=== PATIENT | female | born 1995 | race Caucasian/White ===

== ENCOUNTER 2021-09-21 13:49 | Emergency (ER) | payer OTHER, SELFPAY ==
--- NOTE | ~2021-09-21 | US_ITS ---
EXAMINATION: US OB <=14 wk fetus w TV INDICATION: , bleeding, pain, LMP unknown TECHNIQUE: Sonography of the pelvis was performed by transabdominal and transvaginal techniques. COMPARISON: 07/11/2021. RESULT: Uterus: - Orientation: 8.8 x 4.5 x 7.2 - Size: cm - Myometrium: homogeneous echogenicity. Endometrial stripe measures 14 mm in thickness. Gestation: - Intrauterine gestational sac: Not not conclusively seen, however there is an anechoic, 3 x 2 x 2 mm focus eccentrically located within the anterior endometrium, with features more consistent wi th an intradecidual sac sign rather than a pseudogestational sac. Right ovary: - Size : 2.6 x 1.5 x 2.5 cm - Normal sonographic appearance with physiologic follicles. Ill-defined, somewhat heterogeneous , 2.1 x 2.4 x 2.7 cm masslike area in the right adnexa with vascular flow. Left ovary: - Size: 2.5 x 1.2 x 2.1 cm - Normal sonographic appearance with physiologic follicles. Pelvis free fluid: None. IMPRESSION: Equivocal examination with findings that may represent very early intrauterine gestation with artifactual right adnexal mass like lesion, versus right sided ectopic (later is consi dered less likely). Recommend gynecologic consultation and continued close clinical, laboratory, and sonographic follow-up. Reviewed, dictated and finalized at location [facility]. IMPRESSION: Equivocal examination with findings that may represent very early i ntrauterine gestation with artifactual right adnexal mass like lesion, versus r ight sided ectopic (later is considered less likely). Recommend gynec ologic consultation and continued close clinical, laboratory, and sonographic f ollow-up.
[2021-09-21 14:04] VITALS: BP 123/71; PULSE 90; RESP 16; TEMP 36.8; O2SAT 100
[2021-09-21 14:24] LABS: Basophils Percent Auto 0.6 % (0.2-1.2); Eosinophils Absolute Auto 0.3 K/mm3 (0-0.3); Eosinophils Percent Auto 4.3 % (0-4.4); Hematocrit 39.4 % (37.0-47.0); Hemoglobin 12.5 g/dL (12.0-15.0); Immature Granulocyte Absolute 0.01 K/mm3 (0.00-0.031); Immature Granulocyte Percent A 0.2 % (0-0.5); Lymphocytes Absolute Auto 1.77 K/mm3 (0.9-3.2); Lymphocytes Percent Auto 27.3 % (18.3-44.2); Mean Corpuscular HGB Conc 31.7 g/dl (32-36); Mean Corpuscular Hemoglobin 26.7 pg (26-34); Mean Corpuscular Volume 84.2 fl (80-100); Mean Platelet Volume 10.3 fl (7.4-10.4); Monocytes Absolute Auto 0.4 K/mm3 (0.1-0.6); Monocytes Percent Auto 6.3 % (2.6-8.5); Neutrophils Percent Auto 61.3 % (45.5-73.1); Platelet Count Result 311 k/mm3 (150-375); Red Blood Count 4.68 M/mm3 (4.2-5.4); Red Cell Distribution Width 13.2 % (11.5-14.5); White Blood Count 6.5 K/mm3 (4.5-10.0)
--- NOTE | 2021-09-21 19:35 | ED.PREGNANCY ---
HPI - General Chief complaint: Vaginal Bleeding Stated complaint: bleeding Time Seen by Provider: 09/21/21 19:29 Source: patient Mode of arrival: ambulatory Limitations: no limitations History of Present Illness HPI Narrative: This is a 26 year old that presents to the ER for vaginal bleeding. Reports history of irregular menstrual cycles, but her LMP was sometime in the beginning of July. Reports she had a positive test over the weekend. She had some light spotting today and pelvic cramping which prompted her to be seen. Her OB is Dr. Ackerman. Denies fever or vomiting. Related Data Home Medications Medication Instructions Recorded Confirmed Anti-Inflammatory 01/22/19 08/04/21 Muscle Relaxant PO 01/22/19 08/04/21 Steroid 01/22/19 08/04/21 albuterol sulfate 2.5 mg/3 mL 2.5 mg inhalation BID 01/22/19 08/04/21 (0.083 %) solution for nebulization albuterol sulfate 90 mcg/actuation 1 puff inhalation QID PRN 01/22/19 08/04/21 aerosol inhaler (ProAir HFA) Shortness Of Breath gabapentin 300 mg capsule 300 mg PO DAILY 07/04/21 08/04/21 lithium carbonate 300 mg 300 mg PO DAILY 07/04/21 08/04/21 tablet,extended release montelukast 10 mg tablet 10 mg PO DAILY 07/04/21 08/04/21 sertraline 50 mg tablet 50 mg PO DAILY 07/04/21 08/04/21 Allergies Allergy/AdvReac Type Severity Reaction Status Date / Time clavulanic acid Allergy Severe BOWEL Verified 09/21/21 19:26 ISSUES strawberry Allergy Intermediate SWELLING/VO Verified 09/21/21 19:26 MITING ammonium alum Allergy Mild LIP Verified 09/21/21 19:26 SWELLING benzocaine Allergy Mild SWELLING Verified 09/21/21 19:26 camphor Allergy Mild LIP Verified 09/21/21 19:26 SWELLING menthol Allergy Mild LIP Verified 09/21/21 19:26 SWELLING petrolatum,white Allergy Mild SWELLING Verified 09/21/21 19:26 phenol Allergy Mild LIP Verified 09/21/21 19:26 SWELLING phenol liquid Allergy Mild SWELLING Verified 09/21/21 19:26 pramoxine Allergy Mild SWELLING Verified 09/21/21 19:26 salicylic acid Allergy Mild LIP Verified 09/21/21 19:26 SWELLING amoxicillin [From Augmentin] Allergy Swelling Verified 09/21/21 19:26 Wasp Allergy Severe SWELLING Uncoded 09/21/21 19:26 PAPER TAPE Allergy Mild RASH Uncoded 09/21/21 19:26 Review of Systems Review of Systems: CONSTITUTIONAL: Denies fever GASTROINTESTINAL: Reports abdominal pain All systems reviewed & are unremarkable except as noted in HPI and below PMFSH Past Medical History Medical History (Updated 09/21/21 @ 21:51 by Darcie Mata PA-C) Anemia Anxiety Arthritis Asthma Depression Migraines Miscarriage (05/17/17) suction d&c Seizures (~04/26/21) Sinus arrhythmia Suppression of menstruation Surgical History Surgical History History of adenoidectomy History of appendectomy History of (05/02/18) primary c/s breech presentation, bicornuate uterus History of laparoscopy (02/01/17) lscope adhesiolysis, ablation of endometriosis History of left knee surgery (06/15/15) History of placement of ear tubes both ear x7 Family History Family History Mother Cerebrovascular accident Acute myocardial infarction Renal failure syndrome Heart disease Father Chronic obstructive lung disease Grandparent Diabetes mellitus maternal grandfather Hypertension maternal grandmother Other Breast cancer paternal aunt Social History Social History (Updated 08/04/21 @ 13:28 by LEOLA Doyle) Smoking status: Never smoker Alcohol intake: never Substance use: never Substance use type: does not use Additional living arrangements comments: single 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
[2021-09-21] MEDS: RHO(D) IMMUNE GLOBULIN 300 MCG/2 ML SYRINGE IM (20:29)
== END 2021-09-21 21:57 | disposition home or self-care (01) ==
PROVIDERS: Emergency Medicine; Emergency Provider Emergency Medicine; PCP Obstetrics & Gynecology
DX: O20.0 Threatened abortion (principal); Z3A.00 Weeks of gestation of pregnancy not specified
CPT/HCPCS: 36415; 76801; 76817; 84702; 85025; 85461; 90384; 96372; 99284; J2790

== ENCOUNTER 2021-09-24 07:36 | Outpatient (CLI) | payer OTHER, SELFPAY ==
[2021-09-24 08:33] LABS: Hematocrit 38.5 % (37.0-47.0); Hemoglobin 12.6 g/dL (12.0-15.0); Mean Corpuscular HGB Conc 32.7 g/dl (32-36); Mean Corpuscular Hemoglobin 26.8 pg (26-34); Mean Corpuscular Volume 81.7 fl (80-100); Mean Platelet Volume 10.6 fl (7.4-10.4); Platelet Count Result 327 k/mm3 (150-375); Red Blood Count 4.71 M/mm3 (4.2-5.4); Red Cell Distribution Width 12.9 % (11.5-14.5); White Blood Count 6.8 K/mm3 (4.5-10.0)
[2021-09-24 09:25] LABS: HIV 1/2 Ab P24 Ag Result Negative (Negative)
[2021-09-24 09:41] LABS: Rubella IgG Antibody 20.6 IU/ML
[2021-09-24 09:45] LABS: Hepatitis B Surface Antigen Negative (Negative)
[2021-09-27 07:10] LABS: Rapid Plasma Reagin Non-Reactive (NonReactive)
[2021-09-27 11:05] LABS: CMV IgG Antibody <0.60 U/mL (<0.60)
[2021-09-29 21:37] LABS: Varicella IgG Antibody <135.00 Index (>=165.00)
== END 2021-09-24 07:37 | disposition home or self-care (01) ==
LOC: ANHLAB 07:39
PROVIDERS: PCP Obstetrics & Gynecology; Visit Provider Obstetrics & Gynecology
DX: N94.89 Other specified conditions associated with female genital organs and menstrual cycle (principal)
CPT/HCPCS: 36415; 84702; 85027; 85461; 86592; 86644; 86703; 86747; 86762; 86787; 86880; 86902; 87086; 87340; G0432

== ENCOUNTER 2021-10-09 11:03 | Emergency (ER) | payer OTHER, SELFPAY ==
--- NOTE | ~2021-10-09 | US_ITS ---
EXAMINATION: US OB <= 14 weeks fetus INDICATION: bleeding, TECHNIQUE: Sonography of the pelvis was performed by transabdominal and transvaginal techniques. COMPARISON: None. RESULT: Uterus: - Orientation: Anteverted - Size: 8.8 x 7.9 x 5.4 cm - Myometrium: homogeneous echogenicity . Gestation: - Intrauterine gestational sac: Single present - Yolk sac: Present. - Embryo: Single present - [place] rump length: 0.8 cm, corresponding gestational age 6 weeks, 5 days -Gestational heart rate: 155 bpm -Subgestational hematoma: Present, measuring 0.9 x 1.5 x 2.0 cm. Right ovary: -Not visualized Left ovary: - Size: 2.1 x 1.5 x 1.8 cm - Normal sonographic appearance with physiologic follicles. Pelvis free fluid: Small free fluid is likely physiologic. IMPRESSION: Single, live intrauterine gestation. 2 cm subgestational hematoma. Estimated Gestational Age: 6 weeks, 5 days by crown rump length. SHILPI by ultrasound 05/30/2022. Reviewed, dictated and finalized at location [facility]. IMPRESSION: Single, live intrauterine gestation. 2 cm subgestational hematoma. Estimated Gestational Age: 6 weeks, 5 days by crown rump length. SHILPI by ultras ound 05/30/2022.
[2021-10-09 11:12] VITALS: BP 112/70; PULSE 93; RESP 18; TEMP 36.9; O2SAT 98
[2021-10-09 11:49] LABS: Basophils Percent Auto 0.6 % (0.2-1.2); Eosinophils Absolute Auto 0.3 K/mm3 (0-0.3); Eosinophils Percent Auto 4.1 % (0-4.4); Hematocrit 40.4 % (37.0-47.0); Hemoglobin 12.6 g/dL (12.0-15.0); Immature Granulocyte Absolute 0.01 K/mm3 (0.00-0.031); Immature Granulocyte Percent A 0.2 % (0-0.5); Lymphocytes Absolute Auto 1.84 K/mm3 (0.9-3.2); Lymphocytes Percent Auto 29.1 % (18.3-44.2); Mean Corpuscular HGB Conc 31.2 g/dl (32-36); Mean Corpuscular Hemoglobin 26.4 pg (26-34); Mean Corpuscular Volume 84.7 fl (80-100); Mean Platelet Volume 10.8 fl (7.4-10.4); Monocytes Absolute Auto 0.4 K/mm3 (0.1-0.6); Neutrophils Absolute Auto 3.8 K/mm3 (1.3-6.7); Platelet Count Result 282 k/mm3 (150-375); Red Blood Count 4.77 M/mm3 (4.2-5.4); Red Cell Distribution Width 13.4 % (11.5-14.5); White Blood Count 6.3 K/mm3 (4.5-10.0)
--- NOTE | 2021-10-09 14:13 | ED.PREGNANCY ---
HPI - General Chief complaint: Vaginal Bleeding <Darcie Mata PA-C - Last Filed: 10/09/21 16:00> Stated complaint: VAGINAL BLEEDING, 8 WEEKS <Darcie Mata PA-C - Last Filed: 10/09/21 16:00> Time Seen by Provider: 10/09/21 13:30 <Darcie Mata PA-C - Last Filed: 10/09/21 16:00> Source: patient <BRADLEY Hewitt Last Filed: 10/09/21 16:00> Mode of arrival: ambulatory <BRADLEY Hewitt Last Filed: 10/09/21 16:00> Limitations: no limitations <BRADLEY Hewitt Last Filed: 10/09/21 16:00> History of Present Illness HPI Narrative: This is a 26 year old , about 8 weeks , that presents to the ER for vaginal bleeding today. Associated with some mild pelvic cramping. Her OB is Dr. Ackerman. Denies fever or vomiting. <Darcie Mata PA-C - Last Filed: 10/09/21 16:00> Related Data Home medications: Home Medications Medication Instructions Recorded Confirmed Anti-Inflammatory 01/22/19 08/04/21 Muscle Relaxant PO 01/22/19 08/04/21 Steroid 01/22/19 08/04/21 albuterol sulfate 2.5 mg/3 mL 2.5 mg inhalation BID 01/22/19 08/04/21 (0.083 %) solution for nebulization albuterol sulfate 90 mcg/actuation 1 puff inhalation QID PRN 01/22/19 08/04/21 aerosol inhaler (ProAir HFA) Shortness Of Breath gabapentin 300 mg capsule 300 mg PO DAILY 07/04/21 08/04/21 lithium carbonate 300 mg 300 mg PO DAILY 07/04/21 08/04/21 tablet,extended release montelukast 10 mg tablet 10 mg PO DAILY 07/04/21 08/04/21 sertraline 50 mg tablet 50 mg PO DAILY 07/04/21 08/04/21 <BRADLEY Hewitt Last Filed: 10/09/21 16:00> Allergies/Adverse reactions: Allergies Allergy/AdvReac Type Severity Reaction Status Date / Time clavulanic acid Allergy Severe BOWEL Verified 09/21/21 19:26 ISSUES strawberry Allergy Intermediate SWELLING/VO Verified 09/21/21 19:26 MITING ammonium alum Allergy Mild LIP Verified 09/21/21 19:26 SWELLING benzocaine Allergy Mild SWELLING Verified 09/21/21 19:26 camphor Allergy Mild LIP Verified 09/21/21 19:26 SWELLING menthol Allergy Mild LIP Verified 09/21/21 19:26 SWELLING petrolatum,white Allergy Mild SWELLING Verified 09/21/21 19:26 phenol Allergy Mild LIP Verified 09/21/21 19:26 SWELLING phenol liquid Allergy Mild SWELLING Verified 09/21/21 19:26 pramoxine Allergy Mild SWELLING Verified 09/21/21 19:26 salicylic acid Allergy Mild LIP Verified 09/21/21 19:26 SWELLING amoxicillin [From Augmentin] Allergy Swelling Verified 09/21/21 19:26 Wasp Allergy Severe SWELLING Uncoded 09/21/21 19:26 PAPER TAPE Allergy Mild RASH Uncoded 09/21/21 19:26 <Darcie Mata PA-C - Last Filed: 10/09/21 16:00> Review of Systems Review of Systems: CONSTITUTIONAL: Denies fever GASTROINTESTINAL: Denies abdominal pain, nausea, vomiting GENITOURINARY: Denies dysuria <Darcie Mata PA-C - Last Filed: 10/09/21 16:00> All systems reviewed & are unremarkable except as noted in HPI and below <Darcie Mata PA-C - Last Filed: 10/09/21 16:00> [facility] Past Medical History Medical History: Medical History (Updated 10/09/21 @ 15:59 by Darcie Mata PA-C) Anemia Anxiety Arthritis Asthma Depression Migraines Miscarriage (05/17/17) suction d&c Seizures (~04/26/21) Sinus arrhythmia Suppression of menstruation <Darcie Mata PA-C - Last Filed: 10/09/21 16:00> Surgical History Surgical History: Surgical History History of adenoidectomy History of appendectomy History of (05/02/18) primary c/s breech presentation, bicornuate uterus History of laparoscopy (02/01/17) lscope adhesiolysis, ablation of endometriosis History of left knee surgery (06/15/15) History of placement of ear tubes both ear x7 <Darcie Mata PA-C - Last Filed: 10/09/21 16:00> Family History Family History: Family History (Review
[2021-10-09 14:28] VITALS: BP 105/58; PULSE 74
[2021-10-09 14:31] VITALS: BP 104/62; PULSE 82
[2021-10-09 14:32] VITALS: BP 100/77; PULSE 94
== END 2021-10-09 16:37 | disposition home or self-care (01) ==
PROVIDERS: Emergency Provider Emergency Medicine; PCP Internal Medicine
DX: O46.8X1 Other antepartum hemorrhage, first trimester (principal); J45.909 Unspecified asthma, uncomplicated; M19.90 Unspecified osteoarthritis, unspecified site; F41.9 Anxiety disorder, unspecified; F32.A Depression, unspecified; Z86.2 Personal history of diseases of the blood and blood-forming organs and certain disorders involving the immune mechanism; Z3A.01 Less than 8 weeks gestation of pregnancy
CPT/HCPCS: 36415; 76801; 84702; 85025; 99284

== ENCOUNTER 2021-11-10 13:48 | Emergency (ER) | payer OTHER, SELFPAY ==
--- NOTE | ~2021-11-10 | US_ITS ---
EXAMINATION: US OB <=14 wk fetus w TV DATE: 11/10/2021 17:14 INDICATION: Vaginal bleeding. TECHNIQUE: Real-time transabdominal and transvaginal pelvic ultrasound was performed. COMPARISON: Ultrasound 10/21/2021, 10/09/2021, 09/21/2021 FINDINGS: TRANSABDOMINAL ULTRASOUND: The uterus measures 11.6 x 7.5 x 11.3 cm. TRANSVAGINAL ULTRASOUND: There is an intrauterine gestational sac. The crown rump length measur es 5.6 cm, which correlates with an estimated gestational age of 12 weeks and 1 day(s) (+/-) 1 week(s ) and 1 day(s). heart motion is identified measuring 157 beats per minute (bpm) by M-mode Doppl er. The cervical length is 3.3 cm. The ovaries are not visualized. There is no free fluid in the pelv is. IMPRESSION: 1. Single living intrauterine gestation with estimated date of delivery of 05/30/2022 based on the ult rasound from 10/09/2021. Reviewed, dictated and finalized at location A. IMPRESSION: 1. Single living intrauterine gestation with estimated date of delivery of 05/30 based on the ultrasound from 10/09/2021.
[2021-11-10 14:14] VITALS: BP 105/64; PULSE 93; RESP 18; TEMP 36.8; O2SAT 100
[2021-11-10 14:57] LABS: Basophils Percent Auto 0.3 % (0.2-1.2); Eosinophils Absolute Auto 0.2 K/mm3 (0-0.3); Eosinophils Percent Auto 2.1 % (0-4.4); Hematocrit 37.8 % (37.0-47.0); Hemoglobin 12.4 g/dL (12.0-15.0); Immature Granulocyte Absolute 0.02 K/mm3 (0.00-0.031); Immature Granulocyte Percent A 0.3 % (0-0.5); Lymphocytes Percent Auto 19.5 % (18.3-44.2); Mean Corpuscular HGB Conc 32.8 g/dl (32-36); Mean Corpuscular Hemoglobin 27.2 pg (26-34); Mean Corpuscular Volume 82.9 fl (80-100); Mean Platelet Volume 10.2 fl (7.4-10.4); Monocytes Absolute Auto 0.4 K/mm3 (0.1-0.6); Monocytes Percent Auto 5.1 % (2.6-8.5); Neutrophils Absolute Auto 5.6 K/mm3 (1.3-6.7); Neutrophils Percent Auto 72.7 % (45.5-73.1); Platelet Count Result 261 k/mm3 (150-375); Red Blood Count 4.56 M/mm3 (4.2-5.4); Red Cell Distribution Width 13.5 % (11.5-14.5); White Blood Count 7.7 K/mm3 (4.5-10.0)
[2021-11-10 15:25] LABS: Appearance Urine Slightly Cloudy (Clear); Bilirubin Urine 1+ (Negative); Blood Urine 3+ (Negative); Color Urine Yellow (Yellow); Glucose Urine UA Negative (Negative); Ketones Urine 3+ mg/dL (Negative); Leukocyte Esterase Ur Negative LEU/UL (Negative); Nitrate Urine Negative (Negative); Protein Urine 1+ mg/dL (Negative); Specific Grav Ur >= 1.030 (1.001-1.035); Urobilinogen Urine 0.2 mg/dL (<2.0); pH Urine 5.5 (5.0-9.0)
[2021-11-10 15:32] LABS: Bacteria Urine Trace /hpf; Mucus Urine Heavy /lpf; Squamous Epithelial Cell Urine Many /hpf (Few); WBC Urine 0-3 /hpf
[2021-11-10 15:33] LABS: Add Urine Microscopic? YES
[2021-11-10] MEDS: LACTATED RINGERS 1,000 ML 999 ML IV CONT (17:24)
--- NOTE | 2021-11-10 18:26 | ED.PREGNANCY ---
HPI - General Chief complaint: Vaginal Bleeding Stated complaint: 12 wks preg, bleeding, n/v Time Seen by Provider: 11/10/21 16:11 Source: patient Mode of arrival: ambulatory Limitations: no limitations History of Present Illness HPI Narrative: 26-year-old 4 para 1 about 12 weeks of gestation here with complaints of 4 days history of nausea and vomiting, unable to keep fluids down this morning she states that she had mild vaginal bleeding. Presently she has lower abdominal cramping and no active bleeding. MD Complaint: abdominal pain and vaginal bleeding Onset (ago): day(s) (1) Severity: mild Quality: Cramping Relieving factors: none Exacerbating factors: none Associated symptoms: denies other symptoms Related Data Home Medications Medication Instructions Recorded Confirmed Anti-Inflammatory 01/22/19 08/04/21 Muscle Relaxant PO 01/22/19 08/04/21 Steroid 01/22/19 08/04/21 albuterol sulfate 2.5 mg/3 mL 2.5 mg inhalation BID 01/22/19 08/04/21 (0.083 %) solution for nebulization albuterol sulfate 90 mcg/actuation 1 puff inhalation QID PRN 01/22/19 08/04/21 aerosol inhaler (ProAir HFA) Shortness Of Breath gabapentin 300 mg capsule 300 mg PO DAILY 07/04/21 08/04/21 lithium carbonate 300 mg 300 mg PO DAILY 07/04/21 08/04/21 tablet,extended release montelukast 10 mg tablet 10 mg PO DAILY 07/04/21 10/18/21 sertraline 50 mg tablet 50 mg PO DAILY 07/04/21 10/18/21 Allergies Allergy/AdvReac Type Severity Reaction Status Date / Time clavulanic acid Allergy Severe BOWEL Verified 11/10/21 16:06 ISSUES strawberry Allergy Intermediate SWELLING/VO Verified 11/10/21 16:06 MITING ammonium alum Allergy Mild LIP Verified 11/10/21 16:06 SWELLING benzocaine Allergy Mild SWELLING Verified 11/10/21 16:06 camphor Allergy Mild LIP Verified 11/10/21 16:06 SWELLING menthol Allergy Mild LIP Verified 11/10/21 16:06 SWELLING petrolatum,white Allergy Mild SWELLING Verified 11/10/21 16:06 phenol Allergy Mild LIP Verified 11/10/21 16:06 SWELLING phenol liquid Allergy Mild SWELLING Verified 11/10/21 16:06 pramoxine Allergy Mild SWELLING Verified 11/10/21 16:06 salicylic acid Allergy Mild LIP Verified 11/10/21 16:06 SWELLING amoxicillin [From Augmentin] Allergy Swelling Verified 11/10/21 16:06 Wasp Allergy Severe SWELLING Uncoded 10/18/21 08:42 PAPER TAPE Allergy Mild RASH Uncoded 10/18/21 08:42 Review of Systems Review of Systems: All systems reviewed & are unremarkable except as noted in HPI and below Constitutional: Constitutional: Reports no additional constitutional complaints Eyes: Eyes: Reports no additional eye complaints ENT: Reports system reviewed and no additional complaints, except as documented Cardiovascular: Cardiovascular: Reports no additional cardiovascular complaints Gastrointestinal: Gastrointestinal: Reports as per HPI Genitourinary: Genitourinary: Reports no additional female genitourinary complaints Musculoskeletal: Musculoskeletal: Reports no additional musculoskeletal complaints Neurologic: Reports system reviewed and no additional complaints, except as documented PMFSH Past Medical History Medical History Anemia Anxiety Arthritis Asthma Depression Migraines Miscarriage (05/17/17) suction d&c Seizures (~04/26/21) Sinus arrhythmia Suppression of menstruation Surgical History Surgical History History of adenoidectomy History of appendectomy History of (05/02/18) primary c/s breech presentation, bicornuate uterus History of laparoscopy (02/01/17) lscope adhesiolysis, ablation of endometriosis History of left knee surgery (06/15/15) History of placement of ear tubes both ear x7 Family History Family History Mother Cerebrovascular accident Acute myocardial infa
[2021-11-10 18:45] VITALS: BP 110/71; PULSE 67; RESP 17; O2SAT 99
[2021-11-10 19:00] VITALS: BP 110/58; PULSE 65; RESP 16; O2SAT 100
== END 2021-11-10 19:01 | disposition home or self-care (01) ==
PROVIDERS: Emergency Medicine; Emergency Provider Family Medicine; PCP Obstetrics & Gynecology
DX: O21.0 Mild hyperemesis gravidarum (principal); O20.0 Threatened abortion; Z3A.12 12 weeks gestation of pregnancy; O99.511 Diseases of the respiratory system complicating pregnancy, first trimester; J45.909 Unspecified asthma, uncomplicated; O99.341 Other mental disorders complicating pregnancy, first trimester; F41.9 Anxiety disorder, unspecified; F32.A Depression, unspecified; Z86.2 Personal history of diseases of the blood and blood-forming organs and certain disorders involving the immune mechanism
CPT/HCPCS: 36415; 76801; 76817; 81001; 81025; 84702; 85025; 85461; 86880; 86902; 96360; 99284; J7120

== ENCOUNTER 2021-12-29 15:32 | Observation (INO) | payer OTHER, SELFPAY ==
[2021-12-29 15:42] VITALS: BP 106/63; PULSE 111
[2021-12-29 15:48] LABS: Glucose Point of Care 111 mg/dl (65-105)
--- NOTE | 2021-12-29 16:00 | OBADM ---
This patient, Melina Tavarez, admitted to the OB room OB Post [facility] for observation. Patient/family oriented to hospital policies and general routines including ID bracelet, bed and alarms, visiting hours, pain management, procedures, bathroom and other care routines, personal items, smoking policy, room service/diet, and visiting hours. Patient/Family are encouraged to report perceived risks to care and to ask questions if they do not understand what they are told or what they should do.
--- NOTE | 2021-12-29 16:04 | PC.NURSE ---
Dr. Cee notified of patients vital signs and blood sugar. Okay to be discharged.
--- NOTE | 2021-12-29 16:12 | PC.NURSE ---
Patient's FHT in the 140s using the doppler.
--- NOTE | 2021-12-30 14:02 | PM.OBTRLD ---
OB - Triage/Final Diagnosis Visit Information Comments/Additional reasons for admission: I have assessed the risk for this patient, Melina Tavarez, and determined that she would benefit from observation care. Evaluation Laboratory results: Laboratory Tests 12/29/21 15:45 POC Capillary Glucose 111 H Vital signs: Vital Signs - 24 hr 12/29/21 15:42 Pulse Rate 111 H Blood Pressure 106/63 Final Diagnosis (1) Abnormal laboratory test: Code(s): R89.9 - Unspecified abnormal finding in specimens from other organs, systems and tissues Status: Acute
== END 2021-12-29 16:11 | disposition home or self-care (01) ==
PROVIDERS: Admitting Provider Obstetrics & Gynecology; PCP Internal Medicine; Visit Provider Obstetrics & Gynecology
DX: O26.892 Other specified pregnancy related conditions, second trimester (principal); R89.9 Unspecified abnormal finding in specimens from other organs, systems and tissues; O24.419 Gestational diabetes mellitus in pregnancy, unspecified control; Z3A.19 19 weeks gestation of pregnancy
CPT/HCPCS: 82948; G0378; G0379

== ENCOUNTER 2022-01-16 17:27 | Emergency (ER) | payer OTHER, SELFPAY ==
[2022-01-16] VITALS (9 sets, daily range): BP systolic 97–139; BP diastolic 56–76; PULSE 114–138; RESP 17–24; TEMP 36.8; O2SAT 98–100
--- NOTE | ~2022-01-16 | XR_ITS ---
XR chest 1V portable DATE: 01/16/2022 19:55 INDICATION: Shortness of breath and cough since 3 days ago TECHNIQUE: Portable upright AP chest on 01/12/2022 at 1950 hours COMPARISON: None FINDINGS: Normal heart size. No hilar or mediastinal enlargement. The lungs are clear of infiltrate o r consolidation. Included skeletal structures are unremarkable other than minimal thoracic scoliosis. IMPRESSION: No active cardiopulmonary disease Reviewed, dictated and finalized at location A.
--- NOTE | 2022-01-16 19:20 | PC.NURSE ---
Assumed care of pt at this time. Pt alert and upright on stretcher, updated on POC.
[2022-01-16] MEDS: ALBUTEROL SULFATE NEB 2.5 MG/3 ML INH 5 MG INHALATION (19:54)
[2022-01-16] MEDS: IPRATROPIUM BR 0.02% INH SOLN 0.5 MG/2.5 ML VIAL INHALATION (19:54)
[2022-01-16] MEDS: ACETAMINOPHEN 500 MG TABLET 1000 MG PO (19:57)
[2022-01-16] MEDS: methylPREDNISolone SOD SUCC 125 MG VIAL IV PUSH (19:58)
[2022-01-16] MEDS: MAGNESIUM SULF 2 GM/WATER 50ML 2 GM/50 ML BAG IVPB (20:03)
[2022-01-16] MEDS: SODIUM CHLORIDE 0.9% IV 1,000 ML 999 ML IV CONT (20:04)
[2022-01-16 20:40] LABS: Influenza A QL RT-PCR Positive (Negative); Influenza B QL RT-PCR Negative (Negative); SARS-CoV-2 RNA PCR Negative
--- NOTE | 2022-01-16 21:00 | ED.GENADULT ---
HPI - General Adult General Chief complaint: Asthma Stated complaint: asthma acting up, 22 weeks Time Seen by Provider: 01/16/22 19:15 History of Present Illness HPI narrative: This is a 26-year-old female who is 22 weeks . patient states the last 2 days she has been having a dry cough, several episodes of nausea and vomiting, and an episode of diarrhea. She also says that she feels like she is having some chest tightness which she attributes to her asthma. The patient has been taking her inhalers with no benefit. The patient denies sick contacts at home. She took a home COVID test which was negative. Related Data Home Medications Medication Instructions Recorded Confirmed Muscle Relaxant PO 01/22/19 01/10/22 albuterol sulfate 2.5 mg/3 mL 2.5 mg inhalation BID 01/22/19 01/10/22 (0.083 %) solution for nebulization albuterol sulfate 90 mcg/actuation 1 puff inhalation QID PRN 01/22/19 01/10/22 aerosol inhaler (ProAir HFA) Shortness Of Breath gabapentin 300 mg capsule 300 mg PO DAILY 07/04/21 01/10/22 lithium carbonate 300 mg 300 mg PO DAILY 07/04/21 01/10/22 tablet,extended release montelukast 10 mg tablet 10 mg PO DAILY 07/04/21 01/10/22 Allergies Allergy/AdvReac Type Severity Reaction Status Date / Time clavulanic acid Allergy Severe BOWEL Verified 01/16/22 19:07 ISSUES strawberry Allergy Intermediate SWELLING/VO Verified 01/16/22 19:07 MITING ammonium alum Allergy Mild LIP Verified 01/16/22 19:07 SWELLING benzocaine Allergy Mild SWELLING Verified 01/16/22 19:07 camphor Allergy Mild LIP Verified 01/16/22 19:07 SWELLING menthol Allergy Mild LIP Verified 01/16/22 19:07 SWELLING petrolatum,white Allergy Mild SWELLING Verified 01/16/22 19:07 phenol Allergy Mild LIP Verified 01/16/22 19:07 SWELLING phenol liquid Allergy Mild SWELLING Verified 01/16/22 19:07 pramoxine Allergy Mild SWELLING Verified 01/16/22 19:07 salicylic acid Allergy Mild LIP Verified 01/16/22 19:07 SWELLING amoxicillin [From Augmentin] Allergy Swelling Verified 01/16/22 19:07 Wasp Allergy Severe SWELLING Uncoded 01/16/22 19:07 PAPER TAPE Allergy Mild RASH Uncoded 01/16/22 19:07 Review of Systems Review of Systems: CONSTITUTIONAL: Denies night sweats. EYES: No eye pain ENT: Denies rhinorrhea CARDIOVASCULAR: Denies palpitations RESPIRATORY: Denies hemoptysis GASTROINTESTINAL: Denies hematemesis GENITOURINARY: Denies hematuria. SKIN: Denies rash MUSCULOSKELETAL: Denies myalgia. NEUROLOGIC: Denies weakness. PSYCHIATRIC: Denies delusions [facility] Past Medical History Medical History Anemia Anxiety Arthritis Asthma Depression Migraines Miscarriage (05/17/17) suction d&c Seizures (~04/26/21) Sinus arrhythmia Suppression of menstruation Surgical History Surgical History History of adenoidectomy History of appendectomy History of (05/02/18) primary c/s breech presentation, bicornuate uterus History of laparoscopy (02/01/17) lscope adhesiolysis, ablation of endometriosis History of left knee surgery (06/15/15) History of placement of ear tubes both ear x7 Family History Family History Mother Cerebrovascular accident Acute myocardial infarction Renal failure syndrome Heart disease Father Chronic obstructive lung disease Grandparent Diabetes mellitus maternal grandfather Hypertension maternal grandmother Other Breast cancer paternal aunt Social History Social History Smoking status: Never smoker Alcohol intake: never Substance use: never Substance use type: does not use Additional living arrangements comments: single 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
[2022-01-16] MEDS: OSELTAMIVIR PHOSPHATE 75 MG CAPSULE PO (21:18)
== END 2022-01-16 21:30 | disposition home or self-care (01) ==
PROVIDERS: Emergency Provider Emergency Medicine; PCP Internal Medicine
DX: O99.891 Other specified diseases and conditions complicating pregnancy (principal); J10.1 Influenza due to other identified influenza virus with other respiratory manifestations; J45.909 Unspecified asthma, uncomplicated; Z20.822 Contact with and (suspected) exposure to COVID-19; Z3A.22 22 weeks gestation of pregnancy
CPT/HCPCS: 71045; 87502; 94640; 96365; 96375; 99284; A9270; J2930; J3475; J7030; U0003; U0005

== ENCOUNTER 2022-02-12 14:48 | Outpatient (CLI) | payer OTHER, SELFPAY ==
[2022-02-12 15:30] VITALS: BP 105/58; PULSE 84
[2022-02-12 15:45] VITALS: BP 97/65; PULSE 84
[2022-02-12 16:00] VITALS: BP 105/58
== END 2022-02-12 16:20 | disposition home or self-care (01) ==
LOC: ANHOBOP 14:53 → ANHOBPP 14:53
PROVIDERS: PCP Internal Medicine; Visit Provider Obstetrics & Gynecology
DX: O42.90 Premature rupture of membranes, unspecified as to length of time between rupture and onset of labor, unspecified weeks of gestation (principal); Z3A.00 Weeks of gestation of pregnancy not specified
CPT/HCPCS: 59025; 84112; 99199

== ENCOUNTER 2022-02-15 19:00 | Observation (INO) | payer OTHER, SELFPAY ==
--- NOTE | ~2022-02-15 | XR_ITS ---
EXAM: XR hip RT min 2V DATE: 02/15/2022 20:07 HISTORY: FALL DOWN 6 STAIRS . COMPARISON: None available. FINDINGS: Normal mineralization. No fracture or dislocation. No lytic or blastic lesion. Joint space s are maintained. No erosion or periosteal change. Soft tissues within normal limits. IMPRESSION: No acute osseous finding in the right hip. Reviewed, dictated and finalized at location K. [employer]
--- NOTE | ~2022-02-15 | XR_ITS ---
EXAM: XR lumbar spine 2-3V DATE: 02/15/2022 20:07 HISTORY: FALL DOWN 6 STAIRS . COMPARISON: None available. FINDINGS: Gravid uterus. 5 nonrib-bearing lumbar-type vertebral bodies. Pedicles intact. Normal verte bral body alignment. Acute anterior angulation at the sacrococcygeal junction. Vertebral body heights preserved. Disc spaces maintained. Normal facets and posterior elements. No fracture or dislocation. IMPRESSION: Acute anterior angulation at the sacrococcygeal junction, presumably normal unless accomp anied by coccygeal pain/point tenderness or pain with mobilization. No acute fracture or traumatic ma lalignment detected in the lumbar spine Reviewed, dictated and finalized at location K. T LEADER IMPRESSION: Acute anterior angulation at the sacrococcygeal junction, presumabl y normal unless accompanied by coccygeal pain/point tenderness or pain with mob ilization. No acute fracture or traumatic malalignment detected in the lumbar s pine
[2022-02-15 19:10] VITALS: BP 103/63; PULSE 93; RESP 17; TEMP 36.7; O2SAT 99
--- NOTE | 2022-02-15 19:44 | ED.FALL ---
HPI - Fall General Chief Complaint: Fall Stated Complaint: 26 wks preg, fall, lumbar pain Time Seen by Provider: 02/15/22 19:39 Source: RN notes reviewed History of Present Illness HPI Narrative: Patient presents emergency department from home for fall. Patient states that just prior to arrival she fell down approximately 6 stairs when she slipped. She states that she felt and over and and since the fall has been noting pain in her right hip as well as in her back. She denies striking her head or loss of consciousness she denies any neck pain chest pain shortness of breath states she does have some mild abdominal cramping but no abdominal pain patient is currently [address] weeks [address] followed by Dr[address] Ackerman states that she is a high risk secondary to low amniotic fluid. She denies having any vaginal bleeding. She states that she is not taking thing for the pain Related Data Home Medications Medication Instructions Recorded Confirmed Muscle Relaxant PO 01/22/19 01/31/22 albuterol sulfate 2.5 mg/3 mL 2.5 mg inhalation BID 01/22/19 01/31/22 (0.083 %) solution for nebulization albuterol sulfate 90 mcg/actuation 1 puff inhalation QID PRN 01/22/19 01/31/22 aerosol inhaler (ProAir HFA) Shortness Of Breath gabapentin 300 mg capsule 300 mg PO DAILY 07/04/21 01/31/22 lithium carbonate 300 mg 300 mg PO DAILY 07/04/21 01/31/22 tablet,extended release montelukast 10 mg tablet 10 mg PO DAILY 07/04/21 01/31/22 Allergies Allergy/AdvReac Type Severity Reaction Status Date / Time clavulanic acid Allergy Severe BOWEL Verified 02/15/22 13:29 ISSUES strawberry Allergy Intermediate SWELLING/VO Verified 02/15/22 13:29 MITING ammonium alum Allergy Mild LIP Verified 02/15/22 13:29 SWELLING benzocaine Allergy Mild SWELLING Verified 02/15/22 13:29 camphor Allergy Mild LIP Verified 02/15/22 13:29 SWELLING menthol Allergy Mild LIP Verified 02/15/22 13:29 SWELLING petrolatum,white Allergy Mild SWELLING Verified 02/15/22 13:29 phenol Allergy Mild LIP Verified 02/15/22 13:29 SWELLING phenol liquid Allergy Mild SWELLING Verified 02/15/22 13:29 pramoxine Allergy Mild SWELLING Verified 02/15/22 13:29 salicylic acid Allergy Mild LIP Verified 02/15/22 13:29 SWELLING amoxicillin [From Augmentin] Allergy Swelling Verified 02/15/22 13:29 Wasp Allergy Severe SWELLING Uncoded 02/15/22 13:29 PAPER TAPE Allergy Mild RASH Uncoded 02/15/22 13:29 Review of Systems Review of Systems: Gen.: Denies fevers or chills Eyes: Denies eye pain or visual change ENT: Denies congestion Respiratory: Denies shortness of breath or cough CV: Denies chest pain or palpitations GI: Denies abdominal pain nausea, emesis or diarrhea reports Musculoskeletal: See HPI Neuro: Denies numbness, tingling, weakness or focal weakness Skin: Denies rash Except as documented, all other systems reviewed and negative PMFSH Past Medical History Medical History Anemia Anxiety Arthritis Asthma Depression Migraines Miscarriage (05/17/17) suction d&c Seizures (~04/26/21) Sinus arrhythmia Suppression of menstruation Vaginal discharge Surgical History Surgical History History of adenoidectomy History of appendectomy History of (05/02/18) primary c/s breech presentation, bicornuate uterus History of laparoscopy (02/01/17) lscope adhesiolysis, ablation of endometriosis History of left knee surgery (06/15/15) History of placement of ear tubes both ear x7 Family History Family History Mother Cerebrovascular accident Acute myocardial infarction Renal failure syndrome Heart disease Father Chronic obstructive lung disease Grandparent Diabetes mellitus maternal grandfather Hypertension maternal grandmother Other Breast cancer
[2022-02-15] MEDS: ACETAMINOPHEN 500 MG TABLET 1000 MG PO (20:07)
[2022-02-15 21:53] VITALS: BP 106/57; PULSE 67
[2022-02-15 22:00] VITALS: BP 103/54; PULSE 68
[2022-02-15] MEDS: LACTATED RINGERS 1,000 ML 999 ML IV CONT (22:02)
[2022-02-15 23:00] VITALS: BP 102/52; PULSE 67
--- NOTE | 2022-02-20 14:01 | PM.OBTRLD ---
OB - Triage/Final Diagnosis Visit Information Reason for evaluation: other ( status post fall / monitoring) Comments/Additional reasons for admission: I have assessed the risk for this patient, Melina Eric Tavarez, and determined that she would benefit from observation care. Evaluation Laboratory results: Laboratory Tests 02/15/22 20:14 KB Hemoglobin Negative
== END 2022-02-16 00:15 | disposition home or self-care (01) ==
LOC: ANHED 21:21 → ANHOBPP 21:43
PROVIDERS: Admitting Provider Obstetrics & Gynecology; Emergency Provider Emergency Medicine; PCP Obstetrics & Gynecology; Visit Provider Obstetrics & Gynecology
DX: O9A.212 Injury, poisoning and certain other consequences of external causes complicating pregnancy, second trimester (principal); S70.01XA Contusion of right hip, initial encounter; M54.50 Low back pain, unspecified; O99.342 Other mental disorders complicating pregnancy, second trimester; F41.9 Anxiety disorder, unspecified; F32.A Depression, unspecified; O99.352 Diseases of the nervous system complicating pregnancy, second trimester; R56.9 Unspecified convulsions; O99.512 Diseases of the respiratory system complicating pregnancy, second trimester; J45.909 Unspecified asthma, uncomplicated; O99.891 Other specified diseases and conditions complicating pregnancy; M19.90 Unspecified osteoarthritis, unspecified site; W10.9XXA Fall (on) (from) unspecified stairs and steps, initial encounter; Z3A.26 26 weeks gestation of pregnancy
CPT/HCPCS: 36415; 72100; 73502; 85460; 99285; A9270; G0378; G0379; J7120

== ENCOUNTER 2022-03-09 08:05 | Outpatient (RCR) | payer OTHER, SELFPAY ==
[2022-03-09 08:35] LABS: Hematocrit 33.9 % (37.0-47.0); Mean Corpuscular HGB Conc 32.4 g/dl (32-36); Mean Corpuscular Hemoglobin 27.6 pg (26-34); Mean Corpuscular Volume 85.2 fl (80-100); Mean Platelet Volume 10.3 fl (7.4-10.4); Platelet Count Result 251 k/mm3 (150-375); Red Blood Count 3.98 M/mm3 (4.2-5.4); Red Cell Distribution Width 13.4 % (11.5-14.5); White Blood Count 7.8 K/mm3 (4.5-10.0)
[2022-03-09 09:28] LABS: HIV 1/2 Ab P24 Ag Result Negative (Negative)
[2022-03-09 09:45] LABS: Glucose 1 Hour PP 50gm Dose 139 mg/dL
[2022-03-10] MEDS: RHO(D) IMMUNE GLOBULIN 300 MCG/2 ML SYRINGE IM (15:44)
== END 2022-06-07 23:59 | disposition home or self-care (01) ==
LOC: ANHLAB 08:05
PROVIDERS: PCP Obstetrics & Gynecology; Visit Provider Student in an Organized Health Care Education/Training Program
DX: Z11.4 Encounter for screening for human immunodeficiency virus [HIV] (principal); Z29.13 Encounter for prophylactic Rho(D) immune globulin; O36.0130 Maternal care for anti-D [Rh] antibodies, third trimester, not applicable or unspecified; Z3A.00 Weeks of gestation of pregnancy not specified
CPT/HCPCS: 36415; 82947; 85027; 85461; 86703; 86850; 86900; 86901; 90384; 96372; G0432; J2790

== ENCOUNTER 2022-03-20 07:17 | Emergency (ER) | payer OTHER, SELFPAY ==
[2022-03-20 07:25] VITALS: BP 110/66; PULSE 118; RESP 20; TEMP 36.5; O2SAT 98
[2022-03-20 07:36] VITALS: O2SAT 98
--- NOTE | 2022-03-20 07:44 | ED.URI ---
HPI - URI/Sore Throat General Chief Complaint: Upper Respiratory Infection Stated Complaint: cough, uri, asthma Time Seen by Provider: 03/20/22 07:36 History of Present Illness HPI Narrative: Pt presents with a cough and shortness of breath for 10 days. Pt is 31 weeks (no abdominal complaints or bleeding). Pt says the cough is persistent in spite of completing a course of Zithromax 3 days ago. Pt has nebulizer and inhaler at home which aren't helping much. Pt denies fever, has mild runny nose. Pt says had testing for flu and covid last week which were negative. Related Data Home Medications Medication Instructions Recorded Confirmed Muscle Relaxant PO 01/22/19 01/31/22 albuterol sulfate 2.5 mg/3 mL 2.5 mg inhalation BID 01/22/19 01/31/22 (0.083 %) solution for nebulization albuterol sulfate 90 mcg/actuation 1 puff inhalation QID PRN 01/22/19 01/31/22 aerosol inhaler (ProAir HFA) Shortness Of Breath gabapentin 300 mg capsule 300 mg PO DAILY 07/04/21 01/31/22 lithium carbonate 300 mg 300 mg PO DAILY 07/04/21 01/31/22 tablet,extended release montelukast 10 mg tablet 10 mg PO DAILY 07/04/21 01/31/22 Allergies Allergy/AdvReac Type Severity Reaction Status Date / Time clavulanic acid Allergy Severe BOWEL Verified 03/20/22 07:38 ISSUES strawberry Allergy Intermediate SWELLING/VO Verified 03/20/22 07:38 MITING ammonium alum Allergy Mild LIP Verified 03/20/22 07:38 SWELLING benzocaine Allergy Mild SWELLING Verified 03/20/22 07:38 camphor Allergy Mild LIP Verified 03/20/22 07:38 SWELLING menthol Allergy Mild LIP Verified 03/20/22 07:38 SWELLING petrolatum,white Allergy Mild SWELLING Verified 03/20/22 07:38 phenol Allergy Mild LIP Verified 03/20/22 07:38 SWELLING phenol liquid Allergy Mild SWELLING Verified 03/20/22 07:38 pramoxine Allergy Mild SWELLING Verified 03/20/22 07:38 salicylic acid Allergy Mild LIP Verified 03/20/22 07:38 SWELLING amoxicillin [From Augmentin] Allergy Swelling Verified 03/20/22 07:38 Wasp Allergy Severe SWELLING Uncoded 03/20/22 07:38 PAPER TAPE Allergy Mild RASH Uncoded 03/20/22 07:38 Review of Systems Constitutional: Constitutional: Denies fever(s) ENT: Reports nasal congestion Cardiovascular: Cardiovascular: Reports no additional cardiovascular complaints Respiratory: Respiratory: Reports cough and Reports dyspnea Gastrointestinal: Gastrointestinal: Reports no additional gastrointestinal complaints Neurologic: Reports system reviewed and no additional complaints, except as documented Psychiatric: Psychiatric: Reports no additional psychiatric complaints Hematologic/Lymphatic: Hematologic/Lymphatic: Reports no additional hematologic/lymphatic complaints Allergic/Immunologic: Allergic/Immunologic: Reports no additional allergic/immunologic complaints [facility] Past Medical History Medical History (Updated 03/20/22 @ 09:23 by Surekha Montemayor III, DO) Anemia Anxiety Arthritis Asthma Blood glucose abnormal Depression Migraines Miscarriage (05/17/17) suction d&c Seizures (~04/26/21) Sinus arrhythmia Suppression of menstruation Vaginal discharge Surgical History Surgical History History of adenoidectomy History of appendectomy History of (05/02/18) primary c/s breech presentation, bicornuate uterus History of laparoscopy (02/01/17) lscope adhesiolysis, ablation of endometriosis History of left knee surgery (06/15/15) History of placement of ear tubes both ear x7 Family History Family History Mother Cerebrovascular accident Acute myocardial infarction Renal failure syndrome Heart disease Father Chronic obstructive lung disease Grandparent Diabetes mellitus maternal grandfather Hypertension maternal grandmother Other Breast cancer paternal aunt Social History Social Hist
[2022-03-20] MEDS: methylPREDNISolone SOD SUCC 125 MG VIAL IM (08:16)
[2022-03-20 08:45] LABS: Influenza A QL RT-PCR Positive (Negative); Influenza B QL RT-PCR Negative (Negative); SARS-CoV-2 RNA PCR Negative
== END 2022-03-20 09:37 | disposition home or self-care (01) ==
PROVIDERS: Emergency Provider Emergency Medicine; PCP Obstetrics & Gynecology
DX: O99.513 Diseases of the respiratory system complicating pregnancy, third trimester (principal); J10.1 Influenza due to other identified influenza virus with other respiratory manifestations; J45.909 Unspecified asthma, uncomplicated; Z20.822 Contact with and (suspected) exposure to COVID-19; O99.343 Other mental disorders complicating pregnancy, third trimester; F41.9 Anxiety disorder, unspecified; F32.A Depression, unspecified; Z86.2 Personal history of diseases of the blood and blood-forming organs and certain disorders involving the immune mechanism; Z3A.31 31 weeks gestation of pregnancy
CPT/HCPCS: 87636; 96372; 99283; J2930

== ENCOUNTER 2022-04-07 18:47 | Observation (INO) | payer OTHER, SELFPAY ==
[2022-04-07] VITALS (20 sets, daily range): BP systolic 102–115; BP diastolic 60–80; PULSE 66–94; RESP 16–17; TEMP 37.2; O2SAT 92–100; BMI 25.6
--- NOTE | 2022-04-07 18:47 | OBADM ---
This patient, Melina Tavarez, admitted to the OB room OB Post 116 for observation. Patient/family oriented to hospital policies and general routines including ID bracelet, bed and alarms, visiting hours, pain management, procedures, bathroom and other care routines, personal items, smoking policy, room service/diet, and visiting hours. Patient/Family are encouraged to report perceived risks to care and to ask questions if they do not understand what they are told or what they should do.
[2022-04-07 19:20] LABS: Appearance Urine Slightly Cloudy (Clear); Bilirubin Urine Negative (Negative); Blood Urine Negative (Negative); Color Urine Yellow (Yellow); Glucose Urine UA Negative (Negative); Ketones Urine Negative (Negative); Leukocyte Esterase Ur 1+ LEU/UL (Negative); Nitrate Urine Negative (Negative); Protein Urine Trace mg/dL (Negative); Specific Grav Ur 1.025 (1.001-1.035); Urobilinogen Urine 0.2 mg/dL (<2.0); pH Urine 6.5 (5.0-9.0)
[2022-04-07 19:23] LABS: Bacteria Urine Trace /hpf; Mucus Urine Rare /lpf; Squamous Epithelial Cell Urine Moderate /hpf (Few)
[2022-04-07 19:31] LABS: Add Urine Microscopic? YES
--- NOTE | 2022-04-07 19:36 | PC.NURSE ---
Updated Dr. Ackerman on patient UA result. Patient complaint of nausea throughout the day. Patient reports active movement. Patient irregularly isaiah with uterine irritability. FHT reactive. VSS. Patient also reports 2minute seizure this morning prior to cramping and contractions, patient states she is not abnormal for her as she has epilepsy. Orders received.
--- NOTE | 2022-04-07 19:45 | PC.NURSE ---
Plan of care discussed with patient. Patient educated on IV infusion, terbutaline and zofran. Patient states understanding and agrees with plan of care. Patient denies any questions.
[2022-04-07] MEDS: DEXTROSE 5%/LACTATED RINGERS 1,000 ML 100 ML IV CONT (19:49)
[2022-04-07] MEDS: ONDANSETRON INJ 4 MG/2 ML VIAL IV PUSH (19:50)
[2022-04-07] MEDS: TERBUTALINE SULFATE 1 MG/ML VIAL 0.25 MG SUB-Q (19:54)
--- NOTE | 2022-04-07 21:10 | PC.NURSE ---
Discharge instructions reviewed with patient. Patient states understanding of discharge instructions and denies questions. Patient agreeable to discharge. Patient provided education on labor and kick counts.
--- NOTE | 2022-04-11 10:55 | P.PNOB_ITS ---
OB - Triage/Final Diagnosis Visit Information Reason for evaluation: threatened labor Comments/Additional reasons for admission: I have assessed the risk for this patient, Melina Tavarez, and determined that she would benefit from observation care. Evaluation Laboratory results: Laboratory Tests 04/07/22 19:13 Urine Color Yellow Urine Appearance Slightly cloudy Urine pH 6.5 Ur Specific [place] 1.025 Urine Protein Trace Urine Glucose (UA) Negative Urine Ketones Negative Ur Blood (Man) Negative Urine Nitrate Negative Urine Bilirubin Negative Urine Urobilinogen 0.2 Leukocyte Esterase Rfl 1+ H Urine RBC 3-5 H Urine WBC 4-6 H Ur Squamous Epith Cells Moderate H Urine Bacteria Trace Urine Mucus Rare
== END 2022-04-07 21:14 | disposition home or self-care (01) ==
PROVIDERS: Admitting Provider Obstetrics & Gynecology; Visit Provider Obstetrics & Gynecology
DX: O47.1 False labor at or after 37 completed weeks of gestation (principal); Z3A.33 33 weeks gestation of pregnancy
CPT/HCPCS: 59025; 81001; 96361; 96372; 96374; G0378; G0379; J2405; J3105; J7121

== ENCOUNTER 2022-04-14 07:38 | Outpatient (CLI) | payer OTHER, SELFPAY ==
[2022-04-14 08:18] LABS: Glucose Fasting Gestational 82 mg/dL (>/=95)
[2022-04-14 10:38] LABS: Glucose 1 Hour Gest 145 mg/dL (>/=180)
[2022-04-14 11:27] LABS: Glucose 2 Hour Gest 103 mg/dL (>/= 155)
[2022-04-14 12:51] LABS: Glucose 3 Hour Gest 81 mg/dL (>/=140)
== END 2022-04-14 07:39 | disposition home or self-care (01) ==
PROVIDERS: Visit Provider Student in an Organized Health Care Education/Training Program
DX: R73.09 Other abnormal glucose (principal)
CPT/HCPCS: 36415; 82951; 82952

== ENCOUNTER 2022-04-25 07:28 | Observation (INO) | payer OTHER, SELFPAY ==
[2022-04-25] VITALS (15 sets, daily range): BP systolic 103–119; BP diastolic 54–78; PULSE 59–86; RESP 13–21; TEMP 36.7; O2SAT 99–100; BMI 25.2
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
[2022-04-25 08:59] LABS: Basophils Percent Auto 0.3 % (0.2-1.2); Eosinophils Absolute Auto 0.1 K/mm3 (0-0.3); Eosinophils Percent Auto 1.2 % (0-4.4); Hematocrit 33.1 % (37.0-47.0); Hemoglobin 10.6 g/dL (12.0-15.0); Immature Granulocyte Absolute 0.04 K/mm3 (0.00-0.031); Immature Granulocyte Percent A 0.6 % (0-0.5); Lymphocytes Absolute Auto 1.47 K/mm3 (0.9-3.2); Lymphocytes Percent Auto 21.2 % (18.3-44.2); Mean Corpuscular Hemoglobin 27.3 pg (26-34); Mean Corpuscular Volume 85.3 fl (80-100); Mean Platelet Volume 10.7 fl (7.4-10.4); Monocytes Absolute Auto 0.4 K/mm3 (0.1-0.6); Monocytes Percent Auto 5.1 % (2.6-8.5); Neutrophils Percent Auto 71.6 % (45.5-73.1); Platelet Count Result 196 k/mm3 (150-375); Red Blood Count 3.88 M/mm3 (4.2-5.4); Red Cell Distribution Width 13.4 % (11.5-14.5); White Blood Count 6.9 K/mm3 (4.5-10.0)
[2022-04-25 09:09] LABS: Anion Gap 5 mmol/L (8-16); Blood Urea Nitrogen 7 mg/dL (7-17); Calcium 8.2 mg/dL (8.4-10.2); Carbon Dioxide 22 mmol/L (22-30); Chloride 109 mmol/L (98-107); Estimated Glomerular Filt Rate > 60; Glucose 79 mg/dL (65-110); Potassium 3.7 mmol/L (3.4-5.0); Sodium 136 mmol/L (137-145)
--- NOTE | 2022-04-25 10:25 | PC.NURSE ---
OB contacted regarding NST.
--- NOTE | 2022-04-25 10:48 | PC.NURSE ---
Called OB nurse they stated they would be here in 5min.
--- NOTE | 2022-04-25 11:25 | PC.NURSE ---
Report received from Brandy PALACIOS at this time including history and physical and plan of care
--- NOTE | 2022-04-25 12:15 | PC.NURSE ---
Will page patient's OB dr at this time to consult with Dr. Banda regarding patient DC from ER.
[2022-04-25] MEDS: ACETAMINOPHEN 500 MG TABLET 1000 MG PO (14:06)
--- NOTE | 2022-04-25 15:00 | PC.NURSE ---
Pt states that she is ok to have Terbutaline and has had it before with no issues.
[2022-04-25] MEDS: TERBUTALINE SULFATE 1 MG/ML VIAL 0.25 MG SUB-Q ×2 (15:03→16:12)
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
== END 2022-04-25 17:21 | disposition home or self-care (01) ==
LOC: ANHED 12:54 → ANHOBPP 13:25
PROVIDERS: Admitting Provider Obstetrics & Gynecology; Emergency Provider Emergency Medicine; PCP Obstetrics & Gynecology; Visit Provider Obstetrics & Gynecology
DX: Z04.1 Encounter for examination and observation following transport accident (principal); O09.299 Supervision of pregnancy with other poor reproductive or obstetric history, unspecified trimester; O36.8130 Decreased fetal movements, third trimester, not applicable or unspecified; O36.5930 Maternal care for other known or suspected poor fetal growth, third trimester, not applicable or unspecified; Z3A.35 35 weeks gestation of pregnancy; Z79.51 Long term (current) use of inhaled steroids; Z79.899 Other long term (current) drug therapy
CPT/HCPCS: 36415; 76815; 80048; 85025; 85460; 96372; A9270; G0378; J3105

== ENCOUNTER 2022-05-13 06:57 | Inpatient (IN) | payer OTHER, SELFPAY ==
[2022-05-13] VITALS (79 sets, daily range): BP systolic 84–140; BP diastolic 41–76; PULSE 46–153; RESP 12–18; TEMP 36.3–37.3; O2SAT 96–100; BMI 26.2
--- NOTE | 2022-05-13 06:57 | OBADM ---
This patient, Melina Tavarez, admitted to the OB room Labor/Delivery/Recovery 120 for observation. Patient/family oriented to hospital policies and general routines including ID bracelet, bed and alarms, visiting hours, pain management, procedures, bathroom and other care routines, personal items, smoking policy, room service/diet, and visiting hours. Patient/Family are encouraged to report perceived risks to care and to ask questions if they do not understand what they are told or what they should do.
--- NOTE | 2022-05-13 06:57 | LDADM ---
This patient, Melina Tavarez, was admitted to Labor/Delivery/Recovery 120 on 05/13/22 at 06:57. Plans for labor, pain management and were discussed with patient. Patient/family oriented to hospital policies and general routines including ID bracelet, bed and alarms, visiting hours, pain management, procedures, bathroom and other care routines, personal items, smoking policy, room service/diet and guest tray routines, infant security routines, and visiting hours. Patient/Family are encouraged to report perceived risks to care and to ask questions if they do not understand what they are told or what they should do. See OBIX for further documentation.
[2022-05-13] MEDS: LACTATED RINGERS 1,000 ML 999 ML IV CONT ×2 (08:02→08:30)
[2022-05-13 09:22] LABS: Basophils Percent Auto 0.6 % (0.2-1.2); Eosinophils Absolute Auto 0.1 K/mm3 (0-0.3); Eosinophils Percent Auto 1.2 % (0-4.4); Hematocrit 36.8 % (37.0-47.0); Hemoglobin 11.7 g/dL (12.0-15.0); Immature Granulocyte Absolute 0.03 K/mm3 (0.00-0.031); Immature Granulocyte Percent A 0.5 % (0-0.5); Lymphocytes Absolute Auto 1.68 K/mm3 (0.9-3.2); Lymphocytes Percent Auto 25.6 % (18.3-44.2); Mean Corpuscular HGB Conc 31.8 g/dl (32-36); Mean Corpuscular Hemoglobin 27.2 pg (26-34); Mean Corpuscular Volume 85.6 fl (80-100); Mean Platelet Volume 11.4 fl (7.4-10.4); Monocytes Absolute Auto 0.3 K/mm3 (0.1-0.6); Monocytes Percent Auto 4.9 % (2.6-8.5); Neutrophils Absolute Auto 4.4 K/mm3 (1.3-6.7); Neutrophils Percent Auto 67.2 % (45.5-73.1); Platelet Count Result 245 k/mm3 (150-375); Red Cell Distribution Width 13.9 % (11.5-14.5); White Blood Count 6.6 K/mm3 (4.5-10.0)
[2022-05-13 09:27] LABS: Alanine Aminotransferase 11 U/L (6-35); Albumin Level 3.8 g/dL (3.5-5.1); Alkaline Phosphatase 108 U/L (38-126); Anion Gap 8 mmol/L (8-16); Aspartate Amino Transferase 20 U/L (14-36); Bilirubin,Total 0.7 mg/dL (0.2-1.3); Blood Urea Nitrogen 7 mg/dL (7-17); Calcium 8.4 mg/dL (8.4-10.2); Carbon Dioxide 20 mmol/L (22-30); Chloride 110 mmol/L (98-107); Estimated CRCL calculation 132 ml/min; Estimated Glomerular Filt Rate > 60; Glucose 72 mg/dL (65-110); Potassium 3.9 mmol/L (3.4-5.0); Sodium 138 mmol/L (137-145)
--- NOTE | 2022-05-13 09:32 | WPDANESEPPF ---
Anes - Initial Pre Proc Eval Date/Time: 05/13/22 09:32 Surgeon: Davy Ackerman MD Pre Op Diagnosis: Contractions/Leaking Patient Data Age: 26 Gender: F Height: 1.78 m Weight: 83 kg Last Vital Signs Pulse 67 05/13/22 09:15 BP 140/71 05/13/22 09:15 Allergies Allergy/AdvReac Type Severity Reaction Status Date / Time clavulanic acid Allergy Severe BOWEL Verified 05/10/22 08:55 ISSUES strawberry Allergy Intermediate SWELLING/VO Verified 05/10/22 08:55 MITING ammonium alum Allergy Mild LIP Verified 05/10/22 08:55 SWELLING benzocaine Allergy Mild SWELLING Verified 05/10/22 08:55 camphor Allergy Mild LIP Verified 05/10/22 08:55 SWELLING menthol Allergy Mild LIP Verified 05/10/22 08:55 SWELLING petrolatum,white Allergy Mild SWELLING Verified 05/10/22 08:55 phenol Allergy Mild LIP Verified 05/10/22 08:55 SWELLING phenol liquid Allergy Mild SWELLING Verified 05/10/22 08:55 pramoxine Allergy Mild SWELLING Verified 05/10/22 08:55 salicylic acid Allergy Mild LIP Verified 05/10/22 08:55 SWELLING amoxicillin [From Augmentin] Allergy Swelling Verified 05/10/22 08:55 morphine AdvReac Headache Verified 05/10/22 08:55 Wasp Allergy Severe SWELLING Uncoded 05/10/22 08:55 PAPER TAPE Allergy Mild RASH Uncoded 05/10/22 08:55 Home Medications Medication Instructions Recorded Confirmed Type albuterol sulfate 2.5 mg/3 mL 2.5 mg inhalation BID 01/22/19 05/10/22 History (0.083 %) solution for nebulization albuterol sulfate 90 mcg/actuation 1 puff inhalation QID PRN 01/22/19 05/10/22 History aerosol inhaler (ProAir HFA) Shortness Of Breath montelukast 10 mg tablet 10 mg PO DAILY 07/04/21 05/10/22 History ondansetron 4 mg disintegrating 4 mg PO Q8H #30 tabs 11/14/21 05/10/22 Rx tablet famotidine 20 mg disintegrating 20 mg PO DAILY 05/05/22 05/10/22 History tablet azithromycin 250 mg tablet See Rx Instructions PO .COMPLEX #6 05/10/22 05/10/22 Rx tabs Laboratory Tests 05/13/22 05/13/22 05/13/22 08:01 08:01 08:01 WBC 6.6 K/mm3 K/mm3 (4.5-10.0) RBC 4.30 M/mm3 M/mm3 (4.2-5.4) Hgb 11.7 g/dL L g/dL (12.0-15.0) Hct 36.8 % L % (37.0-47.0) MCV 85.6 fl fl (80-100) MCH 27.2 pg pg (26-34) MCHC 31.8 g/dl L g/dl (32-36) RDW 13.9 % % (11.5-14.5) Plt Count 245 k/mm3 k/mm3 (150-375) MPV 11.4 fl H fl (7.4-10.4) Immature Gran % (Auto) 0.5 % % (0-0.5) Neut % (Auto) 67.2 % % (45.5-73.1) Lymph % (Auto) 25.6 % % (18.3-44.2) [place] % (Auto) 4.9 % % (2.6-8.5) Eos % (Auto) 1.2 % % (0-4.4) Baso % (Auto) 0.6 % % (0.2-1.2) Lymph # (Auto) 1.68 K/mm3 K/mm3 (0.9-3.2) [place] # (Auto) 0.3 K/mm3 K/mm3 (0.1-0.6) Eos # (Auto) 0.1 K/mm3 K/mm3 (0-0.3) Baso # (Auto) 0.0 K/mm3 K/mm3 (0.0-0.1) Abs Immat Gran (auto) 0.03 K/mm3 K/mm3 (0.00-0.031) Absolute Neuts (auto) 4.4 K/mm3 K/mm3 (1.3-6.7) Absolute Nucleated RBC 0.0 K/mm3 K/mm3 (0.0-0.012) Nucleated RBC % 0.0 % % (0.0-0.2) Sodium 138 mmol/L mmol/L (137-145) Potassium 3.9 mmol/L mmol/L (3.4-5.0) Chloride 110 mmol/L H mmol/L (98-107) Carbon Dioxide 20 mmol/L L mmol/L (22-30) Anion Gap 8 mmol/L mmol/L (8-16) BUN 7 mg/dL mg/dL (7-17) Creatinine 0.60 mg/dL L mg/dL (0.7-1.0) Estim Creat Clear Calc 132 ml/min ml/min Estimated GFR > 60 (59 - ) Glucose 72 mg/dL mg/dL (65-110) Calcium 8.4 mg/dL mg/dL (8.4-10.2) Total Bilirubin 0.7 mg/dL mg/dL (0.2-1.3) AST 20 U/L U/L (14-36) ALT 11 U/L U/L (6-35) Alkaline Phosphatase 108 U/L U/L (38-126) Total Protein 7.0 g/dL g/dL (6.3-8.2) Albumin 3.8 g/dL g
--- NOTE | 2022-05-13 09:50 | WPDOBADMIT ---
Obstetrics - Admit Note Admission Note: record reviewed. No pertinent additions to the history and/or any subsequent changes in the physical findings that are not consistent with the expected course of the were found. Additions to the history and/or subsequent changes in the physical findings follow. Pt presented with c/o ROM and regular uterine contractions. ROM plus negative. Pt with regular uterine contractions despite IV fluid boluses.
--- NOTE | 2022-05-13 09:53 | PM.IMHP ---
H&P: HPI History of Present Illness Date/Time: 05/13/22 09:00 Chief Complaint: Uterine contractions Narrative: Pt arrived with c/o leaking fluid. ROM plus was negative. Regular, painful contractions persisted after IV fluid boluses. Review of Systems Review of Systems: All systems reviewed & are unremarkable except as noted in HPI and below PMFSH Past Medical History Medical History Anemia Anxiety Arthritis Asthma Blood glucose abnormal Depression Migraines Miscarriage (05/17/17) suction d&c Seizures (~04/26/21) Sinus arrhythmia Suppression of menstruation Vaginal discharge Surgical History Surgical History History of adenoidectomy History of appendectomy History of (05/02/18) primary c/s breech presentation, bicornuate uterus History of laparoscopy (02/01/17) lscope adhesiolysis, ablation of endometriosis History of left knee surgery (06/15/15) History of placement of ear tubes both ear x7 Family History Family History Mother Acute myocardial infarction Heart disease Renal failure syndrome Cerebrovascular accident Father Chronic obstructive lung disease Grandparent Diabetes mellitus maternal grandfather Hypertension maternal grandmother Epilepsy Other Breast cancer paternal aunt Sibling Autism Social History Social History Smoking status: Never smoker Alcohol intake: never Substance use: never Substance use type: does not use Living arrangements: other Additional living arrangements comments: single Occupation/Education: other 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 or Heterosexual Spiritual care concerns: No Meds Home Medications and Allergies Home Medications Medication Instructions Recorded Confirmed Type albuterol sulfate 90 mcg/actuation 2 puff inhalation QID PRN 01/22/19 05/13/22 History aerosol inhaler (ProAir HFA) Shortness Of Breath montelukast 10 mg tablet 10 mg PO DAILY 07/04/21 05/13/22 History famotidine 20 mg disintegrating 20 mg PO DAILY 05/05/22 05/13/22 History tablet azithromycin 250 mg tablet See Rx Instructions PO .COMPLEX #6 05/10/22 05/13/22 Rx tabs Allergies Allergy/AdvReac Type Severity Reaction Status Date / Time clavulanic acid Allergy Severe BOWEL Verified 05/10/22 08:55 ISSUES strawberry Allergy Intermediate SWELLING/VO Verified 05/10/22 08:55 MITING ammonium alum Allergy Mild LIP Verified 05/10/22 08:55 SWELLING benzocaine Allergy Mild SWELLING Verified 05/10/22 08:55 camphor Allergy Mild LIP Verified 05/10/22 08:55 SWELLING menthol Allergy Mild LIP Verified 05/10/22 08:55 SWELLING petrolatum,white Allergy Mild SWELLING Verified 05/10/22 08:55 phenol Allergy Mild LIP Verified 05/10/22 08:55 SWELLING phenol liquid Allergy Mild SWELLING Verified 05/10/22 08:55 pramoxine Allergy Mild SWELLING Verified 05/10/22 08:55 salicylic acid Allergy Mild LIP Verified 05/10/22 08:55 SWELLING amoxicillin [From Augmentin] Allergy Swelling Verified 05/10/22 08:55 morphine AdvReac Headache Verified 05/10/22 08:55 Wasp Allergy Severe SWELLING Uncoded 05/10/22 08:55 PAPER TAPE Allergy Mild RASH Uncoded 05/10/22 08:55 Vital Signs Vital Signs - 24 hr 05/13/22 07:14 05/13/22 07:15 05/13/22 07:30 Pulse Rate 79 73 64 Blood Pressure 111/72 101/62 109/63 Pulse Oximetry 05/13/22 07:45 05/13/22 08:00 05/13/22 08:15 Pulse Rate 63 65 60 Blood Pressure 109/67 108/66 111/61 Pulse Oximetry 05/13/22 08:30 05/13/22 08:45 05/13/22 09:00 Pulse Rate 67 70 60 Blood Pressure 115/59 L 118/63 103/67
[2022-05-13] MEDS: ONDANSETRON INJ 4 MG/2 ML VIAL IV PUSH (10:02)
[2022-05-13] MEDS: LACTATED RINGERS 1,000 ML 125 ML IV CONT (10:04)
[2022-05-13] MEDS: ceFAZolin 2 GM/D5W 50 ML 2 GM/50 ML BAG IVPB (10:26)
--- NOTE | 2022-05-13 10:26 | WPDHPUPDATE1 ---
History and Physical Update Update Date/Time: 05/13/22 10:26 History and Physical has been reviewed, including an updated exam of the patient. There are NO changes in the patient's condition. Risks, benefits, and alternatives have been discussed and questions answered. Patient agrees to proceed with procedure. Patient states prior BTL with rings and failed. Plan is for removal of bilateral tubes and repeat csection. Risks of failure and ectopic reviewed.
[2022-05-13] MEDS: KETOROLAC 30 MG/ML VIAL (*BKC) 15 MG IV PUSH (11:16)
--- NOTE | 2022-05-13 11:27 | P.OP_ITS ---
Procedure Note - Detailed Date of Procedure 05/13/22 Pre-op Diagnosis Contractions IUP 38 3/ IUGR prior csection x 2 Requests sterilization Post-op Diagnosis Same Procedure Performed LTCS and Bilateral Salpingectomy Surgeon Jennifer Paniagua MD Anesthesia Spinal Findings female 6lb 6oz with 9 and 9 Apgars; normal-appearing tubes without any evidence of previous ligation; normal-appearing ovaries; several small 1cm fibroids posterior wall Description of Procedure The patient was taken to the operating room and placed under anesthesia in the dorsal supine position with a leftward tilt. Once anesthesia was deemed adequate a Pfannenstiel skin incision was made through her prior incision. The fascia was nicked in the midline with a scalpel and extended laterally using Isbell scissors. [place] was used to tent the fascia which was then dissected off using sharp and blunt dissection. During this process the peritoneum was entered. The peritoneal incision was extended with blunt traction. The bladder blade is placed. The vesicouterine peritoneum is grasped with a [place] and entered with Metzenbaum scissors. The incision was extended laterally and the bladder flap created digitally. The lower uterine segment was incised in a transverse fashion with a scalpel. The incision was extended with blunt traction laterally. The membranes are ruptured and clear fluid noted. The vertex was brought up into the incision and delivered with minimal assistance. The infant was fully delivered and the cord clamped and cut. The was handed to the waiting electroplating technician and nursery nurse. The placenta was removed using manual traction and handed off without and clamping for the RN to get gases and blood. The uterus is cleared of all clots and debris and exteriorized. The uterine incision was closed using 0 Monocryl in a running locked fashion with the same suture used to imbricate 1 additional [id number] suture was required in the midline for hemostasis. It was verified with the patient that she wished to proceed with tubal ligation. The right tube was grasped with a [place] and crossclamped using a minimally curved Z-clamp. The distal portion of the tube was removed with approximately a 1.5cm portion left at the cornua. The tube is excised and the pedicle tied off using 0 Vicryl in a Reinier stitch and free tie. Good hemostasis is noted. There was a small tubal cyst noted. The identical procedures performed on the left side. The cul-de-sac is irrigated and the uterus returned to the abdomen. The gutters are cleared of clots and debris there was a bleeding vessel in the bladder flap requiring hemostasis with Bovie cautery. The incision and pedicles are noted to be hemostatic at this time. The fascia was then closed using 0 Vicryl in a running fashion. Subcutaneous tissues were irrigated and made hemostatic using Bovie cautery. Skin incision was closed using 4-0 Vicryl in a subcuticular fashion. Skin glue was placed over the incision. Sponge, needle, and instrument counts are correct per the OR staff. The patient is taken to recovery in stable condition. The patient was given Ancef and Zithromax prior to incision. Estimated Blood Loss 615 Drains Yes ( Aguilar catheter) Packing No Pathology Yes ( bilateral tubes and placenta) Complications No immediate complications Condition Stable Disposition Floor
--- NOTE | 2022-05-13 11:35 | PM.OBDSVD ---
DS: Admitting Diagnosis Discharge Date 05/15/22 Admitting Diagnosis intrauterine at 38 and 3 7th weeks with previous section in labor request sterilization intrauterine growth restriction per last ultrasound February DS: Discharge Diagnosis Discharge Diagnosis (1) delivery delivered: Code(s): O82 - Encounter for delivery without indication Status: Acute (2) Encounter for sterilization: Code(s): Z30.2 - Encounter for sterilization Status: Acute Assessment and Plan: status post bilateral salpingectomy OB - DS: Summary OB Procedures : NST and Ultrasound OB Procedures Intrapartum: low cervical, transverse and Tubal ligation ( bilateral salpingectomies) OB Procedures: : None Peripartum Data Infant Delivery Method: Section Procedures: Procedures Operation Date: 05/13/22 10:10 <No data on this case meets the specified criteria> complications: none Status at Discharge Functional status at discharge: independent ambulation Overall status at discharge: patient is progressing back to baseline Time Spent with Patient Time attestation: Total time spent providing and/or coordinating discharge services: DS: Data Data Completed and Pending Labs on day of discharge: Labs from last 24 hours 05/13/22 05/13/22 05/13/22 08:01 08:01 08:01 WBC RBC Hgb Hct MCV MCH MCHC RDW Plt Count MPV Immature Gran % (Auto) Neut % (Auto) Lymph % (Auto) [place] % (Auto) Eos % (Auto) Baso % (Auto) Lymph # (Auto) [place] # (Auto) Eos # (Auto) Baso # (Auto) Abs Immat Gran (auto) Absolute Neuts (auto) Absolute Nucleated RBC Nucleated RBC % Sodium 138 Potassium 3.9 Chloride 110 H Carbon Dioxide 20 L Anion Gap 8 BUN 7 Creatinine 0.60 L Estim Creat Clear Calc 132 Estimated GFR > 60 Glucose 72 Calcium 8.4 Total Bilirubin 0.7 AST 20 ALT 11 Alkaline Phosphatase 108 Total Protein 7.0 Albumin 3.8 RPR Pending Blood Type AB Negative Antibody Screen Positive Antibody Identification Pending Antigen Identification Pending JESUS ALBERTO, IgG Interpret Pending JESUS ALBERTO, Poly Interpret Pending JESUS ALBERTO, Complement Interp Pending 05/13/22 08:01 WBC 6.6 RBC 4.30 Hgb 11.7 L Hct 36.8 L MCV 85.6 MCH 27.2 MCHC 31.8 L RDW 13.9 Plt Count 245 MPV 11.4 H Immature Gran % (Auto) 0.5 Neut % (Auto) 67.2 Lymph % (Auto) 25.6 [place] % (Auto) 4.9 Eos % (Auto) 1.2 Baso % (Auto) 0.6 Lymph # (Auto) 1.68 [place] # (Auto) 0.3 Eos # (Auto) 0.1 Baso # (Auto) 0.0 Abs Immat Gran (auto) 0.03 Absolute Neuts (auto) 4.4 Absolute Nucleated RBC 0.0 Nucleated RBC % 0.0 Sodium Potassium Chloride Carbon Dioxide Anion Gap BUN Creatinine Estim Creat Clear Calc Estimated GFR Glucose Calcium Total Bilirubin AST ALT Alkaline Phosphatase Total Protein Albumin RPR Blood Type Antibody Screen Antibody Identification Antigen Identification JESUS ALBERTO, IgG Interpret JESUS ALBERTO, Poly Interpret JESUS ALBERTO, Complement Interp Discharge Plan Discharge Attending physician on discharge: Davy Ackerman Discharging Clinician: Yimi Novak Anticipated Discharge Date/Time: 05/16/22 11:37 Patient Disposition: Home, Self-Care Activity: may shower, may drive after 2 weeks and pelvic rest Diet: regular Wound Care Instructions: incision open to air Patient Instructions: Antibiotic Form, (DC) Stand Alone Forms: General Discharge Information Follow-up/Referrals: Davy Ackerman MD [Physician] - Call for Appointment Discharge Medications: New hydrocodone-acetaminophen 5-325 mg tablet 1 tablet PO Q6H PRN (Reason: pain) Qty: 28 0RF sennosides-docusate sodium [Senna with Docusate Sodium] 8.6-50 mg tablet 1 tab-cap PO HS Qty: 14 0RF ibupro
--- NOTE | 2022-05-13 11:37 | SUR.PHASEI ---
Pt has 500 ml remaining in IV of 1000 ml LR with 40 units Pitocin.
--- NOTE | 2022-05-13 12:01 | SUR.PHASEI ---
Dr. Paniagua on unit and informed pt has a little more bleeding with fundal massage than is normal and requested to give Methergine;OK to give.
[2022-05-13] MEDS: METHYLERGONOVINE MALEATE 0.2 MG/ML VIAL IM (12:07)
[2022-05-13] MEDS: diphenhydrAMINE HCl INJ 50 MG/ML VIAL 25 MG IV PUSH (12:33)
[2022-05-13] MEDS: fentaNYL CITRATE INJ (*CRX) 100 MCG/2 ML VIAL 50 MCG IV PUSH (12:52)
[2022-05-13 12:53] LABS: Amphetamine Screen Urine Negative (Negative); Barbiturate Screen Urine Negative (Negative); Benzodiazepines Screen Urine Negative (Negative); Cannabinoid Screen Urine Negative (Negative); Cocaine Screen Urine Negative (Negative); Methadone Screen Urine Negative (Negative); Opiate Screen Urine Negative (Negative); Phencyclidine Screen Urine Negative (Negative)
[2022-05-13] MEDS: OXYTOCIN 30 UNITS/NS 500 ML 30 UNITS/500 ML BAG 125 UNITS IV CONT (13:52)
--- NOTE | 2022-05-13 14:02 | OBPPTRN ---
Patient transferred to post room # 282 via stretcher accompanied by support person present. PT introductions made and plan of care discussed per post op c section, pain management, daily care activities and breast feeding. PT Oriented to unit, room, information board, rooming in, admission packet and security measures. PT and spouse both recipients of such care and no barriers to learning identified at this time. PT received such instructions per one to one discussion, mom baby care guide and demonstrations. Patient verbalizes understanding.
[2022-05-13] MEDS: KETOROLAC 30 MG/ML VIAL (*BKC) IV PUSH ×2 (14:56→20:59)
[2022-05-13] MEDS: SIMETHICONE 80 MG TAB.CHEW PO ×2 (14:57→17:17)
[2022-05-13] MEDS: LANOLIN (LANSINOH) 7.5 GM CREAM 1 APPLIC TOPICAL (14:58)
[2022-05-13] MEDS: DOCUSATE SODIUM 100 MG CAPSULE PO (17:16)
[2022-05-13] MEDS: HYDROcodone/acetaminophen (*CRX) 5-325 MG TABLET 1 TAB PO (17:16)
[2022-05-13] MEDS: AZITHROMYCIN 250 MG TABLET PO (17:18)
[2022-05-13] MEDS: lamoTRIgine 25 MG TABLET PO (17:18)
[2022-05-13] MEDS: POLYSACCHARIDE IRON COMPLEX 150 MG CAPSULE PO (18:43)
[2022-05-13] MEDS: DEXTROSE 5%/0.45% SOD CHL 1,000 ML 125 ML IV CONT (18:43)
[2022-05-13] MEDS: ACETAMINOPHEN 325 MG TABLET 650 MG PO (21:00)
[2022-05-14 03:30] VITALS: BP 91/58; PULSE 48; RESP 16; TEMP 36.7; O2SAT 99
[2022-05-14] MEDS: HYDROcodone/acetaminophen (*CRX) 5-325 MG TABLET 1 TAB PO ×5 (03:36→21:23)
[2022-05-14 05:11] LABS: Basophils Percent Auto 0.1 % (0.2-1.2); Eosinophils Percent Auto 0.1 % (0-4.4); Hematocrit 32.3 % (37.0-47.0); Hemoglobin 10.5 g/dL (12.0-15.0); Immature Granulocyte Absolute 0.06 K/mm3 (0.00-0.031); Immature Granulocyte Percent A 0.4 % (0-0.5); Lymphocytes Absolute Auto 2.11 K/mm3 (0.9-3.2); Lymphocytes Percent Auto 15.8 % (18.3-44.2); Mean Corpuscular HGB Conc 32.5 g/dl (32-36); Mean Corpuscular Hemoglobin 26.7 pg (26-34); Mean Corpuscular Volume 82.2 fl (80-100); Mean Platelet Volume 10.7 fl (7.4-10.4); Monocytes Absolute Auto 0.7 K/mm3 (0.1-0.6); Monocytes Percent Auto 5.5 % (2.6-8.5); Neutrophils Absolute Auto 10.4 K/mm3 (1.3-6.7); Neutrophils Percent Auto 78.1 % (45.5-73.1); Platelet Count Result 211 k/mm3 (150-375); Red Blood Count 3.93 M/mm3 (4.2-5.4); Red Cell Distribution Width 13.3 % (11.5-14.5); White Blood Count 13.4 K/mm3 (4.5-10.0)
--- NOTE | 2022-05-14 08:16 | PM.OBPNVD ---
OB - PN: Subj Subjective Date/time seen: 05/14/22 08:16 Patient comments: no complaints and pain well controlled baby status: doing well OB - PN: Obj Data Labs 05/14/22 04:56 05/13/22 08:01 Labs: Laboratory Results - last 24 hr 05/13/22 05/13/22 05/13/22 08:01 08:01 08:01 WBC 6.6 RBC 4.30 Hgb 11.7 L Hct 36.8 L MCV 85.6 MCH 27.2 MCHC 31.8 L RDW 13.9 Plt Count 245 MPV 11.4 H Immature Gran % (Auto) 0.5 Neut % (Auto) 67.2 Lymph % (Auto) 25.6 [place] % (Auto) 4.9 Eos % (Auto) 1.2 Baso % (Auto) 0.6 Lymph # (Auto) 1.68 [place] # (Auto) 0.3 Eos # (Auto) 0.1 Baso # (Auto) 0.0 Abs Immat Gran (auto) 0.03 Absolute Neuts (auto) 4.4 Absolute Nucleated RBC 0.0 Nucleated RBC % 0.0 Sodium 138 Potassium 3.9 Chloride 110 H Carbon Dioxide 20 L Anion Gap 8 BUN 7 Creatinine 0.60 L Estim Creat Clear Calc 132 Estimated GFR > 60 Glucose 72 Calcium 8.4 Total Bilirubin 0.7 AST 20 ALT 11 Alkaline Phosphatase 108 Total Protein 7.0 Albumin 3.8 Urine Opiates Screen Urine Methadone Screen Ur Barbiturates Screen Ur Phencyclidine Scrn Ur Amphetamine Screen U Benzodiazepines Scrn Urine Cocaine Screen U Cannabinoids Screen Blood Type AB Negative Antibody Screen Positive Antibody Identification Inconclusive Antigen Identification Cancelled JESUS ALBERTO, IgG Interpret Not Performed JESUS ALBERTO, Poly Interpret Negative JESUS ALBERTO, Complement Interp Not Performed Screen Baby's Blood Type Baby's JESUS ALBERTO Doses of RhIg Required 05/13/22 05/14/22 05/14/22 12:01 04:56 04:56 WBC 13.4 H RBC 3.93 L Hgb 10.5 L Hct 32.3 L MCV 82.2 MCH 26.7 MCHC 32.5 RDW 13.3 Plt Count 211 MPV 10.7 H Immature Gran % (Auto) 0.4 Neut % (Auto) 78.1 H Lymph % (Auto) 15.8 L [place] % (Auto) 5.5 Eos % (Auto) 0.1 Baso % (Auto) 0.1 L Lymph # (Auto) 2.11 [place] # (Auto) 0.7 H Eos # (Auto) 0.0 Baso # (Auto) 0.0 Abs Immat Gran (auto) 0.06 H Absolute Neuts (auto) 10.4 H Absolute Nucleated RBC 0.0 Nucleated RBC % 0.0 Sodium Potassium Chloride Carbon Dioxide Anion Gap BUN Creatinine Estim Creat Clear Calc Estimated GFR Glucose Calcium Total Bilirubin AST ALT Alkaline Phosphatase Total Protein Albumin Urine Opiates Screen Negative Urine Methadone Screen Negative Ur Barbiturates Screen Negative Ur Phencyclidine Scrn Negative Ur Amphetamine Screen Negative U Benzodiazepines Scrn Negative Urine Cocaine Screen Negative U Cannabinoids Screen Negative Blood Type AB Negative Antibody Screen Negative Antibody Identification Antigen Identification JESUS ALBERTO, IgG Interpret JESUS ALBERTO, Poly Interpret JESUS ALBERTO, Complement Interp Screen Negative Baby's Blood Type B pos Baby's JESUS ALBERTO Negative Doses of RhIg Required 1 OB - PN A/P Plan day: 1 Plan: routine care Time Spent With Patient Time: Total time spent is greater than 50% in coordination of care (as documented) at patient's floor/unit and/or counseling patient: Exam Narrative: inc c/d/i : Bimanual exam- vagina & uterus: other (Uterus firm, nt @U)
--- NOTE | 2022-05-14 09:15 | PC.NURSE ---
PT introductions made and plan of care discussed per post op c section, post , pain management, bottle feeding, daily care activities. PT sole recipient of such instructions and no barriers to learning identified at this time. Pt received such instructions per one to one discussion , mom baby care guide and demonstrations this shift. PT verbalized understanding of such care.
[2022-05-14 09:30] VITALS: BP 108/60; PULSE 75; RESP 18; TEMP 36.4; O2SAT 99
[2022-05-14] MEDS: SIMETHICONE 80 MG TAB.CHEW PO ×3 (09:45→17:30)
[2022-05-14] MEDS: DOCUSATE SODIUM 100 MG CAPSULE PO (09:45)
[2022-05-14] MEDS: FAMOTIDINE 20 MG TABLET PO (09:45)
[2022-05-14] MEDS: IBUPROFEN 600 MG TABLET PO ×2 (09:46→17:30)
[2022-05-14] MEDS: MONTELUKAST SODIUM 10 MG TABLET PO (09:46)
[2022-05-14] MEDS: AZITHROMYCIN 250 MG TABLET PO (09:48)
[2022-05-14] MEDS: lamoTRIgine 25 MG TABLET PO ×2 (09:48→21:22)
--- NOTE | 2022-05-14 11:40 | WPDANLDPN2 ---
Anes-Prog Note L&D Date/Time: 05/14/22 11:40 Comfortable throughout: section Neuraxial method: spinal Epidural/Spinal procedure site: clean & non-tender Neuro status: Neuro function grossly intact. Cardiovascular status: normal Respiratory status: normal Airway patency: baseline Mental status: baseline Post-Op hydration status: normal Vital Signs: Last Vital Signs Temp 36.4 C L 05/14/22 09:30 Pulse 75 05/14/22 09:30 Resp 18 05/14/22 09:30 BP 108/60 05/14/22 09:30 Pulse Ox 99 05/14/22 09:30 O2 Del Method Room Air 05/14/22 09:30 O2 Flow Rate 2 05/13/22 12:00 Pain score (VAS): 3/10 I/O: Intake & Output 05/13/22 05/14/22 05/14/22 23:59 07:59 15:59 Intake Total 480 1000 Output Total 750 1400 Balance -270 -400 Post-procedural complaints: none Patient feedback: Patient satisfied with anesthetic care.
--- NOTE | 2022-05-14 11:40 | WPDANLDNPN2 ---
Anes-Prog Note L&D-Neuraxial Date/Time: 05/14/22 11:40 Neuraxial medications: intrathecal PF morphine Opiod-related complaints: none Patient feedback: Patient satisfied with post-operative pain management.
[2022-05-14] MEDS: TETANUS,DIPHTHERIA,AC PERTUSSIS ADULT (0.5 ML) BOOSTRIX IM (17:30)
[2022-05-14] MEDS: RHO(D) IMMUNE GLOBULIN 300 MCG/2 ML SYRINGE IM (17:31)
[2022-05-14 20:08] VITALS: BP 102/59; PULSE 58; RESP 18; TEMP 36.9; O2SAT 97
[2022-05-15] MEDS: IBUPROFEN 600 MG TABLET PO ×2 (03:29→11:15)
[2022-05-15] MEDS: HYDROcodone/acetaminophen (*CRX) 5-325 MG TABLET 1 TAB PO ×2 (03:30→11:14)
--- NOTE | 2022-05-15 07:36 | PM.OBDSVD ---
DS: Admitting Diagnosis Discharge Date 05/15/22 Admitting Diagnosis intrauterine at term history of prior OB - DS: Summary OB Procedures : None OB Procedures Intrapartum: OB Procedures: : None Peripartum Data Delivery Method: Section Procedures: Procedures Operation Date: 05/13/22 10:10 Actual Procedure Side Surgeon p Section with bilateral salpingectomy Bilateral Jennifer Paniagua MD complications: none Status at Discharge Functional status at discharge: independent ambulation Overall status at discharge: patient is progressing back to baseline Time Spent with Patient Time attestation: Total time spent providing and/or coordinating discharge services: Time spent: Less than 30 minutes Exam Const: General: comfortable and no acute distress Resp: Effort & Inspection: normal respiratory effort Auscultation: clear to auscultation bilaterally Cardio: Rate: regular rate GI: Inspection: non-distended GI Palp: Yes Soft to palpation, No Firmness to palpation present (GI), Yes Tenderness to palpation present (GI) (mild tenderness over incision ) and No Guarding due to palpation present (GI) Auscultation: normal bowel sounds Psych: Appearance: grossly normal Mental Status: mental status grossly normal DS: Data Data Completed and Pending Pending studies at discharge: Pending at discharge 05/13/22 13:08 Surgical [PTH] Routine 05/13/22 13:09 Surgical [PTH] Routine 05/13/22 13:48 Surgical [PTH] Routine Labs on day of discharge: Labs from last 24 hours 05/14/22 04:56 Blood Type AB Negative Antibody Screen Negative Screen Negative Baby's Blood Type B pos Baby's JESUS ALBERTO Negative Doses of RhIg Required 1 Discharge Plan Discharge Attending physician on discharge: Davy Ackerman Discharging Clinician: Yimi Novak Anticipated Discharge Date/Time: 05/16/22 11:37 Patient Disposition: Home, Self-Care Activity: may shower, may drive after 2 weeks and pelvic rest Diet: regular Wound Care Instructions: incision open to air Patient Instructions: Antibiotic Form, (DC) Stand Alone Forms: General Discharge Information Follow-up/Referrals: Davy Ackerman MD [Physician] - Call for Appointment Discharge Medications: New hydrocodone-acetaminophen 5-325 mg tablet 1 tablet PO Q6H PRN (Reason: pain) Qty: 28 0RF sennosides-docusate sodium [Senna with Docusate Sodium] 8.6-50 mg tablet 1 tab-cap PO HS Qty: 14 0RF ibuprofen 600 mg Tablet 600 mg PO Q6H PRN (Reason: Cramping) Qty: 60 0RF Continued montelukast 10 mg tablet 10 mg PO DAILY azithromycin 250 mg tablet See Rx Instructions PO .COMPLEX Qty: 6 0RF Rx Instructions: For 250 mg dose pack: take 500 mg today (day 1), then 250 mg for 4 days (days 2-5) PO famotidine 20 mg Tablet,Disintegrating 20 mg PO DAILY albuterol sulfate [ProAir HFA] 90 mcg/actuation Hfa Aerosol Inhaler 2 puff INHALATION QID PRN (Reason: Shortness Of Breath) Date of admission: 05/13/22 06:57 Primary Care Provider: UNKNOWN,DOCTOR Admitting Provider: Davy Ackerman Attending physician on admission: Davy Ackerman Condition: Stable
[2022-05-15 08:25] VITALS: BP 129/71; PULSE 80; RESP 16; TEMP 37.2; O2SAT 99
[2022-05-15] MEDS: MONTELUKAST SODIUM 10 MG TABLET PO (08:42)
[2022-05-15] MEDS: FAMOTIDINE 20 MG TABLET PO (08:42)
[2022-05-15] MEDS: lamoTRIgine 25 MG TABLET PO (08:42)
[2022-05-15] MEDS: DOCUSATE SODIUM 100 MG CAPSULE PO (08:42)
--- NOTE | 2022-05-15 09:46 | PC.NURSE ---
Patient viewed the discharge video Mother & Baby Care, The First Two Weeks . Patient was given the opportunity and encouraged to ask questions. Patient verbalized understanding of information shared and has been given the mother/baby guide for home reference.
[2022-05-15 10:02] LABS: Rapid Plasma Reagin Non-Reactive (NonReactive)
[2022-05-17 09:54] VITALS: BP 116/73; PULSE 86; RESP 20; TEMP 36.8; O2SAT 98
== END 2022-05-15 12:25 | disposition home or self-care (01) | DRG 540 ==
LOC: ANHLDR 11:38 → ANHOB2 05-15 11:34 → ANHLDR 05-16 08:54 → ANHOB2 05-16 08:54
PROVIDERS: Advanced Practice Midwife; Admitting Provider Obstetrics & Gynecology; Visit Provider Obstetrics & Gynecology Gynecology
PROC: 10D00Z1 Extraction of Products of Conception, Low, Open Approach (ICD-10-PCS; CPT 59514; principal; 2022-05-13 10:10)
DX: O34.211 Maternal care for low transverse scar from previous cesarean delivery (principal); O99.354 Diseases of the nervous system complicating childbirth; Z37.0 Single live birth; Z3A.38 38 weeks gestation of pregnancy; O36.5930 Maternal care for other known or suspected poor fetal growth, third trimester, not applicable or unspecified; O99.52 Diseases of the respiratory system complicating childbirth; J45.909 Unspecified asthma, uncomplicated; G40.909 Epilepsy, unspecified, not intractable, without status epilepticus; O99.344 Other mental disorders complicating childbirth; F32.A Depression, unspecified; O26.893 Other specified pregnancy related conditions, third trimester; Z67.91 Unspecified blood type, Rh negative; Z30.2 Encounter for sterilization
CPT/HCPCS: 36415; 80053; 80307; 84112; 85025; 85461; 86592; 86850; 86880; 86900; 86901; 86902; 88302; 88307; 90384; 90715; A9270; J0131; J0690; J1100; J1200; J1885; J2210; J2250; J2274; J2370; J2405; J2590; J2790; J3010; J7120

== ENCOUNTER 2022-10-31 10:31 | Emergency (ER) | payer OTHER, SELFPAY ==
--- NOTE | ~2022-10-31 | CT_ITS ---
EXAMINATION: CT abdomen pelvis w con DATE: 10/31/2022 13:55 INDICATION: Left lower quadrant abdominal pain. TECHNIQUE: Computed tomography (CT) of the abdomen and pelvis was performed with 100 mL Omnipaque 350 intravenous contrast. Automated exposure control and iterative reconstruction technique were employe d. The dose-length product was 393.09 mGy-cm. COMPARISON: None. FINDINGS: The visualized portions of lung bases are clear without pneumonia or pleural effusion. The heart size is normal. No pericardial effusion. The liver, gallbladder, and, pancreas, adrenal glands, and kidneys are normal. There are no dilated loops of bowel. The appendix is not visualized. There are no pathologically enlarged lymph nodes. There is no ascites. There is mild thoracic spondyl osis. IMPRESSION: 1. No etiology for the patient's symptoms. Reviewed, dictated and finalized at location A.
[2022-10-31 10:33] VITALS: BP 112/68; PULSE 89; RESP 17; TEMP 36.5; O2SAT 100
[2022-10-31 11:55] LABS: Appearance Urine Clear (Clear); Bacteria Urine Rare /hpf; Bilirubin Urine Negative (Negative); Blood Urine 3+ (Negative); Color Urine Yellow (Yellow); Glucose Urine UA Negative (Negative); Ketones Urine Negative (Negative); Leukocyte Esterase Ur Negative LEU/UL (Negative); Nitrate Urine Negative (Negative); Non Pathogenic Casts 0-2; Protein Urine 2+ mg/dL (Negative); RBC Urine 21-50 /hpf (0-2); Specific Grav Ur 1.026 (1.001-1.035); Squamous Epithelial Cell Urine Few /hpf (Few); WBC Urine 0-5 /hpf; pH Urine 5.5 (5.0-9.0)
[2022-10-31 11:57] LABS: Add Urine Microscopic? YES
--- NOTE | 2022-10-31 11:57 | ED.FEMALEGU ---
HPI - Female Genitourinary General Chief complaint: Vaginal Bleeding Stated complaint: pelvic pain Time Seen by Provider: 10/31/22 11:57 Source: patient Mode of arrival: ambulatory Limitations: no limitations History of Present Illness HPI Narrative: 27 years old white female came to the emergency room with left lower quadrant pain started at work this morning. Worse with movement, better at rest. She denies any fever, chills, nausea, vomiting, radiation of pain. History of endometriosis, for cystic ovarian disease, patient is 6, para 2, for, history of seizure and asthma. Patient does not smoke or drink or uses drugs. Patient supposed to start her. Yesterday, had slight vaginal bleeding today. Related Data Home Medications Medication Instructions Recorded Confirmed albuterol sulfate 90 mcg/actuation 2 puff inhalation QID PRN 01/22/19 06/26/22 aerosol inhaler (ProAir HFA) Shortness Of Breath montelukast 10 mg tablet 10 mg PO DAILY 07/04/21 06/26/22 Allergies Allergy/AdvReac Type Severity Reaction Status Date / Time clavulanic acid Allergy Severe BOWEL Verified 06/26/22 14:08 ISSUES strawberry Allergy Intermediate SWELLING/VO Verified 06/26/22 14:08 MITING ammonium alum Allergy Mild LIP Verified 06/26/22 14:08 SWELLING benzocaine Allergy Mild SWELLING Verified 06/26/22 14:08 camphor Allergy Mild LIP Verified 06/26/22 14:08 SWELLING menthol Allergy Mild LIP Verified 06/26/22 14:08 SWELLING petrolatum,white Allergy Mild SWELLING Verified 06/26/22 14:08 phenol Allergy Mild LIP Verified 06/26/22 14:08 SWELLING phenol liquid Allergy Mild SWELLING Verified 06/26/22 14:08 pramoxine Allergy Mild SWELLING Verified 06/26/22 14:08 salicylic acid Allergy Mild LIP Verified 06/26/22 14:08 SWELLING amoxicillin [From Augmentin] Allergy Swelling Verified 06/26/22 14:08 morphine AdvReac Headache Verified 06/26/22 14:08 Wasp Allergy Severe SWELLING Uncoded 06/26/22 14:08 PAPER TAPE Allergy Mild RASH Uncoded 06/26/22 14:08 Review of Systems Review of Systems: All systems reviewed & are unremarkable except as noted in HPI and below PMFSH Past Medical History Medical History Anemia Anxiety Arthritis Asthma Blood glucose abnormal Depression Migraines Miscarriage (05/17/17) suction d&c Seizures (~04/26/21) Sinus arrhythmia Suppression of menstruation Vaginal discharge Surgical History Surgical History Delivery by section (05/13/22) rpt c/s with tubal ligation History of adenoidectomy History of appendectomy History of (05/02/18) primary c/s breech presentation, bicornuate uterus History of laparoscopy (02/01/17) lscope adhesiolysis, ablation of endometriosis History of left knee surgery (06/15/15) History of placement of ear tubes both ear x7 Family History Family History Mother Acute myocardial infarction Heart disease Renal failure syndrome Cerebrovascular accident Father Chronic obstructive lung disease Grandparent Epilepsy Diabetes mellitus maternal grandfather Hypertension maternal grandmother Other Breast cancer paternal aunt Sibling Autism Son Autism Social History Social History Smoking status: Never smoker Second hand tobacco smoke exposure: No Alcohol intake: never Substance use: never Substance use type: does not use Lack of Transportation: No Lack of Food: Never True Current Housing: I Have Housing Concerned About Future Housing: No Difficulty Paying Gas/Electric Bills: No Difficulty Paying for Meds: No Currently Unemployed: No Education: High School Diploma/GED Difficulty w/ Childcare or Family Care: No Living arrangements: other Additional living arrang
[2022-10-31] MEDS: SODIUM CHLORIDE 0.9% IV 1,000 ML 999 ML IV CONT (13:16)
[2022-10-31 13:21] LABS: Basophils Absolute Auto 0.1 K/mm3 (0.0-0.1); Basophils Percent Auto 0.9 % (0.2-1.2); Eosinophils Absolute Auto 0.4 K/mm3 (0-0.3); Eosinophils Percent Auto 5.3 % (0-4.4); Hematocrit 38.1 % (37.0-47.0); Immature Granulocyte Absolute 0.02 K/mm3 (0.00-0.031); Immature Granulocyte Percent A 0.3 % (0-0.5); Lymphocytes Absolute Auto 1.51 K/mm3 (0.9-3.2); Lymphocytes Percent Auto 22.3 % (18.3-44.2); Mean Corpuscular HGB Conc 31.5 g/dl (32-36); Mean Corpuscular Hemoglobin 27.2 pg (26-34); Mean Corpuscular Volume 86.4 fl (80-100); Mean Platelet Volume 10.7 fl (7.4-10.4); Monocytes Absolute Auto 0.6 K/mm3 (0.1-0.6); Neutrophils Absolute Auto 4.2 K/mm3 (1.3-6.7); Neutrophils Percent Auto 62.2 % (45.5-73.1); Platelet Count Result 267 k/mm3 (150-375); Red Blood Count 4.41 M/mm3 (4.2-5.4); White Blood Count 6.8 K/mm3 (4.5-10.0)
[2022-10-31 13:32] LABS: Alanine Aminotransferase 18 U/L (6-35); Albumin Level 4.2 g/dL (3.5-5.1); Alkaline Phosphatase 69 U/L (38-126); Anion Gap 6 mmol/L (8-16); Aspartate Amino Transferase 21 U/L (14-36); Bilirubin,Total 0.3 mg/dL (0.2-1.3); Blood Urea Nitrogen 17 mg/dL (7-17); Calcium 8.9 mg/dL (8.4-10.2); Carbon Dioxide 23 mmol/L (22-30); Chloride 106 mmol/L (98-107); Estimated CRCL calculation 90 ml/min; Estimated Glomerular Filt Rate > 60; Glucose 84 mg/dL (65-110); Lipase 82 U/L (23-300); Sodium 135 mmol/L (137-145)
[2022-10-31 15:08] VITALS: BP 106/65; PULSE 78; RESP 16; O2SAT 99
== END 2022-10-31 15:10 | disposition home or self-care (01) ==
PROVIDERS: Emergency Provider Emergency Medicine
DX: R10.32 Left lower quadrant pain (principal); N80.9 Endometriosis, unspecified; E28.2 Polycystic ovarian syndrome; J45.909 Unspecified asthma, uncomplicated; Z86.2 Personal history of diseases of the blood and blood-forming organs and certain disorders involving the immune mechanism
CPT/HCPCS: 36415; 74177; 80053; 81001; 81025; 83690; 85025; 96360; 99284; J7030; Q9967

== ENCOUNTER 2022-12-07 00:53 | Day surgery (SDC) | payer OTHER, SELFPAY ==
[2022-12-01 14:57] VITALS: BMI 25.9
--- NOTE | 2022-12-01 15:03 | PC.NURSE ---
Report to the Outpatient Waiting Room, entrance under the green pavilion located off [facility], at time _0830_ on date _[id number]_. Planned Procedure Time: _1030_. Time changes happen often and if your time is changed the preop area will call you the afternoon before. - You and your visitor will be asked to self-screen and do not enter if you have any COVID symptoms. - A mask is optional within the hospital at this time. Patients may have clear liquids (water, carbonated beverages, clear teas, apple juice) until 3 hours prior to surgery with a maximum of 20 ounces. - No food from midnight until time of surgery Take the following medications with a SIP of water the morning of surgery: ___None DO NOT STOP ANY OF YOUR OTHER PRESCRIPTION MEDICATIONS PRIOR TO SURGERY ?EXCEPT THE FOLLOWING Medications to discontinue per physician None Date to take last dose Please no make-up, nail liberian, hairspray, perfume, deodorant, or body powder the day of surgery. No jewelry (including any body piercings) or valuables the day of surgery, leave them at home. Please take a shower or bath the night before, or the morning of, surgery with an antibacterial soap. Wear comfortable, loose fitting clothing. - Jewelry must be removed prior to entering the operating room. Rings and piercings that are not removed may be cut off. - The hospital will not accept responsibility for valuables. - Please leave all valuables, including medications, at home the day of surgery. If you are going home after surgery, a licensed team otr truck driver must drive you home. - NO public transportation without another adult if you receive anesthesia. - We recommend that an adult stay with you for 24 hours following discharge. - We also recommend that you do not drive, make important decision, drink alcoholic beverages, or take any drugs that were not prescribed by your health care provider for at least 24 hours after your discharge time. Follow any additional instructions given to you from your surgeon. If you or anyone in your household have experienced Covid symptoms in the past week, please notify your surgeon or the nurse liaison at the phone number below for possible testing. Telephone instructions given to _Patient__and asked if any additional questions and then verbalized understanding. Patient advised to call surgeon office or pre surgery nurse liaison [phone] if any additional questions.
--- NOTE | 2022-12-07 07:38 | WPDHPUPDATE1 ---
History and Physical Update Update Date/Time: 12/07/22 07:38 See 11/14/2022 office note. Proceed with hscope/D&C/endometrial ablation History and Physical has been reviewed, including an updated exam of the patient. There are NO changes in the patient's condition. Risks, benefits, and alternatives have been discussed and questions answered. Patient agrees to proceed with procedure.
[2022-12-07] MEDS: LACTATED RINGERS 1,000 ML 30 ML IV CONT (07:45)
[2022-12-07] MEDS: ACETAMINOPHEN 500 MG TABLET 1000 MG PO (07:51)
--- NOTE | 2022-12-07 08:58 | WPDANESEPPF ---
Anes - Initial Pre Proc Eval Procedure: Operation Date: 12/07/22 09:30 Proposed Procedures p Hysteroscopy, Dilation and Curettage, Nolvia Endometrial Ablation - Davy Ackerman MD Date/Time: 12/07/22 08:58 Surgeon: Davy Ackerman MD Pre Op Diagnosis: menometrorrhagia Patient Data Age: 27 Gender: F Height: 1.78 m Weight: 84.7 kg Allergies Allergy/AdvReac Type Severity Reaction Status Date / Time clavulanic acid Allergy Severe BOWEL Verified 12/01/22 14:54 ISSUES strawberry Allergy Intermediate SWELLING/VO Verified 12/01/22 14:54 MITING ammonium alum Allergy Mild LIP Verified 12/01/22 14:54 SWELLING benzocaine Allergy Mild SWELLING Verified 12/01/22 14:54 camphor Allergy Mild LIP Verified 12/01/22 14:54 SWELLING menthol Allergy Mild LIP Verified 12/01/22 14:54 SWELLING petrolatum,white Allergy Mild SWELLING Verified 12/01/22 14:54 phenol Allergy Mild LIP Verified 12/01/22 14:54 SWELLING phenol liquid Allergy Mild SWELLING Verified 12/01/22 14:54 pramoxine Allergy Mild SWELLING Verified 12/01/22 14:54 salicylic acid Allergy Mild LIP Verified 12/01/22 14:54 SWELLING amoxicillin [From Augmentin] Allergy Swelling Verified 12/01/22 14:54 morphine AdvReac Headache Verified 12/01/22 14:54 Wasp Allergy Severe SWELLING Uncoded 12/01/22 14:54 PAPER TAPE Allergy Mild RASH Uncoded 12/01/22 14:54 Home Medications Medication Instructions Recorded Confirmed Type albuterol sulfate 90 mcg/actuation 2 puff inhalation QID PRN 01/22/19 12/01/22 History aerosol inhaler (ProAir HFA) Shortness Of Breath montelukast 10 mg tablet 10 mg PO DAILY 07/04/21 12/01/22 History sennosides 8.6 mg-docusate sodium 1 tab-cap PO HS #14 tabs 05/15/22 12/01/22 Rx 50 mg tablet (Senna with Docusate Sodium) dicyclomine 20 mg tablet 20 mg PO QID PRN abdominal pain 10/31/22 12/01/22 Rx #20 tabs tizanidine 4 mg capsule 4 mg PO QHS PRN Muscle Spasm 11/14/22 12/01/22 History topiramate 50 mg capsule,extended 50 mg PO DAILY 11/14/22 12/01/22 History release 24 hr Patient hx anesthesia problems: none Family hx anesthesia problems: none Results Review: All pre-operative results and documents have been reviewed as part of the pre-operative evaluation. [facility] Past Medical History Medical History Anemia Anxiety Arthritis Asthma Blood glucose abnormal Depression Migraines Miscarriage (05/17/17) suction d&c Mitral valve disease leak Seizures (~04/26/21) Sinus arrhythmia Suppression of menstruation Vaginal discharge Surgical History Surgical History Delivery by section (05/13/22) rpt c/s with tubal ligation History of adenoidectomy History of appendectomy History of (05/02/18) primary c/s breech presentation, bicornuate uterus History of laparoscopy (02/01/17) lscope adhesiolysis, ablation of endometriosis History of left knee surgery (06/15/15) History of placement of ear tubes both ear x7 Family History Family History Mother Acute myocardial infarction Heart disease Renal failure syndrome Cerebrovascular accident Lupus Father Chronic obstructive lung disease Grandparent Epilepsy Diabetes mellitus maternal grandfather Hypertension maternal grandmother Other Breast cancer paternal aunt Sibling Autism Son Autism Social History Social History Smoking status: Never smoker Second hand tobacco smoke exposure: No Alcohol intake: never Substance use: never Substance use type: does not use Lack of Transportation: No Lack of Food: Never True Current Housing: I Have Housing Concerned About Future Housing: No Difficulty Paying Gas/Electric Bills: No Difficulty Paying f
[2022-12-07 09:10] VITALS: BP 106/64; PULSE 72; RESP 16; TEMP 36.7; O2SAT 99
--- NOTE | 2022-12-07 10:03 | W.PM.PROC2 ---
Procedure Note - Detailed Date of Procedure 12/07/22 Pre-op Diagnosis menometrorrhagia Post-op Diagnosis Same Procedure Performed 1. Hysteroscopy with uterine curettings 2. Endometrial ablation Surgeon Davy Ackerman MD Anesthesia MAC Findings Thickened endometrial cavity Description of Procedure Patient prepped and draped usual manner for this procedure. Cervix was dilated to allow the hysteroscope to be placed which did show slightly thickened endometrial tissue. Curettings were obtained. Nolvia instrument was placed, cavity assessment was performed, and instrument was activated. At the end of the cycle hysteroscopic exam good destruction throughout with no abnormalities appreciated. At this point the procedure was considered terminated the patient was sent to recovery room in stable condition. Estimated Blood Loss 10 Drains No Packing No Pathology Yes Complications No immediate complications Condition Stable Disposition PACU [facility] Billing Surgery - Charge Forward: Surgery Billing
[2022-12-07 10:07] VITALS: BP 105/58; PULSE 78; RESP 15; O2SAT 96
[2022-12-07 10:37] VITALS: BP 115/65; PULSE 78; RESP 16
[2022-12-07] MEDS: oxyCODONE HCL (*CRX) 5 MG TAB IR PO (10:41)
[2022-12-07 11:07] VITALS: BP 119/57; PULSE 64; RESP 16
== END 2022-12-07 11:28 | disposition home or self-care (01) ==
PROVIDERS: PCP Emergency Medicine; Visit Provider Obstetrics & Gynecology
PROC: 0U5B8ZZ Destruction of Endometrium, Via Natural or Artificial Opening Endoscopic (ICD-10-PCS; CPT 58563; principal; 2022-12-07 09:30)
DX: N92.1 Excessive and frequent menstruation with irregular cycle (principal); J45.909 Unspecified asthma, uncomplicated; D64.9 Anemia, unspecified; F41.9 Anxiety disorder, unspecified; F32.A Depression, unspecified; I49.8 Other specified cardiac arrhythmias; G43.909 Migraine, unspecified, not intractable, without status migrainosus; Z79.51 Long term (current) use of inhaled steroids
CPT/HCPCS: 58563; 88305; A9270; J2250; J2405; J2704; J3010; J7120

== ENCOUNTER 2023-07-08 16:15 | Emergency (ER) | payer OTHER, SELFPAY ==
--- NOTE | ~2023-07-08 | CT_ITS ---
EXAMINATION: CT abdomen pelvis wo con DATE: 07/08/2023 18:15 INDICATION: Right flank pain. TECHNIQUE: Computed tomography (CT) of the abdomen and pelvis was performed without intravenous contr ast. Automated exposure control and iterative reconstruction technique were employed. The dose-length product was 319.05 mGy-cm. COMPARISON: None. FINDINGS: The visualized portions of the lung bases are clear without pneumonia or pleural effusion. The heart size is normal. No pericardial effusion. The liver, gallbladder, spleen, pancreas, adrenal glands, and kidneys are normal. There is no urolithiasis. There are no dilated loops of bowel. The ap pendix is not visualized. There are no pathologically enlarged lymph nodes. There is no free intraper itoneal fluid. There is mild thoracic and lumbar spondylosis. IMPRESSION: 1. No etiology for the patient's symptoms. Reviewed, dictated and finalized at location E.
[2023-07-08 16:16] VITALS: BP 114/67; PULSE 100; RESP 19; TEMP 36.7; O2SAT 98
--- NOTE | 2023-07-08 17:42 | ED.BACK ---
HPI - Back Pain/Injury General Chief Complaint: Back Pain/Injury Stated Complaint: back pain Time Seen by Provider: 07/08/23 17:42 History of Present Illness HPI Narrative: Patient is a 28-year-old female with history of endometriosis, PCOS, back surgery 11 years ago, nephrolithiasis here with lower back pain and right-sided flank pain. She states that the pain began this morning. She describes it is located on her right flank radiating anteriorly anterior abdomen and down into her groin. She denies any dysuria or change in urinary frequency, does describe some hematuria however she is currently on her menstrual cycle. She describes pain as sharp as well as cramping in nature. She notes it feels similar to her prior nephrolithiasis in the past. She does describe she had to have intervention on a kidney stone approximately 1 year ago at this facility. Last solid p.o. intake was yesterday. She did have a sip of sweet tea while she was waiting in the waiting room here at our hospital. Prior abdominal surgeries include multiple C-sections and procedures for endometriosis. She denies any falls or trauma. Notes chronic history of back pain since back surgery 11 years ago. No bowel or bladder incontinence, no saddle anesthesia, no numbness or weakness in lower extremities. Related Data Home Medications Medication Instructions Recorded Confirmed albuterol sulfate 90 mcg/actuation 2 puff inhalation QID PRN 01/22/19 12/25/22 aerosol inhaler (ProAir HFA) Shortness Of Breath montelukast 10 mg tablet 10 mg PO DAILY 07/04/21 12/25/22 tizanidine 4 mg capsule 4 mg PO QHS PRN Muscle Spasm 11/14/22 12/25/22 topiramate 50 mg capsule,extended 50 mg PO DAILY 11/14/22 12/25/22 release 24 hr Allergies Allergy/AdvReac Type Severity Reaction Status Date / Time clavulanic acid Allergy Severe BOWEL Verified 07/08/23 17:52 ISSUES strawberry Allergy Intermediate SWELLING/VO Verified 07/08/23 17:52 MITING ammonium alum Allergy Mild LIP Verified 07/08/23 17:52 SWELLING benzocaine Allergy Mild SWELLING Verified 07/08/23 17:52 camphor Allergy Mild LIP Verified 07/08/23 17:52 SWELLING menthol Allergy Mild LIP Verified 07/08/23 17:52 SWELLING petrolatum,white Allergy Mild SWELLING Verified 07/08/23 17:52 phenol Allergy Mild LIP Verified 07/08/23 17:52 SWELLING phenol liquid Allergy Mild SWELLING Verified 07/08/23 17:52 pramoxine Allergy Mild SWELLING Verified 07/08/23 17:52 salicylic acid Allergy Mild LIP Verified 07/08/23 17:52 SWELLING amoxicillin [From Augmentin] Allergy Swelling Verified 07/08/23 17:52 morphine AdvReac Headache Verified 07/08/23 17:52 Wasp Allergy Severe SWELLING Uncoded 07/08/23 17:52 PAPER TAPE Allergy Mild RASH Uncoded 07/08/23 17:52 Review of Systems Review of Systems: All systems reviewed & are unremarkable except as noted in HPI and below PMFSH Past Medical History Medical History Anemia Anxiety Arthritis Asthma Blood glucose abnormal Depression Migraines Miscarriage (05/17/17) suction d&c Mitral valve disease leak Seizures (~04/26/21) Sinus arrhythmia Suppression of menstruation Vaginal discharge Surgical History Surgical History Delivery by section (05/13/22) rpt c/s with tubal ligation History of adenoidectomy History of appendectomy History of (05/02/18) primary c/s breech presentation, bicornuate uterus History of hysteroscopy (12/07/22) Hysteroscopy with uterine curettings. Endometrial ablation History of laparoscopy (02/01/17) lscope adhesiolysis, ablation of endometriosis History of left knee surgery (06/15/15) History of placement of ear tubes both ear x7 Family History Family History Mother Acute myocardial infarction Heart disease Renal failure syndrome Cerebrov
[2023-07-08 18:25] LABS: Appearance Urine Cloudy (Clear); Bacteria Urine 1+ /hpf; Bilirubin Urine Negative (Negative); Blood Urine 3+ (Negative); Color Urine Dark Yellow (Yellow); Glucose Urine UA Negative (Negative); Ketones Urine Negative (Negative); Leukocyte Esterase Ur Trace LEU/UL (Negative); Mucus Urine Present /lpf; Need Manual Microscopic Reviewed; Nitrate Urine Negative (Negative); Protein Urine 2+ mg/dL (Negative); RBC Urine >100 /hpf (0-2); Squamous Epithelial Cell Urine Few /hpf (Few); pH Urine 5.5 (5.0-9.0)
[2023-07-08] MEDS: CYCLOBENZAPRINE HCL 10 MG TABLET PO (18:32)
[2023-07-08 18:42] LABS: Add Urine Microscopic? YES; Specific Grav Ur 1.031 (1.001-1.035)
[2023-07-08 18:47] LABS: Basophils Percent Auto 0.5 % (0.2-1.2); Eosinophils Absolute Auto 0.3 K/mm3 (0-0.3); Eosinophils Percent Auto 4.3 % (0-4.4); Hematocrit 40.2 % (37.0-47.0); Hemoglobin 12.7 g/dL (12.0-15.0); Immature Granulocyte Absolute 0.02 K/mm3 (0.00-0.031); Immature Granulocyte Percent A 0.3 % (0-0.5); Lymphocytes Absolute Auto 2.18 K/mm3 (0.9-3.2); Lymphocytes Percent Auto 29.5 % (18.3-44.2); Mean Corpuscular HGB Conc 31.6 g/dl (32-36); Mean Corpuscular Hemoglobin 27.2 pg (26-34); Mean Corpuscular Volume 86.1 fl (80-100); Mean Platelet Volume 10.7 fl (7.4-10.4); Monocytes Absolute Auto 0.5 K/mm3 (0.1-0.6); Monocytes Percent Auto 6.4 % (2.6-8.5); Neutrophils Absolute Auto 4.4 K/mm3 (1.3-6.7); Platelet Count Result 295 k/mm3 (150-375); Red Blood Count 4.67 M/mm3 (4.2-5.4); Red Cell Distribution Width 13.4 % (11.5-14.5); White Blood Count 7.4 K/mm3 (4.5-10.0)
[2023-07-08 18:51] LABS: Alanine Aminotransferase 12 U/L (6-35); Albumin Level 4.6 g/dL (3.5-5.1); Alkaline Phosphatase 67 U/L (38-126); Anion Gap 8 mmol/L (4-12); Aspartate Amino Transferase 26 U/L (14-36); Bilirubin,Total 0.8 mg/dL (0.2-1.3); Blood Urea Nitrogen 14 mg/dL (7-17); Calcium 9.7 mg/dL (8.4-10.2); Carbon Dioxide 25 mmol/L (22-30); Chloride 109 mmol/L (98-107); Estimated CRCL calculation 89 ml/min; Estimated Glomerular Filt Rate > 60; Glucose 96 mg/dL (65-110); Potassium 3.8 mmol/L (3.4-5.0); Sodium 142 mmol/L (137-145)
[2023-07-08] MEDS: KETOROLAC 15 MG/ML VIAL (*BKC) IV PUSH (19:06)
[2023-07-08] MEDS: SULFAMETHOXAZOLE/TRIMETHOPRIM 800/160 MG DS TABLET 1 TAB PO (19:06)
[2023-07-08 19:10] VITALS: BP 120/80; PULSE 80; RESP 19; O2SAT 97
== END 2023-07-08 19:10 | disposition home or self-care (01) ==
PROVIDERS: Emergency Provider Student in an Organized Health Care Education/Training Program; PCP Emergency Medicine
DX: N39.0 Urinary tract infection, site not specified (principal); J45.909 Unspecified asthma, uncomplicated; I05.9 Rheumatic mitral valve disease, unspecified; E28.2 Polycystic ovarian syndrome; N80.9 Endometriosis, unspecified; M19.90 Unspecified osteoarthritis, unspecified site; Z86.2 Personal history of diseases of the blood and blood-forming organs and certain disorders involving the immune mechanism; Z87.442 Personal history of urinary calculi
CPT/HCPCS: 36415; 74176; 80053; 81001; 81025; 85025; 87077; 87086; 87088; 96374; 99284; A9270; J1885

== ENCOUNTER 2023-07-19 22:18 | Emergency (ER) | payer OTHER, SELFPAY ==
[2023-07-19 22:24] VITALS: BP 118/74; PULSE 104; RESP 15; TEMP 36.8; O2SAT 100
[2023-07-20] MEDS: SODIUM CHLORIDE 0.9% IV 1,000 ML 999 ML IV CONT (00:04)
[2023-07-20 00:05] VITALS: BP 112/80; PULSE 72; RESP 16; O2SAT 100
[2023-07-20 00:09] LABS: Basophils Percent Auto 0.6 % (0.2-1.2); Eosinophils Absolute Auto 0.3 K/mm3 (0-0.3); Eosinophils Percent Auto 4.8 % (0-4.4); Hematocrit 36.7 % (37.0-47.0); Hemoglobin 11.9 g/dL (12.0-15.0); Immature Granulocyte Absolute 0.01 K/mm3 (0.00-0.031); Immature Granulocyte Percent A 0.1 % (0-0.5); Lymphocytes Absolute Auto 1.69 K/mm3 (0.9-3.2); Lymphocytes Percent Auto 24.4 % (18.3-44.2); Mean Corpuscular HGB Conc 32.4 g/dl (32-36); Mean Corpuscular Hemoglobin 27.5 pg (26-34); Mean Corpuscular Volume 84.8 fl (80-100); Mean Platelet Volume 10.5 fl (7.4-10.4); Monocytes Absolute Auto 0.5 K/mm3 (0.1-0.6); Monocytes Percent Auto 7.4 % (2.6-8.5); Neutrophils Absolute Auto 4.3 K/mm3 (1.3-6.7); Neutrophils Percent Auto 62.7 % (45.5-73.1); Platelet Count Result 269 k/mm3 (150-375); Red Blood Count 4.33 M/mm3 (4.2-5.4); Red Cell Distribution Width 13.2 % (11.5-14.5); White Blood Count 6.9 K/mm3 (4.5-10.0)
[2023-07-20 00:20] LABS: Alanine Aminotransferase 13 U/L (6-35); Albumin Level 3.9 g/dL (3.5-5.1); Alkaline Phosphatase 63 U/L (38-126); Anion Gap 4 mmol/L (4-12); Aspartate Amino Transferase 18 U/L (14-36); Bilirubin,Total 0.5 mg/dL (0.2-1.3); Blood Urea Nitrogen 14 mg/dL (7-17); Calcium 9.2 mg/dL (8.4-10.2); Carbon Dioxide 28 mmol/L (22-30); Chloride 109 mmol/L (98-107); Creatine Kinase 58 U/L (30-135); Estimated CRCL calculation 89 ml/min; Estimated Glomerular Filt Rate > 60; Glucose 119 mg/dL (65-110); Magnesium 2.2 mg/dL (1.6-2.3); Potassium 3.7 mmol/L (3.4-5.0); Sodium 141 mmol/L (137-145)
[2023-07-20 00:21] LABS: Lactic Acid Reflex 1.2 mmol/L (0.7-2.0)
--- NOTE | 2023-07-20 01:27 | ED.GENADULT ---
HPI - General Adult General Chief complaint: Seizure Stated complaint: seizure, unresponsive in care Time Seen by Provider: 07/20/23 01:26 History of Present Illness HPI narrative: Patient is a 28-year-old female who presents to the emergency department this evening after breakthrough seizure. Patient does have a known history of seizure disorder that she has had since she was 8 years old. She follows up with Dr. Fairchild with Neurology and takes Topamax for her seizure disorder. Patient states that she is compliant with all of her medications and does take her Topamax daily. Patient was sitting down in the next to her significant when she had the seizure, she did not or hit her head. Significant other brought the patient to our facility immediately. Upon patient's arrival, she was postictal, however, shortly after patient was alert and oriented and answering all the questions appropriately. Patient is currently denying any symptoms including any headaches, dizziness, or any focal weakness. No additional symptoms or concerns at this time. Related Data Home Medications Medication Instructions Recorded Confirmed albuterol sulfate 90 mcg/actuation 2 puff inhalation QID PRN 01/22/19 12/25/22 aerosol inhaler (ProAir HFA) Shortness Of Breath montelukast 10 mg tablet 10 mg PO DAILY 07/04/21 12/25/22 tizanidine 4 mg capsule 4 mg PO QHS PRN Muscle Spasm 11/14/22 12/25/22 topiramate 50 mg capsule,extended 50 mg PO DAILY 11/14/22 12/25/22 release 24 hr Allergies Allergy/AdvReac Type Severity Reaction Status Date / Time clavulanic acid Allergy Severe BOWEL Verified 07/08/23 17:52 ISSUES strawberry Allergy Intermediate SWELLING/VO Verified 07/08/23 17:52 MITING ammonium alum Allergy Mild LIP Verified 07/08/23 17:52 SWELLING benzocaine Allergy Mild SWELLING Verified 07/08/23 17:52 camphor Allergy Mild LIP Verified 07/08/23 17:52 SWELLING menthol Allergy Mild LIP Verified 07/08/23 17:52 SWELLING petrolatum,white Allergy Mild SWELLING Verified 07/08/23 17:52 phenol Allergy Mild LIP Verified 07/08/23 17:52 SWELLING phenol liquid Allergy Mild SWELLING Verified 07/08/23 17:52 pramoxine Allergy Mild SWELLING Verified 07/08/23 17:52 salicylic acid Allergy Mild LIP Verified 07/08/23 17:52 SWELLING amoxicillin [From Augmentin] Allergy Swelling Verified 07/08/23 17:52 morphine AdvReac Headache Verified 07/08/23 17:52 Wasp Allergy Severe SWELLING Uncoded 07/08/23 17:52 PAPER TAPE Allergy Mild RASH Uncoded 07/08/23 17:52 Review of Systems Review of Systems: All systems are reviewed and are negative unless stated otherwise in the HPI. [facility] Past Medical History Medical History Anemia Anxiety Arthritis Asthma Blood glucose abnormal Depression Migraines Miscarriage (05/17/17) suction d&c Mitral valve disease leak Seizures (~04/26/21) Sinus arrhythmia Suppression of menstruation Vaginal discharge Surgical History Surgical History Delivery by section (05/13/22) rpt c/s with tubal ligation History of adenoidectomy History of appendectomy History of (05/02/18) primary c/s breech presentation, bicornuate uterus History of hysteroscopy (12/07/22) Hysteroscopy with uterine curettings. Endometrial ablation History of laparoscopy (02/01/17) lscope adhesiolysis, ablation of endometriosis History of left knee surgery (06/15/15) History of placement of ear tubes both ear x7 Family History Family History Mother Acute myocardial infarction Heart disease Renal failure syndrome Cerebrovascular accident Lupus Father Chronic obstructive lung disease Grandparent Epilepsy Diabetes mellitus maternal grandfather Hypertension maternal grandmother Other Breast cancer paternal aunt Si
[2023-07-20 01:55] VITALS: BP 118/58; PULSE 73; RESP 16; O2SAT 100
== END 2023-07-20 01:56 | disposition home or self-care (01) ==
PROVIDERS: Emergency Provider Emergency Medicine; PCP Emergency Medicine
DX: G40.909 Epilepsy, unspecified, not intractable, without status epilepticus (principal); J45.909 Unspecified asthma, uncomplicated; I05.9 Rheumatic mitral valve disease, unspecified; M19.90 Unspecified osteoarthritis, unspecified site
CPT/HCPCS: 36415; 80053; 82550; 83605; 83735; 85025; 96360; 99283; J7030

== ENCOUNTER 2023-08-01 14:34 | Outpatient (CLI) | payer OTHER, SELFPAY ==
[2023-08-01 15:04] LABS: Basophils Absolute Auto 0.1 K/mm3 (0.0-0.1); Basophils Percent Auto 0.7 % (0.2-1.2); Eosinophils Absolute Auto 0.1 K/mm3 (0-0.3); Eosinophils Percent Auto 1.6 % (0-4.4); Hematocrit 38.6 % (37.0-47.0); Hemoglobin 12.5 g/dL (12.0-15.0); Immature Granulocyte Absolute 0.02 K/mm3 (0.00-0.031); Immature Granulocyte Percent A 0.3 % (0-0.5); Lymphocytes Absolute Auto 1.55 K/mm3 (0.9-3.2); Lymphocytes Percent Auto 20.6 % (18.3-44.2); Mean Corpuscular HGB Conc 32.4 g/dl (32-36); Mean Corpuscular Hemoglobin 27.5 pg (26-34); Mean Corpuscular Volume 84.8 fl (80-100); Mean Platelet Volume 10.6 fl (7.4-10.4); Monocytes Absolute Auto 0.5 K/mm3 (0.1-0.6); Monocytes Percent Auto 6.1 % (2.6-8.5); Neutrophils Absolute Auto 5.3 K/mm3 (1.3-6.7); Neutrophils Percent Auto 70.7 % (45.5-73.1); Platelet Count Result 275 k/mm3 (150-375); Red Blood Count 4.55 M/mm3 (4.2-5.4); Red Cell Distribution Width 13.2 % (11.5-14.5); White Blood Count 7.5 K/mm3 (4.5-10.0)
== END 2023-08-01 14:35 | disposition home or self-care (01) ==
LOC: ANHLAB 14:36
PROVIDERS: PCP Emergency Medicine; Visit Provider Obstetrics & Gynecology
DX: N93.9 Abnormal uterine and vaginal bleeding, unspecified (principal)
CPT/HCPCS: 36415; 85025

== ENCOUNTER 2023-08-25 16:48 | Emergency (ER) | payer OTHER, SELFPAY ==
[2023-08-25 16:49] VITALS: BP 112/69; PULSE 98; RESP 16; TEMP 36.8; O2SAT 98
[2023-08-25 17:43] LABS: Basophils Absolute Auto 0.1 K/mm3 (0.0-0.1); Basophils Percent Auto 0.8 % (0.2-1.2); Eosinophils Absolute Auto 0.4 K/mm3 (0-0.3); Eosinophils Percent Auto 5.8 % (0-4.4); Hematocrit 39.8 % (37.0-47.0); Hemoglobin 12.5 g/dL (12.0-15.0); Immature Granulocyte Absolute 0.02 K/mm3 (0.00-0.031); Immature Granulocyte Percent A 0.3 % (0-0.5); Lymphocytes Absolute Auto 1.83 K/mm3 (0.9-3.2); Lymphocytes Percent Auto 25.1 % (18.3-44.2); Mean Corpuscular HGB Conc 31.4 g/dl (32-36); Mean Corpuscular Hemoglobin 27.2 pg (26-34); Mean Corpuscular Volume 86.7 fl (80-100); Mean Platelet Volume 10.3 fl (7.4-10.4); Monocytes Absolute Auto 0.4 K/mm3 (0.1-0.6); Monocytes Percent Auto 4.8 % (2.6-8.5); Neutrophils Absolute Auto 4.6 K/mm3 (1.3-6.7); Neutrophils Percent Auto 63.2 % (45.5-73.1); Platelet Count Result 254 k/mm3 (150-375); Red Blood Count 4.59 M/mm3 (4.2-5.4); Red Cell Distribution Width 13.4 % (11.5-14.5); White Blood Count 7.3 K/mm3 (4.5-10.0)
--- NOTE | 2023-08-25 17:50 | ED.ABDPAIN ---
HPI - Abdominal Pain General Chief Complaint: Abdominal Pain Stated Complaint: abd pain Time Seen by Provider: 08/25/23 17:24 Source: patient Mode of arrival: ambulatory Limitations: no limitations History of Present Illness HPI narrative: 28yo female presents with suprapubic and left sided abdominal pain since yesterday as well as a chest pressure. She describes the latter as a dull feeling. She has been having urinary urgency and frequency. Denies any hematuria or dysuria but is having reported vaginal bleeding. No other vaginal discharge. She took a home test and it was positive. History of PCOS, s/p endometrial ablation, not on medications. LBM yesterday; no constipation, diarrhea, or blood. LMP 07/08/23. JENNIFER at 1pm, denies having an appetite. Nauseated but no vomiting. Multiple abdominal surgeries including the above as well as C section x2 and appendectomy. No fevers but chills. ObGyn Dr Ackerman. Related Data Home Medications Medication Instructions Recorded Confirmed albuterol sulfate 90 mcg/actuation 2 puff inhalation QID PRN 01/22/19 08/01/23 aerosol inhaler (ProAir HFA) Shortness Of Breath montelukast 10 mg tablet 10 mg PO DAILY 07/04/21 08/01/23 tizanidine 4 mg capsule 4 mg PO QHS PRN Muscle Spasm 11/14/22 08/01/23 topiramate 50 mg capsule,extended 50 mg PO DAILY 11/14/22 08/01/23 release 24 hr Allergies Allergy/AdvReac Type Severity Reaction Status Date / Time clavulanic acid Allergy Severe BOWEL Verified 08/01/23 13:52 ISSUES strawberry Allergy Intermediate SWELLING/VO Verified 08/01/23 13:52 MITING ammonium alum Allergy Mild LIP Verified 08/01/23 13:52 SWELLING benzocaine Allergy Mild SWELLING Verified 08/01/23 13:52 camphor Allergy Mild LIP Verified 08/01/23 13:52 SWELLING menthol Allergy Mild LIP Verified 08/01/23 13:52 SWELLING petrolatum,white Allergy Mild SWELLING Verified 08/01/23 13:52 phenol Allergy Mild LIP Verified 08/01/23 13:52 SWELLING phenol liquid Allergy Mild SWELLING Verified 08/01/23 13:52 pramoxine Allergy Mild SWELLING Verified 08/01/23 13:52 salicylic acid Allergy Mild LIP Verified 08/01/23 13:52 SWELLING amoxicillin [From Augmentin] Allergy Swelling Verified 08/01/23 13:52 morphine AdvReac Headache Verified 08/01/23 13:52 Wasp Allergy Severe SWELLING Uncoded 08/01/23 13:52 PAPER TAPE Allergy Mild RASH Uncoded 08/01/23 13:52 [facility] Past Medical History Medical History (Updated 08/26/23 @ 00:01 by Background Sagrario) Anemia Anxiety Arthritis Asthma Blood glucose abnormal Depression Migraines Miscarriage (05/17/17) suction d&c Mitral valve disease leak Seizures (~04/26/21) Sinus arrhythmia Suppression of menstruation Vaginal discharge Surgical History Surgical History (Updated 08/27/23 @ 16:28 by Nadine Hogan MD) Delivery by section (05/13/22) rpt c/s with tubal ligation History of adenoidectomy History of appendectomy History of (05/02/18) x2; primary c/s breech presentation, bicornuate uterus History of hysteroscopy (12/07/22) Hysteroscopy with uterine curettings. Endometrial ablation History of laparoscopy (02/01/17) lscope adhesiolysis, ablation of endometriosis History of left knee surgery (06/15/15) History of placement of ear tubes both ear x7 Family History Family History Mother Acute myocardial infarction Heart disease Renal failure syndrome Cerebrovascular accident Lupus Father Chronic obstructive lung disease Grandparent Epilepsy Diabetes mellitus maternal grandfather Hypertension maternal grandmother Other Breast cancer paternal aunt Sibling Autism Son Autism Social History Social History Smoking status: Never smoker Second hand tobacco smoke exposure: No Alcohol intake: never Substance use: never Substance
[2023-08-25 17:51] LABS: Appearance Urine Clear (Clear); Bacteria Urine 1+ /hpf; Bilirubin Urine Negative (Negative); Blood Urine 3+ (Negative); Color Urine Yellow (Yellow); Glucose Urine UA Negative (Negative); Ketones Urine Trace mg/dL (Negative); Leukocyte Esterase Ur 1+ LEU/UL (Negative); Nitrate Urine Negative (Negative); Non Pathogenic Casts 0-2; Protein Urine 2+ mg/dL (Negative); Specific Grav Ur 1.023 (1.001-1.035); Squamous Epithelial Cell Urine Occasional /hpf (Few)
[2023-08-25 18:00] LABS: Add Urine Microscopic? YES
[2023-08-25 18:03] LABS: Alanine Aminotransferase 10 U/L (6-35); Albumin Level 4.2 g/dL (3.5-5.1); Alkaline Phosphatase 61 U/L (38-126); Anion Gap 7 mmol/L (4-12); Aspartate Amino Transferase 16 U/L (14-36); Bilirubin,Total 0.6 mg/dL (0.2-1.3); Blood Urea Nitrogen 13 mg/dL (7-17); Carbon Dioxide 25 mmol/L (22-30); Chloride 107 mmol/L (98-107); Estimated CRCL calculation 76 ml/min; Estimated Glomerular Filt Rate 60; Glucose 94 mg/dL (65-110); Lipase 70 U/L (23-300); Potassium 3.5 mmol/L (3.4-5.0); Sodium 139 mmol/L (137-145)
[2023-08-25 18:37] LABS: Beta HCG Quantitative < 2.39 mIU/ML
[2023-08-25] MEDS: SODIUM CHLORIDE 0.9% IV 1,000 ML 999 ML IV CONT (18:41)
[2023-08-25] MEDS: ONDANSETRON INJ 4 MG/2 ML VIAL IV PUSH (18:41)
[2023-08-25 18:47] VITALS: BP 97/49; PULSE 60; RESP 17; O2SAT 100
[2023-08-25] MEDS: SULFAMETHOXAZOLE/TRIMETHOPRIM 800/160 MG DS TABLET 1 TAB PO (18:49)
--- NOTE | 2023-08-25 19:01 | PC.NURSE ---
resting on cot with S.O, fluids infusing
--- NOTE | 2023-08-25 19:16 | PC.NURSE ---
Report received from SUZANNE Cole. Assumed care of patient at this time. Patient waiting for IV fluids to finish infusing before discharge.
[2023-08-25 19:31] VITALS: BP 125/63; PULSE 70; RESP 19; O2SAT 100
== END 2023-08-25 19:33 | disposition home or self-care (01) ==
PROVIDERS: Emergency Provider Student in an Organized Health Care Education/Training Program; PCP Emergency Medicine
DX: N39.0 Urinary tract infection, site not specified (principal); N91.2 Amenorrhea, unspecified; D64.9 Anemia, unspecified; F41.9 Anxiety disorder, unspecified; M19.90 Unspecified osteoarthritis, unspecified site; J45.909 Unspecified asthma, uncomplicated; Z88.1 Allergy status to other antibiotic agents
CPT/HCPCS: 36415; 80053; 81001; 81025; 83690; 84702; 85025; 87086; 87088; 96361; 96374; 99284; A9270; J2405; J7030

== ENCOUNTER 2023-09-28 13:05 | Outpatient (CLI) | payer OTHER, SELFPAY ==
[2023-09-28 16:49] LABS: Lithium < 0.2 mmol/L (0.6-1.2)
== END 2023-09-28 13:06 | disposition home or self-care (01) ==
PROVIDERS: Anesthesiology; PCP Emergency Medicine; Visit Provider Obstetrics & Gynecology
DX: R10.2 Pelvic and perineal pain (principal); Z79.899 Other long term (current) drug therapy; Z01.818 Encounter for other preprocedural examination
CPT/HCPCS: 36415; 80178; 86850; 86900; 86901

== ENCOUNTER 2023-10-04 01:08 | Day surgery (SDC) | payer OTHER, SELFPAY ==
[2023-09-25 11:14] VITALS: BMI 24.1
--- NOTE | 2023-09-25 11:20 | PC.NURSE ---
Addendum entered by Avila Ordoñez RN 09/25/23 11:41: Take Topiramate with a little water morning of surgery. Original Note: Report to the Outpatient Waiting Room, entrance under the green pavilion located off [facility], at time _0600_ on date _[id number]_. Planned Procedure Time: _0730_. Time changes happen often and if your time is changed the preop area will call you the afternoon before. - You and your visitor will be asked to self-screen and do not enter if you have any COVID symptoms. - A mask is optional within the hospital at this time. Patients may have clear liquids (water, carbonated beverages, clear teas, apple juice) until 3 hours prior to surgery with a maximum of 20 ounces. - No food from midnight until time of surgery Take the following medications with a SIP of water the morning of surgery: __None DO NOT STOP ANY OF YOUR OTHER PRESCRIPTION MEDICATIONS PRIOR TO SURGERY ?EXCEPT THE FOLLOWING Medications to discontinue per physician None Date to take last dose Please no make-up, nail estonian, hairspray, perfume, deodorant, or body powder the day of surgery. No jewelry (including any body piercings) or valuables the day of surgery, leave them at home. Please take a shower or bath the night before, or the morning of, surgery with an antibacterial soap. Wear comfortable, loose fitting clothing. - Jewelry must be removed prior to entering the operating room. Rings and piercings that are not removed may be cut off. - The hospital will not accept responsibility for valuables. - Please leave all valuables, including medications, at home the day of surgery. If you are going home after surgery, a licensed trailer truck driver must drive you home. - NO public transportation without another adult if you receive anesthesia. - We recommend that an adult stay with you for 24 hours following discharge. - We also recommend that you do not drive, make important decision, drink alcoholic beverages, or take any drugs that were not prescribed by your health care provider for at least 24 hours after your discharge time. Follow any additional instructions given to you from your surgeon. If you or anyone in your household have experienced Covid symptoms in the past week, please notify your surgeon or the nurse liaison at the phone number below for possible testing. Telephone instructions given to _Jeheladio___and asked if any additional questions and then verbalized understanding. Patient advised to call surgeon office or pre surgery nurse liaison [phone] if any additional questions.
--- NOTE | 2023-10-03 09:49 | PM.IMHP ---
H&P: HPI History of Present Illness Date/Time: 10/03/23 09:49 28-year-old 2 para 2001 female presents with complaints of heavy vaginal bleeding. She complains same issues approximately 7-8 months ago underwent endometrial ablation, since that time her cycles have not changed in any significant amount. She is bleeding with a significant amount cramping discomfort to the point where she states she is unable to perform her normal activities of daily living. Multiple options have been discussed and we will be proceeding with hysterectomy with ovarian preservation. She does have a history of section x2, appendectomy, and laparoscopy with endometriosis and adhesiolysis in the past. Chief Complaint: Post endometrial ablation syndrome Review of Systems Review of Systems: All systems reviewed & are unremarkable except as noted in HPI and below PMFSH Past Medical History Medical History Anemia Anxiety Arthritis Asthma Blood glucose abnormal Depression Migraines Miscarriage (05/17/17) suction d&c Mitral valve disease leak Seizures (~04/26/21) Sinus arrhythmia Suppression of menstruation Vaginal discharge Surgical History Surgical History Delivery by section (05/13/22) rpt c/s with tubal ligation History of adenoidectomy History of appendectomy History of (05/02/18) x2; primary c/s breech presentation, bicornuate uterus History of hysteroscopy (12/07/22) Hysteroscopy with uterine curettings. Endometrial ablation History of laparoscopy (02/01/17) lscope adhesiolysis, ablation of endometriosis History of left knee surgery (06/15/15) History of placement of ear tubes both ear x7 Family History Family History Mother Acute myocardial infarction Heart disease Renal failure syndrome Cerebrovascular accident Lupus Father Chronic obstructive lung disease Grandparent Epilepsy Diabetes mellitus maternal grandfather Hypertension maternal grandmother Other Breast cancer paternal aunt Sibling Autism Son Autism Social History Social History Smoking status: Never smoker Tobacco type: e-cigarettes/vaping Second hand tobacco smoke exposure: No Smoking end date: 03/27/23 Alcohol intake: never Substance use: never Substance use type: does not use Lack of Transportation: No Lack of Food: Never True Current Housing: I Have Housing Concerned About Future Housing: No Difficulty Paying Gas/Electric Bills: No Difficulty Paying for Meds: No Currently Unemployed: No Education: High School Diploma/GED Difficulty w/ Childcare or Family Care: No Living arrangements: with family Additional living arrangements comments: single Occupation/Education: occupation 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 Gender identity (if verbalized by the patient): Female Sexual Orientation (if Verbalized by the Patient): Straight or Heterosexual Spiritual care concerns: No Meds Home Medications and Allergies Home Medications Medication Instructions Recorded Confirmed Type albuterol sulfate 90 mcg/actuation 2 puff inhalation QID PRN 01/22/19 09/25/23 History aerosol inhaler (ProAir HFA) Shortness Of Breath montelukast 10 mg tablet 10 mg PO DAILY 07/04/21 09/25/23 History sennosides 8.6 mg-docusate sodium 1 tab-cap PO HS #14 tabs 05/15/22 09/25/23 Rx 50 mg tablet (Senna with Docusate Sodium) dicyclomine 20 mg tablet 20 mg PO QID PRN abdominal pain 10/31/22 09/25/23 Rx #20 tabs tizanidine 4 mg capsule 4 mg PO QHS PRN Muscle Spasm 11/14/22 09/25/23 History topiramate 50 mg capsule,extended 50 mg PO DAILY 11/14/22 09/25/23 History release 24 hr cyclobenzaprine 10 mg tablet 1
[2023-10-04] VITALS (10 sets, daily range): BP systolic 99–115; BP diastolic 52–73; PULSE 70–84; RESP 14–18; TEMP 36.1–36.9; O2SAT 99–100; BMI 23.2
--- NOTE | 2023-10-04 06:19 | SUR.PREOP ---
Discussed medication cross sensitivity allergies with patient. Patient states she has had Ancef, Tylenol and Toradol prior and had no issues with it.
[2023-10-04] MEDS: KETOROLAC 15 MG/ML VIAL (*BKC) IV PUSH (06:27)
[2023-10-04] MEDS: ACETAMINOPHEN 500 MG TABLET 1000 MG PO (06:27)
[2023-10-04] MEDS: LACTATED RINGERS 1,000 ML 30 ML IV CONT ×2 (06:41→09:15)
--- NOTE | 2023-10-04 07:14 | WPDHPUPDATE1 ---
History and Physical Update Update Date/Time: 10/04/23 07:14 History and Physical has been reviewed, including an updated exam of the patient. There are NO changes in the patient's condition. Risks, benefits, and alternatives have been discussed and questions answered. Patient agrees to proceed with procedure.
--- NOTE | 2023-10-04 07:17 | WPDANESEPPF ---
Anes - Initial Pre Proc Eval Procedure: Operation Date: 10/04/23 07:30 Proposed Procedures p Robotic Assisted Total Laparoscopic Hysterectomy - Davy Ackerman MD Date/Time: 10/04/23 07:17 Surgeon: Davy Ackerman MD Pre Op Diagnosis: Post Endometrial Ablation Syndrome Patient Data Age: 28 Gender: F Height: 1.78 m Weight: 73.5 kg Last Vital Signs Temp 97.5 F L 10/04/23 06:46 Pulse 84 10/04/23 06:46 Resp 14 10/04/23 06:46 BP 114/73 10/04/23 06:46 Pulse Ox 100 10/04/23 06:46 O2 Del Method Room Air 10/04/23 06:46 Allergies Allergy/AdvReac Type Severity Reaction Status Date / Time clavulanic acid Allergy Severe BOWEL Verified 10/03/23 09:59 ISSUES strawberry Allergy Intermediate SWELLING/VO Verified 10/03/23 09:59 MITING ammonium alum Allergy Mild LIP Verified 10/03/23 09:59 SWELLING benzocaine Allergy Mild SWELLING Verified 10/03/23 09:59 camphor Allergy Mild LIP Verified 10/03/23 09:59 SWELLING menthol Allergy Mild LIP Verified 10/03/23 09:59 SWELLING petrolatum,white Allergy Mild SWELLING Verified 10/03/23 09:59 phenol Allergy Mild LIP Verified 10/03/23 09:59 SWELLING phenol liquid Allergy Mild SWELLING Verified 10/03/23 09:59 pramoxine Allergy Mild SWELLING Verified 10/03/23 09:59 salicylic acid Allergy Mild LIP Verified 10/03/23 09:59 SWELLING amoxicillin [From Augmentin] Allergy Swelling Verified 10/03/23 09:59 morphine AdvReac Headache Verified 10/03/23 09:59 Wasp Allergy Severe SWELLING Uncoded 10/03/23 09:59 PAPER TAPE Allergy Mild RASH Uncoded 10/03/23 09:59 Home Medications Medication Instructions Recorded Confirmed Type albuterol sulfate 90 mcg/actuation 2 puff inhalation QID PRN 01/22/19 10/03/23 History aerosol inhaler (ProAir HFA) Shortness Of Breath montelukast 10 mg tablet 10 mg PO DAILY 07/04/21 10/03/23 History sennosides 8.6 mg-docusate sodium 1 tab-cap PO HS #14 tabs 05/15/22 10/03/23 Rx 50 mg tablet (Senna with Docusate Sodium) tizanidine 4 mg capsule 4 mg PO QHS PRN Muscle Spasm 11/14/22 10/03/23 History topiramate 50 mg capsule,extended 50 mg PO DAILY 11/14/22 10/03/23 History release 24 hr progesterone micronized 200 mg 200 mg PO QHS 30 days #30 caps 08/01/23 10/03/23 Rx capsule (Prometrium) lithium carbonate 450 mg 900 mg PO HS 09/25/23 10/03/23 History tablet,extended release sertraline 100 mg tablet 100 mg PO HS 09/25/23 10/03/23 History Patient hx anesthesia problems: none Family hx anesthesia problems: none Results Review: All pre-operative results and documents have been reviewed as part of the pre-operative evaluation. [facility] Past Medical History Medical History Anemia Anxiety Arthritis Asthma Blood glucose abnormal Depression Migraines Miscarriage (05/17/17) suction d&c Mitral valve disease leak Seizures (~04/26/21) Sinus arrhythmia Suppression of menstruation Vaginal discharge Surgical History Surgical History Delivery by section (05/13/22) rpt c/s with tubal ligation History of adenoidectomy History of appendectomy History of (05/02/18) x2; primary c/s breech presentation, bicornuate uterus History of hysteroscopy (12/07/22) Hysteroscopy with uterine curettings. Endometrial ablation History of laparoscopy (02/01/17) lscope adhesiolysis, ablation of endometriosis History of left knee surgery (06/15/15) History of placement of ear tubes both ear x7 Family History Family History Mother Acute myocardial infarction Heart disease Renal failure syndrome Cerebrovascular accident Lupus Father Chronic obstructive lung disease Grandparent Epilepsy Diabetes mellitus maternal grandfather Hypertension maternal grandmother Other Breast cancer patern
[2023-10-04] MEDS: ceFAZolin 2 GM/D5W 50 ML 2 GM/50 ML BAG IVPB (07:23)
--- NOTE | 2023-10-04 09:05 | P.OP_ITS ---
Procedure Note - Detailed Date of Procedure 10/04/23 Pre-op Diagnosis 1. Post endometrial ablation syndrome 2. Prior delivery x2 3. Laparoscopically documented endometriosis Post-op Diagnosis Same (4. Adhesions) Procedure Performed 1. Robotic Laparoscopic lysis of adhesions 2. Robotic total hysterectomy with ovarian preservation Surgeon Davy Ackerman MD Anesthesia General Findings 1. Bowel and omentum adhered to the anterior abdominal wall 2. Bladder densely adhered to the anterior portion uterus. Uterus mildly enlarged and globular 3. Ovaries without abnormality Description of Procedure Patient was prepped and draped in the usual manner for this procedure. Cervical instruments were placed for uterine mobility throughout the case. Abdominal trocar sites were marked and placed under direct visualization. Findings were noted as above after the instruments were placed and attached to the [employer] system. Surgeon moved to the console. Bowel and omental adhesions that were attached to the anterior abdominal wall were taken down sharply and bluntly without difficulty. Round ligaments bilaterally cauterized and cut uterine ovarian ligaments were cauterized and cut and the anterior and the posterior leaves of the broad ligament were dissected to skeletonize the uterine vessels. Vessels were cauterized and cut without difficulty. Bladder flap was sharply dissected off the anterior portion cervix with significant amount of he shins noted in this area. After the entire to the bladder flap had been taken down back filling of the bladder was undertaken with good distention and no spillage noted. Posterior colpotomy incision was then made and this was circumferentially carried around the cervix to separate the cervix from the vagina. Uterus was delivered into the vagina. Cuff was closed using V lock suture from the right angle to the midline then from the left angle to midline with good approximation hemostasis noted. Irrigation again undertaken. No significant bleeding and Surgicel was placed throughout the page rgical sites empirically. Gas was allowed to escape, trocars removed, incisions approximated using 4-0 Monocryl. At this point the procedure was considered terminated and the patient was sent to recovery room in stable condition. Estimated Blood Loss 100 Drains No Packing No Pathology Yes Complications No immediate complications Condition Stable Disposition PACU [facility] Billing Surgery - Charge Forward: Surgery Billing
[2023-10-04] MEDS: METHYLENE BLUE 0.5% INJ 10 ML AMPULE 5 ML IRRIGATION (09:14)
[2023-10-04] MEDS: fentaNYL CITRATE INJ (*CRX) 100 MCG/2 ML VIAL 25 MCG IV PUSH (10:13)
--- NOTE | 2023-10-04 10:42 | ADMGEN ---
This patient, Melina Tavarez, was admitted to OB 2nd Floor Room 283-00. Patient/family oriented to hospital policies and general routines including ID bracelet, bed and alarms, visiting hours, pain management, procedures, bathroom and other care routines, personal items, smoking policy, room service/diet, and visiting hours. Information on how to activate the Rapid Response Team has been discussed. Patient/Family are encouraged to report perceived risks to care and to ask questions if they do not understand what they are told or what they should do.
[2023-10-04] MEDS: DEXTROSE 5%/0.45% SOD CHL 1,000 ML 125 ML IV CONT (11:14)
[2023-10-04] MEDS: KETOROLAC 30 MG/ML VIAL (*BKC) IV PUSH ×2 (12:56→19:16)
[2023-10-04] MEDS: SIMETHICONE 80 MG TAB.CHEW PO ×2 (12:56→17:22)
[2023-10-04] MEDS: HYDROcodone/acetaminophen (*CRX) 5-325 MG TABLET 1 TAB PO ×2 (15:19→18:24)
--- NOTE | 2023-10-04 17:10 | PHAR ---
Pharmacy verified home meds: * Use from home * Topiramate 50 mg tablet take 2 tablets by mouth daily at bedtime * Use from home * [place] Carbonate 450 mg tablet ER Take 2 tablets by mouth daily at bedtime
[2023-10-04] MEDS: SERTRALINE HCL 50 MG TABLET 100 MG PO (20:13)
[2023-10-04] MEDS: SENNA/DOCUSATE SODIUM TABLET 1 TAB PO (20:14)
[2023-10-05] VITALS: BP 108/67; PULSE 64; RESP 16; TEMP 37; O2SAT 99
[2023-10-05 04:04] VITALS: BP 112/70; PULSE 74; RESP 16; TEMP 36.5; O2SAT 100
[2023-10-05] MEDS: IBUPROFEN 600 MG TABLET PO ×2 (04:05→11:03)
[2023-10-05] MEDS: HYDROcodone/acetaminophen (*CRX) 5-325 MG TABLET 1 TAB PO ×5 (04:05→14:43)
[2023-10-05 06:03] LABS: Basophils Percent Auto 0.3 % (0.2-1.2); Eosinophils Absolute Auto 0.1 K/mm3 (0-0.3); Eosinophils Percent Auto 0.6 % (0-4.4); Hematocrit 39.4 % (37.0-47.0); Hemoglobin 12.4 g/dL (12.0-15.0); Immature Granulocyte Absolute 0.02 K/mm3 (0.00-0.031); Immature Granulocyte Percent A 0.2 % (0-0.5); Lymphocytes Absolute Auto 1.33 K/mm3 (0.9-3.2); Lymphocytes Percent Auto 15.3 % (18.3-44.2); Mean Corpuscular HGB Conc 31.5 g/dl (32-36); Mean Corpuscular Hemoglobin 27.8 pg (26-34); Mean Corpuscular Volume 88.3 fl (80-100); Mean Platelet Volume 11.2 fl (7.4-10.4); Monocytes Absolute Auto 0.7 K/mm3 (0.1-0.6); Monocytes Percent Auto 8.3 % (2.6-8.5); Neutrophils Absolute Auto 6.5 K/mm3 (1.3-6.7); Neutrophils Percent Auto 75.3 % (45.5-73.1); Platelet Count Result 237 k/mm3 (150-375); Red Blood Count 4.46 M/mm3 (4.2-5.4); Red Cell Distribution Width 13.2 % (11.5-14.5); White Blood Count 8.7 K/mm3 (4.5-10.0)
[2023-10-05] MEDS: SIMETHICONE 80 MG TAB.CHEW PO ×2 (07:05→11:02)
--- NOTE | 2023-10-05 07:57 | WPDANESPN ---
Anes - Prog Note Post-Op Date/Time: 10/05/23 07:57 Cardiovascular status: normal Respiratory status: normal Airway patency: baseline Mental status: baseline Post-Op hydration status: normal Vital Signs: Last Vital Signs Temp 36.5 C 10/05/23 04:04 Pulse 74 10/05/23 04:04 Resp 16 10/05/23 04:04 BP 112/70 10/05/23 04:04 Pulse Ox 100 10/05/23 04:04 O2 Del Method Room Air 10/05/23 07:00 O2 Flow Rate 6 10/04/23 09:45 Pain Score (VAS): 07/03 I/O: Intake & Output 10/04/23 10/04/23 10/05/23 15:59 23:59 07:59 Intake Total 700 1000 Output Total 350 Balance 700 650 Laboratory Tests 10/05/23 04:08 10/05/23 04:08 WBC 8.7 RBC 4.46 Hgb 12.4 Hct 39.4 MCV 88.3 MCH 27.8 MCHC 31.5 L RDW 13.2 Plt Count 237 MPV 11.2 H Immature Gran % (Auto) 0.2 Neut % (Auto) 75.3 H Lymph % (Auto) 15.3 L [place] % (Auto) 8.3 Eos % (Auto) 0.6 Baso % (Auto) 0.3 Lymph # (Auto) 1.33 [place] # (Auto) 0.7 H Eos # (Auto) 0.1 Baso # (Auto) 0.0 Abs Immat Gran (auto) 0.02 Absolute Neuts (auto) 6.5 Absolute Nucleated RBC 0.000 Nucleated RBC % 0.0 Post-procedural complaints: none Patient Feedback: Patient satisfied with anesthetic care.
[2023-10-05 08:10] VITALS: BP 107/52; PULSE 67; RESP 18; TEMP 36.6; O2SAT 99
[2023-10-05] MEDS: MONTELUKAST SODIUM 10 MG TABLET PO (09:15)
== END 2023-10-05 15:21 | disposition home or self-care (01) ==
LOC: ANHSURGERY 05:41 → ANHOB2 10-05 07:43
PROVIDERS: PCP Emergency Medicine; Visit Provider Obstetrics & Gynecology
PROC: (CPT 58571; principal; 2023-10-04 07:30)
DX: D25.1 Intramural leiomyoma of uterus (principal); N80.03 Adenomyosis of the uterus; N72 Inflammatory disease of cervix uteri; K66.0 Peritoneal adhesions (postprocedural) (postinfection); N99.85 Post endometrial ablation syndrome; N80.9 Endometriosis, unspecified; D64.9 Anemia, unspecified; F41.9 Anxiety disorder, unspecified; J45.909 Unspecified asthma, uncomplicated; F32.A Depression, unspecified; F17.290 Nicotine dependence, other tobacco product, uncomplicated; Z79.51 Long term (current) use of inhaled steroids; Z98.890 Other specified postprocedural states; Z98.51 Tubal ligation status; Z86.79 Personal history of other diseases of the circulatory system; Z80.3 Family history of malignant neoplasm of breast; Z82.49 Family history of ischemic heart disease and other diseases of the circulatory system
CPT/HCPCS: 58571; S2900; 36415; 85025; 88307; 99199; A9270; J0690; J1100; J1170; J1200; J1885; J2250; J2405; J2704; J3010; J7030; J7120; Q9968

== ENCOUNTER 2023-12-06 02:39 | Inpatient (IN) | payer OTHER, SELFPAY ==
[2023-12-06] VITALS (17 sets, daily range): BP systolic 95–138; BP diastolic 48–89; PULSE 71–111; RESP 14–20; TEMP 35.7–37.7; O2SAT 96–100
--- NOTE | ~2023-12-06 | CT_ITS ---
CT of the Abdomen and Pelvis: Indication: Abdominal pain Technique: 2.5 mm axial scans were obtained through the abdomen and pelvis following intravenous adm inistration of 100 cc of Omnipaque 350. Dose reduction technique was used on this scan by utilizing a utomated exposure control and iterative reconstruction technique. The dose-length product (DLP) was 4 83.27 mGy-cm. COMPARISON: 07/08/2023 Findings: Scans through the lung bases are unremarkable. The liver, spleen, pancreas, gallbladder, adrenals and kidneys are within normal limits. No evidence of aortic aneurysm. No lymphadenopathy. Small amount of pneumoperitoneum present. There are mildly distended probable mid to distal ileal loo ps in the pelvis. There is mild engorgement of the vasa recta in the pelvis into the small bowel loop s. Large bowel unremarkable. Images through the pelvis were performed. Urinary bladder unremarkable. Patient is probably post hyst erectomy. No adnexal mass evident. Small amount of pelvic ascites present. Impression: Small amount of pneumoperitoneum is compatible with bowel perforation. Small amount of pelvic ascites. No definite mature abscess present at this time, there may be early e nhancement along the margins of the fluid. Developing pelvic abscess is a consideration. Mild distention and probable hyperemia of mid to distal ileal loops in the pelvis, with engorgement o f the vasa recta. These findings suggest a nonspecific enteritis, such as infectious or inflammatory enteritis, or possibly inflammatory bowel disease. Case discussed with Dr. Mcdermott at the time of this reading. Reviewed, dictated and finalized at location . Impression: Small amount of pneumoperitoneum is compatible with bowel perforation. Small amount of pelvic ascites. No definite mature abscess present at this time , there may be early enhancement along the margins of the fluid. Developing pel jennifer abscess is a consideration. Mild distention and probable hyperemia of mid to distal ileal loops in the pelv is, with engorgement of the vasa recta. These findings suggest a nonspecific en teritis, such as infectious or inflammatory enteritis, or possibly inflammatory bowel disease. Case discussed with Dr. Mcdermott at the time of this reading.
[2023-12-06 02:55] LABS: Basophils Percent Auto 0.3 % (0.2-1.2); Eosinophils Absolute Auto 0.2 K/mm3 (0-0.3); Eosinophils Percent Auto 1.9 % (0-4.4); Hematocrit 37.9 % (37.0-47.0); Hemoglobin 12.4 g/dL (12.0-15.0); Immature Granulocyte Absolute 0.03 K/mm3 (0.00-0.031); Immature Granulocyte Percent A 0.3 % (0-0.5); Lymphocytes Absolute Auto 1.62 K/mm3 (0.9-3.2); Lymphocytes Percent Auto 14.6 % (18.3-44.2); Mean Corpuscular HGB Conc 32.7 g/dl (32-36); Mean Corpuscular Hemoglobin 28.3 pg (26-34); Mean Corpuscular Volume 86.5 fl (80-100); Mean Platelet Volume 9.8 fl (7.4-10.4); Monocytes Absolute Auto 0.4 K/mm3 (0.1-0.6); Monocytes Percent Auto 3.7 % (2.6-8.5); Neutrophils Absolute Auto 8.8 K/mm3 (1.3-6.7); Neutrophils Percent Auto 79.2 % (45.5-73.1); Platelet Count Result 263 k/mm3 (150-375); Red Blood Count 4.38 M/mm3 (4.2-5.4); White Blood Count 11.1 K/mm3 (4.5-10.0)
[2023-12-06 03:06] LABS: Alanine Aminotransferase 26 U/L (6-35); Alkaline Phosphatase 71 U/L (38-126); Anion Gap 9 mmol/L (4-12); Aspartate Amino Transferase 26 U/L (14-36); Bilirubin,Total 0.3 mg/dL (0.2-1.3); Blood Urea Nitrogen 16 mg/dL (7-17); Calcium 8.7 mg/dL (8.4-10.2); Carbon Dioxide 25 mmol/L (22-30); Chloride 101 mmol/L (98-107); Estimated CRCL calculation 99 ml/min; Estimated Glomerular Filt Rate > 60; Glucose 113 mg/dL (65-110); Lipase 56 U/L (23-300); Potassium 3.7 mmol/L (3.4-5.0); Sodium 135 mmol/L (137-145)
[2023-12-06] MEDS: ONDANSETRON INJ 4 MG/2 ML VIAL IV PUSH (04:02)
[2023-12-06] MEDS: HYDROmorphone HCL INJ (*CRX) 1 MG/ML SYR IV PUSH ×3 (04:02→21:41)
[2023-12-06 04:26] LABS: Add Urine Microscopic? NO; Appearance Urine Clear (Clear); Bilirubin Urine Negative (Negative); Blood Urine Negative (Negative); Color Urine Yellow (Yellow); Glucose Urine UA Negative (Negative); Ketones Urine Negative (Negative); Leukocyte Esterase Ur Negative LEU/UL (Negative); Nitrate Urine Negative (Negative); Protein Urine Negative (Negative); Specific Grav Ur 1.006 (1.001-1.035); Urobilinogen Urine 0.2 mg/dL (<2.0); pH Urine 5.5 (5.0-9.0)
--- NOTE | 2023-12-06 06:01 | PC.NURSE ---
ON 12/06/[address] MILLS (RADIOLOGIST) CALLED, EDP WAS NOT AVAILABLE. THIS RN TOOK THE INTERPRETATION OF FREE AIR IN THE PNEUMOPERITONEUM, POSSIBLE VISCERAL PERFORATION. FLUID IN THE LOWER PELVIS, CANNOT EXCLUDE INFECTION OR POSSIBLE ABSCESS. EDP; DR. MILLER MADE AWARE AT 0600 VIA TELEPHONE BY THIS RN.
--- NOTE | 2023-12-06 06:11 | ED.GENADULT ---
HPI - General Adult General Chief complaint: Abdominal Pain <David Mcdermott MD - Last Filed: 12/06/23 07:46> Stated complaint: ABD PAIN X 1 HOUR <David Mcdermott MD - Last Filed: 12/06/23 07:46> Time Seen by Provider: 12/06/23 03:05 <David Mcdermott MD - Last Filed: 12/06/23 07:46> History of Present Illness HPI narrative: Patient is a 28-year-old female who presents emergency department with chief complaint of abdominal pain. Patient reports she started having pain this afternoon reports the pain is sharp radiates to underneath her shoulder blade the patient reports that she has had no diarrhea denies fever reports that she had a hysterectomy in September reports that she did have intercourse yesterday <David Mcdermott MD - Last Filed: 12/06/23 07:46> Related Data Home medications: Home Medications Medication Instructions Recorded Confirmed montelukast 10 mg tablet 10 mg PO DAILY 07/04/21 10/26/23 tizanidine 4 mg capsule 4 mg PO QHS PRN Muscle Spasm 11/14/22 10/26/23 topiramate 50 mg capsule,extended 50 mg PO DAILY 11/14/22 10/26/23 release 24 hr lithium carbonate 450 mg 900 mg PO HS 09/25/23 10/26/23 tablet,extended release sertraline 100 mg tablet 100 mg PO HS 09/25/23 10/26/23 <David Mcdermott MD - Last Filed: 12/06/23 07:46> Allergies/adverse reactions: Allergies Allergy/AdvReac Type Severity Reaction Status Date / Time clavulanic acid Allergy Severe BOWEL Verified 12/06/23 02:44 ISSUES strawberry Allergy Intermediate SWELLING/VO Verified 12/06/23 02:44 MITING ammonium alum Allergy Mild LIP Verified 12/06/23 02:44 SWELLING benzocaine Allergy Mild SWELLING Verified 12/06/23 02:44 camphor Allergy Mild LIP Verified 12/06/23 02:44 SWELLING menthol Allergy Mild LIP Verified 12/06/23 02:44 SWELLING petrolatum,white Allergy Mild SWELLING Verified 12/06/23 02:44 phenol Allergy Mild LIP Verified 12/06/23 02:44 SWELLING phenol liquid Allergy Mild SWELLING Verified 12/06/23 02:44 pramoxine Allergy Mild SWELLING Verified 12/06/23 02:44 salicylic acid Allergy Mild LIP Verified 12/06/23 02:44 SWELLING amoxicillin [From Augmentin] Allergy Swelling Verified 12/06/23 02:44 morphine AdvReac Headache Verified 12/06/23 02:44 Wasp Allergy Severe SWELLING Uncoded 12/06/23 02:44 PAPER TAPE Allergy Mild RASH Uncoded 12/06/23 02:44 <David Mcdermott MD - Last Filed: 12/06/23 07:46> Review of Systems Review of Systems: A 10 system review of systems was completed on the patient and is negative except for what is stated in the HPI. Nursing and ancillary documentation was reviewed. <David Mcdermott MD - Last Filed: 12/06/23 07:46> PMFSH Past Medical History Medical History: Medical History Anemia Anxiety Arthritis Asthma Blood glucose abnormal Depression Migraines Miscarriage (05/17/17) suction d&c Mitral valve disease leak Seizures (~04/26/21) Sinus arrhythmia Suppression of menstruation Vaginal discharge <David Mcdermott MD - Last Filed: 12/06/23 07:46> Surgical History Surgical History: Surgical History Delivery by section (05/13/22) rpt c/s with tubal ligation H/O gynecological procedure (~10/04/23) Robotic Laparoscopic lysis of adhesions , Robotic total hysterectomy with ovarian preservation History of adenoidectomy History of appendectomy History of (05/02/18) x2; primary c/s breech presentation, bicornuate uterus History of hysteroscopy (12/07/22) Hysteroscopy with uterine curettings. Endometrial ablation History of laparoscopy (02/01/17) lscope adhesiolysis, ablation of endometriosis History of left knee surgery (06/15/15) History of placement of ear tubes both ear x7 <David Mcdermott MD - [place]
--- NOTE | 2023-12-06 07:20 | PC.NURSE ---
DR ALEX AT BEDSIDE FOR PELVIC EXAM. PT TOLERATED SPECULUM EXAM WELL.
--- NOTE | 2023-12-06 08:01 | WPDCN ---
Assessment and Plan Assessment and plan (1) Pneumoperitoneum: Code(s): K66.8 - Other specified disorders of peritoneum Status: Acute Assessment and Plan: 28-year-old female who presents with acute onset abdominal pain Patient underwent robotic hysterectomy on 10/04/2023 Patient was having intercourse and reported acute onset abdominal pain had a gush of fluid She denies any continued bleeding or fluid discharge Imaging in the ER suggested pneumoperitoneum Speculum exam was performed in the ER, vaginal cuff appears intact Patient is very tender on speculum exam. Vaginal cuff was probed with a Q-tip. All aspects of the cuff appear intact There is some granulation tissue in the center of the cuff Do not appreciate any large defects in the cuff. Did not feel that patient warrants any surgical repair of the vaginal cuff general surgery was consulted If patient is admitted for observation, would be happy to follow peripherally HPI Data of Consult Date/Time: 12/06/23 08:01 Primary Care Provider: Vanessa Boswell, Consult Narrative Narrative: Melina Tavarez is a 28 year old female Who presents to the emergency room with acute onset abdominal pain after intercourse. Patient underwent robotic hysterectomy on 10/04/2023. Patient states she noticed a gush of fluid an acute onset pain during intercourse. Patient has not had any bleeding or continued fluid. Patient states her abdominal /pelvic pain has increased in intensity. Review of Systems Review of Systems: All systems reviewed & are unremarkable except as noted in HPI and below PMFSH Past Medical History Medical History Anemia Anxiety Arthritis Asthma Blood glucose abnormal Depression Migraines Miscarriage (05/17/17) suction d&c Mitral valve disease leak Seizures (~04/26/21) Sinus arrhythmia Suppression of menstruation Vaginal discharge Surgical History Surgical History Delivery by section (05/13/22) rpt c/s with tubal ligation H/O gynecological procedure (~10/04/23) Robotic Laparoscopic lysis of adhesions , Robotic total hysterectomy with ovarian preservation History of adenoidectomy History of appendectomy History of (05/02/18) x2; primary c/s breech presentation, bicornuate uterus History of hysteroscopy (12/07/22) Hysteroscopy with uterine curettings. Endometrial ablation History of laparoscopy (02/01/17) lscope adhesiolysis, ablation of endometriosis History of left knee surgery (06/15/15) History of placement of ear tubes both ear x7 Family History Family History Mother Acute myocardial infarction Heart disease Renal failure syndrome Cerebrovascular accident Lupus Father Chronic obstructive lung disease Grandparent Epilepsy Diabetes mellitus maternal grandfather Hypertension maternal grandmother Other Breast cancer paternal aunt Sibling Autism Son Autism Social History Social History Smoking status: Never smoker Tobacco type: e-cigarettes/vaping Second hand tobacco smoke exposure: No Smoking end date: 03/27/23 Alcohol intake: never Substance use: never Substance use type: does not use Lack of Transportation: No Lack of Food: Never True Current Housing: I Have Housing Concerned About Future Housing: No Difficulty Paying Gas/Electric Bills: No Difficulty Paying for Meds: No Currently Unemployed: No Education: High School Diploma/GED Difficulty w/ Childcare or Family Care: No Living arrangements: with family Additional living arrangements comments: single Occupation/Education: occupation 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
[2023-12-06] MEDS: metroNIDAZOLE 500 MG/ISO 100ML 500 MG/100 ML BAG 100 MG IVPB ×2 (08:32→13:40)
[2023-12-06] MEDS: levoFLOXacin 750 MG/D5W 150 ML 750 MG/150 ML BAG 100 MG IVPB (08:32)
--- NOTE | 2023-12-06 10:20 | ADMGEN ---
This patient, Melina Tavarez, was admitted to [facility] Surg Room 311-01. Patient/family oriented to hospital policies and general routines including ID bracelet, bed and alarms, visiting hours, pain management, procedures, bathroom and other care routines, personal items, smoking policy, room service/diet, and visiting hours. Information on how to activate the Rapid Response Team has been discussed. Patient/Family are encouraged to report perceived risks to care and to ask questions if they do not understand what they are told or what they should do.
[2023-12-06] MEDS: SODIUM CHLORIDE 0.9% IV 1,000 ML 125 ML IV CONT (10:28)
--- NOTE | 2023-12-06 10:28 | PC.NURSE ---
Patient listed morphine as allergy. Morphine ordered for floor and patient stated only reaction was a headache. Verified with pharmacy ok to give morphine.
[2023-12-06] MEDS: MORPHINE SULFATE (*CRX) 4 MG/ML INJ IV PUSH (10:30)
[2023-12-06] MEDS: FAMOTIDINE 20 MG/2 ML VIAL IV PUSH (10:58)
[2023-12-06] MEDS: IBUPROFEN IV 400 MG in SODIUM CHLORIDE 0.9% IV 100 ML 200 MG IVPB (11:59)
--- NOTE | 2023-12-06 12:07 | PM.IMHP ---
H&P: HPI History of Present Illness Date/Time: 12/06/23 12:07 Chief Complaint: Abdominal pain Narrative: This is a 28-year-old female with a history of endometriosis who underwent a robotic total hysterectomy with ovarian preservation, robotic laparoscopic lysis of adhesions on 10/04/2023. She presented to the ED this morning due to complaints of abdominal pain. She reports a sudden onset of sharp lower abdominal pain after intercourse 2 days ago. She reports also having an immediate gush of a small amount of pink fluid after intercourse. No continued vaginal discharge. Her lower abdominal and pelvic pain has persisted and progressively got worse. She reports developing right shoulder pain and and in her right upper quadrant beneath her right rib. In the ED, labs [place] [id number] scan of the abdomen and pelvis showed a small amount of pneumoperitoneum compatible with bowel perforation, small amount of pelvic ascites with no definite mature abscess present, and mild distention and probable hyperemia of mid to distal ileal loops in the pelvis with engorgement of the Vasa recta. Gynecology evaluated the patient in the ED and felt her vaginal cuff appeared to be intact. She is admitted in the setting of pneumoperitoneum for surgical evaluation. Patient denies any nausea or vomiting. She has been passing flatus and had normal bowel movements. Review of Systems Review of Systems: All systems reviewed & are unremarkable except as noted in HPI and below PMFSH Past Medical History Medical History (Updated 12/06/23 @ 12:19 by RANULFO Pulido) Anemia Anxiety Arthritis Asthma Blood glucose abnormal Depression Migraines Miscarriage (05/17/17) suction d&c Mitral valve disease leak Seizures (~04/26/21) Sinus arrhythmia Suppression of menstruation Vaginal discharge Surgical History Surgical History (Updated 12/06/23 @ 12:20 by RANULFO Pulido) Delivery by section (05/13/22) rpt c/s with tubal ligation H/O gynecological procedure (~10/04/23) Robotic Laparoscopic lysis of adhesions , Robotic total hysterectomy with ovarian preservation History of adenoidectomy History of appendectomy History of (05/02/18) x2; primary c/s breech presentation, bicornuate uterus History of hysteroscopy (12/07/22) Hysteroscopy with uterine curettings. Endometrial ablation History of laparoscopy (02/01/17) lscope adhesiolysis, ablation of endometriosis History of left knee surgery (06/15/15) History of placement of ear tubes both ear x7 History of robot-assisted laparoscopic hysterectomy Family History Family History Mother Acute myocardial infarction Heart disease Renal failure syndrome Cerebrovascular accident Lupus Father Chronic obstructive lung disease Grandparent Epilepsy Diabetes mellitus maternal grandfather Hypertension maternal grandmother Other Breast cancer paternal aunt Sibling Autism Son Autism Social History Social History Smoking status: Former smoker Tobacco type: e-cigarettes/vaping Second hand tobacco smoke exposure: No Smoking end date: 03/27/23 Additional smoking assessment comments: patient has hx of vaping but not currently Alcohol intake: never Substance use: never Substance use type: does not use Do You Feel Safe in your Home?: Yes Lack of Transportation: No Lack of Food: Never True Current Housing: I Have Housing Concerned About Future Housing: No Difficulty Paying Gas/Electric Bills: No Difficulty Paying for Meds: No Currently Unemployed: No Education: High School Diploma/GED Difficulty w/ Childcare or Family Care: No Living arrangements: with family Additional living arrangements comments: single Occupation/Education: occupation Additional occupa
[2023-12-06] MEDS: LACTATED RINGERS 1,000 ML 30 ML IV CONT ×2 (13:20→15:14)
--- NOTE | 2023-12-06 13:36 | WPDANESEPPF ---
Anes - Initial Pre Proc Eval Procedure: Operation Date: 12/06/23 14:30 Proposed Procedures p Diagnostic Laparoscopy - Juan C Hartley MD Date/Time: 12/06/23 13:36 Surgeon: Juan C Hartley MD Pre Op Diagnosis: Lower abdominal pain, free air Patient Data Age: 28 Gender: F Height: 1.78 m Weight: 79.9 kg Last Vital Signs Temp 37.0 C 12/06/23 10:40 Pulse 95 12/06/23 10:40 Resp 17 12/06/23 10:40 BP 118/73 12/06/23 10:40 Pulse Ox 100 12/06/23 10:38 O2 Del Method Room Air 12/06/23 02:38 Allergies Allergy/AdvReac Type Severity Reaction Status Date / Time clavulanic acid Allergy Severe BOWEL Verified 12/06/23 02:44 ISSUES strawberry Allergy Intermediate SWELLING/VO Verified 12/06/23 02:44 MITING ammonium alum Allergy Mild LIP Verified 12/06/23 02:44 SWELLING benzocaine Allergy Mild SWELLING Verified 12/06/23 02:44 camphor Allergy Mild LIP Verified 12/06/23 02:44 SWELLING menthol Allergy Mild LIP Verified 12/06/23 02:44 SWELLING petrolatum,white Allergy Mild SWELLING Verified 12/06/23 02:44 phenol Allergy Mild LIP Verified 12/06/23 02:44 SWELLING phenol liquid Allergy Mild SWELLING Verified 12/06/23 02:44 pramoxine Allergy Mild SWELLING Verified 12/06/23 02:44 salicylic acid Allergy Mild LIP Verified 12/06/23 02:44 SWELLING amoxicillin [From Augmentin] Allergy Swelling Verified 12/06/23 02:44 morphine AdvReac Headache Verified 12/06/23 02:44 Wasp Allergy Severe SWELLING Uncoded 12/06/23 02:44 PAPER TAPE Allergy Mild RASH Uncoded 12/06/23 02:44 Home Medications Medication Instructions Recorded Confirmed Type montelukast 10 mg tablet 10 mg PO DAILY 07/04/21 12/06/23 History sennosides 8.6 mg-docusate sodium 1 tab-cap PO HS #14 tabs 05/15/22 12/06/23 Rx 50 mg tablet (Senna with Docusate Sodium) tizanidine 4 mg capsule 4 mg PO QHS PRN Muscle Spasm 11/14/22 12/06/23 History topiramate 50 mg capsule,extended 50 mg PO DAILY 11/14/22 12/06/23 History release 24 hr lithium carbonate 450 mg 450 mg PO HS 09/25/23 12/06/23 History tablet,extended release sertraline 100 mg tablet 100 mg PO HS 09/25/23 12/06/23 History ibuprofen 600 mg tablet 600 mg PO Q6H PRN Cramping #30 tabs 10/05/23 12/06/23 Rx simethicone 80 mg chewable tablet 80 mg PO Q4H PRN Indigestion 12/06/23 12/06/23 History Laboratory Tests 12/06/23 12/06/23 12/06/23 02:48 02:49 04:07 WBC 11.1 H K/mm3 (4.5-10.0) RBC 4.38 M/mm3 (4.2-5.4) Hgb 12.4 g/dL (12.0-15.0) Hct 37.9 % (37.0-47.0) MCV 86.5 fl (80-100) MCH 28.3 pg (26-34) MCHC 32.7 g/dl (32-36) RDW 13.0 % (11.5-14.5) Plt Count 263 k/mm3 (150-375) MPV 9.8 fl (7.4-10.4) Immature Gran % (Auto) 0.3 % (0-0.5) Neut % (Auto) 79.2 H % (45.5-73.1) Lymph % (Auto) 14.6 L % (18.3-44.2) [place] % (Auto) 3.7 % (2.6-8.5) Eos % (Auto) 1.9 % (0-4.4) Baso % (Auto) 0.3 % (0.2-1.2) Lymph # (Auto) 1.62 K/mm3 (0.9-3.2) [place] # (Auto) 0.4 K/mm3 (0.1-0.6) Eos # (Auto) 0.2 K/mm3 (0-0.3) Baso # (Auto) 0.0 K/mm3 (0.0-0.1) Abs Immat Gran (auto) 0.03 K/mm3 (0.00-0.031) Absolute Neuts (auto) 8.8 H K/mm3 (1.3-6.7) Absolute Nucleated RBC 0.000 K/mm3 (0.0-0.012) Nucleated RBC % 0.0 % (0.0-0.2) Sodium 135 L mmol/L (137-145) Potassium 3.7 mmol/L (3.4-5.0) Chloride 101 mmol/L (98-107) Carbon Dioxide 25 mmol/L (22-30) Anion Gap 9 mmol/L (4-12) BUN 16 mg/dL (7-17) Creatinine 0.80 mg/dL (0.7-1.0) Estim Creat Clear Calc 99 ml/min Estimated GFR > 60 (59 - ) Glucose 113 H mg/dL (65-110) Calcium 8.7 mg/dL (8.4-10.2) Total Bilirubin 0.3 mg/dL (0.2-1.
[2023-12-06] MEDS: SCOPOLAMINE 1 MG PATCH 1 PATCH TRANSDERM (13:50)
--- NOTE | 2023-12-06 14:12 | WPDHPUPDATE1 ---
History and Physical Update Update Date/Time: 12/06/23 14:12 History and Physical has been reviewed, including an updated exam of the patient. There are NO changes in the patient's condition. Risks, benefits, and alternatives have been discussed and questions answered. Patient agrees to proceed with procedure.
[2023-12-06] MEDS: BUPIVACAINE/EPINEPHRINE 0.5% 10 ML VIAL 20 ML INFILTRATE (14:48)
--- NOTE | 2023-12-06 14:54 | W.PM.PROC2 ---
Procedure Note - Detailed Date of Procedure 12/06/23 Pre-op Diagnosis Lower abdominal pain, free air Post-op Diagnosis Same Procedure Performed Exam under anesthesia diagnostic laparoscopy Surgeon Yimi Novak MD Anesthesia General Indications abdominal pain pneumoperitoneum Findings Vaginal cuff intact. Purulent fluid within the pelvis. Bowel intact Description of Procedure Melina Tavarze was taken to the operating room for diagnostic laparoscopy due to pelvic pain and pneumoperitoneum. Patient is status post robotic hysterectomy on 10/04/2023. Patient was placed in dorsal lithotomy position. Adequate anesthesia Was administered. Exam under anesthesia was performed. Speculum exam was performed the vaginal cuff was noted to be intact. The vaginal cuff was probed with cotton swabs and no defect was identified. Dr. Hartley performed exploratory laparoscopy. No vaginal cuff defect was noted be a laparoscope. Please see Dr. Hartley's note for full dictation. [facility] Billing Surgery - Charge Forward: Surgery Billing
--- NOTE | 2023-12-06 15:07 | SUR.OPER ---
Emperatriz transported culture to lab at 1502. Doris in lab received culture at 1507.
[2023-12-06] MEDS: LACTATED RINGERS 1,000 ML 100 ML IV CONT (17:14)
--- NOTE | 2023-12-06 17:42 | P.OP_ITS ---
Procedure Note - Detailed Date of Procedure 12/06/23 Pre-op Diagnosis Lower abdominal pain, free air Post-op Diagnosis Same Procedure Performed Diagnostic laparoscopy, cultures of pelvic fluid Surgeon Juan C Hartley MD Product Responsibility Liaison Ade Anesthesia General and Local Indications Patient is a 28-year-old woman who came to the emergency room this morning after experiencing severe lower abdominal pain that started about midnight last night. The pain was unrelenting and only got worse. She had nausea but no vomiting. She came to the emergency room where she was noted to be in considerable pain and had diffuse abdominal tenderness. CT scan of the abdomen and pelvis was done and showed free intraperitoneal fluid and some pelvic ascites. Patient has a history of a robotic hysterectomy 2 months ago. The surgery was uneventful. She had intercourse the day before yesterday. Dr. Novak had seen her in the emergency room and did not find an abnormality with the vaginal cuff. He was present through the operation and again evaluated the vaginal cuff while under anesthesia and reviewed the laparoscopic findings. Findings Brownish pelvic ascites, possibly from old blood or some type of infection. Vaginal cuff closure looked fine per Dr. Novak. The entire colon small intestine and stomach were reviewed and no evidence of a bowel perforation was noted. The gallbladder was seen and was somewhat distended but there was no e vidence of perforation. No other fluid was found in the abdomen. The dome of the liver appeared normal. Description of Procedure Patient was taken to surgery and induced into general anesthesia. She was in lithotomy. Prep and drape was carried out. Laparoscopic trocars were placed he using applied Medical optical trocars and all were 5 mm ports across the upper abdomen and a transverse orientation. Dr. Novak checked the patient's vaginal closure with a speculum while patient was under and your anesthesia and found no problems with the closure. Patient was placed in Trendelenburg. I brought the small intestine up out of the pelvis and was able to see the sigmoid colon, both ovaries and some brownish pelvic fluid, not over 50 cc. I then placed the patient back in normal supine position and ran the entire small intestine laparoscopically. There was some small bowel that appeared to have been adjacent to an inflammatory process but no sign of perforation abscess or other abnormality that could have led to pneumoperitoneum. The entire colon was reviewed as was the stomach and duodenum. These were negative as well. I looked over the dome of the liver on both the left and the right side. No collections were noted there. The gallbladder was distended but did not appear abnormal. Patient's appendix had been removed previously. After discussion with Dr. Novak, and no significant intraoperative findings apparent, I then withdrew some of the ascites in the pelvis and sent that for culture and sensitivity. I suctioned away the rest of the pelvic ascites and then irrigated the pelvis with normal saline thoroughly. We then evacuated CO2 and removed the trocar sleeves. Skin wounds were closed with subcuticular 4-0 Monocryl skin suture. Patient was awakened, extubated, and taken to recovery in good condition. Sponge and needle counts were correct x2. Estimated Blood Loss -5 Drains No Packing No Pathology Other (Cultures of pelvic ascites sent) Complications None Condition Stable Disposition PACU [facility] Billing Surgery - Charge Forward: Surgery Billing (Diagnostic laparoscopy with cultures of pelvic fluid.)
[2023-12-06] MEDS: oxyCODONE/ACETAMINOPHEN (*CRX) 10-325 MG TABLET 1 TAB PO (18:14)
[2023-12-06] MEDS: SERTRALINE HCL 50 MG TABLET 100 MG PO (21:04)
[2023-12-06] MEDS: SENNA/DOCUSATE SODIUM TABLET 2 TAB PO (21:04)
[2023-12-06] MEDS: ENOXAPARIN 30 MG/0.3 ML SYRINGE SUB-Q (21:04)
[2023-12-07] VITALS (7 sets, daily range): BP systolic 96–111; BP diastolic 45–58; PULSE 64–96; RESP 14–20; TEMP 36.2–36.6; O2SAT 98–100
[2023-12-07] MEDS: oxyCODONE/ACETAMINOPHEN (*CRX) 10-325 MG TABLET 1 TAB PO (03:52)
[2023-12-07 07:26] LABS: Hematocrit 35.6 % (37.0-47.0); Hemoglobin 11.3 g/dL (12.0-15.0); Mean Corpuscular HGB Conc 31.7 g/dl (32-36); Mean Corpuscular Hemoglobin 28.1 pg (26-34); Mean Corpuscular Volume 88.6 fl (80-100); Mean Platelet Volume 10.5 fl (7.4-10.4); Platelet Count Result 244 k/mm3 (150-375); Red Blood Count 4.02 M/mm3 (4.2-5.4); Red Cell Distribution Width 13.2 % (11.5-14.5); White Blood Count 7.8 K/mm3 (4.5-10.0)
[2023-12-07 07:41] LABS: Anion Gap 9 mmol/L (4-12); Blood Urea Nitrogen 9 mg/dL (7-17); Calcium 8.3 mg/dL (8.4-10.2); Carbon Dioxide 26 mmol/L (22-30); Chloride 100 mmol/L (98-107); Estimated CRCL calculation 112 ml/min; Estimated Glomerular Filt Rate > 60; Glucose 98 mg/dL (65-110); Potassium 3.7 mmol/L (3.4-5.0); Sodium 135 mmol/L (137-145)
--- NOTE | 2023-12-07 08:19 | PM.PNGS ---
Progress Note: A&P Assessment and Plan (1) Abdominal pain: Qualifiers: Abdominal location: left lower quadrant Qualified Code(s): R10.32 - Left lower quadrant pain Code(s): R10.9 - Unspecified abdominal pain Status: Acute Assessment and Plan: Patient is still having abdominal pain. She has taken a couple of doses of IV analgesics through the night. She developed a rash after receiving Levaquin. Will change to Bactrim DS orally with IV metronidazole. She is eating well. Probably home tomorrow on Bactrim and metronidazole. (2) Pneumoperitoneum of unknown etiology: Code(s): K66.8 - Other specified disorders of peritoneum Status: Acute Assessment and Plan: No bowel injury or problems with vaginal cuff closure on laparoscopy and examination yesterday. Doing better. Continue antibiotics. (3) History of robot-assisted laparoscopic hysterectomy: Code(s): Z90.710 - Acquired absence of both cervix and uterus Status: Chronic Assessment and Plan: Performed 2 months ago on 10/04/2023. Subjective Subjective Date/Time Seen: 12/07/23 08:19 Post Op day: 1 Patient reports: feels better, pain is less (But still taking some IV analgesics.), flatus and afebrile Interval history: Patient broke out in a rash after receiving Levaquin later in the morning. Review of Systems Review of Systems: All systems reviewed & are unremarkable except as noted in HPI and below (HPI) Exam Const: General: comfortable and no acute distress Orientation/consciousness: patient oriented x3 GI: Inspection: non-distended, incision (Dry and healing) and scar GI Palp: Yes Soft to palpation, Yes Tenderness to palpation present (GI), No Guarding due to palpation present (GI) and No Rebound tenderness present Auscultation: normal bowel sounds Neuro: General: patient oriented x3 and no focal motor deficits Extrem: General: no calf tenderness and no edema Psych: Affect: normal affect Insight: Good insight present (Psych) Judgement: Good judgement present (Psych) Objective Data Vital Signs Vital Signs: Vital Signs - 24 hr 12/06/23 08:32 12/06/23 10:38 12/06/23 13:30 Temperature 37.1 C 37.0 C 36.9 C Pulse Rate 90 95 72 Respiratory Rate 16 17 16 Blood Pressure 107/65 118/73 100/49 L Pulse Oximetry 100 100 99 Oxygen Delivery Room Air Oxygen Flow Rate 12/06/23 15:14 12/06/23 15:25 12/06/23 15:40 Temperature 36.3 C L 36.4 C L 36.2 C L Pulse Rate 110 H 77 72 Respiratory Rate 20 16 16 Blood Pressure 138/89 97/57 L 104/51 L Pulse Oximetry 100 100 100 Oxygen Delivery Simple Face Mask Simple Face Mask Simple Face Mask Oxygen Flow Rate 6 10 10 12/06/23 15:55 12/06/23 16:10 12/06/23 16:25 Temperature Pulse Rate 78 72 72 Respiratory Rate 16 14 14 Blood Pressure 107/49 L 100/52 L 105/48 L Pulse Oximetry 96 97 96 Oxygen Delivery Room Air Room Air Room Air Oxygen Flow Rate 12/06/23 16:45 12/06/23 17:00 12/06/23 17:20 Temperature 36.4 C L 36.3 C L 37.1 C Pulse Rate 71 75 77 Respiratory Rate 16 16 16 Blood Pressure 101/50 L 107/55 L 107/54 L Pulse Oximetry 98 97 96 Oxygen Delivery Oxygen Flow Rate 12/06/23 18:20 12/06/23 20:21 12/07/23 00:17 Temperature 37.0 C 35.7 C L 36.4 C L Pulse Rate 76 81 76 Respiratory Rate 16 20 20 Blood Pressure 96/52 L 95/54 L 96/52 L Pulse Oximetry 97 99 99 Oxygen Delivery Oxygen Flow Rate 12/07/23 06:10 12/06/23 10:40 Temperature 36.6 C 37.0 C Pulse Rate 96 95 Respiratory Rate 20 17 Blood Pressure 101/45 L 118/73 Pulse Oximetry 98 Oxygen Delivery Oxygen Flow Rate Intake/Output Intake/Output: Intake & Output 12/04/23 12/05/23 12/06/23 12/07/23 23:59 23:59 23:59 23:59 Intake Total 924 500 Output Total 1000 Balance -76 500 Meds/Results Medications: Active Medications Generic Name Dose Route Start Last Admin Trade Name Freq PRN Reason Stop Dose Admin Acetaminophen 5
[2023-12-07] MEDS: oxyCODONE/ACETAMINOPHEN (*CRX) 5-325 MG TABLET 1 TABLET PO ×3 (08:35→20:10)
[2023-12-07] MEDS: PANTOPRAZOLE 40 MG TABLET PO (08:36)
[2023-12-07] MEDS: polyethylene glycoL 3350 17 GM POWD.PACK PO (08:37)
[2023-12-07] MEDS: metroNIDAZOLE 500 MG/ISO 100ML 500 MG/100 ML BAG 100 MG IVPB ×2 (08:37→16:22)
[2023-12-07] MEDS: ENOXAPARIN 40 MG/0.4 ML SYRINGE SUB-Q (08:45)
[2023-12-07] MEDS: LORATADINE 10 MG TABLET PO (09:40)
[2023-12-07] MEDS: levoFLOXacin 750 MG/D5W 150 ML 750 MG/150 ML BAG 100 MG IVPB (09:40)
[2023-12-07] MEDS: diphenhydrAMINE HCl INJ 50 MG/ML VIAL IV PUSH (13:07)
--- NOTE | 2023-12-07 17:15 | PHAR ---
Pharmacy verified home med: * Use from home * [place] Carbonate 450 mg tablet extended release - take 1 tablet by mouth at bedtime confirmed home dose is 1 tablet (label says 2 tablets)
[2023-12-07] MEDS: SENNA/DOCUSATE SODIUM TABLET 2 TAB PO (20:09)
[2023-12-07] MEDS: SULFAMETHOXAZOLE/TRIMETHOPRIM 800/160 MG DS TABLET 1 TAB PO (20:09)
[2023-12-07] MEDS: MONTELUKAST SODIUM 10 MG TABLET PO (20:09)
[2023-12-07] MEDS: SERTRALINE HCL 50 MG TABLET 100 MG PO (20:10)
[2023-12-07] MEDS: TOPIRAMATE 100 MG TABLET PO (20:10)
[2023-12-08] MEDS: oxyCODONE/ACETAMINOPHEN (*CRX) 5-325 MG TABLET 1 TABLET PO ×3 (00:04→10:26)
[2023-12-08] MEDS: metroNIDAZOLE 500 MG/ISO 100ML 500 MG/100 ML BAG 100 MG IVPB ×2 (00:04→09:19)
[2023-12-08 05:24] VITALS: BP 102/60; PULSE 69; RESP 18; TEMP 36.3; O2SAT 99
[2023-12-08] MEDS: ONDANSETRON INJ 4 MG/2 ML VIAL IV PUSH (06:15)
[2023-12-08 07:05] LABS: Hematocrit 34.9 % (37.0-47.0); Hemoglobin 10.9 g/dL (12.0-15.0); Mean Corpuscular HGB Conc 31.2 g/dl (32-36); Mean Corpuscular Hemoglobin 28.1 pg (26-34); Mean Corpuscular Volume 89.9 fl (80-100); Mean Platelet Volume 10.4 fl (7.4-10.4); Platelet Count Result 201 k/mm3 (150-375); Red Blood Count 3.88 M/mm3 (4.2-5.4); Red Cell Distribution Width 13.2 % (11.5-14.5)
[2023-12-08 07:15] LABS: Anion Gap 8 mmol/L (4-12); Blood Urea Nitrogen 9 mg/dL (7-17); Calcium 8.2 mg/dL (8.4-10.2); Carbon Dioxide 26 mmol/L (22-30); Chloride 102 mmol/L (98-107); Estimated CRCL calculation 89 ml/min; Estimated Glomerular Filt Rate > 60; Glucose 78 mg/dL (65-110); Potassium 3.4 mmol/L (3.4-5.0); Sodium 136 mmol/L (137-145)
[2023-12-08] MEDS: SULFAMETHOXAZOLE/TRIMETHOPRIM 800/160 MG DS TABLET 1 TAB PO (09:17)
[2023-12-08] MEDS: PANTOPRAZOLE 40 MG TABLET PO (09:18)
[2023-12-08] MEDS: polyethylene glycoL 3350 17 GM POWD.PACK PO (09:18)
[2023-12-08] MEDS: LORATADINE 10 MG TABLET PO (09:18)
[2023-12-08] MEDS: ENOXAPARIN 40 MG/0.4 ML SYRINGE SUB-Q (09:18)
[2023-12-08 09:44] VITALS: O2SAT 96
--- NOTE | 2023-12-08 10:11 | PM.DS ---
DS: Admitting Diagnosis Discharge Date 12/08/2023 Admitting Diagnosis Pneumoperitoneum, abdominal pain history of assisted laparoscopic hysterectomy DS: Discharge Diagnosis Discharge Diagnosis (1) Pneumoperitoneum of unknown etiology: Code(s): K66.8 - Other specified disorders of peritoneum Status: Acute (2) History of robot-assisted laparoscopic hysterectomy: Code(s): Z90.710 - Acquired absence of both cervix and uterus Status: Chronic DS: Summary Hospital Course Reason for hospitalization: Pneumoperitoneum Hospital Course: This is a 28-year-old woman who presented to the emergency department on 12/06/2023 with acute onset of abdominal pain. She has a remote history of hysterectomy on 10/04/2023. She had been doing well postoperatively but then had acute onset of lower abdominal pain after intercourse. In the emergency department a CT of her abdomen and pelvis showed a small amount of pneumoperitoneum and small amount of pelvic ascites. Gynecology performed a vaginal exam and did not identify any area of vaginal cuff dehiscence. She was then admitted for further treatment. She underwent diagnostic laparoscopy on 12/06/2023. The vaginal cuff appeared intact and there was no sign of bowel perforation. She was then returned to the surgical floor postoperatively. Her diet and activity were advanced as tolerated. On postop day 1 she was still experiencing some significant abdominal pain and she had a rash breakout after a dose of Levaquin. She was then switched to Bactrim and Flagyl. She has been tolerating this well since then. She did have a very small bowel movement yesterday and is passing flatus. Her pain is adequately controlled. She was discharged home on 12/08/2023. Status at Discharge Functional status at discharge: independent ambulation Overall status at discharge: patient is progressing back to baseline Time Spent with Patient Time attestation: Total time spent providing and/or coordinating discharge services: Time spent: Less than 30 minutes Exam Const: General: comfortable and no acute distress Orientation/consciousness: patient oriented x3 GI: Inspection: non-distended and incision (Intact with glue) GI Palp: Yes Soft to palpation, Yes Tenderness to palpation present (GI) (Incisional) and No Guarding due to palpation present (GI) Auscultation: normal bowel sounds DS: Data Data Completed and Pending Labs on day of discharge: Labs from last 24 hours 12/08/23 06:09 WBC 4.0 L RBC 3.88 L Hgb 10.9 L Hct 34.9 L MCV 89.9 MCH 28.1 MCHC 31.2 L RDW 13.2 Plt Count 201 MPV 10.4 Sodium 136 L Potassium 3.4 Chloride 102 Carbon Dioxide 26 Anion Gap 8 BUN 9 Creatinine 0.90 Estim Creat Clear Calc 89 Estimated GFR > 60 Glucose 78 Calcium 8.2 L Preliminary micro results at discharge 12/06/23 14:59 Anaerobic Culture - Preliminary Surgery Aerobic Culture - Preliminary Discharge Plan Discharge Attending physician on discharge: Juan C Hartley Consulting providers: Juan C Hartley Discharging Clinician: Gopal Graham Patient Disposition: Home, Self-Care Activity: may shower, no straining and as tolerated Diet: regular Wound Care Instructions: incision open to air Discharge Instructions: Anesthesia used a medication called Sugammadex, female patients may need a second line of protection during sexual activity as this medication can limit control for 7 days following administration. Avoid lifting over 25 lb next 2 weeks No intercourse for 2 weeks Take antibiotics until they are gone See Dr. Hartley in 2 weeks for follow-up visit See Dr. Ackerman in 2 weeks for follow-up visit May drive a car on Sunday May bathe and shower. Okay to wash over incisions. Take home medications as before. Patient Instructions: Antibiotic Form Follow-up/Referrals: Davy Ackerman MD [Physician] - 2 Weeks (Call for appointment) Vivian
== END 2023-12-08 13:10 | disposition home or self-care (01) | DRG 229 ==
LOC: ANHED 09:16 → ANH3MEDSUR 09:39
PROVIDERS: Student in an Organized Health Care Education/Training Program; Admitting Provider Surgery; Emergency Provider Emergency Medicine; PCP Emergency Medicine; Visit Provider Surgery
PROC: 0WJJ4ZZ Inspection of Pelvic Cavity, Percutaneous Endoscopic Approach (ICD-10-PCS; CPT 49320; principal; 2023-12-06 14:30)
PROC: 0WJR7ZZ Inspection of Genitourinary Tract, Via Natural or Artificial Opening Approach (ICD-10-PCS; 2023-12-06 14:30)
DX: K66.8 Other specified disorders of peritoneum (principal); J45.909 Unspecified asthma, uncomplicated; L27.0 Generalized skin eruption due to drugs and medicaments taken internally; T36.8X5A Adverse effect of other systemic antibiotics, initial encounter; M19.90 Unspecified osteoarthritis, unspecified site; G43.909 Migraine, unspecified, not intractable, without status migrainosus; F41.9 Anxiety disorder, unspecified; F32.A Depression, unspecified; Z90.710 Acquired absence of both cervix and uterus
CPT/HCPCS: 36415; 74177; 80048; 80053; 81003; 83690; 85025; 85027; 86850; 86900; 86901; 87070; 87075; 87205; 96374; 96375; 96376; 99285; A9270; G0378; G0379; J0330; J0690; J1100; J1170; J1200; J1650; J1741; J1836; J1956; J2250; J2270; J2371; J2405; J2704; J3010; J7030; J7120; Q9967

== ENCOUNTER 2024-01-08 16:13 | Emergency (ER) | payer OTHER, SELFPAY ==
--- NOTE | ~2024-01-08 | CT_ITS ---
EXAMINATION: CT brain wo con DATE: 01/08/2024 17:21 INDICATION: Headache. TECHNIQUE: Computed tomography (CT) of the head was performed without intravenous contrast. The mA wa s adjusted according to patient size. Iterative reconstruction technique was employed. The dose-lengt h product was 681.00 mGy-cm. COMPARISON: None FINDINGS: There is no intracranial hemorrhage, acute infarction, or abnormal intracranial mass lesion . The ventricles are normal in size. There is mucosal thickening in the paranasal sinuses. The orbits are normal. The mastoid air cells are normal. IMPRESSION: 1. Normal brain. Reviewed, dictated and finalized at location A. IMPRESSION: 1. Normal brain.
[2024-01-08 16:18] VITALS: BP 126/78; PULSE 71; RESP 16; TEMP 37.2; O2SAT 100
--- NOTE | 2024-01-08 16:53 | ED.HA ---
HPI - Headache General Chief Complaint: Headache Stated Complaint: MIGRAINES, N/V Time Seen by Provider: 01/08/24 16:45 History of Present Illness HPI Narrative: Patient is a 28-year-old female who presents to the ER with a headache that started yesterday. She has a history of migraines, seizures, and has a neurosurgeon. Patient takes topiramate every day to control her migraines and seizures. She reports she had a head CT scan 2-3 years ago and they told her that the veins in my brain are small. Patient reports she has had 7 episodes emesis today. She endorses tingling down her arms that also started today. Patient also reports she has a history of seasonal allergies, takes lithium and takes Zoloft. She denies shortness of breath, chest pain, other signs/ symptoms illness. Related Data Home Medications Medication Instructions Recorded Confirmed montelukast 10 mg tablet 10 mg PO DAILY 07/04/21 12/24/23 tizanidine 4 mg capsule 4 mg PO QHS PRN Muscle Spasm 11/14/22 12/24/23 lithium carbonate 450 mg 450 mg PO HS 09/25/23 12/24/23 tablet,extended release sertraline 100 mg tablet 100 mg PO HS 09/25/23 12/24/23 simethicone 80 mg chewable tablet 80 mg PO Q4H PRN Indigestion 12/06/23 12/24/23 topiramate 50 mg tablet 100 mg PO DAILY 12/07/23 12/24/23 Allergies Allergy/AdvReac Type Severity Reaction Status Date / Time clavulanic acid Allergy Severe BOWEL Verified 01/08/24 16:18 ISSUES strawberry Allergy Intermediate SWELLING/VO Verified 01/08/24 16:18 MITING ammonium alum Allergy Mild LIP Verified 01/08/24 16:18 SWELLING benzocaine Allergy Mild SWELLING Verified 01/08/24 16:18 camphor Allergy Mild LIP Verified 01/08/24 16:18 SWELLING menthol Allergy Mild LIP Verified 01/08/24 16:18 SWELLING petrolatum,white Allergy Mild SWELLING Verified 01/08/24 16:18 phenol Allergy Mild LIP Verified 01/08/24 16:18 SWELLING phenol liquid Allergy Mild SWELLING Verified 01/08/24 16:18 pramoxine Allergy Mild SWELLING Verified 01/08/24 16:18 salicylic acid Allergy Mild LIP Verified 01/08/24 16:18 SWELLING amoxicillin [From Augmentin] Allergy Swelling Verified 01/08/24 16:18 levofloxacin [From Levaquin] Allergy Anaphylaxis Verified 01/08/24 16:18 morphine AdvReac Headache Verified 01/08/24 16:18 Wasp Allergy Severe SWELLING Uncoded 01/08/24 16:18 PAPER TAPE Allergy Mild RASH Uncoded 01/08/24 16:18 Review of Systems Review of Systems: All systems reviewed & are unremarkable except as noted in HPI and below PMFSH Past Medical History Medical History Anemia Anxiety Arthritis Asthma Blood glucose abnormal Depression Migraines Miscarriage (05/17/17) suction d&c Mitral valve disease leak Seizures (~04/26/21) Sinus arrhythmia Suppression of menstruation Vaginal discharge Surgical History Surgical History Delivery by section (05/13/22) rpt c/s with tubal ligation H/O gynecological procedure (~10/04/23) Robotic Laparoscopic lysis of adhesions , Robotic total hysterectomy with ovarian preservation History of adenoidectomy History of appendectomy History of (05/02/18) x2; primary c/s breech presentation, bicornuate uterus History of hysteroscopy (12/07/22) Hysteroscopy with uterine curettings. Endometrial ablation History of laparoscopy (02/01/17) lscope adhesiolysis, ablation of endometriosis 12/06/23 Diagnostic laparoscopy, cultures of pelvic fluid Dr. Hartley History of left knee surgery (06/15/15) History of placement of ear tubes both ear x7 History of robot-assisted laparoscopic hysterectomy Family History Family History Mother Acute myocardial infarction Heart disease Renal failure syndrome Cerebrovascular accident Lupus Father Chronic obstructive lung disease Grandparent E
[2024-01-08] MEDS: SODIUM CHLORIDE 0.9% IV 1,000 ML 999 ML IV CONT (17:29)
[2024-01-08] MEDS: diphenhydrAMINE HCl INJ 50 MG/ML VIAL 25 MG IV PUSH (17:29)
[2024-01-08] MEDS: METOCLOPRAMIDE HCL INJ 10 MG/2 ML VIAL IV PUSH (17:29)
[2024-01-08] MEDS: ONDANSETRON INJ 4 MG/2 ML VIAL IV PUSH (17:29)
[2024-01-08 18:23] VITALS: BP 115/59; PULSE 75; RESP 18; O2SAT 100
[2024-01-08] MEDS: dexAMETHasone SOD PHOS INJ 10 MG/ML 1 ML VIAL IV PUSH (18:41)
[2024-01-08] MEDS: HYDROmorphone HCL INJ (*CRX) 1 MG/ML SYR 0.5 MG IV PUSH (18:41)
[2024-01-08 20:10] VITALS: TEMP 36.9
== END 2024-01-08 20:11 | disposition home or self-care (01) ==
PROVIDERS: Emergency Provider Registered Nurse; PCP Emergency Medicine
DX: G43.909 Migraine, unspecified, not intractable, without status migrainosus (principal); D64.9 Anemia, unspecified; F41.9 Anxiety disorder, unspecified; J45.909 Unspecified asthma, uncomplicated; F32.A Depression, unspecified
CPT/HCPCS: 70450; 96361; 96374; 96375; 99284; J1100; J1171; J1200; J2405; J2765; J7030

== ENCOUNTER 2024-01-14 14:09 | Outpatient (CLI) | payer OTHER, SELFPAY | END 2024-01-14 14:10 | disposition home or self-care (01) | LOC: ANHLAB 14:12 | PROVIDERS: PCP Emergency Medicine; Visit Provider Obstetrics & Gynecology | DX: R35.0 Frequency of micturition (principal) | CPT/HCPCS: 87086 ==

== ENCOUNTER 2024-01-29 16:13 | Emergency (ER) | payer OTHER, SELFPAY ==
--- NOTE | ~2024-01-29 | US_ITS ---
EXAM: PELVIC ULTRASOUND HISTORY: acute onset pelvic pain during coitus; c/f torsion COMPARISON: . Reference is also made to the CT examination of the abdomen and pelvis performed on the same day (wit hin the same hour ). FINDINGS: UTERUS: The uterus is surgically absent. RIGHT OVARY: The right ovary is unremarkable in echogenicity and size measuring 5.1 x 2.3 x 2.3cm Arterial and venous flow are identified. LEFT OVARY: The left ovary is unremarkable in size and heterogeneous in echogenicity measuring 4.0 x 3.9 x 3.7 cm Both arterial and venous flow are identified. A single oval-shaped focus is identified within the left ovary measuring 4.1 x 3.4 x 3.4 cm, with the least likely appearance of fibrin strands along the superior margin, representing a slightly complex cyst (likely a hemorrhagic ovarian cyst), which given its size and typical appearance no further fol low-up is needed. IMPRESSION: Hemorrhagic left ovarian cyst, measuring 4.1 cm in greatest dimension. Given its size and typical ultrasound appearance, no further follow-up is needed. Reviewed, dictated and finalized at location A. IDENT + PUBLISHER IMPRESSION: Hemorrhagic left ovarian cyst, measuring 4.1 cm in greatest dimension. Given its size and typical ultrasound appearance, no further follow-up is needdeon daniels
--- NOTE | ~2024-01-29 | CT_ITS ---
CLINICAL INDICATION: Pelvic pain. Personal history of stage II cervical cancer post hysterectomy COMPARISON: 12/06/2023. TECHNIQUE: An enhanced CT of the abdomen and pelvis was performed utilizing multislice spiral Ecomsual ue reconstructed at 5 mm slice thickness. Coronal and sagittal reconstructions were performed. This CT examination was performed utilizing dose reduction techniques. DLP: 340.22 mGy-cm FINDINGS/OBSERVATIONS: Visualized lower thorax:The bilateral lung bases are clear. The heart is of normal size, without mehran cardial effusion. Liver: The liver is enlarged measuring 19 cm in longitudinal dimension. The liver otherwise enhances homogeneously. Gallbladder and biliary system: The gallbladder is minimally distended, and otherwise unremarkable. Pancreas: The pancreas enhances homogeneously without ductal dilatation. Spleen: Spleen enhances homogeneously and is not enlarged Kidneys: The bilateral kidneys enhance symmetrically. Adrenal glands: Unremarkable Gastrointestinal tract: Trace fecal stasis within the colon Appendix:The appendix is not definitively visualized. However, no pericecal inflammatory change is id entified suggest the presence of acute appendicitis. Vasculature: Unremarkable Lymph nodes: No pathologically enlarged or morphologically suspicious lymph nodes within the retroper itoneum or at the root of the mesentery. Pelvic structures:The uterus is surgically absent. Within the left hemipelvis is a rounded focus of decreased attenuation demonstrating a fluid-fluid le win measuring 4.7 x 4.0 x 4.6 cm (anterior to posterior x medial to lateral x cranial to caudal dimen sally). Free fluid is identified within the pelvis. Body wall and musculoskeletal: No significant degenerative disease within the lumbosacral spine. Small umbilical hernia. IMPRESSION: Findings which likely represent a hemorrhagic cyst within the left hemipelvis with surrounding free f luid for which pelvic ultrasound may be performed for confirmation. Reviewed, dictated and finalized at location A. 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
[2024-01-29 16:18] VITALS: BP 102/62; PULSE 102; RESP 18; TEMP 37; O2SAT 99
[2024-01-29 16:24] VITALS: BP 102/62; PULSE 100; RESP 18; O2SAT 100
--- NOTE | 2024-01-29 16:37 | ED.ABDPAIN ---
HPI - Abdominal Pain General Chief Complaint: Abdominal Pain Stated Complaint: pelvic/abd pain Time Seen by Provider: 01/29/24 16:20 Source: patient and family Mode of arrival: ambulatory Limitations: no limitations History of Present Illness HPI narrative: Patient presents with acute onset low abdominal/pelvic pain today that started during intercourse. she had this pain occur acutely before during intercourse and was found to have a bowel perforation requiring laparoscopic surgery with Dr. Hartley and Dr Novak. she also had a hysterectomy in September. She notes the pain is across her low abdomen. Her last bowel movement was this morning she denies any diarrhea, constipation, or bloody stool. She states she is not passing flatus since the episode. She feels nauseated and has vomited x1. She does not know of she is having any fevers or chills but she states she sweats a lot. She denies any vaginal discharge. She denies any dysuria or urinary urgency or frequency although she did note some hematuria. She has been amenorrheic since a hysterectomy in September. Her Ob Gyne is Dr. Ackerman. Related Data Home Medications Medication Instructions Recorded Confirmed montelukast 10 mg tablet 10 mg PO DAILY 07/04/21 01/14/24 tizanidine 4 mg capsule 4 mg PO QHS PRN Muscle Spasm 11/14/22 01/14/24 lithium carbonate 450 mg 450 mg PO HS 09/25/23 01/14/24 tablet,extended release sertraline 100 mg tablet 100 mg PO HS 09/25/23 01/14/24 topiramate 50 mg tablet 100 mg PO DAILY 12/07/23 01/14/24 Allergies Allergy/AdvReac Type Severity Reaction Status Date / Time clavulanic acid Allergy Severe BOWEL Verified 01/14/24 13:33 ISSUES strawberry Allergy Intermediate SWELLING/VO Verified 01/14/24 13:33 MITING ammonium alum Allergy Mild LIP Verified 01/14/24 13:33 SWELLING benzocaine Allergy Mild SWELLING Verified 01/14/24 13:33 camphor Allergy Mild LIP Verified 01/14/24 13:33 SWELLING menthol Allergy Mild LIP Verified 01/14/24 13:33 SWELLING petrolatum,white Allergy Mild SWELLING Verified 01/14/24 13:33 phenol Allergy Mild LIP Verified 01/14/24 13:33 SWELLING phenol liquid Allergy Mild SWELLING Verified 01/14/24 13:33 pramoxine Allergy Mild SWELLING Verified 01/14/24 13:33 salicylic acid Allergy Mild LIP Verified 01/14/24 13:33 SWELLING amoxicillin [From Augmentin] Allergy Swelling Verified 01/14/24 13:33 levofloxacin [From Levaquin] Allergy Anaphylaxis Verified 01/14/24 13:33 morphine AdvReac Headache Verified 01/14/24 13:33 Wasp Allergy Severe SWELLING Uncoded 01/14/24 13:33 PAPER TAPE Allergy Mild RASH Uncoded 01/14/24 13:33 [facility] Past Medical History Medical History Anemia Anxiety Arthritis Asthma Blood glucose abnormal Bowel perforation Depression Migraines Miscarriage (05/17/17) suction d&c Mitral valve disease leak Pneumoperitoneum Seizures (~04/26/21) Sinus arrhythmia Suppression of menstruation Vaginal discharge Surgical History Surgical History (Updated 01/29/24 @ 21:35 by Nadine Hogan MD) Delivery by section (05/13/22) rpt c/s with tubal ligation H/O gynecological procedure (~10/04/23) Robotic Laparoscopic lysis of adhesions , Robotic total hysterectomy with ovarian preservation; 12/06/23 History of adenoidectomy History of appendectomy History of (05/02/18) x2; primary c/s breech presentation, bicornuate uterus History of hysteroscopy (12/07/22) Hysteroscopy with uterine curettings. Endometrial ablation History of laparoscopy (02/01/17) lscope adhesiolysis, ablation of endometriosis 12/06/23 Diagnostic laparoscopy, cultures of pelvic fluid Dr. Hartley History of left knee surgery (06/15/15) History of placement of ear tubes both ear x7 History of robot-assisted laparoscopic hysterectomy Family History Family History Mother Acute myocardial infarction Heart disease Renal failure syndrome Cerebrovascular accident Lupus Father Chronic obstructive lung disease Grandparent Epilepsy Diabetes mellitus maternal grandfather Hypertension maternal grandmother Other Breast cancer paternal aunt Sibling Autism Son Autism Social History Social History (Updated 01/14/24 @ 13:31 by LEOLA Doyle) Smoking status: Former smoker Tobacco type: e-cigarettes/vaping Second hand tobacco smoke exposure: No Smoking end date: 03/27/23 Additional smoking assessment comments: patient has hx of vaping but not currently Alcohol intake: never Substance use: never Substance use type: does not use Do You Feel Safe in your Home?: Yes Lack of Transportation: YES Lack of Food: Never True Current Housing: I Have Housing Concerned About Future Housing: No Difficulty Paying Gas/Electric Bills: No Difficulty Paying for Meds: No Currently Unemployed: No Education: High School Diploma/GED Difficulty w/ Childcare or Family Care: No Living arrangements: with family Additional living arrangements comments: single Occupation/Education: occupation 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 HEAD: Normocephalic, atraumatic. EYES: Non injected, non icteric. ENT: Nares clear, no rhinorrhea or epistaxis. NECK: Supple. CHEST: Speaking in full sentences. No respiratory distress. HEART: tachycardic rate and rhythm. ABDOMEN: Soft, nondistended. Patient's pain seems out of proportion to physical exam as she is grimacing and squeezing her partners hand but otherwise appears without rebound tenderness. Pain seems to be worse on the left than the right. Not peritoneal. EXTREMITIES: Normal range of motion. No lower extremity edema. SKIN: Warm, dry, no rash. NEURO: No focal deficits. Alert and oriented x3. PSYCH: Normal mood and affect. Course Vital Signs Vital signs: Vital Signs Temperature 98.6 F 01/29/24 16:18 Pulse Rate 102 H 01/29/24 16:18 Respiratory Rate 18 01/29/24 16:18 Blood Pressure 102/62 01/29/24 16:18 Pulse Oximetry 99 01/29/24 16:18 Temperature 98.6 F 01/29/24 16:18 Pulse Rate 100 01/29/24 16:24 Respiratory Rate 18 01/29/24 16:24 Blood Pressure 102/62 01/29/24 16:24 Pulse Oximetry 100 01/29/24 16:24 MDM - Abdominal Pain MDM Narrative Medical decision making narrative: Patient presents with acute onset low abdominal and pelvic pain. She has a history of pneumoperitoneum secondary to bowel perforation requiring diagnostic laparoscopy. Also s/p hysterectomy. In the emergency department she is afebrile vital signs notable for tachycardia/borderline tachycardia. She has pain out of proportion to physical exam, Left greater than right. patient given Dilaudid for analgesia; she has an allergy listed to morphine but states she has received this medication before. workup generally unremarkable although imaging does show left-sided ovarian cyst. Discussed this finding with the patient and noted that and said they are typically recommended for pain and inflammation. She does list an allergy to salicylates but states that she is able take ibuprofen although it irritates her stomach. She is advised to take it with food. Also noted that she can supplement this with acetaminophen safely. She states when she had had an ovarian cyst previously her Ob Gyne Dr Ackerman had prescribed Tramadol and she had to follow up. Noted that based on size and location she likely would not require follow up. however, she was given strict emergency department return precautions prescribed both acetaminophen and ibuprofen. Discharged home in stable condition. Differential Diagnosis Differential diagnosis: Likely abdominal pain, constipation, diverticulitis, endometriosis and other (bowel perforation, ovarian cyst, ovarian torsion, ) Lab Data Attestation: I reviewed the patient's lab results. 01/29/24 17:03 01/29/24 17:03 Labs: Lab Results 01/29/24 01/29/24 Range/Units 17:03 18:03 WBC 7.2 (4.5-10.0) K/mm3 RBC 4.64 (4.2-5.4) M/mm3 Hgb 13.1 (12.0-15.0) g/dL Hct 39.6 (37.0-47.0) % MCV 85.3 (80-100) fl MCH 28.2 (26-34) pg MCHC 33.1 (32-36) g/dl RDW 13.0 (11.5-14.5) % Plt Count 298 (150-375) k/mm3 MPV 11.1 H (7.4-10.4) fl Immature Gran % (Auto) 0.3 (0-0.5) % Neut % (Auto) 59.3 (45.5-73.1) % Lymph % (Auto) 28.4 (18.3-44.2) % [place] % (Auto) 6.5 (2.6-8.5) % Eos % (Auto) 4.8 H (0-4.4) % Baso % (Auto) 0.7 (0.2-1.2) % Lymph # (Auto) 2.05 (0.9-3.2) K/mm3 [place] # (Auto) 0.5 (0.1-0.6) K/mm3 Eos # (Auto) 0.4 H (0-0.3) K/mm3 Baso # (Auto) 0.1 (0.0-0.1) K/mm3 Abs Immat Gran (auto) 0.02 (0.00-0.031) K/mm3 Absolute Neuts (auto) 4.3 (1.3-6.7) K/mm3 Absolute Nucleated RBC 0.000 (0.0-0.012) K/mm3 Nucleated RBC % 0.0 (0.0-0.2) % PT 13.6 (11.1-14.7) Seconds INR 1.0 APTT 29.2 (22.3-36.8) Seconds Sodium 138 (137-145) mmol/L Potassium 4.0 (3.4-5.0) mmol/L Chloride 105 (98-107) mmol/L Carbon Dioxide 22 (22-30) mmol/L Anion Gap 11 (4-12) mmol/L BUN 11 (7-17) mg/dL Creatinine 0.80 (0.7-1.0) mg/dL Estim Creat Clear Calc 99 ml/min Estimated GFR > 60 (59 - ) Glucose 88 (65-110) mg/dL Lactic Acid 0.9 (0.7-2.0) mmol/L Calcium 8.9 (8.4-10.2) mg/dL Total Bilirubin 0.3 (0.2-1.3) mg/dL AST 19 (14-36) U/L ALT 13 (6-35) U/L Alkaline Phosphatase 63 (38-126) U/L Total Protein 7.0 (6.3-8.2) g/dL Albumin 4.1 (3.5-5.1) g/dL Lipase 70 (23-300) U/L Urine Color Yellow (Yellow) Urine Appearance Clear (Clear) Urine pH 6.0 (5.0-9.0) Ur Specific [place] 1.007 (1.001-1.035) Urine Protein Negative (Negative) mg/dL Urine Glucose (UA) Negative (Negative) mg/dL Urine Ketones Negative (Negative) mg/dL Ur Blood (Man) Negative (Negative) Urine Nitrate Negative (Negative) Urine Bilirubin Negative (Negative) Urine Urobilinogen 0.2 (<2.0) mg/dL Leukocyte Esterase Rfl Negative (Negative) COBY/UL Imaging Data Radiologist's impression: ITS Impressions Abdomen/Pelvis CT 01/29/24 18:22 IMPRESSION: Findings which likely represent a hemorrhagic cyst within the left hemipelvis with surrounding free fluid for which pelvic ultrasound may be performed for confirmation. Transvaginal US 01/29/24 18:33 IMPRESSION: Hemorrhagic left ovarian cyst, measuring 4.1 cm in greatest dimension. Given its size and typical ultrasound appearance, no further follow-up is needed. Discharge Plan Discharge Clinical Impression: Hemorrhagic cyst of left ovary Patient Disposition: Home, Self-Care Condition: Stable Instructions: Antibiotic Form, Ovarian Cyst (ED) Additional Instructions: As we discussed, you have a hemorrhagic ovarian cyst. NSAIDs can help with the pain and inflammation. If You are having additional pain you can supplement acetaminophen/Tylenol; it is safe to take 4000mg/day of this. Follow up with your ObGyn if desired but given its size and appearance, no further imaging is likely to be necessary. Return to the ED if new/worsening symptoms. Prescriptions: New ibuprofen 600 mg tablet 600 mg PO TID PRN (Reason: pain) Qty: 30 0RF acetaminophen 500 mg capsule 1,000 mg PO Q6H PRN (Reason: pain) Qty: 30 0RF No Action montelukast 10 mg tablet 10 mg PO DAILY tizanidine 4 mg capsule 4 mg PO QHS PRN (Reason: Muscle Spasm) sennosides-docusate sodium [Senna with Docusate Sodium] 8.6-50 mg tablet 1 tab-cap PO HS Qty: 14 0RF sertraline 100 mg tablet 100 mg PO HS lithium carbonate 450 mg tablet extended release 450 mg PO HS topiramate 50 mg tablet 100 mg PO DAILY fluconazole 150 mg tablet 150 mg PO DAILY Qty: 2 0RF Rx Instructions: Take 1 dose then wait 72hours then may take 2nd dose Follow-up/Referrals: Andreia,Vanessa Baer MD [Primary Care Provider] - Davy Ackerman MD [Physician] - (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
[2024-01-29] MEDS: ONDANSETRON INJ 4 MG/2 ML VIAL IV PUSH (17:01)
[2024-01-29] MEDS: HYDROmorphone HCL INJ (*CRX) 1 MG/ML SYR 0.5 MG IV PUSH (17:01)
[2024-01-29 17:09] LABS: Basophils Absolute Auto 0.1 K/mm3 (0.0-0.1); Basophils Percent Auto 0.7 % (0.2-1.2); Eosinophils Absolute Auto 0.4 K/mm3 (0-0.3); Eosinophils Percent Auto 4.8 % (0-4.4); Hematocrit 39.6 % (37.0-47.0); Hemoglobin 13.1 g/dL (12.0-15.0); Immature Granulocyte Absolute 0.02 K/mm3 (0.00-0.031); Immature Granulocyte Percent A 0.3 % (0-0.5); Lymphocytes Absolute Auto 2.05 K/mm3 (0.9-3.2); Lymphocytes Percent Auto 28.4 % (18.3-44.2); Mean Corpuscular HGB Conc 33.1 g/dl (32-36); Mean Corpuscular Hemoglobin 28.2 pg (26-34); Mean Corpuscular Volume 85.3 fl (80-100); Mean Platelet Volume 11.1 fl (7.4-10.4); Monocytes Absolute Auto 0.5 K/mm3 (0.1-0.6); Monocytes Percent Auto 6.5 % (2.6-8.5); Neutrophils Absolute Auto 4.3 K/mm3 (1.3-6.7); Neutrophils Percent Auto 59.3 % (45.5-73.1); Platelet Count Result 298 k/mm3 (150-375); Red Blood Count 4.64 M/mm3 (4.2-5.4); White Blood Count 7.2 K/mm3 (4.5-10.0)
[2024-01-29 17:18] LABS: Lactic Acid Reflex 0.9 mmol/L (0.7-2.0)
[2024-01-29 17:19] LABS: Alanine Aminotransferase 13 U/L (6-35); Albumin Level 4.1 g/dL (3.5-5.1); Alkaline Phosphatase 63 U/L (38-126); Anion Gap 11 mmol/L (4-12); Aspartate Amino Transferase 19 U/L (14-36); Bilirubin,Total 0.3 mg/dL (0.2-1.3); Blood Urea Nitrogen 11 mg/dL (7-17); Calcium 8.9 mg/dL (8.4-10.2); Carbon Dioxide 22 mmol/L (22-30); Chloride 105 mmol/L (98-107); Estimated CRCL calculation 99 ml/min; Estimated Glomerular Filt Rate > 60; Glucose 88 mg/dL (65-110); Lipase 70 U/L (23-300); Sodium 138 mmol/L (137-145)
[2024-01-29 17:25] LABS: Partial Thromboplastin Time 29.2 Seconds (22.3-36.8); Prothrombin Time 13.6 Seconds (11.1-14.7)
[2024-01-29 18:21] LABS: Add Urine Microscopic? NO; Appearance Urine Clear (Clear); Bilirubin Urine Negative (Negative); Blood Urine Negative (Negative); Color Urine Yellow (Yellow); Glucose Urine UA Negative (Negative); Ketones Urine Negative (Negative); Leukocyte Esterase Ur Negative LEU/UL (Negative); Nitrate Urine Negative (Negative); Protein Urine Negative (Negative); Specific Grav Ur 1.007 (1.001-1.035); Urobilinogen Urine 0.2 mg/dL (<2.0)
[2024-01-29] MEDS: ACETAMINOPHEN 500 MG TABLET 1000 MG PO (18:59)
[2024-01-29] MEDS: IBUPROFEN 600 MG TABLET PO (18:59)
== END 2024-01-29 19:11 | disposition home or self-care (01) ==
PROVIDERS: Emergency Provider Student in an Organized Health Care Education/Training Program; PCP Emergency Medicine
DX: N83.202 Unspecified ovarian cyst, left side (principal); J45.909 Unspecified asthma, uncomplicated; F41.9 Anxiety disorder, unspecified; F32.A Depression, unspecified; Z87.891 Personal history of nicotine dependence; Z90.710 Acquired absence of both cervix and uterus
CPT/HCPCS: 36415; 74177; 76830; 80053; 81003; 83605; 83690; 85025; 85610; 85730; 96374; 96375; 99284; A9270; J1171; J2405; Q9967

== ENCOUNTER 2024-03-01 13:06 | Emergency (ER) | payer OTHER, SELFPAY ==
[2024-03-01 13:32] VITALS: BP 111/69; PULSE 84; RESP 16; TEMP 36.6; O2SAT 100
--- NOTE | 2024-03-01 14:18 | PC.NURSE ---
pt decided to leave d/t wait time
== END 2024-03-01 14:29 | disposition left against medical advice (07) ==
LOC: ANHED 14:23
PROVIDERS: PCP Emergency Medicine
DX: H57.11 Ocular pain, right eye (principal)
CPT/HCPCS: 99199

== ENCOUNTER 2024-04-09 18:26 | Emergency (ER) | payer OTHER, SELFPAY ==
--- NOTE | ~2024-04-09 | CT_ITS ---
EXAMINATION: CT cervical spine wo con DATE: 04/09/2024 19:40 INDICATION: Fall. Midline cervical pain. TECHNIQUE: Computed tomography (CT) of the cervical spine was performed without intravenous contrast. The dose-length product was 264 mGy-cm. Automated exposure control and iterative reconstruction tech nique were employed. COMPARISON: None FINDINGS: Straightening of cervical lordosis. Craniovertebral junction is normal. No evidence for per ched facet. Spinous processes within normal limits. Vertebral body heights are maintained. Lung apice s are unremarkable. No paraspinal soft tissue abnormality. IMPRESSION: 1. No acute abnormality of the cervical spine. Reviewed, dictated and finalized at location A. [employer]
[2024-04-09 18:30] VITALS: BP 118/66; PULSE 85; RESP 17; TEMP 36.6; O2SAT 99
--- NOTE | 2024-04-09 19:18 | ED_ITS ---
HPI - General Adult General Chief complaint: Fall Stated complaint: Fell on ice, hit neck Time Seen by Provider: 04/09/24 18:58 History of Present Illness HPI narrative: This is a 28-year-old female presenting ED with chief complaint of slip on ice. She is walking the street when she slipped ice and struck her head/neck on a parked car. She did not lose consciousness. She does not have blood thinners. She does have pain in her shoulders. No radiating pain or weakness in any extr emity. no persistent vomiting. Related Data Home Medications ?Medication ?Instructions ?Recorded ?Confirmed ?Last Taken ?Type montelukast 10 mg tablet 10 mg PO DAILY 07/04/21 01/14/24 10/03/23 History tizanidine 4 mg capsule 4 mg PO QHS PRN Muscle Spasm 11/14/22 01/14/24 10/03/23 History lithium carbonate 450 mg 450 mg PO HS 09/25/23 01/14/24 10/03/23 History tablet,extended release sertraline 100 mg tablet 100 mg PO HS 09/25/23 01/14/24 10/03/23 History topiramate 50 mg tablet 100 mg PO DAILY 12/07/23 01/14/24 Unknown History Allergies Allergy/AdvReac Type Severity Reaction Status Date / Time clavulanic acid Allergy Severe BOWEL Verified 01/14/24 13:33 ISSUES strawberry Allergy Intermediate SWELLING/VO Verified 01/14/24 13:33 MITING ammonium alum Allergy Mild LIP Verified 01/14/24 13:33 SWELLING benzocaine Allergy Mild SWELLING Verified 01/14/24 13:33 camphor Allergy Mild LIP Verified 01/14/24 13:33 SWELLING menthol Allergy Mild LIP Verified 01/14/24 13:33 SWELLING petrolatum,white Allergy Mild SWELLING Verified 01/14/24 13:33 phenol Allergy Mild LIP Verified 01/14/24 13:33 SWELLING phenol liquid Allergy Mild SWELLING Verified 01/14/24 13:33 pramoxine Allergy Mild SWELLING Verified 01/14/24 13:33 salicylic acid Allergy Mild LIP Verified 01/14/24 13:33 SWELLING amoxicillin (From Augmentin) Allergy Swelling Verified 01/14/24 13:33 levofloxacin (From Levaquin) Allergy Anaphylaxis Verified 01/14/24 13:33 morphine AdvReac Headache Verified 01/14/24 13:33 Wasp Allergy Severe SWELLING Uncoded 01/14/24 13:33 PAPER TAPE Allergy Mild RASH Uncoded 01/14/24 13:33 [facility] Past Medical History Medical History (Updated 04/09/24 @ 19:23 by Lexx Man MD) Bowel perforation Pneumoperitoneum Mitral valve disease leak Blood glucose abnormal Vaginal discharge Suppression of menstruation Seizures (~04/26/21) Miscarriage (05/17/17) suction d&c Migraines Sinus arrhythmia Depression Asthma Anxiety Anemia Arthritis Surgical History Surgical History (Updated 01/29/24 @ 21:35 by Nadine Hogan MD) History of robot-assisted laparoscopic hysterectomy H/O gynecological procedure (~10/04/23) Robotic Laparoscopic lysis of adhesions , Robotic total hysterectomy with ovarian preservation; 12/06/23 History of hysteroscopy (12/07/22) Hysteroscopy with uterine curettings. Endometrial ablation Delivery by section (05/13/22) rpt c/s with tubal ligation History of placement of ear tubes both ear x7 History of adenoidectomy History of appendectomy History of (05/02/18) x2; primary c/s breech presentation, bicornuate uterus History of laparoscopy (02/01/17) lscope adhesiolysis, ablation of endometriosis 12/06/23 Diagnostic laparoscopy, cultures of pelvic fluid Dr. Hartley History of left knee surgery (06/15/15) Family History Family History Mother Acute myocardial infarction Heart disease Renal failure syndrome Cerebrovascular accident Lupus Father Chronic obstructive lung disease Grandparent Epilepsy Diabetes mellitus maternal grandfather Hypertension maternal grandmother Other Breast cancer paternal aunt Sibling Autism Son Autism Social History Social History (Updated 01/14/24 @ 13:31 by LEOLA Doyle) Smoking status: Former smoker Tobacco type: e-cigarettes/vaping Second hand tobacco smoke exposure: No Smoking end date: 03/27/23 Additional smoking assessment comments: patient has hx of vaping but not currently Alcohol intake: never Substance use: never Substance use type: does not use Do You Feel Safe in your Home?: Yes Lack of Transportation: YES Lack of Food: Never True Current Housing: I Have Housing Concerned About Future Housing: No Difficulty Paying Gas/Electric Bills: No Difficulty Paying for Meds: No Currently Unemployed: No Education: High School Diploma/GED Difficulty w/ Childcare or Family Care: No Living arrangements: with family Additional living arrangements comments: single Occupation/Education: occupation 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 Head: atraumatic. EYES: EOMI, NOSE: Atraumatic NECK/BACK: Midline cervical tenderness, left-sided paracervical tenderness and trapezius tenderness RESPIRATORY: No increased rate of breathing CARDIOVASCULAR: RRR, ABDOMINAL: Non-distended MUSCULOSKELETAl: No obvious deformities NEURO: Alert. Moving 4/4 extremities SKIN:: Warm, dry. Normal color PSYCHIATRIC: Normal affect Course Vital Signs Vital signs: Vital Signs Temperature 97.8 F 04/09/24 18:30 Pulse Rate 85 04/09/24 18:30 Respiratory Rate 17 04/09/24 18:30 Blood Pressure 118/66 04/09/24 18:30 Pulse Oximetry 99 04/09/24 18:30 Oxygen Delivery Room Air 04/09/24 18:30 Temperature 97.8 F 04/09/24 18:30 Pulse Rate 85 04/09/24 18:30 Respiratory Rate 17 04/09/24 18:30 Blood Pressure 118/66 04/09/24 18:30 Pulse Oximetry 99 04/09/24 18:30 Oxygen Delivery Room Air 04/09/24 18:30 Medical Decision Making MDM Narrative Medical decision making narrative: -Course: 28-year-old female presenting after a slip on ice. She has some midline cervical tenderness on exam. CT cervical spine without fracture. Treated with Tylenol Robaxin and discharged. -DDX includes but is not limited to: Bony injury, soft tissue injury -Dx tests considered but not ordered: CT brain- very low risk per [place] [facility] rules -Shared decision making / Disposition:discharged. Vital Signs Vital Signs: Vital Signs Temperature 97.8 F 04/09/24 18:30 Pulse Rate 85 04/09/24 18:30 Respiratory Rate 17 04/09/24 18:30 Blood Pressure 118/66 04/09/24 18:30 Pulse Oximetry 99 04/09/24 18:30 Oxygen Delivery Room Air 04/09/24 18:30 Temperature 97.8 F 04/09/24 18:30 Pulse Rate 85 04/09/24 18:30 Respiratory Rate 17 04/09/24 18:30 Blood Pressure 118/66 04/09/24 18:30 Pulse Oximetry 99 04/09/24 18:30 Oxygen Delivery Room Air 04/09/24 18:30 Discharge Plan Discharge Clinical Impression: Cervicalgia Patient Disposition: Home, Self-Care Condition: Stable Instructions: Antibiotic Form, Acute Neck Pain (ED) Additional Instructions: Please use Tylenol Robaxin for pain control. You can follow-up with your primary care physician for further management. Return if you develop any or worsening symptoms. Patient Language: Dominican Prescriptions: New acetaminophen 500 mg tablet 1,000 mg PO TID PRN (Reason: ziggy) 7 Days Qty: 42 0RF methocarbamol 750 mg tablet 1,500 mg PO TID Qty: 35 0RF No Action montelukast 10 mg tablet 10 mg PO DAILY tizanidine 4 mg capsule 4 mg PO QHS PRN (Reason: Muscle Spasm) sennosides-docusate sodium [Senna with Docusate Sodium] 8.6-50 mg tablet 1 tab-cap PO HS Qty: 14 0RF sertraline 100 mg tablet 100 mg PO HS lithium carbonate 450 mg tablet extended release 450 mg PO HS topiramate 50 mg tablet 100 mg PO DAILY ibuprofen 600 mg tablet 600 mg PO TID PRN (Reason: pain) Qty: 30 0RF acetaminophen 500 mg capsule 1,000 mg PO Q6H PRN (Reason: pain) Qty: 30 0RF fluconazole 150 mg tablet 150 mg PO DAILY Qty: 2 0RF Rx Instructions: Take 1 dose then wait 72hours then may take 2nd dose progesterone micronized [Prometrium] 200 mg capsule 200 mg PO QHS Qty: 14 0RF Follow-up/Referrals: Andreia,Vanessa Baer MD [Primary Care Provider] -
[2024-04-09] MEDS: methocarbamoL 750 MG TABLET 1500 MG PO (19:29)
[2024-04-09] MEDS: ACETAMINOPHEN 500 MG TABLET 1000 MG PO (19:29)
== END 2024-04-09 20:18 | disposition home or self-care (01) ==
PROVIDERS: Emergency Provider Emergency Medicine; PCP Emergency Medicine
DX: M54.2 Cervicalgia (principal); F32.A Depression, unspecified; F41.9 Anxiety disorder, unspecified; D64.9 Anemia, unspecified; M19.90 Unspecified osteoarthritis, unspecified site
CPT/HCPCS: 72125; 99284; A9270

== ENCOUNTER 2024-04-22 23:13 | Emergency (ER) | payer OTHER, SELFPAY ==
--- NOTE | ~2024-04-22 | CT_ITS ---
EXAMINATION: CT BRAIN W/O DATE: 04/23/2024 04:34 INDICATION: Seizure. TECHNIQUE: Computed tomography (CT) of the head was performed without intravenous contrast. The dose- length product was 681.00 mGy-cm. Automated exposure control and iterative reconstruction technique w ere employed. COMPARISON: CT dated 01/08/2024 FINDINGS: Normal brain parenchymal volume for age. Normal mario-white differentiation. No acute intrac ranial hemorrhage, infarction, mass or mass effect. No ventriculomegaly or midline shift. Midline sagittal images demonstrate a normal corpus callosum, c raniovertebral junction and sella turcica. Basilar cisterns are patent. There is mucosal thickening of the paranasal sinuses. Mastoids are pneumatized. No depressed skull fr actures. IMPRESSION: 1. No acute intracranial abnormality. Reviewed, dictated and finalized at location A. CAL ASSISTING INSTRUCTOR
--- OUTSIDE RECORDS SUMMARY | 2024-04-22 23:15 | XMS_ITS | CONTINUITY OF CARE DOCUMENT ---
Author Name mckenzie rincon Address Unknown Organization [facility] Address [address] [place] [address] Phone [phone] Care Team Providers Care Classification Officer Name Role Phone Boris Singh MD Unavailable [phone] CHLOÉ RODRIGUEZ, CLEMENTE Unavailable [phone] CLEMENTE LUEVANO MD Unavailable [phone] PROBLEMS Condition Status Date Provider Notes Sinus tachycardia active Robinson España Dizziness active Robinson España Diaphoresis active Robinson España Syncope active Robinson España Palpitations active Robinson España Asthma active Boris Singh MD Bradycardia sinus active Boris Singh MD Chest pain-type to be determined active Boris Singh MD Shortness of breath active Boris Singh MD Knee pain, left, chronic active Meseret lopez MD Iron deficiency active Meseret Sotelo MD Hypertension active Zaida Conrad SVT active Enrike Joe B12 deficiency active Lonnie Dacosta MD ENCOUNTERS Date Type Provider Location Encounter Diag nosis 07/12 - 07/15 In-person encounter Office Visit Meseret Sotelo MD [facility] 03/30 - 04/10 In-person encounter Office Visit Meseret Sotelo MD [facility] 03/01 - 03/01 In-person encounter Office Visit Lonnie Dacosta MD [facility] B12 deficiency 09/20 - 09/24 In-person encounter Office Visit Meseret Sotelo MD [facility] 06/23 - 06/23 In-person encounter Office Visit Meseret Sotelo MD [facility] SVT 04/10 - 04/11 In-person encounter Office Visit Boris Singh MD [facility] 06/01 - 06/06 In-person encounter Office Visit Boris Singh MD [facility] Hypertension 08/26 - 08/27 In-person encounter Office Visit Boris Singh MD [facility] 02/25 - 02/25 In-person encounter Office Visit Boris Singh MD [facility] 11/21 - 11/21 In-person encounter Office Visit Boris Singh MD [facility] 02/12 - 02/12 In-person encounter Office Visit Boris Singh MD [facility] 08/23 - 09/27 In-person encounter Office Visit Boris Singh MD [facility] 05/22 - 05/22 In-person encounter Office Visit Boris Singh MD [facility] 05/05 - 05/08 In-person encounter Office Visit Meseret Sotelo MD [facility] 04/28 - 05/02 In-person encounter Office Visit Meseret Sotelo MD [facility] Knee pain, left, chronicIron deficiency 04/12 - 04/16 In-person encounter Office Visit Boris Singh MD [facility] 02/20 - 02/21 In-person encounter Office Visit Boris Singh MD [facility] Chest pain-type to be determinedShortnes s of breath 12/19 - 12/21 In-person encounter Office Visit Boris Singh MD [facility] AsthmaBradycardia sinus 10/19 - 10/20 In-person encounter Office Visit Boris Singh MD [facility] Sinus tachycardiaDizzinessDiaphoresisSyncopePalpitations VITAL SIGNS Date Observation Value Provider Body Mass Index (Ratio) 24.40 kg/m2 Enrike Joe blood pressure, cuff size regular [facility], diastolic 66 mm[Hg] Samuel rri [facility]ex[facility] blood pressure, systolic 122 mm[Hg] Joseph [facility]otex[facility] oxygen saturation, oximetry 100 % Katherine [facility] respiratory rate E&M 12 /min Katherine Joya [facility]ftex[facility] pulse rate 90 /min Katherine Stoner [facility] weight E&M 175 [lb_av] Katherine Stoner [facility] height E&M 71 [in_i] Katherine Alanizdeon [facility] weight E&M 176 [lb_av] Elly Buck Body Mass Index (Ratio) 24.54 kg/m2 Elias Sotelo MD weight E&M 176 [lb_av] [facility] blood pressure, cuff size regular [facility] blood pressure, diastolic 64 mm[Hg] [facility] blood pressure, systolic 101 mm[Hg] [facility] 96 % [facility] respiratory rate E&M 16 /min [facility] pulse rate 71 /min [facility] height E&M 71 [in_i] [facility] Body Mass Index (Ratio) 24.13 kg/m2 Fauzia Dacosta MD blood pressure, diastolic 85 mm[Hg] Ayanna nkLogic blood pressure, systolic 109 mm[Hg] Megan kLoglilian pulse rate 74 /min [facility] blood pressure, cuff size regular [facility] blood pressure, diastolic 85 mm[Hg] Fa [facility] blood pressure, systolic 109 mm[Hg] Marito anette Harmon oxygen saturation, oximetry 98 % Unique Harmon respiratory rate E&M 16 /min Unique monroe weight E&M 173 [lb_av] Unique Harmon height E&M 71 [in_i] Unique Ralph Body Mass Index (Ratio) 24.13 kg/m2 Elias Sotelo MD blood pressure, cuff size regular Ke rri Amelia blood pressure, diastolic 72 mm[Hg] Ke rri Qian blood pressure, systolic 136 mm[Hg] Joseph Laughlin oxygen saturation, oximetry 98 % Katherine Laughlin respiratory rate E&M 12 /min Katherine augustin pulse rate 88 /min Katherine Stoner [facility] weight E&M 173 [lb_av] Katherine Stoner [facility] height E&M 71 [in_i] Katherine Stoner [facility] Body Mass Index (Ratio) 23.71 kg/m2 Enrike Joe pulse rate 92 /min Tiny Hartley oxygen saturation, oximetry 98 % Tiny Hartley respiratory rate E&M 20 /min Tiny Hartley weight E&M 170 [lb_av] Tiny Hartley height E&M 71 [in_i] Tiny Hartley Body Mass Index (Ratio) 25.52 kg/m2 Sheila Conrad blood pressure, diastolic 76 mm[Hg] Ayanna nkLogic blood pressure, systolic 112 mm[Hg] Megan Thomasoglilian blood pressure, diastolic 76 mm[Hg] [facility] usman Luciano blood pressure, systolic 112 mm[Hg] Eliza Luciano oxygen saturation, oximetry 98 % Eneida Luciano respiratory rate E&M 18 /min Eneida Foy edilma pulse rate 102 /min Eneida Luciano weight E&M 183 [lb_av] Eneida Luciano height E&M 71 [in_i] Eneida Luciano Body Mass Index (Ratio) 27.19 kg/m2 Sheila katty [place] blood pressure, diastolic 68 mm[Hg] Li nkLogic blood pressure, systolic 115 mm[Hg] Megan kLogic blood pressure, diastolic 68 mm[Hg] Ca therine Caleb blood pressure, systolic 115 mm[Hg] Cat herine Caleb oxygen saturation, oximetry 98 % Natalie Caleb respiratory rate E&M 14 /min Catheri ne [place] pulse rate 96 /min Natalie [place] weight E&M 195 [lb_av] Natalie Caleb blood pressure, cuff size regular Ca therine Caleb height E&M 71 [in_i] Natalie Caleb weight E&M 188 [lb_av] Odessa Benitez Body Mass Index (Ratio) 26.22 kg/m2 Oscar España blood pressure, diastolic, left arm 66 mm [Hg] Tonsha Vallejo blood pressure, systolic, left arm 98 mm[ Hg] Tonsha Vallejo blood pressure, diastolic, right arm 75 m m[Hg] Tonsha [place] blood pressure, systolic, right arm 104 m m[Hg] Tonsha Vallejo blood pressure, diastolic 66 mm[Hg] To nsha [place] blood pressure, systolic 98 mm[Hg] Ton sha [place] oxygen saturation, oximetry 98 % Tonsha Vallejo pulse rate 73 /min Tonsha Vallejo respiratory rate E&M 16 /min Tonsha [place]le[place] weight E&M 188 [lb_av] Tonsha Vallejo height E&M 71 [in_i] Tonsha Vallejo temperature site temporal Christina Tank sley temperature E&M 96.9 [degF] Christina Tanks marcel Body Mass Index (Ratio) 26.92 kg/m2 Oscar [facility] blood pressure, diastolic 70 mm[Hg] Da emily Frederick blood pressure, systolic 118 mm[Hg] Dac ia Frederick oxygen saturation, oximetry 96 % Allie Frederick respiratory rate E&M 16 /min Allie V oss pulse rate 92 /min Allie Frederick weight E&M 193 [lb_av] Allie Frederick height E&M 71 [in_i] Allie Frederick Body Mass Index (Ratio) 23.85 kg/m2 Oscar [facility] blood pressure, diastolic 80 mm[Hg] Da emily Frederick blood pressure, systolic 122 mm[Hg] Dac ia Frederick oxygen saturation, oximetry 95 % Allie Frederick respiratory rate E&M 16 /min Allie V oss pulse rate 86 /min Allie Frederick weight E&M 171 [lb_av] Allie Frederick height E&M 71 [in_i] Allie Frederick Body Mass Index (Ratio) 23.15 kg/m2 Boris Singh MD blood pressure, cuff size regular Sam Martínez blood pressure, diastolic 70 mm[Hg] Sam Martínez blood pressure, systolic 104 mm[Hg] Zi Martínez oxygen saturation, oximetry 98 % Dayna Martínez respiratory rate E&M 16 /min Dayna Martínez pulse rate 93 /min Dayna Martínez weight E&M 166 [lb_av] Dayna Martínez height E&M 71 [in_i] Dayna Martínez Body Mass Index (Ratio) 21.89 kg/m2 Oscar francisco javiermatilde España blood pressure, cuff size regular Adele Hernández blood pressure, diastolic 60 mm[Hg] Adele Hernández blood pressure, systolic 100 mm[Hg] Cindy Hernández oxygen saturation, oximetry 98 % Apolonia Hernández respiratory rate E&M 16 /min Apolonia Hernández pulse rate 100 /min Apolonia Hernández weight E&M 157 [lb_av] Apolonia Hernández height E&M 71 [in_i] Apolonia Hernández Body Mass Index (Ratio) 21.20 kg/m2 Boris Singh MD blood pressure, cuff size regular Ke geraldi Qian blood pressure, diastolic 71 mm[Hg] Ke rri Qian blood pressure, systolic 116 mm[Hg] Joseph Laughlin oxygen saturation, oximetry 98 % Katherine Laughlin respiratory rate E&M 16 /min Katherine augustin pulse rate 105 /min Katherine rivera weight E&M 152 [lb_av] Katherine Herbie ramey height E&M 71 [in_i] Katherine ramey Body Mass Index (Ratio) 21.20 kg/m2 Oscar [place] blood pressure, cuff size regular Ke geraldi Qian blood pressure, diastolic 72 mm[Hg] Ke rri Qian blood pressure, systolic 112 mm[Hg] Joseph Laughlin oxygen saturation, oximetry 98 % Katherine Laughlin respiratory rate E&M 16 /min Katherine G anandenenfelder pulse rate 124 /min Katherine Leannee lder weight E&M 152 [lb_av] Katherine Leannee lder height E&M 71 [in_i] Katherine Leannee lder Body Mass Index (Ratio) 21.20 kg/m2 Oscar mcintyre [facility] height E&M 71 [in_i] Robinson [facility] erg blood pressure, diastolic 70 mm[Hg] Da emily Frederick blood pressure, systolic 112 mm[Hg] Dac ia Frederick oxygen saturation, oximetry 97 % Allie Frederick respiratory rate E&M 16 /min Allie V oss pulse rate 68 /min Allie Frederick weight E&M 152 [lb_av] Allie Frederick blood pressure, resting No [facility] Body Mass Index (Ratio) 20.78 kg/m2 [facility] blood pressure, cuff size regular Ke rri [facility] blood pressure, diastolic 72 mm[Hg] Ke rri Corbintasneemeduarer blood pressure, systolic 110 mm[Hg] Joseph ri Qian oxygen saturation, oximetry 97 % Katherine Corbintasneemgregorio respiratory rate E&M 16 /min Katherine Mahnaz mayelaeldmatilde pulse rate 103 /min Katherine Vestanetasneeme er weight E&M 149 [lb_av] Katherine Leannee er height E&M 71 [in_i] Katherine Leannee er Body Mass Index (Ratio) 21.48 kg/m2 [facility], cuff size regular Ke rri [facility]emtex[facility] blood pressure, diastolic 66 mm[Hg] Ke rri Gruenenfelder blood pressure, systolic 102 mm[Hg] Joseph Laughlin oxygen saturation, oximetry 95 % Katherine Laughlin respiratory rate E&M 16 /min Katherine augustin pulse rate 87 /min Katherine Stoner lder weight E&M 154 [lb_av] Katherine Stoner lder height E&M 71 [in_i] Katherine Stoner lder blood pressure, diastolic 60 mm[Hg] Jeremy Mac Goss blood pressure, systolic 102 mm[Hg] Babita Goss pulse rate 70 /min Ilana cunningham oxygen saturation, oximetry 99 % Ilana Goss respiratory rate E&M 16 /min Jori Goss weight E&M 157.2 [lb_av] Ilana santana blood pressure, diastolic 60 mm[Hg] Jeremy Mac Goss blood pressure, systolic 108 mm[Hg] Babita Goss pulse rate 111 /min Ilana cunningham oxygen saturation, oximetry 99 % Ilana Goss respiratory rate E&M 16 /min Jori Goss Body Mass Index (Ratio) 22.09 kg/m2 Henna Gsos weight E&M 158.4 [lb_av] Ilana Tripp max height E&M 71 [in_i] Ilana cunningham ALLERGIES Allergy Name Onset Date Reaction Criticality Status WASPS Low Criticality active STRAWBERRIES Low Criticality active CARMEX Low Criticality active CAMPHO PHENIQUE Low Criticality acti ve AUGMENTIN Low Criticality active RESULTS Date Observation Value Provider Reference Range Interpretation Location 4 D-dimer quantitative mcg/mL 0.24 MG/L FEU [facility] 0.00-0.49 4 ferritin, serum 19 ng/mL [facility] 15-150 4 pro brain natriuretic peptide 21 pg/mL [facility] 0-130 4 iron saturation percent, serum 14 % [facility] 15-55 Low 4 iron, serum 60 ug/dL [facility] 27-159 4 iron binding capacity, unsaturated 367 ug/dL [facility] [phone]/06/0 4 iron binding capacity, total 427 ug/dL [facility] 460-804 5409/06/0 4 calcium, serum 9.7 mg/dL [facility] 8.7-10.2 4 carbon dioxide, venous blood 23 mmol/L [facility] 20[facility]29 4 chloride, serum 104 mmol/L [facility] 96-106 4 potassium, serum 4.0 mmol/L [facility] 3.5-5.2 4 sodium, serum 145 mmol/L [facility] 134-144 High 4 urea nitrogen/creatinine ratio, serum 17 [facility] 9-23 4 eGFR if 110 mL/min/{1 .73_m2} [facility] >59 4 eGFR if not 96 mL/min/{1 .73_m2} [facility] >59 4 creatinine, serum 0.86 mg/dL [facility] 0.57-1.00 4 urea nitrogen, blood 15 mg/dL [facility] 6-20 4 blood glucose, random 84 mg/dL [facility] 65-99 4 basophil count, absolute 0.1 x10E3/uL [facility] 0.0-0.2 4 Eosinophil Absolute Count 0.2 X10E3/UL [facility] 0.0-0.4 4 monocyte count, blood, automated 0.5 X10E3/UL [facility] 0.1-0.9 4 lymphocyte count, blood, automated 2.1 X10E3/UL [facility] 0.7-3.1 4 Absolute Neutrophils 4.1 X10E3/UL [facility] 1.4-7.0 4 basophils as percent of blood leukocytes 1 % [facility] Not Estab. 4 eosinophils as percent of blood leukocytes 3 % [facility] Not Estab. 4 monocytes as percent of blood leukocytes 7 % [facility] Not Estab. 4 lymphocytes as percent of blood leukocytes 30 % [facility] Not Estab. 4 neutrophils as percent of blood leukocytes 59 % [facility] Not Estab. 4 platelet count 323 X10E3/UL [facility] [phone]/06/0 4 red blood cell distribution width 13.3 % [facility] 11.7-15.4 4 mean corpuscular hemoglobin concentration, RBC 31.8 G/DL [facility] 31.5-35.7 4 mean corpuscular hemoglobin, RBC 26.6 pg [facility] 26.6-33.0 4 mean corpuscular volume, RBC 84 fL [facility] 79-97 4 hematocrit, blood 39.6 % [facility] 34.0-46.6 4 hemoglobin, blood 12.6 g/dL [facility] 11.1-15.9 4 erythrocyte (RBC) count 4.74 X10E6/UL [facility] 3.77-5.28 4 leukocyte count, blood 7.0 X10E3/UL [facility] 3.4-10.8 1 folate, serum 7.7 NG/MLM [facility] 4.4 - 31.0 1 vitamin b12, serum 277.6 pg/mL [facility] 211.0 - 946.0 1 ferritin, serum 244.4 ng/mL [facility] 13.0 - 150.0 High 1 red blood cell distribution width, size density 47.6 fL [facility] - 1 immature granulocytes, percentage of total cells, blood 0.7 % [facility] - 1 nucleated red blood cells as percent of blood leukocytes 0.0 % [facility] - 1 red blood cell (erythrocyte) count, per high power field 0.0 10*3/UL [facility] - 1 eosinophils as percent of blood leukocytes 1.2 % [facility] - 1 neutrophils as percent of blood leukocytes 63.4 % [facility] - 1 Absolute Neutrophils 3.8 CELLS/UL [facility] 1.5 - 7.8 1 basophils as percent of blood leukocytes 0.7 % [facility] - 1 Absolute Basophils 0.0 CELLS/UL [facility] 0.0 - 0.2 1 monocytes as percent of blood leukocytes 5.8 % [facility] - 1 Absolute Monocytes 0.4 CELLS/UL [facility] 0.2 - 1.0 1 lymphocytes as percent of blood leukocytes 28.2 % [facility] - 1 Absolute Lymphocytes 1.7 CELLS/UL [facility] 0.9 - 3.9 1 mean platelet volume 11.2 (?) [facility] - 1 platelet count 305.0 THOUSAND/ UL LinkLog 100.0 - 400.0 1 mean corpuscular hemoglobin concentration, RBC 31.1 G/DL [facility] 31.0 - 38.0 1 mean corpuscular hemoglobin, RBC 28.4 pg LinkLog 25.0 - 35.0 1 mean corpuscular volume, RBC 91.3 fL [facility] 75.0 - 100.0 1 hematocrit, blood 45.0 % [facility] 35.0 - 55.0 1 hemoglobin, blood 14.0 g/dL [facility] 11.5 - 16.5 1 erythrocyte count, whole blood 4.9 MILLION/U L [facility] 3.5 - 5.5 1 iron, serum 129.0 ug/dL [facility] 25.0 - 156.0 1 iron saturation percent, serum 28.7 % [facility] 20.0 - 50.0 1 iron binding capacity, total 449.4 ug/dL [facility] 250.0 - 450.0 1 reticulocyte count, absolute 0.053 10*6 CELLS/UL [facility] - 1 reticulocyte count, blood, uncorrected 1.07 % [facility] 0.50 - 2.00 4 folate, serum 7.7 NG/MLM [facility] 5.0 - 27.2 4 vitamin b12, serum 319.9 pg/mL [facility] 211.0 - 946.0 4 free thyroxine index 7.4 ??g/dL [facility] 4.4 - 11.4 4 triiodothyronine uptake 1.2 TBI [facility] 0.8 - 1.3 4 thyroxine, serum, total 8.9 ??G/DL [facility] 4.5 - 11.7 4 thyroid stimulating hormone, serum 5.560 ??IU/ML [facility] 0.270 - 4.200 High 4 ferritin, serum 10.5 ng/mL [facility] 13.0 - 150.0 Low 4 anion gap, serum 12.5 [facility] - 4 albumin/globulin ratio, serum 1.8 g/dL [facility] 1.1 - 2.5 4 globulin, serum 2.4 [facility] 2.3 - 3.8 4 urea nitrogen/creatinine ratio, serum 10.0 [facility] - 4 Estimated Glomerular Filtration Rate (calc) 98.2 (?) [facility] 59.0 - 4 chloride, serum 101.5 mmol/L [facility] 98.0 - 107.0 4 potassium, serum 3.8 mmol/L [facility] 3.5 - 5.1 4 sodium, serum 139.0 mmol/L [facility] 136.0 - 145.0 4 creatinine, serum 0.8 mg/dL [facility] 0.5 - 1.0 4 carbon dioxide, venous blood 25.0 mmol/L [facility] 22.0 - 29.0 4 albumin, serum 4.2 g/dL [facility] 3.5 - 5.2 4 calcium, serum 9.2 mg/dL [facility] 8.6 - 10.2 4 aspartate aminotransferase (SGOT), serum 12.0 1/L [facility] 0.0 - 32.0 4 alkaline phosphatase, serum 60.0 1/L [facility] 40.0 - 130.0 4 alanine aminotransferase (SGPT), serum 6.0 1/L [facility] 0.0 - 33.0 4 protein, total, serum 6.6 g/dL [facility] 6.6 - 8.7 4 bilirubin, serum, total 0.3 mg/dL [facility] 0.0 - 1.2 4 urea nitrogen, blood 8.0 mg/dL LinkLog 6.0 - 20.0 4 blood glucose, random 83.0 mg/dL [facility] 74.0 - 99.0 4 red blood cell distribution width, size density 47.8 fL [facility] - 4 immature granulocytes, percentage of total cells, blood 0.3 % [facility] - 4 nucleated red blood cells as percent of blood leukocytes 0.0 % [facility] - 4 red blood cell (erythrocyte) count, per high power field 0.0 10*3/UL [facility] eosinophils as percent of blood leukocytes 2.3 % [facility] - 4 neutrophils as percent of blood leukocytes 52.2 % [facility] - 4 Absolute Neutrophils 3.2 CELLS/UL [facility] 1.5 - 7.8 4 basophils as percent of blood leukocytes 0.6 % [facility] - 4 Absolute Basophils 0.0 CELLS/UL [facility] 0.0 - 0.2 4 monocytes as percent of blood leukocytes 5.7 % [facility] - 4 Absolute Monocytes 0.4 CELLS/UL [facility] 0.2 - 1.0 4 lymphocytes as percent of blood leukocytes 38.9 % [facility] - 4 Absolute Lymphocytes 2.4 CELLS/UL [facility] 0.9 - 3.9 4 mean platelet volume 11.9 (?) [facility] - 4 platelet count 276.0 THOUSAND/ UL [facility] 100.0 - 400.0 4 mean corpuscular hemoglobin concentration, RBC 30.9 G/DL [facility] 31.0 - 38.0 Low 4 mean corpuscular hemoglobin, RBC 26.9 pg [facility] 25.0 - 35.0 4 mean corpuscular volume, RBC 86.9 fL [facility] 75.0 - 100.0 4 hematocrit, blood 39.8 % [facility] 35.0 - 55.0 4 hemoglobin, blood 12.3 g/dL [facility] 11.5 - 16.5 4 erythrocyte count, whole blood 4.6 MILLION/U L [facility] 3.5 - 5.5 4 iron, serum 51.0 ug/dL [facility] 25.0 - 156.0 4 iron saturation percent, serum 9.4 % [facility] 20.0 - 50.0 Low 4 iron binding capacity, total 543.2 ug/dL [facility] 250.0 - 450.0 High 4 reticulocyte count, absolute 0.052 10*6 CELLS/UL [facility] - 4 reticulocyte count, blood, uncorrected 1.13 % [facility] 0.50 - 2.00 HISTORY OF MEDICATION USE Medication Status Instructions Dates Provider Indications Com ments propranolol 10 mg tablet active Take 1 tablet by mouth twice a day Kamala oL NP Vitamin D3 50 mcg (2,000 unit) capsule active daily Kamala Lo NP Feosol 325 mg (65 mg iron) tablet active Take 1 tablet by mouth once a day Saundra Kuhn NP cyanocobalamin (vitamin B-12) 1,000 mcg capsule active 1 capsule by mouth once a day Saundra Kuhn NP oxycodone-acetam inophen 5-325 mg tablet completed TAKE 1 TABLET BY MOUTH EVERY 6 HOURS NEEDED FOR PAIN - Kamala Lo NP topiramate 25 mg tablet active TAKE 1 TABLET BY MOUTH ONCE DAILY Saundra Kuhn NP levetiracetam 500 mg tablet completed Take 1 tablet by mouth twice daily - Kamala Lo NP magnesium oxide 400 mg magnesium tablet active Take 1 tablet by mouth twice a day Enrike Joe propranolol 20 mg tablet completed 1 tablet by mouth twice a day TAKE 1 TABLET BY MOUTH TWICE DAILY - Saundra Kuhn NP montelukast 10 mg tablet active Take 1 tablet by mouth once daily at bedtime Saundra Kuhn NP gabapentin 300 mg capsule completed - Tonja Ventimiglia [employer] lithium carbonate 300 mg tablet extended release completed - Tonja Devinemiadri [place] tizanidine 4 mg tablet active Take 1 tablet by mouth once daily as needed Saundra Kuhn NP Flovent HFA 44 mcg/actuation HFA aerosol inhaler active as directed Natalie Caleb ProAir HFA 90 mcg/actuation HFA aerosol inhaler active as directed Natalie [place] Lupron Depot (3 month) 11.25 mg syringe kit completed intramuscularly every three months - Tonja Devinemiadri [place] Zyrtec 10 mg tablet completed 1 tablet by mouth once a day - Kamala Lo NP ZOLOFT 100 MG ORAL TABLET completed take one daily - Allie Frederick QVAR 80 MCG/ACT INHALATION AEROSOL SOLUTION completed INHALE 2 PUFFS DIRECTED - Allie Frederick OXYCODONE-ACETAM INOPHEN 5-325 MG ORAL TABLET completed TAKE ONE TABLET BY MOUTH NEEDED FOR PAIN - Allie Frederick #30, 4 days supply, Filled 7 CORLANOR 5 MG ORAL TABLET completed One tablet twice daily - Allie Frederick MAGNESIUM OXIDE 400 MG ORAL TABLET completed One tablet twice daily - Boris Singh MD TRAMADOL HCL 50 MG ORAL TABLET completed take one tablet daily - Dayna Martínez DILTIAZEM HCL ER 90 MG ORAL CAPSULE EXTENDED RELEASE 12 HOUR completed One capsule daily with dinner - Boris Singh MD LAMICTAL 100 MG ORAL TABLET completed TAKE ONE TABLET BY MOUTH TWICE DAILY - Allie Frederick CELEXA 10 MG ORAL TABLET completed ONE TAB. DAILY - Dayna Martínez VITAMIN C TABLET completed once daily - Dayna Martínez MONO-LINYAH 0.25-35 MG-MCG ORAL TABLET completed once daily - Allie Frederick OMEPRAZOLE 20 MG ORAL TABLET DELAYED RELEASE completed Take one tablet every morning - Dayna Martínez MONTELUKAST SODIUM TABLET completed as directed - Allie Frederick PROAIR HFA 108 (90 Base) MCG/ACT INHALATION AEROSOL SOLUTION completed As directed - Katherine Laughlin FLOVENT HFA AEROSOL completed 2 puffs twice daily - Katherine GRIFFITH TABS 325 (65 FE) MG ORAL TABLET DELAYED RELEASE completed ONE TABLET DAILY - Dayna Martínez SOCIAL HISTORY Date Observation Value Provider drug use no Enrike Joe alcohol use no Enrike Joe smoking status Never smoker Enrike Joe drug use no Unique Harmon alcohol use no Unique Harmon smoking status Never smoker Unique Harmon drug use no Unique Harmon alcohol use no Unique Harmon smoking status Never smoker Unique Harmon drug use no 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 Boris Singh MD social history reviewed E&M revi ewed - no changes required Boris Singh MD smoking status Never smoker Natalie Darlyn nelson social history reviewed E&M revi ewed - no changes required Robinson España smoking status Never smoker Bree Vallejo social history reviewed E&M revi ewed - no changes required Boris Singh MD alcohol use no Allie Frederick smoking status Never smoker Allie Frederick social history reviewed E&M revi ewed - no changes required Robinson España alcohol use no Allie Frederick smoking status Never smoker Allie Frederick alcohol use no Boris Singh MD smoking status Never smoker Boris Foy social history reviewed E&M revi ewed - no changes required Brois Singh MD social history reviewed E&M revi ewed - no changes required Boris Singh MD alcohol use no Apolonia Hernández smoking status Never smoker Apolonia Hernández alcohol use no Katherine rivera smoking status Never smoker Katherine holm number of grandchildren Meseret España alcohol use no Robinson merritt smoking status Never smoker Robinson booker social history reviewed E&M revi ewed - no changes required Robinson Esp[place] social history reviewed E&M revi ewed - no changes required Robinson Esp[place] alcohol use no Allie Frederick smoking status Never smoker Allie Mack social history reviewed E&M revi ewed - no changes required Boris Singh MD alcohol use no Katherine Stoner lder smoking status Never smoker Katherine Nash alta social history reviewed E&M revi ewed - no changes required Boris Singh MD social history E&M Smoking Histo ry: Dominique gupta has never smoked. Boris Singh MD alcohol use no Katherine Stoner lder smoking status Never smoker Katherine Nash alta social history E&M Smoking Histo ry: Patient has never smoked. Boris Singh MD social history reviewed E&M revi ewed - no changes required Boris Singh MD smoking status Never smoker Ilana Aguirre social history reviewed E&M revi ewed - no changes required Boris Singh MD social history E&M Smoking Histo ry: Dominique gupta has never smoked. Boris Singh MD smoking status Never smoker Ilana Spann angeline FAMILY HISTORY Family Member Condition Mother Family History of Co ronary Artery Disease: INSURANCE PROVIDERS Payer name Policy type / Coverage type [place] [employer] [place] MEDICA[place] Medicaid [id number] ADVANCE DIRECTIVES Name Date DISCUSSED - NO DECISION MADE TREATMENT PLAN Date Name Performer [id number],C,E tiology unclear. Cardiac w/u to date benign. Will monitor. Tonja Zamorano [facility] [id number],C,w ill update iron studies O rders: 9 9258 MOD 30-39min (CPT-49344) T SH, free T4, total T3 (4550) C BC (INCLUDES DIFF/PLT) (4199) F ERRITIN (457) I BERNARDA AND TOTAL IRON BINDING CAPACITY (1086) Tonja Devinemiglia [facility] [id number],C,W ill increase propranolol dose H er updated medication list for this problem includes: Propranolol 20 Mg Tablet (Propranolol) ..... 1 tablet by mouth twice a day take 1 tablet by mouth twice daily BP today: 136/72 P rior BP: 112/76 (04/10/2022) Labs Reviewed: C reat: 0.86 (08/28/2019) Tonja Zamorano [facility] [id number],W,c ontinue to persist. Less intense with propranolol and magnesium oxide. We will increase the propranolol to 20mg twice a day. Wiill update labs to r/o underlying source for palpitations H er updated medication list for this problem includes: Propranolol 20 Mg Tablet (Propranolol) ..... 1 tablet by mouth twice a day take 1 tablet by mouth twice daily Orders: 74673 MOD 30-39min (CPT-49888) T SH, free T4, total T3 (3744) C BC (INCLUDES DIFF/PLT) (6399) F ERRITIN (457) I BERNARDA AND TOTAL IRON BINDING CAPACITY (7573) C ortisol - AM (194812) Tonja Zamorano [facility] [id number],S, Enrike Mike i [id number],S, Enrike Mike i [id number],C,S hort runs of SVT and tachycardia, will start her on Magnesium 400 mg BID and Propranolol 10 mg BID and see how she feels. Enrike Joe [id number],C, P rior BP: 112/76 (04/10/2022) Labs Reviewed: C reat: 0.86 (08/28/2019) Enrike Joe [id number],C, B P today: 112/76 P rior BP: 115/68 (06/01/2021) Labs Reviewed: C reat: 0.86 (08/28/2019) Zaida Conrad [id number],C,P t is , due in 4 weeks. Still feeling occasional palpitations. Will provide a telesentry monitor. Corlanor on hold due to . Zaida Conrad [id number],S, N o CP Zaida Conrad [id number],C, B P today: 115/68 P rior BP: 98/66 (08/27/2019) Labs Reviewed: C reat: 0.86 (08/28/2019) Zaida Conrad [id number],C, N o CP Zaida Conrad [id number],C,P t had a visit to [facility] ER due to episode of LOC. Told the HR was 190. WE do not have any documentation at this time. She complains of SOB and palpitations. Will schedule echo, PFTs, and telemonitor. Zaida Conrad [id number],C,P t had a visit to [facility] ER due to episode of LOC. Told the HR was 190. WE do not have any documentation at this time. She complains of SOB and palpitations. Will schedule echo, PFTs, and telemonitor. Zaida Conrad [id number],C,P t had a visit to [facility] ER due to episode of LOC. Told the HR was 190. WE do not have any documentation at this time. She complains of SOB and palpitations. Will schedule echo, PFTs, and telemonitor. Zaida Conrad Electrophysiology:wo rk up overall normal, unlikley cardiac etiology for her sxs, I reviewed the importance of lifestyle and dietary modification with the patient. Recommend daily exercise. Enrike Joe Electrophysiology:st ress test showed mild ST changes, unlikely true indicator for ischemia, no CP during exercise. will pursue perfusion imaging if she has further CP. Enrike Joe Electrophysiology:she had bradyc ardia during sleep Enrike Joe Electrophysiology:no significant arrythmias seen on holter, she may be feeling the infrequent ectopics. Enrike Mikejuly Electrophysiology: B P today: 122/66 P rior BP: 101/64 (03/30/2023) Labs Reviewed: C reat: 0.86 (08/28/2019) Her updated medication list for this problem includes: Propranolol 10 Mg Tablet (Propranolol) ..... Take 1 tablet by mouth twice a day Enrike Mikejuly Electrophysiology:co ntinues to have w ill plan for TELESENTRY 4 weeks. may need to plan ILR in future. will restart propranolol 10mg BID Meseret Sotelo MD Electrophysiology: Her updated medication list for this problem includes: Propranolol 10 Mg Tablet (Propranolol) ..... Take 1 tablet by mouth twice a day Kamala Lo NP Electrophysiology:EKG today SR J jessica Lo NP Electrophysiology:. 03/2022 ECHO EF60%, trace MR. 2020 normal stress test. family hx of premature CAD. 2020: CTA normal: no PE, no evidence of coronary calcifications 08/05/21 PFT min obstructive airway dx, WILL CHECK ROUTINE STRESS TEST Kamala Lo NP Electrophysiology:on supplementa gilberto Lo NP Electrophysiology: B P today: 101/64 P rior BP: 109/85 (03/01/2023) Labs Reviewed: C reat: 0.86 (08/28/2019) Her updated medication list for this problem includes: Propranolol 10 Mg Tablet (Propranolol) ..... Take 1 tablet by mouth twice a day Kamala Lo NP Electrophysiology:on supplementa tion Kamala Lo NP Cardiology: S tart taking Vit B12 supplements. Saundra Kuhn NP Cardiology: T fabiana Iron supplements. Saundra Kuhn NP Cardiology: S he has had one episode about 1 month ago. Saundra Kuhn NP Cardiology: E tiology unclear. Cardiac w/u to date benign. Continues to have lightheadedness/dizziness. F ollows with Neurology as well for seizures Saundra Davisonmaty OLIVAS Cardiology: P ersists. O n Propranolol 20 mg twice daily. She states that her symptoms seem to have worsened with the increase to 20 mg twice daily. A dvised patient to stop the Propranolol, monitor symptoms and follow up with Dr. Sotelo. Saundra Cesarnahid OLIVAS Cardiology: r outine stress in 08/2019 was nml Saundra Davisonmaty JACK WINDER Cardiology: P FT in 07/2021 showed minimal onbstructive airway disease. Peripheral airway. W ill repeat PFT Saundra Davisonmaty OLIVAS Cardiology: O n Mag Saundra Davisonmaty JACK WINDER Cardiology: B P today: 109/85 P rior BP: 136/72 (09/20/2022) The following medications were removed from the medication list: Propranolol 20 Mg Tablet (Propranolol) ..... 1 tablet by mouth twice a day take 1 tablet by mouth twice daily Saundra Cesarnahid OLIVAS Electrophysiology:Et iology unclear. Cardiac w/u to date benign. Will monitor. Meseret Sotelo MD Electrophysiology:wi ll update iron studies O rders: 9 9214 MOD 30-39min (CPT-79985) T SH, free T4, total T3 (7444) C BC (INCLUDES DIFF/PLT) (6399) F ERRITIN (457) I BERNARDA AND TOTAL IRON BINDING CAPACITY (7573) Meseret Sotelo MD Electrophysiology:Wi ll increase propranolol dose H er updated medication list for this problem includes: Propranolol 20 Mg Tablet (Propranolol) ..... 1 tablet by mouth twice a day take 1 tablet by mouth twice daily BP today: 136/72 P rior BP: 112/76 (04/10/2022) Labs Reviewed: C reat: 0.86 (08/28/2019) Meseret Sotelo MD Electrophysiology:co ntinue to persist. Less intense with propranolol and magnesium oxide. We will increase the propranolol to 20mg twice a day. Wiill update labs to r/o underlying source for palpitations H er updated medication list for this problem includes: Propranolol 20 Mg Tablet (Propranolol) ..... 1 tablet by mouth twice a day take 1 tablet by mouth twice daily Orders: 9 9214 MOD 30-39min (CPT-49840) T SH, free T4, total T3 (7444) C BC (INCLUDES DIFF/PLT) (3599) F ERRITIN (457) I BERNARDA AND TOTAL IRON BINDING CAPACITY (0518) C ortisol - AM (690780) Meseret Sotelo MD Cardiology Enrike Joe Cardiology Enrike Joe Cardiology:Short run s of SVT and tachycardia, will start her on Magnesium 400 mg BID and Propranolol 10 mg BID and see how she feels. Enrike Joe Cardiology: P rior BP: 112/76 (04/10/2022) Labs Reviewed: C reat: 0.86 (08/28/2019) Enrike Joe Cardiology: B P today: 112/76 P rior BP: 115/68 (06/01/2021) Labs Reviewed: C reat: 0.86 (08/28/2019) Zaida Conrad Cardiology:Pt is pre gnant, due in 4 weeks. Still feeling occasional palpitations. Will provide a telesentry monitor. Corlanor on hold due to . Zaida Conrad Cardiology: N o CP Zaida Conrad Cardiology: B P today: 115/68 P rior BP: 98/66 (08/27/2019) Labs Reviewed: C reat: 0.86 (08/28/2019) Zaida Conrad Cardiology: N o CP Zaida Conrad Cardiology:Pt had a visit to [facility] ER due to episode of LOC. Told the HR was 190. WE do not have any documentation at this time. She complains of SOB and palpitations. Will schedule echo, PFTs, and telemonitor. Zaida Conrad Cardiology:Pt had a visit to [facility] ER due to episode of LOC. Told the HR was 190. WE do not have any documentation at this time. She complains of SOB and palpitations. Will schedule echo, PFTs, and telemonitor. Zaida Conrad Cardiology:Pt had a visit to [facility] ER due to episode of LOC. Told the HR was 190. WE do not have any documentation at this time. She complains of SOB and palpitations. Will schedule echo, PFTs, and telemonitor. Zaida Conrad Cardiology:Pt has on ly occasional palpitations. Feels they are controlled. [facility] Cardiology:Orders: C BC (INCLUDES DIFF/PLT) (6399) F ERRITIN (457) I BERNARDA AND TOTAL IRON BINDING CAPACITY (7573) [facility] Cardiology:Orders: F VC - 96613 (59244) F RC - 76558 (46204) D LCO - 40744 (25967) [facility] Cardiology:She compl ains of episodes of stabbing chest pain, for the past few weeks. Associated with SOB and palpitations. The pain occurs randomly and is not associated with exertion. It is worse with a deep breath. The episodes last about 5-10 minutes at a time and resolve on their own. Happens a couple times a day. Ibuprofen and Tylenol do not help. Orders: C omplete Echo (CPT-33049) F VC - 20745 (37507) F RC - 87230 (87829) D LCO - 58986 (81934) S tress Routine (CPT-90677) C T Angio Chest (PE Protocol) (CPT-09217) C ovid Antibody Igg (88077) C ovid Antibody IgM (LC) (309791) C ovid Antibody IgA (LC) (682877) B ASIC METABOLIC PANEL W/EGFR (22122) P ROBNP, N TERMINAL (71034) C BC (INCLUDES DIFF/PLT) (6399) F ERRITIN (457) I BERNARDA AND TOTAL IRON BINDING CAPACITY (7573) D -DIMER, QUANTITATIVE (8659) [facility] Cardiology:She compl ains of episodes of stabbing chest pain, for the past few weeks. Associated with SOB and palpitations. The pain occurs randomly and is not associated with exertion. It is worse with a deep breath. The episodes last about 5-10 minutes at a time and resolve on their own. Happens a couple times a day. Ibuprofen and Tylenol do not help. Orders: E KG (CPT-60165) C omplete Echo (CPT-10566) S tress Routine (CPT-44680) C T Angio Chest (PE Protocol) (CPT-30913) Robinson España Cardiology follow up:Echo showed normal EF. Robinson Patria Cardiology follow up Robinson [place] miranda Cardiology follow up :Pt is now (16 weeks). Corlanor was stopped. Overall she is doing well but does note some rapid heartbeats from time to time. If palpitations become more persistent, she's instructed to contact us and then we will perform telesentry. Robinson [facility] Cardiology follow up :Orders: C omplete Echo (CPT-01201) Robinson [place] Cardiology Boris Singh MD Cardiology Boris Singh MD Cardiology Boris Singh MD Cardiology Follow up :She continues to have episodes of palpitations which are related to inappropriate sinus tach. Will try Corlanor 5mg BID and stop Diltiazem and Magnesium Oxide. Robinson Patria Cardiology Follow up :S/P iron infusions. Recommending GI consult. Robinson [facility] Cardiology Follow up :She continues to have episodes of palpitations which are related to inappropriate sinus tach. Will try Corlanor 5mg BID and stop Diltiazem and Magnesium Oxide. Robinson España EP Follow up faxed :Orders: S NOMED-CT: [id number] Current Medications Documented ([facility]-[id number]) E KG (CPT-14424) Robinson España EP Follow up faxed :Her updated medication list for this problem includes: Diltiazem Hcl Er 90 Mg Oral [id number]-jio (Diltiazem hcl) ..... One capsule daily with dinner Magnesium Oxide 400 Mg Oral Tabs (Magnesium oxide) .... One tablet twice daily <--- Added today Robinson Harveyberg EP Follow up faxed :She's been on maximally tolerated oral iron supplements. She follows [employer]. Will schedule iron infusions. Robinson Patria EP Initial Consult f axed 05/03/16:Orders: F ERRITIN (457) F OLATE, SERUM (466) I BERNARDA AND TOTAL IRON BINDING CAPACITY (7573) R ETICULOCYTE COUNT (793) V ITAMIN B12 (927) Robinson Patria EP Initial Consult faxed 05/03/16 Robinson Patria EP Initial Consult f axed 05/03/16:Her updated medication list for this problem includes: Diltiazem Hcl Er 90 Mg Oral [id number]-wqv (Diltiazem hcl) ..... One capsule daily with dinner Robinson Patria EP Initial Consult faxed 05/03/16: No recurrences. Robinson Patria EP Initial Consult f axed 05/03/16:Her updated medication list for this problem includes: Diltiazem Hcl Er 90 Mg Oral Yd33y-pdt (Diltiazem hcl) ..... One capsule daily with dinner Robinson [facility] Cardiology Follow up:No recurren ce since last seen. [facility] Cardiology Follow up :In addition, she has episodes of chest pain, worse at night. I recommend GI consult. [facility] Cardiology Follow up :Continues to have palpitations. WIll obtain EP consult for possible ablation. Her updated medication list for this problem includes: Diltiazem Hcl Er 90 Mg Oral [id number] (Diltiazem hcl) ..... One capsule daily with dinner Robinson España Cardiology Follow-up :Associated with episodes of palpitations. Boris Singh MD Cardiology Follow-up :Denies syncope since she was last seen. Boris Singh MD Cardiology Follow-up :Her updated medication list for this problem includes: Montelukast Sodium Tabs (Montelukast sodium tabs) ..... As directed Flovent Hfa Aero (Fluticasone propionate hfa aero) ..... 2 puffs twice daily Proair Hfa Aers (Albuterol sulfate aers) ..... As directed Boris Singh MD Cardiology Follow-up :The pt had some improvement with Cardizem. However, she still has episodes of palpitations, mainly at night. Will try Cardizem CD 90mg daily. Boris Singh MD Cardiology:She canno t take beta-blockers due to severe asthma. Boris Singh MD Cardiology:Telesentr y showed episodes of rapid heartbeats, most likely sinus tach, with HRs up to 160 bpm. Some episodes were possibly SVT. The pt states she was at rest at those times. She cannot take beta-blockers due to severe asthma. Will try Cardizem 30mg TID. Boris Singh MD Cardiology:Orders: E KG (CPT-78580) Anna Marie obile Cardiac Tele (CPT-76196) Robinson España Cardiology:The pt co mplains of palpitations lasting a few minutes at a time which is associated with diaphoresis, dizziness and blurry vision. It started a few months ago. Will obtain tele. Robinson [place] Date Name Gastroenterology Monitor - Telemetry (Mobile Cardiac) Stress Routine CXR- PA/Lat DLCO - 86878 FRC - 81566 FVC - 98562 Vitamin D, 25-Hydrox y Complete Echo Cortisol - AM IRON AND TOTAL IRON BINDING CAPACITY FERRITIN CBC (INCLUDES DIFF/P LT) TSH, free T4, total T3 Monitor - Telemetry (Mobile Cardiac) PROBNP, N TERMINAL BASIC METABOLIC PANE L W/EGFR CBC (INCLUDES DIFF/P LT) Monitor - Telemetry (Mobile Cardiac) DLCO - 39814 FRC - 02409 FVC - 89863 Complete Echo D-DIMER, QUANTITATIV E IRON AND TOTAL IRON BINDING CAPACITY FERRITIN CBC (INCLUDES DIFF/P LT) PROBNP, N TERMINAL BASIC METABOLIC PANE L W/EGFR Covid Antibody IgA ( LC) Covid Antibody IgM ( LC) CT Angio Chest (PE P rotocol) Stress Routine DLCO - 68359 FRC - 87401 FVC - 96726 Complete Echo Complete Echo VITAMIN B12 RETICULOCYTE COUNT IRON AND TOTAL IRON BINDING CAPACITY FOLATE, SERUM FERRITIN CBC (INCLUDES DIFF/P LT) VITAMIN B12 RETICULOCYTE COUNT IRON AND TOTAL IRON BINDING CAPACITY FOLATE, SERUM FERRITIN THYROID PANEL WITH T SH, 3RD GENERATION CBC (INCLUDES DIFF/P LT) COMPREHENSIVE METABO LIC PANEL W/EGFR ZIO Holter Mobile Cardiac Tele Complete Echo HISTORY OF PROCEDURES Procedure Date Procedure Name Provider Procedure Notes S tatus FVC / MVV with bronchodilator - 95213 Lonnie Dacosta MD completed FRC - 79408 Lonnie Dacsota MD complet ed SpO2 w/o 6min walk/titration Lonnie Dacosta MD completed DLCO - 98693 Lonnie Dacosta MD comple juan miguel Schedule Followup Meseret maynard MD [address] SOTELO completed EKG Meseret nelson MD completed Spirometry Boris Singh MD completed FVC / MVV with bronchodilator - 38171 Boris Singh MD completed FRC - 11815 Boris Singh MD completed SpO2 w/o 6min walk/titration Boris Singh MD completed SVC - 68178 Boris Singh MD completed DLCO - 49722 Boris Singh MD complete d EKG Boris Singh MD completed Stress EKG Boris Singh MD completed EKG Boris Singh MD completed Event Monitor Boris Singh MD complet ed EKG Boris Singh MD completed SNOMED-CT: [id number] Current Medications Documented Boris Singh MD completed SNOMED-CT: 932353469405320 Current Medications Documented Boris Singh MD completed SNOMED-CT: 778837349748273 Current Medications Documented Boris Singh MD completed EKG Meseret nelson MD completed SNOMED-CT: 314747415341948 Current Medications Documented Meseret Sotelo MD completed NICOLÁS maynard MD completed EKG Meseret nelson MD completed SNOMED-CT: 624542327098162 Current Medications Documented Meseret Sotelo MD completed EKG Boris Singh MD completed SNOMED-CT: 389884396080841 Current Medications Documented Boris Singh MD completed SNOMED-CT: 369563590672706 Current Medications Documented Boris Singh MD completed SNOMED-CT: 923544053387536 Current Medications Documented Boris Singh MD completed Event Monitor Leticia Bhardwaj completed EKG Boris Singh MD completed SNOMED-CT: [id number] Current Medications Documented Boris Singh MD completed
--- OUTSIDE RECORDS SUMMARY | 2024-04-22 23:15 | XMS_ITS | Referral Summary ---
Author Organization [facility] Address [address] [place] [address] Care Team Providers Care Truck Cleaner Name Role Phone Behzad Bailey MD Primary Care Provider [phone] Source Comments [facility],non-owned Affiliates and Associated Physician Practices is amultiple site organization consisting of ambulatory clinics and hospital sitesin [place], [place], [place] and [place]. This disclosure is being madepursuant to the Care Everywhere program and may not contain all information available regarding this patient. Last updated 17.[facility] Encounters Date Type Department Care Team Description 04/21/2024 Orders Only [facility] - Neurology [address] [facility], [facility] [place] [address] Ceasar Hawkins APRN-TOSHIA Migraine without aura and without status migrainosus, not intractable ; Intractable chronic migraine with aura with status migrainosus 04/14/2024 Travel 04/14/2024 11:00 AM MICROBIOLOGY LAB MANAGER Office Visit [facility]rology [address] [place] [address], [place] [phone] Ceasar Hawkins, SARA-TOSHIA Intractable chronic migraine with aura with status migrainosus (Primary Dx); Migraine without aura and without status migrainosus, not intractable 03/18/2024 Travel 03/17/2024 Orders Only [facility] [address] [place] [address] Lorrie Meng PA-C Migraine without aura and without status migrainosus, not intractable 03/12/2024 Travel 03/12/2024 1:30 PM MICROBIOLOGY LAB MANAGER - 03/12/2024 11:59 PM MICROBIOLOGY LAB MANAGER Hospital Encounter [facility] EEG/EMG [address] [place] [address] Marcellus Cline, DO Discharge Disposition: Home or Self Care 03/11/2024 Orders Only [facility] - Neurology [address] [place] [phone] Lorrie Meng PA-C Blurry vision 03/04/2024 Travel 03/04/2024 2:00 PM MICROBIOLOGY LAB MANAGER Office Visit [facility] - Neurology [address] [place] [phone] Lorrie Meng PA-C Seizures (HCC) (Primary Dx) 01/25/2024 Travel from Last 3 Months Allergies Active Allergy Reactions Criticality Noted Date Comments Augmentin Medium 10/31/2012 Turns her stools black Aquaphor Lip Repair Swelling 04/14/2024 Levofloxacin Swelling 03/04/2024 Morphine Headache 03/04/2024 Medications * Be aware that medications may not be up to date on this document. Alwaysverify current medications with the patient. Medication Sig Dispensed Refills Start Date End Date Status montelukast (SINGULAIR) 10 MG tablet Take 1 (one) tablet by mouth at bedtime Active methylphenidate ER (METADATE ER) 10 MG tablet Take 10 mg by mouth every morning. Active sertraline (ZOLOFT) 25 MG tablet Take 25 mg by mouth at bedtime. Active risperiDONE (RISPERDAL) 0.5 MG tablet Take 0.5 mg by mouth once daily. Active fluticasone propionate (FLUTICASONE PROPIONATE) 50 MCG/ACT nasal spray [place] 1 [place] into each nostril once daily. Active sertraline (Zoloft) 100 MG tablet Take 1 (one) tablet by mouth once daily Active topiramate (Topamax) 50 MG tablet Take 1 (one) tablet by mouth 2 times daily Active naproxen (Naprosyn) 500 MG tablet Take 1 (one) tablet by mouth 2 times daily Active albuterol HFA (Proventil; Ventolin; Proair) 108 (90 Base) MCG/ACT inhaler Inhale 2 (two) puffs by mouth every 6 hours as needed Active tiZANidine (Zanaflex) 4 MG tablet Take 1 (one) tablet by mouth every 8 hours as needed for Muscle Spasms Active senna-docusate (Senokot-S) 8.6-50 MG tablet Take 1 (one) tablet by mouth once daily Active lacosamide (Vimpat) 50 MG tabletIndications :Seizures (HCC) Take 1 (one) tablet by mouth 2 times daily for 14 days 28 tablet 03/05/2024 Active lacosamide (Vimpat) 100 MG tabletIndications :Seizures (HCC) Take 1 (one) tablet by mouth 2 times daily 60 tablet 5 03/18/2024 Active methocarbamol (Robaxin) 750 MG tablet Take 1 (one) tablet by mouth every 6 hours as needed for Muscle Spasms Active busPIRone (Buspar) 10 MG tablet Take 1 (one) tablet by mouth 3 times daily Active lamoTRIgine (LaMICtal) 25 MG tablet Take 1 (one) tablet by mouth 2 times daily Active butalbital-acetam inophen-caffeine (Fioricet) 50-300-40 MG capsuleIndication s:Intractable chronic migraine with aura with status migrainosus Take 1 (one) capsule by mouth every 4 hours as needed for Headache 20 capsule 04/14/2024 Active erenumab-aooe (Aimovig) 70 MG/ML auto injector penIndications:In tractable chronic migraine with aura with status migrainosus Inject 1 mL subcutaneously every 30 days 1 mL 11 04/14/2024 Active Zavegepant HCl (Zavzpret) 10 MG/ACT SOLNIndications:I ntractable chronic migraine with aura with status migrainosus [place] 1 Units into the nose as needed 6 Each 11 04/21/2024 Active Active Problems Problem Noted Date Diagnosed Date 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 (10/31/2012): largest 8 mm at the left nasal ala; frequently traumatized; no worrisome features Warts 10/31/2012 Overview (10/31/2012): R elbow; 8 mm X 2 lesions; failed cryo X 1 Social History Tobacco Use Types Packs/Day Years Used Date Smoking Tobacco: Never Assessed Sex and Gender Information Value Date Recorded Sex Assigned at Female 03/31/2022 1:21 PM MICROBIOLOGY LAB MANAGER Gender Identity Female 03/31/2022 1:21 PM MICROBIOLOGY LAB MANAGER Sexual Orientation Straight 03/27/2024 7: 11 PM MICROBIOLOGY LAB MANAGER Last Filed Vital Signs Vital Sign Reading Time Taken Comments Blood Pressure 109/74 04/14/2024 10:56 AM MICROBIOLOGY LAB MANAGER Pulse 78 04/14/2024 10:56 AM MICROBIOLOGY LAB MANAGER Temperature - - Respiratory Rate - - Oxygen Saturation - - Inhaled Oxygen Concentration - - Weight 78.9 kg (174 lb) 04/14/2024 10:56 AM MICROBIOLOGY LAB MANAGER Height 177.3 cm (5' 9.8 ) 10/31/2012 2:54 PM CDT Body Mass Index - - Plan of Treatment Upcoming Encounters Date Type Department Care Team (Late st Contact Info) Description 04/23/2024 2:30 PM MICROBIOLOGY LAB MANAGER Appointment [facility] MRI [address] [place] [address] 05/13/2024 2:30 PM MICROBIOLOGY LAB MANAGER [facility] [address] [place] [phone] Lorrie Meng PA-C [address] [place] [address] 08/14/2024 11:00 AM CDT [facility] Neurology [address] [place] [phone] Ceasar Hawkins, CHANGE ROOM ATTENDANT-TOY STUFFER [address] [place] [address] [place] [phone] Care Teams Truck Cleaner Relationship Specialty Start Date End Date Behzad Bailey MD [address] [place] [address] PCP - General Internal Medicine 01/01/18
--- OUTSIDE RECORDS SUMMARY | 2024-04-22 23:15 | XMS_ITS | Continuity of Care Document ---
Author Organization [facility] Address [address] [place] [address] Phone Care Team Providers Care Operations Lead Name Role Phone Nataly Costello NP Unavailable Unavailable Allergies, Adverse Reactions, Alerts Substance Reaction Status Criticality salicylic acid Active No Informatio n phenol Active No Information menthol Active No Information camphor Active No Information ammonium alum Active No Information POTASSIUM CLAVULANATE Active No Inf ormation AMOXICILLIN TRIHYDRATE Active No In formation Medications Medication Instructions Dosage Effective Dates (start - stop) Status Comments ergocalciferol (vitamin D2) 50,000 unit capsule take 1 capsule by oral route EVERY 7 DAYS FOR 12 WEEKS - Active Metadate CD 40 mg capsule,extended release take 1 capsule by oral route every day before breakfast - Active Risperdal 1 mg tablet take 1 tablet by oral route every day 1 MG - Active montelukast 10 mg tablet take 1 tablet by oral route every day in the evening 10 MG - Active sertraline 100 mg tablet take 1 tablet by oral route every morning 100 MG - Active clonidine HCl 0.1 mg tablet take 1 tablet by oral route every day 0.1 MG - Active ranitidine 150 mg tablet take 1 tablet by oral route every day - Active fluticasone 50 mcg/actuation nasal spray,suspension inhale 1 spray by intranasal route every day in each nostril 50 MCG - Active Flovent HFA 44 mcg/actuation aerosol inhaler inhale 2 puff by inhalation route 2 times every day - Active ProAir HFA 90 mcg/actuation aerosol inhaler inhale 2 puff by inhalation route every 4 - 6 hours as needed - Active tramadol 50 mg tablet take 1 tablet by oral route every 6 hours as needed 50 MG - Active Cryselle (28) 0.3 mg-30 mcg tablet take 1 tablet by oral route every day 1.00 tablet - Active Procedures Procedure Date OFFICE/OUTPATIENT VISIT, [facility] Advance Directives Directive Yes / No Effective Date File Name No Information Encounters Encounter Description Practice Location Reason(s) For Visit Diagnoses Date Provider Providers Copied on Encounter [facility], [address], [place], [place], [id number], tel:[phone] [facility] No Information 5 Trang Ingram. [address] [place], [place], [facility], [place]. tel:[phone] [facility], [address], [place], [place], [id number], tel:[phone] [facility] No Information 5 Trang Ingram. [address] [place], [place], [facility], [place]. tel:[phone] OFFICE/OUTPA TIENT VISIT, [facility], [address], [place], [place], [id number], tel:[phone] [facility] Elevated TSH and prolactin (chief complaint) Elevated TSHElevated prolactin levelGalactorrheaFat igueDyshydrosisAsthm aDepressionAnxietyAD HD (attention deficit hyperactivity disorder)Learning disabilities 5 Trang Ingram. [address] [place], [address], [place]. tel:[phone] Referring Provider: Nataly Perez, [address] [place], [place], [facility]. tel:[phone] Family History Family Member Type Diagnosis Age At Onset Father Problem (finding) alcoholism Paternal grandfather Problem (finding) prostate cancer Paternal grandfather Problem (finding) malignant neopl asm of lung Sister Problem (finding) depression Mother Problem (finding) Allergies Maternal grandmother Problem (finding) Heart disease Maternal grandfather Problem (finding) Diabetes mellit us Mother Problem (finding) hypertension Maternal grandfather Problem (finding) Heart disease Maternal grandmother Problem (finding) seizure disorde r Mother Problem (finding) heart murmur Mother Problem (finding) depression Payers Payer name Insurance type Covered constitution party ID Authoriza tion(s) [place] Medicaid MC [id number] Social History Type Description Quantity Date Captured Comments Alcohol Use Details Unknown Caffeine Use Details Unknown Tobacco Use Status No Information Smoking Status No Information Sex Female Chief Complaint And Reason For Visit No Information Reason For Referral Reason For Referral No Information History Of Present Illness Encounter Date Complaint History Of Prese nt Illness Elevated TSH and prolactin Pt C/ O breast leaking and tender. Symptoms have been going on for 6 months. Pt C/O weight gain and fatigue. Weight gain of almost 60 pounds in 6 months. Pt states eating habits have not changed, states eating less. Pt states was on Depo for a year.19 yo female who has been on risperidol for 2 years noticed breast leaking fluid past JAN and found to have elevated prolactin TSH in Jan nl 2.660TSH in Apr 6.240 Functional Status Date Functional Assessmen t No Information Instructions Date Instruction Additional Infor mation No Information Assessments Type Assessment Date No Information Patient Care Teams Name Effective Dates (start - stop) Status Members No Information
--- OUTSIDE RECORDS SUMMARY | 2024-04-22 23:15 | XMS_ITS | Clinical Summary ---
Author Organization [facility] Address [address] [facility] [place] [address] Care Team Providers Care Global Supply Chain Director Name Role Phone Behzad Bailey MD Primary Care Provider [phone] Source Comments [facility],non-owned Affiliates and Associated Physician Practices is amultiple site organization consisting of ambulatory clinics and hospital sitesin [place], [place], [place] and [place]. This disclosure is being madepursuant to the Care Everywhere program and may not contain all information available regarding this patient. Last updated 17.[facility] Allergies Active Allergy Reactions Criticality Noted Date [...] propionate (FLUTICASONE PROPIONATE) 50 MCG/ACT nasal spray [place] 1 [place] into each nostril once daily. 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 (10/31/2012): largest 8 mm at the left nasal ala; frequently traumatized; no worrisome features Warts 10/31/2012 Overview (10/31/2012): R elbow; 8 mm X 2 lesions; failed cryo X 1 Encounters Date Type Department Care Team Description 04/21/2024 Orders Only [facility] - Neurology [address] [place] [phone] Ceasar Hawkins APRN-CNP Migraine without aura and without status migrainosus, not intractable ; Intractable chronic migraine with aura with status migrainosus 04/14/2024 11:00 AM CONSOLE MANAGER Office Visit [facility] - Neurology [address] [place] [phone] Ceasar Hawkins APRN-CNP Intractable chronic migraine with aura with status migrainosus (Primary Dx); Migraine without aura and without status migrainosus, not intractable 04/14/2024 Travel 03/18/2024 Travel 03/17/2024 Orders Only [facility] - Neurology [address] [place] [phone] Lorrie Meng PA-C Migraine without aura and without status migrainosus, not intractable 03/12/2024 1:30 PM CONSOLE MANAGER - 03/12/2024 11:59 PM CONSOLE MANAGER Hospital Encounter [facility] EEG/EMG [address] [place] [address] Marcellus Cline, DO Discharge Disposition: Home or Self Care 03/12/2024 Travel 03/11/2024 Orders Only [facility] - Neurology [address] [place] [address], [place] [address] Lorrie Meng PA-C Blurry vision 03/04/2024 2:00 PM CONSOLE MANAGER Office Visit [facility] - Neurology [address] [place] [phone] Lorrie Meng PA-C Seizures (HCC) (Primary Dx) 03/04/2024 Travel 01/25/2024 Travel from Last 3 Months Social History Tobacco Use Types Packs/Day Years Used Date Smoking Tobacco: Never Assessed Sex and Gender Information Value Date Recorded Sex Assigned at Female 03/31/2022 1:21 PM CONSOLE MANAGER Gender Identity Female 03/31/2022 1:21 PM CONSOLE MANAGER Sexual Orientation Straight 03/27/2024 7: 11 PM CONSOLE MANAGER Last Filed Vital Signs Vital Sign Reading Time Taken Comments Blood Pressure 109/74 04/14/2024 10:56 AM CONSOLE MANAGER Pulse 78 04/14/2024 10:56 AM CONSOLE MANAGER Temperature - - Respiratory Rate - - Oxygen Saturation - - Inhaled Oxygen Concentration - - Weight 78.9 kg (174 lb) 04/14/2024 10:56 AM CONSOLE MANAGER Height 177.3 cm (5' 9.8 ) 10/31/2012 2:54 PM CDT Body Mass Index - - Plan of Treatment Upcoming Encounters Date Type Department Care Team (Late st Contact Info) Description 04/23/2024 2:30 PM CONSOLE MANAGER Appointment [facility] MRI [address] [place] [address] 05/13/2024 2:30 PM CONSOLE MANAGER Office Visit [facility] Neurology [address] [place] [phone] Lorrie Meng PA-C [address] [place] [address] 08/14/2024 11:00 AM CDT Office Visit [facility] [address] [place] [phone] Ceasar Hawkins, ALUMNI COORDINATOR-SWEEPING COMPOUND BLENDER [address] [place] [address] [place] [address] Health Maintenance Due Date Last Done Comments PAP SMEAR 1996 HIV SCREENING 05/27/2011 HEPATITIS C SCREENING 05/22/2014 DTAP/TDAP/TD VACCINES (1 - Tdap) 05/27/2015 HEPATITIS B VACCINE (1 of 3 - 19+ 3-dose series) 05/27/2015 COVID-19 VACCINE (1 - 2023-2 5 season) 2023 INFLUENZA VACCINE (#1) 2023 4, 01/13/2013 DEPRESSION SCREENING 03/26/2024 ZOSTER VACCINE (1 of 2) 2046 HIB VACCINE Aged Out No longer eligi ble based on patient's age to complete this topic HPV VACCINE Aged Out No longer eligi ble based on patient's age to complete this topic MENINGOCOCCAL (Group B) VACCINE Aged Out No longer eligible b ased on patient's age to complete this topic MENINGOCOCCAL VACCINE Aged Out No carmita conor eligible based on patient's age to complete this topic PNEUMOCOCCAL VACCINE Aged Out No long er eligible based on patient's age to complete this topic Care Teams Global Supply Chain Director Relationship Specialty Start Date End Date Behzad Bailey MD [address] [place] [address] PCP - General Internal Medicine 01/01/18
--- OUTSIDE RECORDS SUMMARY | 2024-04-22 23:15 | XMS_ITS | Continuity of Care Document ---
Author Organization [facility] Address [address] [place] [address] Phone Care Team Providers Care Jacquard Lace Weaver Name Role Phone Irma Phelan Unavailable Unavailable Advance Directives Directive Yes / No Effective Date File Name No Information Encounters Encounter Description Practice Location Reason(s) For Visit Diagnoses Date Provider Providers Copied on Encounter [facility], [address], [place], [place], [id number], [place] tel:[phone] [facility] No Information Kevin- [address]. [address] , [address], [place], [address], [place]. tel:[phone] Family History Family Member Type Diagnosis Age At Onset No Information Payers Payer name Insurance type Covered libertarian ID Authoriza tion(s) Medicaid PENDING SALE TO [facility] [id number] Social History Type Description Quantity Date Captured Comments Sex Female Smoking Status No Information Chief Complaint And Reason For Visit No Information Reason For Referral Reason For Referral No Information History Of Present Illness Encounter Date Complaint History Of Prese nt Illness No Information Functional Status Date Functional Assessmen t No Information Instructions Date Instruction Additional Infor mation No Information Assessments Type Assessment Date No Information Patient Care Teams Name Effective Dates (start - stop) Status Members No Information
--- OUTSIDE RECORDS SUMMARY | 2024-04-22 23:15 | XMS_ITS | Patient Health Summary ---
Author Organization [facility] Address [address] [place] [address] Care Team Providers Care Office Engineer Name Role Phone Behzad Bailey MD Primary Care Provider [phone] Note from [facility],non-owned Affiliates and Associated Physician Practices is amultiple site organization consisting of ambulatory clinics and hospital sitesin [place], [place], [place] and [place]. This disclosure is being madepursuant to the Care Everywhere program and may not contain all information available regarding this patient. Last updated 17.[facility] Allergies * Augmentin(Turns her stools black) -Medium Criticality * Aquaphor Lip Repair(Swelling) * Levofloxacin(Swelling) * Morphine(Headache) * Sullivan(Nausea and/or Vomiting) -Medium Criticality,Inactive Medications * Be aware that medications may not be up to date on this document. Alwaysverify current medications with the patient. * montelukast (SINGULAIR) 10 MG tablet Take 1 (one) tablet by mouth at bedtime * methylphenidate ER (METADATE ER) 10 MG tablet Take 10 mg by mouth every morning. * sertraline (ZOLOFT) 25 MG tablet Take 25 mg by mouth at bedtime. * risperiDONE (RISPERDAL) 0.5 MG tablet Take 0.5 mg by mouth once daily. * fluticasone propionate (FLUTICASONE PROPIONATE) 50 MCG/ACT nasal spray [place] 1 [place] into each nostril once daily. * sertraline (Zoloft) 100 MG tablet Take 1 (one) tablet by mouth once daily * topiramate (Topamax) 50 MG tablet Take 1 (one) tablet by mouth 2 times daily * naproxen (Naprosyn) 500 MG tablet Take 1 (one) tablet by mouth 2 times daily * albuterol HFA (Proventil; Ventolin; Proair) 108 (90 Base) MCG/ACT inhaler Inhale 2 (two) puffs by mouth every 6 hours as needed * tiZANidine (Zanaflex) 4 MG tablet Take 1 (one) tablet by mouth every 8 hours as needed for Muscle Spasms * senna-docusate (Senokot-S) 8.6-50 MG tablet Take 1 (one) tablet by mouth once daily * lacosamide (Vimpat) 50 MG tablet(Started 03/05/2024) Take 1 (one) tablet by mouth 2 times daily for 14 days * lacosamide (Vimpat) 100 MG tablet(Started 03/18/2024) Take 1 (one) tablet by mouth 2 times daily 5 refills by 09/01/2024 * methocarbamol (Robaxin) 750 MG tablet Take 1 (one) tablet by mouth every 6 hours as needed for Muscle Spasms * busPIRone (Buspar) 10 MG tablet Take 1 (one) tablet by mouth 3 times daily * lamoTRIgine (LaMICtal) 25 MG tablet Take 1 (one) tablet by mouth 2 times daily * zgdbfzwtwk-yzivvzmyxpwsl-dqlblnbc (Fioricet) 50-300-40 MG capsule(Started 04/14/2024) Take 1 (one) capsule by mouth every 4 hours as needed for Headache 5 refills by 10/11/2024 * erenumab-aooe (Aimovig) 70 MG/ML auto injector pen(Started 04/14/2024) Inject 1 mL subcutaneously every 30 days 11 refills by 04/14/2025 * Zavegepant HCl (Zavzpret) 10 MG/ACT SOLN(Started 04/21/2024) [place] 1 Units into the nose as needed 11 refills by 04/21/2025 Active Problems Problem Noted Date Diagnosed Date 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 Warts 10/31/2012 Social History Tobacco Use Types Packs/Day Years Used Date Smoking Tobacco: Never Assessed Sex and Gender Information Value Date Recorded Sex Assigned at Female 03/31/2022 1:21 PM PYROTECHNICS PRESS TENDER Gender Identity Female 03/31/2022 1:21 PM PYROTECHNICS PRESS TENDER Sexual Orientation Straight 03/27/2024 7: 11 PM PYROTECHNICS PRESS TENDER Last Filed Vital Signs Vital Sign Reading Time Taken Comments Blood Pressure 109/74 04/14/2024 10:56 AM PYROTECHNICS PRESS TENDER Pulse 78 04/14/2024 10:56 AM PYROTECHNICS PRESS TENDER Temperature - - Respiratory Rate - - Oxygen Saturation - - Inhaled Oxygen Concentration - - Weight 78.9 kg (174 lb) 04/14/2024 10:56 AM PYROTECHNICS PRESS TENDER Height 177.3 cm (5' 9.8 ) 10/31/2012 2:54 PM CDT Body Mass Index - - Procedures * SONOGRAM - COMPLETE(Performed 04/21/2022) Performed for Encounter for ultrasound to assess growth (HCC) * SONOGRAM - COMPLETE(Performed 03/22/2022) Performed for Poor growth affecting management of mother in second trimester, single or unspecified fetus (HCC), Oligohydramnios, antepartum, single or unspecified fetus (HCC), 31 weeks gestation of (HCC) * SONOGRAM - COMPLETE(Performed 02/24/2022) Performed for Oligohydramnios, antepartum, single or unspecified fetus (HCC), Poor growth affecting management of mother, antepartum, single or unspecified fetus (HCC), 27 weeks gestation of (HCC) * SONOGRAM - COMPLETE(Performed 01/29/2018) Performed for Encounter for anatomic survey (HCC), Encounter for ultrasound to assess interval growth of fetus (HCC) * SONOGRAM - COMPLETE(Performed 01/01/2018) Performed for Encounter for anatomic survey (HCC) * PATHOLOGY/CYTOLOGY REPORT ORDER(Performed 01/15/2013) * PATHOLOGY TISSUE EXAM (STL)(Performed 01/10/2013) Performed for Multiple nevi Results * SONOGRAM - COMPLETE (04/21/2022 12:51 PM PYROTECHNICS PRESS TENDER) Only the most recent of5 resultswithin the time period is included. Anatomical Region Laterality Modality Other 04/21/2022 12:5 1 PM PYROTECHNICS PRESS TENDER Narrative 04/21/2022 1:34 PM PYROTECHNICS PRESS TENDER ? [facility] ?PHONE: ??FAX: Pat. Name: ?MARLON TAVAREZ Pat. No: ?[id number] Study Date: ?? 04/21/2022 ??12:51pm , Age: ? 1995, 26 Pregnancies: ?? 4, Para 1, Ab 2 Height: ? 70 in Weight: ? 182 lb LMP: ?Unknown GA by Base: ?? 35w2d ?? SHILPI: 05/24/2022 GA by US: ? 34w1d ?? SHILPI: 06/01/2022 GA Selected: ??35w2d (From [facility]) SHILPI: ?05/24/2022 Referring MD: Davy Ackerman MD Roller Setter: ??Aure Palmer RDMS, SHAYY CPT4: ? 62262 BMI: ?26.11 Hist/Ind: ? IUGR & oligohydramnios on outside U/S ?Epilepsy last seizure Apr 2021 ?Prior x 1 ?Pt reports low-risk cf-DNA MEASUREMENTS & AGE ? GROWTH EVALUATION Measurement ??GA ? Range ? Srce %for GA Ratios ----- ---- ------- BPD ??8.5 cm 34w2d ([id number]-01f6e) Hadl BPD 25% FL/BPD 0.79 (0.71 - 0.87) HC ??31.0 cm 34w4d (74j0d-79g0r) Hadl HC ??9% FL/AC ??0.22 (0.20 - 0.24) AC ??30.3 cm 34w2d (93p9e-88k4c) Hadl AC ??30% HC/AC ??1.02 (0.93 - 1.12) FL ?? 6.8 cm 34w5d (53t2r-58u5z) Hadl FL ??28% CI ? 0.77 (0.70 - 0.86) HL ?? 5.8 cm 33w6d (89h0a-52n2i) Channing HL ??27% GA for sonogram 34w1d (88z9k-68m6g) ?? Weight Estimate: based on (BPD,HC,AC,FL) Hadlock ?Weight: 2427 gm (2072-2781gm) Had ? : 5lbs, 5oz ? Normal: 2648 gm (1985- 3310gm) Had ? Wt% ? 26% for 35w2d Heart Rate: 122 bpm Amniotic Fluid Index: 16.4cm (07.9-24.9) Q1: 4.3cm ??Q2: 4.2cm ??Q3: 4.8cm ??Q4: 3.2cm ?? EVAL, PLACENTA Presentation: cephalic Placenta: anterior Heart Rate: 122 bpm Amniotic Fluid Volume: normal CLINICAL SUMMARY A single fetus is seen in cephalic presentation. ??The measurements today are consistent with appropriate growth. ??The SHILPI is based on a prior ultrasound. ??The amniotic fluid volume is within normal limits. ?? IMPRESSION: Single, live, intrauterine at 35w2d ?? size is within normal limits ?? Amniotic fluid volume: within normal limits ?? RECOMMEND: Follow up as clinically indicated Thank you for allowing us the opportunity to care for your patient Coleman Noyola MD <Electronic Signature> ??04/21/2022 01:35pm Coleman Noyola MD [facility] ORDERABLES * PATHOLOGY/CYTOLOGY REPORT ORDER (01/15/2013 11:48 AM CDT) Narrative 01/15/2013 11:48 AM CDT Ordered by an unspecified provider. Transcriptions Document, Scanned - 01/15/2013 11:48 AM CDT Scanned Document LAB - PATHOLOGY/CYTO LOGY ORDERABLES * GROSS + MICRO EXAM (STL) (01/10/2013 4:00 PM CDT) Case Report Surgical Pathology Report ? Case: [id number] ? Authorizing Provider: ??Jennifer Rasmussen MD ??Ordering Provider: ?? Jennifer Rasmussen MD ?? Ordering Location: ? [place] ?Collected: ? 01/10/2013 ??4:00 PM ? [facility] ? Pathologist: ? Fidel Jaffe MD ?Received: ?01/13/2013 ??9:23 AM ?Signed Out: ?01/14/2013 ??3:15 PM (Final) ? Specimens: ?? A) - Nasal Lesion, Nasal Alar ? B) - Back Lesion ? 01/14/2013 3:15 PM [facility] Final Diagnosis A) SKIN AND SOFT TISSUE, FACE NEVUS , EXCISION: ?? - MELANOCYTIC (NEVOCELLULAR) NEVUS, COMPOUND, ? WITH CONGENITAL FEATURES. B) SKIN AND SOFT TISSUE, NEVUS LOWER BACK, EXCISION: ?? - MELANOCYTIC (NEVOCELLULAR) NEVUS, COMPOUND, ? WITH CONGENITAL FEATURES. 01/14/2013 3:15 PM [facility] Clinical History The patient is a 17-year-old girl who underwent excision of pigmented skin lesions. 01/14/2013 3:15 PM [facility] Gross Description The specimens are received fixed in formalin in two containers for gross and microscopic examination. Both containers are labeled with the patient's name, Marlon Tavarez. Specimen A, face nevus, consists of a 1.7 x 0.8 cm unoriented ellipse of hair-bearing basilio-cosme skin and yellow-cosme subcutaneous tissue excised to a depth of 0.6 cm. A 0.6 x 0.5 cm dark brown, hyperpigmented area is identified approximately 0.1 cm from the nearest margin. The surgical resection margins are painted with black ink. The specimen is serially sectioned and entirely submitted in cassette A1. Specimen B, nevus lower back, consists of a 1.1 x 0.8 cm unoriented ellipse of hair-bearing basilio-cosme skin and yellow-cosme subcutaneous tissue excised to a depth of 0.8 cm. A 0.2 cm dark brown, hyperpigmented area is identified in the approximate center of the epidermis. The surgical resection margins are painted with black ink. The specimen is serially sectioned and entirely submitted in cassette B1. (CT/reyna) 01/14/2013 3:15 PM CDT [facility] Microscopic Description A) 4 H&E; B) 4 H&E. Sections of specimen A show hair-bearing skin, subcutis, and skeletal muscle fibers. ??The epidermis shows subtle papillomatosis and focal orthokeratotic and parakeratotic hyperkeratosis. ??Rare nests of melanocytes are present at the dermal/epidermal junction. ??Within the superficial papillary dermis are numerous pigment-laden macrophages. ??Numerous nests of melanocytes are present within the papillary dermis and reticular dermis, extending into the superficial subcutis. ??The melanocytic lesion tracts along adnexal structures. ??The melanocytic lesion shows maturation at deeper levels. ??There is no Pagetosis, no significant mitotic activity, and no significant cytologic atypia. ??Rare dermal nests of melanocytes are present within 50 micrometers of a radial margin. ??The melanocytic lesion does not involve deep resection margins. Sections of specimen B show hair-bearing skin and subcutis. ??The epidermis shows subtle papillomatosis. ??Very rare nests of melanocytes are present at the dermal/epidermal junction. ??Numerous pigment-laden macrophages are present in the superficial papillary dermis. ??Numerous nests of melanocytes are present within the papillary dermis extending into the reticular dermis and superficial subcutis, focally tracking along adnexal structures. ??The melanocytic lesion shows maturation at deeper levels, no pagetosis, no significant mitotic activity, and no significant cytologic atypia. ??The melanocytic lesion does not involved inked resection margins. ?? (DB/alj) 01/14/2013 3:15 PM CDT [facility] Disclaimer The performance characteristics of all immunohistochemical and indirect ??immunofluorescence stains (if any) cited in this report were determined by the Histopathology Laboratory of [facility] (immunohistochemistry ) or the Histology Laboratory of [facility] (indirect immunofluorescence) in compliance with CLIA `88 regulations. ??Some of these tests rely on the use of analyte-specific reagents and are subject to specific labeling requirements by the FDA. ??Such tests were developed by the ??[facility] or the [facility] Laboratory of [facility] and have not been cleared or approved by the FDA. ??The FDA has determined that such clearance or approval is not necessary. ??These tests are used for clinical purposes and should not be regarded as investigational or for research. ? This case has been personally reviewed and interpreted by the attending (teaching) pathologist. 01/14/2013 3:15 PM CDT [facility] Synoptic Report 01/14/2013 3:15 PM CDT [facility] Pathology/Cytology LESION SPECIMEN / Unknown 01/10/2013 4:00 PM CDT 01/13/2013 9:23 AM CDT Miscellaneous samples (specimen) LESION SPECIMEN / Unknown 01/10/2013 4:00 PM CDT 01/13/2013 9:23 AM CDT Jennifer Rasmussen MD LAB - PATHOLOGY /CYTOLOGY ORDERABLES Performing Organization Address City/State/[facility] Co de Phone Number [facility] [address] [place] [address] Care Teams Office Engineer Relationship Specialty Start Date End Date Behzad Bailey MD [address] [place] [address] PCP - General Internal Medicine 01/01/18
--- OUTSIDE RECORDS SUMMARY | 2024-04-22 23:16 | XMS_ITS | Encounter Summary ---
Author Organization [facility] Address [address] [address] Care Team Providers Care Clinical Documentation Developer Name Role Phone Behzad Bailey MD Primary Care Provider [phone] Encounter Details Date Type Department Care Team (Late st Contact Info) Description 04/21/2024 Orders Only [facility] - Neurology [address] [place] [address], [place] [id number] Ceasar Hawkins APRN-BUSINESS ANALYTICS SPECIALIST [address] [place] [address] [place] [id number] Migraine without aura and without status migrainosus, not intractable ; Intractable chronic migraine with aura with status migrainosus Social History Tobacco Use Types Packs/Day Years Used Date Smoking Tobacco: Never Assessed Sex and Gender Information Value Date Recorded Sex Assigned at Female 03/31/2022 1:21 PM PIG CONVEYOR OPERATOR Gender Identity Female 03/31/2022 1:21 PM PIG CONVEYOR OPERATOR Sexual Orientation Straight 03/27/2024 7: 11 PM PIG CONVEYOR OPERATOR documented as of this encounter Plan of Treatment Upcoming Encounters Date Type Department Care Team (Late st Contact Info) Description 04/23/2024 2:30 PM PIG CONVEYOR OPERATOR Appointment [facility] [address] [place] [address] 05/13/2024 2:30 PM PIG CONVEYOR OPERATOR Office Visit [facility] - Neurology [address] [facility], [place] [address] Lorrie Meng PA-C [address] [place] [address] 08/14/2024 11:00 AM CDT Office Visit [facility] - Neurology [address] [place] [address], [place] [address] Ceasar Hawkins, SARA-BUSINESS ANALYTICS SPECIALIST [address] [place] [address] [place] [address] documented as of this encounter Visit Diagnoses Diagnosis Migraine without aura and without status migrainosus, not intractable- Primary Migraine without aura, without mention of intractable migraine without mention of status migrainosus Intractable chronic migraine with aura with status migrainosus documented in this encounter Care Teams Clinical Documentation Developer Relationship Specialty Start Date End Date Behzad Bailey MD [address] [place] [address] PCP - General Internal Medicine 01/01/18 documented as of this encounter
[2024-04-22 23:23] VITALS: BP 104/61; PULSE 86; RESP 18; TEMP 36.6; O2SAT 100
[2024-04-23] VITALS (13 sets, daily range): BP systolic 97–101; BP diastolic 58–64; PULSE 60–77; RESP 15–19; O2SAT 98–100
--- NOTE | 2024-04-23 02:31 | PC.NURSE ---
seizure pads applied to side rails.
--- NOTE | 2024-04-23 02:51 | ECG_ITS ---
Test Date: 2024-04-23 03:55:28 Measurements Intervals [place] Rate: 64 P: 26 TN: 162 QRS: 57 QRSD: 103 T: 46 QT: 399 QTc: 413 Interpretive Statements SINUS RHYTHM INCOMPLETE RIGHT BUNDLE BRANCH BLOCK [90+ ms QRS DURATION, TERMINAL R IN V1/V2, 40+ ms S IN I/aVL/V4/V5/V6] No previous ECG available for comparison Electronically Signed On 04-23-2024 15:58:30 BAND TIER by Vinayak Goodwin M.D.
[2024-04-23 03:09] LABS: Basophils Percent Auto 0.5 % (0.2-1.2); Eosinophils Absolute Auto 0.3 K/mm3 (0-0.3); Eosinophils Percent Auto 3.9 % (0-4.4); Hematocrit 35.2 % (37.0-47.0); Hemoglobin 11.5 g/dL (12.0-15.0); Immature Granulocyte Absolute 0.02 K/mm3 (0.00-0.031); Immature Granulocyte Percent A 0.2 % (0-0.5); Lymphocytes Absolute Auto 2.18 K/mm3 (0.9-3.2); Lymphocytes Percent Auto 26.8 % (18.3-44.2); Mean Corpuscular HGB Conc 32.7 g/dl (32-36); Mean Corpuscular Hemoglobin 28.5 pg (26-34); Mean Corpuscular Volume 87.3 fl (80-100); Mean Platelet Volume 10.2 fl (7.4-10.4); Monocytes Absolute Auto 0.5 K/mm3 (0.1-0.6); Monocytes Percent Auto 6.2 % (2.6-8.5); Neutrophils Absolute Auto 5.1 K/mm3 (1.3-6.7); Neutrophils Percent Auto 62.4 % (45.5-73.1); Platelet Count Result 270 k/mm3 (150-375); Red Blood Count 4.03 M/mm3 (4.2-5.4); Red Cell Distribution Width 13.6 % (11.5-14.5); White Blood Count 8.1 K/mm3 (4.5-10.0)
[2024-04-23 03:21] LABS: Alanine Aminotransferase 18 U/L (6-35); Albumin Level 3.8 g/dL (3.5-5.1); Alkaline Phosphatase 79 U/L (38-126); Anion Gap 8 mmol/L (4-12); Aspartate Amino Transferase 31 U/L (14-36); Bilirubin,Total 0.5 mg/dL (0.2-1.3); Blood Urea Nitrogen 15 mg/dL (7-17); Calcium 8.3 mg/dL (8.4-10.2); Carbon Dioxide 20 mmol/L (22-30); Chloride 110 mmol/L (98-107); Estimated CRCL calculation 98 ml/min; Estimated Glomerular Filt Rate > 60; Glucose 104 mg/dL (65-110); Sodium 138 mmol/L (137-145)
--- NOTE | 2024-04-23 03:42 | ED_ITS ---
HPI - Seizure General Chief Complaint: Seizure Stated Complaint: seizures Time Seen by Provider: 04/23/24 03:20 History of Present Illness HPI Narrative: 28-year-old female with a past medical history significant for seizure disorder/epilepsy. Today patient presents to the emergency department for evaluation of a breakthrough seizure. Patient was recently titrated on different medications by her neurologist at [facility]. She was previously stable on Keppra and recent transition to a combination of lithium, topiramate and Aimovig injectable. All her changes occurred simultaneously on 04/16. She is scheduled for an outpatient MRI evaluation tomorrow morning and [facility]. Patient presents to the emergency department today with her family member at bedside. Patient had a breakthrough seizure at home that lasted several minutes. She slowly regained consciousness and was back to her normal self upon arrival to the emergency department. According to the family member she has had some breakthrough seizures with increasing frequency since her medication changes. They have tried calling her neurologist and are scheduled for a appointment tomorrow with MRI imaging as well. Patient endorses spitting up after her previous seizure and is now having a mild migraine. Denies any shortness a breath, fever, chills, injury, falls, trauma. Does not use blood thinners. Was otherwise in her normal state of health until the seizure breakthroughs. Related Data Home Medications ?Medication ?Instructions ?Recorded ?Confirmed ?Last Taken ?Type montelukast 10 mg tablet 10 mg PO DAILY 07/04/21 01/14/24 10/03/23 History tizanidine 4 mg capsule 4 mg PO QHS PRN Muscle Spasm 11/14/22 01/14/24 10/03/23 History lithium carbonate 450 mg 450 mg PO HS 09/25/23 01/14/24 10/03/23 History tablet,extended release sertraline 100 mg tablet 100 mg PO HS 09/25/23 01/14/24 10/03/23 History topiramate 50 mg tablet 100 mg PO DAILY 12/07/23 01/14/24 Unknown History Allergies Allergy/AdvReac Type Severity Reaction Status Date / Time clavulanic acid Allergy Severe BOWEL Verified 01/14/24 13:33 ISSUES strawberry Allergy Intermediate SWELLING/VO Verified 01/14/24 13:33 MITING ammonium alum Allergy Mild LIP Verified 01/14/24 13:33 SWELLING benzocaine Allergy Mild SWELLING Verified 01/14/24 13:33 camphor Allergy Mild LIP Verified 01/14/24 13:33 SWELLING menthol Allergy Mild LIP Verified 01/14/24 13:33 SWELLING petrolatum,white Allergy Mild SWELLING Verified 01/14/24 13:33 phenol Allergy Mild LIP Verified 01/14/24 13:33 SWELLING phenol liquid Allergy Mild SWELLING Verified 01/14/24 13:33 pramoxine Allergy Mild SWELLING Verified 01/14/24 13:33 salicylic acid Allergy Mild LIP Verified 01/14/24 13:33 SWELLING amoxicillin (From Augmentin) Allergy Swelling Verified 01/14/24 13:33 levofloxacin (From Levaquin) Allergy Anaphylaxis Verified 01/14/24 13:33 morphine AdvReac Headache Verified 01/14/24 13:33 Wasp Allergy Severe SWELLING Uncoded 01/14/24 13:33 PAPER TAPE Allergy Mild RASH Uncoded 01/14/24 13:33 Review of Systems 2 Review of Systems: As [facility] Past Medical History Medical History Bowel perforation Pneumoperitoneum Mitral valve disease leak Blood glucose abnormal Vaginal discharge Suppression of menstruation Seizures (~04/26/21) Miscarriage (05/17/17) suction d&c Migraines Sinus arrhythmia Depression Asthma Anxiety Anemia Arthritis Surgical History Surgical History History of robot-assisted laparoscopic hysterectomy H/O gynecological procedure (~10/04/23) Robotic Laparoscopic lysis of adhesions , Robotic total hysterectomy with ovarian preservation; 12/06/23 History of hysteroscopy (12/07/22) Hysteroscopy with uterine curettings. Endometrial ablation Delivery by section (05/13/22) rpt c/s with tubal ligation History of placement of ear tubes both ear x7 History of adenoidectomy History of appendectomy History of (05/02/18) x2; primary c/s breech presentation, bicornuate uterus History of laparoscopy (02/01/17) lscope adhesiolysis, ablation of endometriosis 12/06/23 Diagnostic laparoscopy, cultures of pelvic fluid Dr. Hartley History of left knee surgery (06/15/15) Family History Family History Mother Acute myocardial infarction Heart disease Renal failure syndrome Cerebrovascular accident Lupus Father Chronic obstructive lung disease Grandparent Epilepsy Diabetes mellitus maternal grandfather Hypertension maternal grandmother Other Breast cancer paternal aunt Sibling Autism Son Autism Social History Social History Smoking status: Former smoker Tobacco type: e-cigarettes/vaping Second hand tobacco smoke exposure: No Smoking end date: 03/27/23 Additional smoking assessment comments: patient has hx of vaping but not currently Alcohol intake: never Substance use: never Substance use type: does not use Do You Feel Safe in your Home?: Yes Lack of Transportation: YES Lack of Food: Never True Current Housing: I Have Housing Concerned About Future Housing: No Difficulty Paying Gas/Electric Bills: No Difficulty Paying for Meds: No Currently Unemployed: No Education: High School Diploma/GED Difficulty w/ Childcare or Family Care: No Living arrangements: with family Additional living arrangements comments: single Occupation/Education: occupation 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 Mucous membranes moist. NECK: Supple. CHEST: [Clear to auscultation. No respiratory distress.] HEART: [Regular rate and rhythm]. No murmur heard. [Normal peripheral pulses.] ABDOMEN: [Soft, nondistended], [nontender], [No rigidity or guarding] EXTREMITIES: Normal range of motion. [No edema.] SKIN: Warm, dry, no rash. NEURO: [No focal deficits]. Alert and oriented [x3.] PSYCH: [Normal mood and affect.] Course Vital Signs Vital signs: Vital Signs Temperature 36.6 C 04/22/24 23:23 Pulse Rate 86 04/22/24 23:23 Respiratory Rate 18 04/22/24 23:23 Blood Pressure 104/61 04/22/24 23:23 Pulse Oximetry 100 04/22/24 23:23 Temperature 36.6 C 04/22/24 23:23 Pulse Rate 72 04/23/24 04:16 Respiratory Rate 17 04/23/24 04:16 Blood Pressure 97/58 L 04/23/24 04:16 Pulse Oximetry 99 04/23/24 04:16 Oxygen Delivery Room Air 04/23/24 04:15 MDM - Seizure MDM Narrative Medical decision making narrative: 28-year-old female with history of seizure disorder/epilepsy on multiple medications that were recently changed by her neurologist. Previously stable on Keppra now taking lithium, topiramate and Aimovig. Changes were made to her regimen 1 week prior and she is having some breakthrough seizures since this happened. Did call her neurologist and is scheduled for an MRI tomorrow. Today she presents after a breakthrough seizure that lasted several minutes and she did return to consciousness and had a brief postictal event. Presently she is asymptomatic, acting her normal self, complaining of a mild migraine headache which is usual for her. Has nonfocal neurological assessment, normal vital signs. Otherwise not any acute distress. No signs of trauma. Given her new breakthrough seizures I believe this could be all secondary to rapid titration of her medications and being off Keppra, could also be related to intracranial process although less likely. Electrolyte disturbances or infectious process or possible. Workup was ordered including CT of the head, electrolytes, urinalysis, CBC. She was given a migraine cocktail with Decadron, Compazine, diphenhydramine and a fluid bolus and re-evaluated. She was observed for numerous hours here in the emergency depart without any breakthrough seizure activity. She will be safe and stable for discharge home upon completion of workup with outpatient follow-up tomorrow morning. Patient had improvement in her headache my repeat evaluation. She is expressing desire for discharge. Her workup shows no leukocytosis or anemia worse than her baseline level. Normal platelet level. Electrolytes within normal limits, normal renal function panel, normal glucose, normal LFTs. Urinalysis without signs of significant infection. Negative test. Head CT with no acute intracranial abnormality. Patient was asymptomatic while here in the emergency department, no further breakthrough seizure activity, safe and stable for discharge as she has an outpatient neurology appointment and MRI scheduled for this morning and has close follow-up. Patient and family made aware of the plan and discharged home at this time. Medical Records Attestation: I reviewed the patient's medical records. Lab Data Attestation: I reviewed the patient's lab results. 04/23/24 03:03 04/23/24 03:03 Labs: Lab Results 04/23/24 04/23/24 04/23/24 Range/Units 03:03 04:06 04:14 WBC 8.1 (4.5-10.0) K/mm3 RBC 4.03 L (4.2-5.4) M/mm3 Hgb 11.5 L (12.0-15.0) g/dL Hct 35.2 L (37.0-47.0) % MCV 87.3 (80-100) fl MCH 28.5 (26-34) pg MCHC 32.7 (32-36) g/dl RDW 13.6 (11.5-14.5) % Plt Count 270 (150-375) k/mm3 MPV 10.2 (7.4-10.4) fl Immature Gran % (Auto) 0.2 (0-0.5) % Neut % (Auto) 62.4 (45.5-73.1) % Lymph % (Auto) 26.8 (18.3-44.2) % [place] % (Auto) 6.2 (2.6-8.5) % Eos % (Auto) 3.9 (0-4.4) % Baso % (Auto) 0.5 (0.2-1.2) % Lymph # (Auto) 2.18 (0.9-3.2) K/mm3 [place] # (Auto) 0.5 (0.1-0.6) K/mm3 Eos # (Auto) 0.3 (0-0.3) K/mm3 Baso # (Auto) 0.0 (0.0-0.1) K/mm3 Abs Immat Gran (auto) 0.02 (0.00-0.031) K/mm3 Absolute Neuts (auto) 5.1 (1.3-6.7) K/mm3 Absolute Nucleated RBC 0.000 (0.0-0.012) K/mm3 Nucleated RBC % 0.0 (0.0-0.2) % Sodium 138 (137-145) mmol/L Potassium 4.0 (3.4-5.0) mmol/L Chloride 110 H (98-107) mmol/L Carbon Dioxide 20 L (22-30) mmol/L Anion Gap 8 (4-12) mmol/L BUN 15 (7-17) mg/dL Creatinine 0.81 (0.7-1.0) mg/dL Estim Creat Clear Calc 98 ml/min Estimated GFR > 60 (59 - ) Glucose 104 (65-110) mg/dL Calcium 8.3 L (8.4-10.2) mg/dL Total Bilirubin 0.5 (0.2-1.3) mg/dL AST 31 (14-36) U/L ALT 18 (6-35) U/L Alkaline Phosphatase 79 (38-126) U/L Total Protein 7.0 (6.3-8.2) g/dL Albumin 3.8 (3.5-5.1) g/dL Urine Color Yellow (Yellow) Urine Appearance Cloudy H (Clear) Urine pH 6.0 (5.0-9.0) Ur Specific [place] 1.026 (1.001-1.035) Urine Protein Negative (Negative) mg/dL Urine Glucose (UA) Negative (Negative) mg/dL Urine Ketones Trace H (Negative) mg/dL Ur Blood (Man) Negative (Negative) Urine Nitrate Negative (Negative) Urine Bilirubin Negative (Negative) Urine Urobilinogen 1.0 (<2.0) mg/dL Add Ur Microanalysis Reviewed Leukocyte Esterase Rfl Trace H (Negative) COBY/UL Urine RBC 3-5 H (0-2) /hpf Urine WBC 0-5 (0-3) /hpf Ur Squamous Epith Cells Moderate (Few) /hpf Urine Bacteria 2+ H /hpf Urine Casts 0-2 Urine Mucus Present /lpf POC Urine HCG, Qual Negative (Negative) Imaging Data Attestation: I personally reviewed and interpreted this imaging study as follows: My impression: Impressions Head CT 04/23/24 06:18 IMPRESSION: 1. No acute intracranial abnormality. Discharge Plan Discharge Clinical Impression: Breakthrough seizure, Migraine Patient Disposition: Home, Self-Care Condition: Stable Instructions: Antibiotic Form, Epilepsy (ED) Additional Instructions: Your workup today is very reassuring and you have not had a breakthrough seizure while with us in the ED. Your head CT does not show any acute concerns however the MRI that you had scheduled will be much more beneficial. Follow-up with your neurologist this morning and get that MRI done. Return with any new or worsening concerns. Continue taking your neurological medications as prescribed. Patient Language: Setswana Prescriptions: No Action montelukast 10 mg tablet 10 mg PO DAILY tizanidine 4 mg capsule 4 mg PO QHS PRN (Reason: Muscle Spasm) sennosides-docusate sodium [Senna with Docusate Sodium] 8.6-50 mg tablet 1 tab-cap PO HS Qty: 14 0RF sertraline 100 mg tablet 100 mg PO HS lithium carbonate 450 mg tablet extended release 450 mg PO HS acetaminophen 500 mg tablet 1,000 mg PO TID PRN (Reason: ziggy) 7 Days Qty: 42 0RF methocarbamol 750 mg tablet 1,500 mg PO TID Qty: 35 0RF topiramate 50 mg tablet 100 mg PO DAILY ibuprofen 600 mg tablet 600 mg PO TID PRN (Reason: pain) Qty: 30 0RF acetaminophen 500 mg capsule 1,000 mg PO Q6H PRN (Reason: pain) Qty: 30 0RF fluconazole 150 mg tablet 150 mg PO DAILY Qty: 2 0RF Rx Instructions: Take 1 dose then wait 72hours then may take 2nd dose progesterone micronized [Prometrium] 200 mg capsule 200 mg PO QHS Qty: 14 0RF Follow-up/Referrals: Andreia,Vanessa Baer MD [Primary Care Provider] - Time of Disposition: 06:01
[2024-04-23] MEDS: SODIUM CHLORIDE 0.9% IV 1,000 ML 999 ML IV CONT (03:56)
[2024-04-23] MEDS: PROCHLORPERAZINE EDISYLATE 10 MG/2 ML VIAL IV PUSH (03:57)
[2024-04-23] MEDS: diphenhydrAMINE HCl INJ 50 MG/ML VIAL 25 MG IV PUSH (03:57)
[2024-04-23] MEDS: dexAMETHasone SOD PHOS INJ 10 MG/ML 1 ML VIAL IV PUSH (03:57)
--- OUTSIDE RECORDS SUMMARY | 2024-04-23 04:11 | XMS_ITS | CONTINUITY OF CARE DOCUMENT ---
Author Name mckenzie rincon Address Unknown Organization [facility] Address [address] [place] [address] Phone [phone] Care Team Providers Care Sonar Watchstander Name Role Phone Boris Singh MD Unavailable [phone] CHLOÉ RODRIGUEZ, CLEMENTE Unavailable [phone] CLEMENTE LUEVANO MD Unavailable [phone] PROBLEMS Condition Status Date Provider Notes Sinus [...] In-person encounter Office Visit Meseret Sotelo MD [facility] 03/30 - 04/10 In-person encounter Office Visit Meseret Sotelo MD [facility] 03/01 - 03/01 In-person encounter Office Visit Lonnie Dacosta MD [facility] B12 deficiency 09/20 - 09/24 In-person encounter Office Visit Meseret Sotelo MD [facility] 06/23 - 06/23 In-person encounter Office Visit Meseret Sotelo MD [facility] SVT 04/10 - 04/11 In-person encounter Office Visit Boris Singh MD [facility] 06/01 - 06/06 In-person encounter Office Visit Boris Singh MD [facility] Hypertension 08/26 - 08/27 In-person encounter Office Visit Boris Singh MD [facility] 02/25 - 02/25 In-person encounter Office Visit Boris Singh MD [facility] 11/21 - 11/21 In-person encounter Office Visit Boris Singh MD [facility] 02/12 - 02/12 In-person encounter Office Visit Boris Singh MD [facility] 08/23 - 09/27 In-person encounter Office Visit Boris Singh MD [facility] 05/22 - 05/22 In-person encounter Office Visit Boris Singh MD [facility] 05/05 - 05/08 In-person encounter Office Visit Meseret Sotelo MD [facility] 04/28 - 05/02 In-person encounter Office Visit Meseret Sotelo MD [facility] Knee pain, left, chronicIron deficiency 04/12 - 04/16 In-person encounter Office Visit Boris Singh MD [facility] 02/20 - 02/21 In-person encounter Office Visit Boris Singh MD [facility] Chest pain-type to be determinedShortnes s of breath 12/19 - 12/21 In-person encounter Office Visit Boris Singh MD [facility] AsthmaBradycardia sinus 10/19 - 10/20 In-person encounter Office Visit Boris Singh MD [facility] Sinus tachycardiaDizzinessDiaphoresisSyncopePalpitations VITAL SIGNS Date Observation Value Provider Body Mass Index (Ratio) 24.40 kg/m2 Enrike Joe blood pressure, cuff size regular [facility]ri [facility]formerly [facility] blood pressure, diastolic 66 mm[Hg] Samuel rri Leanneformerly [facility] blood pressure, systolic 122 mm[Hg] Joseph Perdomoformerly [facility] oxygen saturation, oximetry 100 % Katherine Perdomoformerly [facility] respiratory rate E&M 12 /min Katherine Joya ruenenfformerly [facility] pulse rate 90 /min Katherine Stoner [facility] weight E&M 175 [lb_av] Katherine Stoner [facility] height E&M 71 [in_i] Katherine Alanizdeon [facility] weight E&M 176 [lb_av] Elly Buck Body Mass Index (Ratio) 24.54 kg/m2 Elias Sotelo MD weight E&M 176 [lb_av] [facility] blood pressure, cuff size regular [facility] blood pressure, diastolic 64 mm[Hg] [facility] blood pressure, systolic 101 mm[Hg] [facility], [facility]xim[facility] 96 % [facility] respiratory rate E&M 16 /min [facility] 71 /min [facility] height E&M 71 [in_i] [facility] Body Mass Index (Ratio) 24.13 kg/m2 Fauzia Dacosta MD blood pressure, diastolic 85 mm[Hg] Ayanna nkLogic blood pressure, systolic 109 mm[Hg] Megan kLoglilian pulse rate 74 /min [facility] blood pressure, cuff size regular [facility] blood pressure, diastolic 85 mm[Hg] [facility] blood pressure, systolic 109 mm[Hg] Marito anette Harmon oxygen saturation, oximetry 98 % Unique [facility] respiratory rate E&M 16 /min [facility] [place] weight E&M 173 [lb_av] Unique [place] height E&M 71 [in_i] Unique [place] Body Mass Index (Ratio) 24.13 kg/m2 Elias Sotelo MD blood pressure, cuff size regular Ke rri Amelia blood pressure, diastolic 72 mm[Hg] Ke rri Qian blood pressure, systolic 136 mm[Hg] Joseph Laughlin oxygen saturation, oximetry 98 % Katherine Laughlin respiratory rate E&M 12 /min Katherine augustin pulse rate 88 /min Katherine Stoner [facility] weight E&M 173 [lb_av] Katherine Stoner [facility] height E&M 71 [in_i] Katherine Stoner [facility] Body Mass Index (Ratio) 23.71 kg/m2 Enrike Joe pulse rate 92 /min Tiny Hartley oxygen saturation, oximetry 98 % Tiny Hartley respiratory rate E&M 20 /min Tiny Hartley weight E&M 170 [lb_av] Tiny [facility]ley height E&M 71 [in_i] Tiny Hartley Body Mass Index (Ratio) 25.52 kg/m2 Sheila oCnrad blood pressure, diastolic 76 mm[Hg] Ayanna nkLogic [...] respiratory rate E&M 14 /min Catheri ne Clitherall pulse rate 96 /min Natalie Clitherall weight E&M 195 [lb_av] Natalie Caleb blood [...] Body Mass Index (Ratio) 26.92 kg/m2 [facility] blood pressure, diastolic 70 mm[Hg] Da emily Frederick blood pressure, systolic 118 mm[Hg] Dac ia Frederick oxygen saturation, oximetry 96 % Allie Frederick respiratory rate E&M 16 /min Allie V oss pulse rate 92 /min Allie Frederick weight E&M 193 [lb_av] Allie Frederick height E&M 71 [in_i] Allie Frederick Body Mass Index (Ratio) 23.85 kg/m2 [facility] blood pressure, diastolic 80 mm[Hg] Da emily [...] Mass Index (Ratio) 21.20 kg/m2 Oscar mcintyre [facility] height E&M 71 [in_i] Robinson [facility] erg blood pressure, diastolic 70 mm[Hg] Da emily Frederick blood pressure, systolic 112 mm[Hg] Dac ia Frederick oxygen saturation, oximetry 97 % Allie Frederick respiratory rate E&M 16 /min Allie V oss pulse rate 68 /min Allie Frederick weight E&M 152 [lb_av] Allie Frederick blood pressure, resting No [facility] Body Mass Index (Ratio) 20.78 kg/m2 [facility] blood pressure, cuff size regular Ke rri Leanneformerly [facility] blood pressure, diastolic 72 mm[Hg] Ke rri Corbintasneemeduarer blood pressure, systolic 110 mm[Hg] Joseph ri Qian oxygen saturation, oximetry 97 % Katherine Corbintasneemgregorio respiratory rate E&M 16 /min Katherine Mahnaz mayelaeldmatilde pulse rate 103 /min Katherine Vestanetasneeme er weight E&M 149 [lb_av] Katherine Leannee er height E&M 71 [in_i] Katherine Leannee er Body Mass Index (Ratio) 21.48 kg/m2 [facility], cuff size regular Ke rri Gruenetasneemformerly [facility] blood pressure, diastolic 66 mm[Hg] Ke rri [...] Body Mass Index (Ratio) 22.09 kg/m2 Henna Goss weight E&M 158.4 [lb_av] Ilana Tripp max [...] iron binding capacity, unsaturated 367 ug/dL [facility] [phone]/06/0 4 iron binding capacity, total 427 ug/dL [facility] [phone]/06/0 4 calcium, serum 9.7 mg/dL [facility] 8.7-10.2 4 carbon dioxide, venous blood 23 mmol/L [facility] 20-29 4 chloride, serum 104 mmol/L [facility] [...] Estab. 4 platelet count 323 X10E3/UL [facility] [phone]/06/0 4 red blood cell distribution width 13.3 [...] mean corpuscular hemoglobin concentration, RBC 31.1 G/DL [facility] 31.0 - 38.0 1 mean corpuscular hemoglobin, RBC 28.4 pg [facility] 25.0 - 35.0 1 mean corpuscular volume, RBC 91.3 fL [facility] 75.0 - 100.0 1 hematocrit, blood 45.0 % [facility] 35.0 - 55.0 1 hemoglobin, blood 14.0 g/dL [facility] 11.5 - 16.5 1 erythrocyte count, whole blood 4.9 MILLION/U L [facility] 3.5 - 5.5 1 iron, serum 129.0 [...] cell distribution width, size density 47.8 fL [facility] - 4 immature granulocytes, percentage of total cells, blood 0.3 % [facility] - 4 nucleated red blood cells as percent of blood leukocytes 0.0 % [facility] - 4 red blood cell (erythrocyte) count, per high power field 0.0 10*3/UL [facility] eosinophils as percent of blood leukocytes 2.3 % [facility] 4 neutrophils as percent of blood leukocytes 52.2 % [facility] - 4 Absolute Neutrophils 3.2 CELLS/UL [facility] [...] 4 reticulocyte count, blood, uncorrected 1.13 % [facility] 0.50 - 2.00 HISTORY OF MEDICATION USE Medication Status Instructions Dates Provider Indications Com ments propranolol 10 mg tablet active Take 1 tablet by mouth twice a day Kamala Lo NP Vitamin D3 50 mcg (2,000 unit) [...] 300 mg capsule completed - Tonja Ventimiglia [employer] lithium carbonate 300 mg tablet extended release completed - Tonja Devinemiadri [place] tizanidine 4 mg tablet active Take 1 tablet by mouth once daily as needed Saundra Kuhn NP Flovent HFA 44 mcg/actuation HFA aerosol inhaler active as directed Natalie Caleb ProAir HFA 90 mcg/actuation HFA aerosol inhaler active as directed Natalie Clitherall Lupron Depot (3 month) 11.25 mg syringe [...] Harmon drug use no Tonja Ventimig pily [employer] alcohol use no Tonja Ventimig pily [facility] smoking status Never smoker Tonjagary Roberts iglmarcello [employer] social history reviewed E&M revi ewed - [...] changes required Boris Singh MD social history reviewed E&M [...] Payer name Policy type / Coverage type [place] [employer] party ID [employer] MEDICAID Medicaid [id number] ADVANCE DIRECTIVES Name Date DISCUSSED - NO DECISION MADE TREATMENT PLAN Date Name Performer [id number],C,E tiology unclear. Cardiac w/u to date benign. Will monitor. Tonja Zamorano [facility] [id number],C,w ill update iron studies O rders: 9 9203 MOD 30-39min (CPT-09358) T SH, free T4, total T3 (7224) C BC (INCLUDES DIFF/PLT) (2899) F ERRITIN (457) I BERNARDA AND TOTAL IRON BINDING CAPACITY (5271) Tonja Devinemiglia [facility] [id number],C,W ill increase propranolol dose H er updated medication list for this problem includes: Propranolol 20 Mg Tablet (Propranolol) ..... 1 tablet by mouth twice a day take 1 tablet by mouth twice daily BP today: 136/72 P rior BP: 112/76 (04/10/2022) Labs Reviewed: C reat: 0.86 (08/28/2019) Tonja Zamorano [facility] [id number],W,c ontinue to persist. Less intense with propranolol and magnesium oxide. We will increase the propranolol to 20mg twice a day. Wiill update labs to r/o underlying source for palpitations H er updated medication list for this problem includes: Propranolol 20 Mg Tablet (Propranolol) ..... 1 tablet by mouth twice a day take 1 tablet by mouth twice daily Orders: 19700 MOD 30-39min (CPT-14405) T SH, free T4, total T3 (5344) C BC (INCLUDES DIFF/PLT) (6399) F ERRITIN (457) I BERNARDA AND TOTAL IRON BINDING CAPACITY (7573) C ortisol - AM (994635) Tonja Zamorano [facility] [id number],S, Enrike Mike i [id number],S, Enrike Mike i [id number],C,S hort runs of SVT and tachycardia, will start her on Magnesium 400 mg BID and Propranolol 10 mg BID and see how she feels. Enrike Joe [id number],C, P rior BP: 112/76 (04/10/2022) Labs Reviewed: C reat: 0.86 (08/28/2019) Enrike Joe [id number],C, B P today: 112/76 P rior BP: 115/68 (06/01/2021) Labs Reviewed: C reat: 0.86 (08/28/2019) Zaida Conrad [id number],C,P t is , due in 4 weeks. Still feeling occasional palpitations. Will provide a telesentry monitor. Corlanor on hold due to . Zaida Conrad [id number],S, N o CP Zaida Conrad [id number],C, B P today: 115/68 P rior BP: 98/66 (08/27/2019) Labs Reviewed: C reat: 0.86 (08/28/2019) Zaida Conrad [id number],C, N o CP Zaida Conrad [id number],C,P t had a visit to [facility] due to episode of LOC. Told the HR was 190. WE do not have any documentation at this time. She complains of SOB and palpitations. Will schedule echo, PFTs, and telemonitor. Zaida Conrad [id number],C,P t had a visit to [facility] due to episode of LOC. Told the HR was 190. WE do not have any documentation at this time. She complains of SOB and palpitations. Will schedule echo, PFTs, and telemonitor. Zaida Conrad [id number],C,P t had a visit to [facility] due to episode of LOC. Told [...] stress in 08/2019 was nml Saundra Davisonmaty [employer] PRESIDENT PA[employer]ER Cardiology: P FT in 07/2021 showed minimal onbstructive airway disease. Peripheral airway. W ill repeat PFT Saundra Davisonmaty [facility] Cardiology: O n Mag Saundra Davisonmaty [employer]IDENT PA[employer]ER Cardiology: B P today: 109/85 P rior [...] studies O rders: 9 9214 MOD 30-39min (CPT-65662) T SH, free T4, total T3 (7444) [...] twice daily Orders: 9 9214 MOD 30-39min (CPT-22439) T SH, free T4, total T3 (7444) C BC (INCLUDES DIFF/PLT) (3899) F ERRITIN (457) I BERNARDA AND TOTAL IRON BINDING CAPACITY (2459) C ortisol - AM (991652) Meseret Sotelo MD Cardiology Enrike Joe Cardiology [...] Zaida Conrad Cardiology:Pt had a visit to [facility] due to episode of LOC. Told the HR was 190. WE do not have any documentation at this time. She complains of SOB and palpitations. Will schedule echo, PFTs, and telemonitor. Zaida Conrad Cardiology:Pt had a visit to [facility] due to episode of LOC. Told the HR was 190. WE do not have any documentation at this time. She complains of SOB and palpitations. Will schedule echo, PFTs, and telemonitor. Zaida Conrad Cardiology:Pt had a visit to [facility] due to episode of LOC. Told the HR was 190. WE do not have any documentation at this time. She complains of SOB and palpitations. Will schedule echo, PFTs, and telemonitor. Zaida Conrad Cardiology:Pt has on ly occasional palpitations. Feels they are controlled. [facility] Cardiology:Orders: C BC (INCLUDES DIFF/PLT) (6399) F ERRITIN (457) I BERNARDA AND TOTAL IRON BINDING CAPACITY (7573) [facility] Cardiology:Orders: F VC - 35245 (18081) F RC - 75492 (18820) D LCO - 35089 (83050) [facility] Cardiology:She compl ains of episodes of stabbing [...] do not help. Orders: C omplete Echo (CPT-97618) F VC - 42161 (92323) F RC - 87117 (10655) D LCO - 53986 (10757) S tress Routine (CPT-74785) C T Angio Chest (PE Protocol) (CPT-29581) C ovid Antibody Igg (57483) C ovid Antibody IgM (LC) (457736) C ovid Antibody IgA (LC) (349005) B ASIC METABOLIC PANEL W/EGFR (23325) P ROBNP, N TERMINAL (89414) C BC (INCLUDES DIFF/PLT) (6399) F ERRITIN (457) I BERNARDA AND TOTAL IRON BINDING CAPACITY (7573) D -DIMER, QUANTITATIVE (8659) [facility] Cardiology:She compl ains of episodes of stabbing [...] Tylenol do not help. Orders: E KG (CPT-56621) C omplete Echo (CPT-44345) S tress Routine (CPT-48378) C T Angio Chest (PE Protocol) (CPT-67668) [place] [facility] follow up:Echo showed normal EF. [facility] [place] [facility] follow up [place] [facility] Cardiology follow up :Pt is now (16 weeks). Corlanor was stopped. Overall she is doing well but does note some rapid heartbeats from time to time. If palpitations become more persistent, she's instructed to contact us and then we will perform telesentry. [facility] Cardiology follow up :Orders: C omplete Echo (CPT-75213) [facility] [place] [facility] Boris Singh MD Cardiology Boris Singh MD Cardiology Boris Singh MD Cardiology Follow up :She continues to have episodes of palpitations which are related to inappropriate sinus tach. Will try Corlanor 5mg BID and stop Diltiazem and Magnesium Oxide. [facility] Follow up :S/P iron infusions. Recommending GI consult. [facility] Cardiology Follow up :She continues to have episodes of palpitations which are related to inappropriate sinus tach. Will try Corlanor 5mg BID and stop Diltiazem and Magnesium Oxide. [facility] [place] [facility] Follow up faxed :Orders: S NOMED-CT: [id number] Current Medications Documented ([facility]-[id number]) E KG (CPT-84186) [place] [facility] Follow up faxed :Her updated medication list for this problem includes: Diltiazem Hcl Er 90 Mg Oral [id number] (Diltiazem hcl) ..... One capsule daily with dinner Magnesium Oxide 400 Mg Oral Tabs (Magnesium oxide) .... One tablet twice daily <--- Added today [facility] [place] [facility] Follow up faxed :She's been on maximally tolerated oral iron supplements. She follows [facility] [employer]. Will schedule iron infusions. [facility] [facility] Initial Consult f axed 05/03/16:Orders: F ERRITIN (457) F OLATE, SERUM (466) I BERNARDA AND TOTAL IRON BINDING CAPACITY (7573) R ETICULOCYTE COUNT (793) V ITAMIN B12 (927) [facility] [place] EP Initial Consult faxed 05/03/16 [facility] [place] [facility] Initial Consult f axed 05/03/16:Her updated medication list for this problem includes: Diltiazem Hcl Er 90 Mg Oral [id number] (Diltiazem hcl) ..... One capsule daily with dinner [facility] [place] EP Initial Consult faxed 05/03/16: No recurrences. [facility] [place] [facility] Initial Consult f axed 05/03/16:Her updated medication list for this problem includes: Diltiazem Hcl Er 90 Mg Oral [id number] (Diltiazem hcl) ..... One capsule daily with dinner [facility] Cardiology Follow up:No recurren ce since last seen. [facility] Follow up :In addition, she has episodes of chest pain, worse at night. I recommend GI consult. [facility] Follow up :Continues to have palpitations. WIll obtain EP consult for possible ablation. Her updated medication list for this problem includes: Diltiazem Hcl Er 90 Mg Oral [id number] (Diltiazem hcl) ..... One capsule daily with [...] TID. Boris Singh MD Cardiology:Orders: E KG (CPT-56362) Anna Marie obile Cardiac Tele (CPT-17310) [facility] [place] [facility]:The pt co mplains of palpitations lasting a few minutes at a time which is associated with diaphoresis, dizziness and blurry vision. It started a few months ago. Will obtain tele. [place] Date Name Gastroenterology Monitor - Telemetry (Mobile Cardiac) Stress Routine CXR- PA/Lat DLCO - 44141 FRC - 82060 FVC - 68796 Vitamin D, 25-Hydrox y Complete Echo Cortisol - AM IRON AND TOTAL IRON BINDING CAPACITY FERRITIN CBC (INCLUDES DIFF/P LT) TSH, free T4, total T3 Monitor - Telemetry (Mobile Cardiac) PROBNP, N TERMINAL BASIC METABOLIC PANE L W/EGFR CBC (INCLUDES DIFF/P LT) Monitor - Telemetry (Mobile Cardiac) DLCO - 79434 FRC - 22273 FVC - 00772 Complete Echo D-DIMER, QUANTITATIV E IRON AND TOTAL IRON BINDING CAPACITY FERRITIN CBC (INCLUDES DIFF/P LT) PROBNP, N TERMINAL BASIC METABOLIC PANE L W/EGFR Covid Antibody IgA ( LC) Covid Antibody IgM ( LC) CT Angio Chest (PE P rotocol) Stress Routine DLCO - 46043 FRC - 56915 FVC - 29683 Complete Echo Complete Echo VITAMIN B12 RETICULOCYTE [...] tatus FVC / MVV with bronchodilator - 50448 Lonnie Dacosta MD completed FRC - 23095 Lonnie Dacosta MD complet ed SpO2 w/o 6min walk/titration Lonnie Dacosta MD completed DLCO - 06789 Lonnie Dacosta MD comple juan miguel Schedule Followup Meseret maynard MD [address] SOTELO completed EKG Meseret nelson MD completed Spirometry Boris Singh MD completed FVC / MVV with bronchodilator - 20087 Boris Singh MD completed FRC - 88531 Boris Singh MD completed SpO2 w/o 6min walk/titration Boris Singh MD completed SVC - 89639 Boris Singh MD completed DLCO - 69604 Boris Singh MD complete d EKG Boris Singh MD completed Stress EKG Boris Singh MD completed EKG Boris Singh MD completed Event Monitor Boris Singh MD complet ed EKG Boris Singh MD completed SNOMED-CT: 601151164484546 Current Medications Documented Boris Singh MD completed SNOMED-CT: 870016433296655 Current Medications Documented Boris Singh MD completed SNOMED-CT: 680681294440884 Current Medications Documented Boris Singh MD completed EKG Meseret nelson MD completed SNOMED-CT: 272355748115849 Current Medications Documented Meseret Sotelo MD completed NICOLÁS maynard MD completed EKG Meseret nelson MD completed SNOMED-CT: 526808463118250 Current Medications Documented Meseret Sotelo MD completed EKG Boris Singh MD completed SNOMED-CT: 921867290905673 Current Medications Documented Boris Singh MD completed SNOMED-CT: 452329683202052 Current Medications Documented Boris Singh MD completed SNOMED-CT: 680342569882241 Current Medications Documented Boris Singh MD completed Event Monitor Leticia Bhardwaj completed EKG Boris Singh MD completed SNOMED-CT: 302908269134960 Current Medications Documented Boris Singh MD completed
--- OUTSIDE RECORDS SUMMARY | 2024-04-23 04:11 | XMS_ITS | Patient Health Summary ---
Author Organization [facility] Address [address] [place] [address] Care Team Providers Care Radiator Fitter Name Role Phone Behzad Bailey MD Primary Care Provider [phone] [facility],non-owned Affiliates and Associated Physician Practices is amultiple site organization consisting of ambulatory clinics and hospital sitesin [place], [place], [place] and [place]. This disclosure is being madepursuant to the Care Everywhere program and may not contain all information available regarding this patient. Last updated 17.[facility] Allergies * Augmentin(Turns her stools black) -Medium Criticality * Aquaphor Lip Repair(Swelling) * Levofloxacin(Swelling) * Morphine(Headache) * Braithwaite(Nausea and/or Vomiting) -Medium Criticality,Inactive Medications * Be [...] propionate (FLUTICASONE PROPIONATE) 50 MCG/ACT nasal spray [place] 1 [place] into each nostril once daily. 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 Warts 10/31/2012 Social History Tobacco Use Types Packs/Day Years Used Date Smoking Tobacco: Never Assessed Sex and Gender Information Value Date Recorded Sex Assigned at Female 03/31/2022 1:21 PM WEIGHER AND CRUSHER Gender Identity Female 03/31/2022 1:21 PM WEIGHER AND CRUSHER Sexual Orientation Straight 03/27/2024 7: 11 PM WEIGHER AND CRUSHER Last Filed Vital Signs Vital Sign Reading Time Taken Comments Blood Pressure 109/74 04/14/2024 10:56 AM WEIGHER AND CRUSHER Pulse 78 04/14/2024 10:56 AM WEIGHER AND CRUSHER Temperature - - Respiratory Rate - - Oxygen Saturation - - Inhaled Oxygen Concentration - - Weight 78.9 kg (174 lb) 04/14/2024 10:56 AM WEIGHER AND CRUSHER Height 177.3 cm (5' 9.8 ) 10/31/2012 [...] * SONOGRAM - COMPLETE (04/21/2022 12:51 PM WEIGHER AND CRUSHER) Only the most recent of5 resultswithin the time period is included. Anatomical Region Laterality Modality Other 04/21/2022 12:5 1 PM WEIGHER AND CRUSHER Narrative 04/21/2022 1:34 PM WEIGHER AND CRUSHER ? [facility] ?PHONE: ??FAX: Pat. Name: ?MARLON TAVAREZ Pat. No: ?[id number] Study Date: ?? 04/21/2022 ??12:51pm , Age: ? 1995, 26 Pregnancies: ?? 4, Para 1, Ab 2 Height: ? 70 in Weight: ? 182 lb LMP: ?Unknown GA by Base: ?? 35w2d ?? SHILPI: 05/24/2022 GA by US: ? 34w1d ?? SHILPI: 06/01/2022 GA Selected: ??35w2d (From [facility]) SHILPI: ?05/24/2022 Referring MD: Davy Ackerman MD Color Specialist: ??Aure Palmer RDMS, SHAYY CPT4: ? 15988 BMI: ?26.11 Hist/Ind: ? IUGR & oligohydramnios on outside U/S ?Epilepsy last seizure Apr 2021 ?Prior x 1 ?Pt reports low-risk cf-DNA MEASUREMENTS & AGE ? GROWTH EVALUATION Measurement ??GA ? Range ? Srce %for GA Ratios ----- ---- ------- BPD ??8.5 cm 34w2d (03z9k-02r7w) Hadl BPD 25% FL/BPD 0.79 (0.71 - 0.87) HC ??31.0 cm 34w4d (84x1p-58u7o) Hadl HC ??9% FL/AC ??0.22 (0.20 - 0.24) AC ??30.3 cm 34w2d (59r8f-20m2n) Hadl AC ??30% HC/AC ??1.02 (0.93 - 1.12) FL ?? 6.8 cm 34w5d (38n7s-10j5d) Hadl FL ??28% CI ? 0.77 (0.70 - 0.86) HL ?? 5.8 cm 33w6d (78d6n-82f4w) Channing HL ??27% GA for sonogram 34w1d (24z7l-28r5d) ?? Weight Estimate: based on (BPD,HC,AC,FL) Hadlock [...] <Electronic Signature> ??04/21/2022 01:35pm Coleman Noyola MD [facility] ORDERABLES * PATHOLOGY/CYTOLOGY REPORT ORDER (01/15/2013 11:48 AM CDT) Narrative 01/15/2013 11:48 AM CDT Ordered by an unspecified provider. Transcriptions Document, Scanned - 01/15/2013 11:48 AM CDT Scanned Document LAB - PATHOLOGY/CYTO LOGY ORDERABLES * GROSS + MICRO EXAM (STL) (01/10/2013 4:00 PM CDT) Case Report Surgical Pathology Report ? Case: [id number] ? Authorizing Provider: ??Jennifer Rasmussen MD ??Ordering Provider: ?? Jennifer Rasmussen MD ?? Ordering Location: ? [place] ?Collected: ? 01/10/2013 ??4:00 PM ? [facility] ? Pathologist: ? Fidel Jaffe MD ?Received: ?01/13/2013 ??9:23 AM ?Signed Out: ?01/14/2013 ??3:15 PM (Final) ? Specimens: ?? A) - Nasal Lesion, Nasal Alar ? B) - Back Lesion ? 01/14/2013 3:15 PM [facility] Final Diagnosis A) SKIN AND SOFT TISSUE, FACE NEVUS , EXCISION: ?? - MELANOCYTIC (NEVOCELLULAR) NEVUS, COMPOUND, ? WITH CONGENITAL FEATURES. B) SKIN AND SOFT TISSUE, NEVUS LOWER BACK, EXCISION: ?? - MELANOCYTIC (NEVOCELLULAR) NEVUS, COMPOUND, ? WITH CONGENITAL FEATURES. 01/14/2013 3:15 PM [facility] Clinical History The patient is a 17-year-old girl who underwent excision of pigmented skin lesions. 01/14/2013 3:15 PM [facility] Gross Description The specimens are [...] cassette B1. (CT/reyna) 01/14/2013 3:15 PM CDT [facility] Microscopic Description A) 4 H&E; B) [...] margins. ?? (DB/alj) 01/14/2013 3:15 PM CDT [facility] Disclaimer The performance characteristics of all immunohistochemical and indirect ??immunofluorescence stains (if any) cited in this report were determined by the Histopathology Laboratory of [facility] (immunohistochemistry ) or the Histology Laboratory of [facility] (indirect immunofluorescence) in compliance with CLIA `88 regulations. ??Some of these tests rely on the use of analyte-specific reagents and are subject to specific labeling requirements by the FDA. ??Such tests were developed by the ??Histopathology Laboratory of [facility] or the Histology Laboratory of [facility] and have not been cleared or approved by the FDA. ??The FDA has determined that such clearance or approval is not necessary. ??These tests are used for clinical purposes and should not be regarded as investigational or for research. ? This case has been personally reviewed and interpreted by the attending (teaching) pathologist. 01/14/2013 3:15 PM CDT [facility] Synoptic Report 01/14/2013 3:15 PM CDT [facility] Pathology/Cytology LESION SPECIMEN / Unknown 01/10/2013 4:00 PM CDT 01/13/2013 9:23 AM CDT Miscellaneous samples (specimen) LESION SPECIMEN / Unknown 01/10/2013 4:00 PM CDT 01/13/2013 9:23 AM CDT Jennifer Rasmussen MD LAB - PATHOLOGY /CYTOLOGY ORDERABLES Performing Organization Address City/State/[facility] Co de Phone Number [facility] [address] [place] [address] Care Teams Radiator Fitter Relationship Specialty Start Date End Date Behzad Bailey MD [address] [place] [address] PCP - General Internal Medicine 01/01/18
--- OUTSIDE RECORDS SUMMARY | 2024-04-23 04:11 | XMS_ITS | Continuity of Care Document ---
Author Organization [facility] Address [address] [place] [address] Phone Care Team Providers Care Steamer Tender Name Role Phone Nataly Costello NP Unavailable [...] - Active Procedures Procedure Date OFFICE/OUTPATIENT VISIT, [facility] Advance Directives Directive Yes / No Effective Date File Name No Information Encounters Encounter Description Practice Location Reason(s) For Visit Diagnoses Date Provider Providers Copied on Encounter [facility], [address], [place], [place], [id number], tel:[phone] [facility] No Information 5 Trang Ingram. [address] [place], [place], [facility], [place]. tel:[phone] [facility], [address], [place], [place], [id number], tel:[phone] [facility] No Information 5 Trang Ingram. [address] [place], [place], [facility], [place]. tel:[phone] OFFICE/OUTPA TIENT VISIT, [facility], [address], [place], [place], [address], tel:[phone] [facility] Elevated TSH and prolactin (chief complaint) Elevated TSHElevated prolactin levelGalactorrheaFat igueDyshydrosisAsthm aDepressionAnxietyAD HD (attention deficit hyperactivity disorder)Learning disabilities 5 Trang Ingram. [address] [place], [address], [place]. tel:[phone] Referring Provider: Nataly Perez, [address] [place], [place], [facility]. tel:[phone] Family History Family Member Type Diagnosis Age [...] depression Payers Payer name Insurance type Covered green party ID Authoriza tion(s) [place] Medicaid MC [id number] Social History Type Description Quantity Date Captured [...]
--- OUTSIDE RECORDS SUMMARY | 2024-04-23 04:11 | XMS_ITS | Referral Summary ---
Author Organization [facility] Address [address] [address] Care Team Providers Care Handle Sewer Name Role Phone Behzad Bailey MD Primary Care Provider [phone] [facility],non-owned Affiliates and Associated Physician Practices is amultiple site organization consisting of ambulatory clinics and hospital sitesin [place], [place], [place] and [place]. This disclosure is being madepursuant to the Care Everywhere program and may not contain all information available regarding this patient. Last updated 17.[facility] Encounters Date Type Department Care Team Description 04/21/2024 Orders Only [facility] - [facility]rology [address] [facility], Counts Include [address] [facility] [address] Ceasar Hawkins APRN-TOSHIA Migraine without aura and without status migrainosus, not intractable ; Intractable chronic migraine with aura with status migrainosus 04/14/2024 Travel 04/14/2024 11:00 AM DIETETICS TEACHER Office Visit [facility]rology [address] [place] [address], [place] [phone] Ceasar Hawkins, SARA-TOSHIA Intractable chronic migraine with aura with status migrainosus (Primary Dx); Migraine without aura and without status migrainosus, not intractable 03/18/2024 Travel 03/17/2024 Orders Only [facility] [address] [place] [address] Lorrie Meng PA-C Migraine without aura and without status migrainosus, not intractable 03/12/2024 Travel 03/12/2024 1:30 PM DIETETICS TEACHER - 03/12/2024 11:59 PM DIETETICS TEACHER Hospital Encounter [facility] EEG/EMG [address] [place] [address] Marcellus Cline, DO Discharge Disposition: Home or Self Care 03/11/2024 Orders Only [facility] - Neurology [address] [place] [phone] Lorrie Meng PA-C Blurry vision 03/04/2024 Travel 03/04/2024 2:00 PM DIETETICS TEACHER Office Visit [facility] - Neurology [address] [place] [phone] Lorrie Meng PA-C Seizures (HCC) (Primary Dx) [...] propionate (FLUTICASONE PROPIONATE) 50 MCG/ACT nasal spray [place] 1 [place] into each nostril once daily. Active sertraline [...] chronic migraine with aura with status migrainosus [place] 1 Units into the nose as needed [...] Sex Assigned at Female 03/31/2022 1:21 PM DIETETICS TEACHER Gender Identity Female 03/31/2022 1:21 PM DIETETICS TEACHER Sexual Orientation Straight 03/27/2024 7: 11 PM DIETETICS TEACHER Last Filed Vital Signs Vital Sign Reading Time Taken Comments Blood Pressure 109/74 04/14/2024 10:56 AM DIETETICS TEACHER Pulse 78 04/14/2024 10:56 AM DIETETICS TEACHER Temperature - - Respiratory Rate - - Oxygen Saturation - - Inhaled Oxygen Concentration - - Weight 78.9 kg (174 lb) 04/14/2024 10:56 AM DIETETICS TEACHER Height 177.3 cm (5' 9.8 ) 10/31/2012 2:54 PM CDT Body Mass Index - - Plan of Treatment Upcoming Encounters Date Type Department Care Team (Late st Contact Info) Description 04/23/2024 2:30 PM DIETETICS TEACHER Appointment [facility] MRI [address] [place] [address] 05/13/2024 2:30 PM DIETETICS TEACHER [facility] [address] [place] [phone] Lorrie Meng PA-C [address] [place] [address] 08/14/2024 11:00 AM CDT [facility] [address] [place] [phone] Ceasar Hawkins, POWERTRAIN ENGINEER-DIGITAL MUSIC INSTRUCTOR [address] [place] [address] [place] [phone] Care Teams Handle Sewer Relationship Specialty Start Date End Date Behzad Bailey MD [address] [place] [address] PCP - General Internal Medicine 01/01/18
--- OUTSIDE RECORDS SUMMARY | 2024-04-23 04:11 | XMS_ITS | Continuity of Care Document ---
Author Organization [facility] Address [address] [place] [address] Phone Care Team Providers Care Rating Officer Name Role Phone Irma Phelan Unavailable Unavailable Advance Directives Directive Yes / No Effective Date File Name No Information Encounters Encounter Description Practice Location Reason(s) For Visit Diagnoses Date Provider Providers Copied on Encounter [facility], [address], [place], [place], [id number], [place] tel:[phone] [facility] No Information Kevin- [address]. [address], [place], [address], [place]. tel:[phone] Family History Family Member Type Diagnosis Age At Onset No Information Payers Payer name Insurance type Covered republican ID Authoriza tion(s) Medicaid [facility] [id number] Social History Type Description Quantity Date Captured [...]
--- OUTSIDE RECORDS SUMMARY | 2024-04-23 04:11 | XMS_ITS | Clinical Summary ---
Author Organization [facility] Address [address] [facility] [place] [address] Care Team Providers Care Service Correspondent Name Role Phone Behzad Bailey MD Primary Care Provider Source Comments [facility],non-owned Affiliates and Associated Physician Practices is amultiple site organization consisting of ambulatory clinics and hospital sitesin [place], [place], [place] and [place]. This disclosure is being madepursuant to the Care Everywhere program and may not contain all information available regarding this patient. Last updated 17.[facility] Allergies Active Allergy Reactions Criticality Noted Date [...] propionate (FLUTICASONE PROPIONATE) 50 MCG/ACT nasal spray [place] 1 [place] into each nostril once daily. Active sertraline [...] chronic migraine with aura with status migrainosus [place] 1 Units into the nose as needed [...] Only [facility] [address] [place] [phone] Ceasar Hawkins APRN-CNP Migraine without aura and without status migrainosus, not intractable ; Intractable chronic migraine with aura with status migrainosus 04/14/2024 11:00 AM MOLD RELEASE WORKER Office Visit [facility] - Neurology [address] [place] [phone] Ceasar Hawkins APRN-CNP Intractable chronic migraine with aura with status migrainosus (Primary Dx); Migraine without aura and without status migrainosus, not intractable 04/14/2024 Travel 03/18/2024 Travel 03/17/2024 Orders Only [facility] - Neurology [address] [place] [phone] Lorrie Meng PA-C Migraine without aura and without status migrainosus, not intractable 03/12/2024 1:30 PM MOLD RELEASE WORKER - 03/12/2024 11:59 PM MOLD RELEASE WORKER Hospital Encounter [facility] EEG/EMG [address] [place] [address] Marcellus Cline, DO Discharge Disposition: Home or Self Care 03/12/2024 Travel 03/11/2024 Orders Only [facility] - Neurology [address] [place] [address], [place] [address] Lorrie Meng PA-C Blurry vision 03/04/2024 2:00 PM MOLD RELEASE WORKER Office Visit [facility] Neurology [address] [place] [phone] Lorrie Meng PA-C Seizures (HCC) (Primary Dx) 03/04/2024 Travel 01/25/2024 Travel from Last 3 Months Social History Tobacco Use Types Packs/Day Years Used Date Smoking Tobacco: Never Assessed Sex and Gender Information Value Date Recorded Sex Assigned at Female 03/31/2022 1:21 PM MOLD RELEASE WORKER Gender Identity Female 03/31/2022 1:21 PM MOLD RELEASE WORKER Sexual Orientation Straight 03/27/2024 7: 11 PM MOLD RELEASE WORKER Last Filed Vital Signs Vital Sign Reading Time Taken Comments Blood Pressure 109/74 04/14/2024 10:56 AM MOLD RELEASE WORKER Pulse 78 04/14/2024 10:56 AM MOLD RELEASE WORKER Temperature - - Respiratory Rate - - Oxygen Saturation - - Inhaled Oxygen Concentration - - Weight 78.9 kg (174 lb) 04/14/2024 10:56 AM MOLD RELEASE WORKER Height 177.3 cm (5' 9.8 ) 10/31/2012 2:54 PM CDT Body Mass Index - - Plan of Treatment Upcoming Encounters Date Type Department Care Team (Late st Contact Info) Description 04/23/2024 2:30 PM MOLD RELEASE WORKER Appointment [facility] MRI [address] [place] [address] 05/13/2024 2:30 PM MOLD RELEASE WORKER Office Visit [facility] [address] [place] [phone] Lorrie Meng PA-C [address] [place] [address] 08/14/2024 11:00 AM CDT Office [facility] [address] [place] [phone] Ceasar Hawkins, COMMERCIAL CREDIT PORTFOLIO MANAGER-AIRPORT UTILITY WORKER [address] [place] [address] [place] [address] Health Maintenance Due Date Last Done Comments [...] age to complete this topic Care Teams Service Correspondent Relationship Specialty Start Date End Date Behzad Bailey MD [address] [place] [address] PCP - General Internal Medicine 01/01/18
[2024-04-23 04:17] LABS: BEDSIDEPREGUCG Negative (Negative)
[2024-04-23 04:22] LABS: Add Urine Microscopic? YES; Appearance Urine Cloudy (Clear); Bacteria Urine 2+ /hpf; Bilirubin Urine Negative (Negative); Blood Urine Negative (Negative); Color Urine Yellow (Yellow); Glucose Urine UA Negative (Negative); Ketones Urine Trace mg/dL (Negative); Leukocyte Esterase Ur Trace LEU/UL (Negative); Mucus Urine Present /lpf; Need Manual Microscopic Reviewed; Nitrate Urine Negative (Negative); Non Pathogenic Casts 0-2; Protein Urine Negative (Negative); Specific Grav Ur 1.026 (1.001-1.035); Squamous Epithelial Cell Urine Moderate /hpf (Few); WBC Urine 0-5 /hpf (0-3)
== END 2024-04-23 06:09 | disposition home or self-care (01) ==
PROVIDERS: Emergency Provider Student in an Organized Health Care Education/Training Program; PCP Emergency Medicine
DX: G40.909 Epilepsy, unspecified, not intractable, without status epilepticus (principal); G43.909 Migraine, unspecified, not intractable, without status migrainosus; F32.A Depression, unspecified; F41.9 Anxiety disorder, unspecified; D64.9 Anemia, unspecified; M19.90 Unspecified osteoarthritis, unspecified site; I45.10 Unspecified right bundle-branch block
CPT/HCPCS: 36415; 70450; 80053; 81001; 81025; 85025; 93005; 96361; 96374; 96375; 99284; J0780; J1100; J1200; J7030

== ENCOUNTER 2024-07-30 12:17 | Emergency (ER) | payer OTHER, SELFPAY ==
--- NOTE | ~2024-07-30 | CT_ITS ---
EXAMINATION: CT brain wo con DATE: 07/30/2024 13:18 INDICATION: Headache post head injury TECHNIQUE: Computed tomography (CT) of the head was performed without intravenous contrast. Sagittal and coronal reconstructions were performed. The mA was adjusted according to patient size. Iterative reconstruction technique was employed. The dose-length product was 605.33 mGy-cm. COMPARISON: head CT dated 04/23/2024 FINDINGS: No fracture. No acute intracranial hemorrhage, acute infarction or abnormal extra axial fluid collect ion. Ventricles are normal and symmetric. No mass/mass effect. Prominent mucosal thickening and some dependently layering fluid scattered throughout the nasal sinuses consistent with acute sinusitis. Th e orbits and mastoid air cells are normal. IMPRESSION: 1. Normal brain. No fracture or acute intrarenal process. 2. Pansinusitis. Reviewed, dictated and finalized at location A.
--- NOTE | ~2024-07-30 | XR_ITS ---
XR chest 2V Ordering provider: Abner Palomares MD History: 29 years Female with . 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 Comparison: January 16, 2022 FINDINGS: MEDIASTINUM: The cardiac silhouette is not enlarged. LUNGS: No infiltrates, effusions or pneumothorax. OTHER: No free air under the diaphragm. IMPRESSION: No acute cardiopulmonary pathology. Reviewed, dictated and finalized at location A.
--- OUTSIDE RECORDS SUMMARY | 2024-07-30 12:31 | XMS_ITS | Referral Summary ---
Author Organization [facility] Address [address] [place] [address] Care Team Providers Care Electrical Products Sales Engineer Name Role Phone Vanessa Boswell MD Primary Care Provider [phone] Encounters Date Type Department Care Team Description 07/08/2024 Telephone [facility]ology [address] [facility] [address] [place] [address] Coleman Martell 06/24/2024 Telephone [facility] [address] [facility] [address] [place] [address] Coleman Martell 05/21/2024 10:40 AM KITCHEN UTILITY ASSOCIATE Office Visit [facility] ([facility] [address] [facility] [address] [place] [address] [place] [phone] Kelton Guan MD Chronic allergic rhinitis (Primary Dx); Acute recurrent sinusitis, unspecified location; LPRD (laryngopharyngeal reflux disease) from Last 3 Months Allergies Active Allergy Reactions Criticality Noted Date Comments Amoxicillin Amoxicillin-Pot Clavulanate Menthol Potassium [place] Venom-Honey Bee Medications albuterol HFA (PROAIR HFA) 90 mcg/actuation inhaler inhale 2 puff by inhalation route every 4 - 6 hours as needed 0 Inhaler 0 5 Active montelukast (SINGULAIR) 10 mg tablet take 1 tablet by oral route every day in the evening 0 0 5 Active ferrous sulfate 325 mg (65 mg of elemental iron) tablet 0 0 6 Active norgestimate-et hinyl estradiol (MONO-LINYAH) 0.25-35 mg-mcg per tablet take 1 tablet by oral route every day 0 0 6 Active citalopram (CeleXA) 10 mg tablet take 1 tablet by oral route every day 0 0 7 Active cyclobenzaprine (FLEXERIL) 10 mg tablet take 1 tablet by oral route 3 times every day 45 1 7 Active lacosamide (VIMPAT) 50 mg tablet TAKE 1 TABLET BY MOUTH TWICE A DAY FOR 14 DAYS 4 Active naproxen (NAPROSYN) 500 mg tablet Take 1 tablet (500 mg total) by mouth 5 Active lamoTRIgine (LaMICtal) 25 mg tablet TAKE 1 TABLET BY MOUTH EVERY DAY WITH MEALS FOR 30 DAYS, FOR MOOD SWINGS. 5 Active famotidine (PEPCID) 40 mg tablet Take 1 tablet (40 mg total) by mouth daily 30 tablet 11 5 05/21/19 26 Active azelastine (ASTELIN) 137 mcg (0.1 %) nasal spray Administer 2 sprays into each nostril 2 (two) times a day Use in each nostril as directed 30 mL 11 5 Active cetirizine (ZyrTEC) 10 mg tablet Take 1 tablet (10 mg total) by mouth daily 30 tablet 5 05/21/19 26 Active Active Problems Problem Noted Date Diagnosed Date Pain of hand 04/30/2015 Overview (06/29/2016): Hand pain Asthma 09/28/2014 Overview (06/29/2016): Asthma Depression 09/28/2014 Overview (06/29/2016): Depression Attention deficit disorder 09/28/2014 Overview (06/29/2016): ADHD Bipolar I disorder, most recent episode hypomani c 09/28/2014 Overview (06/29/2016): Bipolar affective disorder, current episode hypomanic Knee pain 09/28/2014 Overview (06/29/2016): Knee pain Social History Tobacco Use Types Packs/Day Years Used Date Smoking Tobacco: Never Assessed Comments Unknown Sex and Gender Information Value Date Recorded Sex Assigned at Not on file Legal Sex Female 9:16 PM KITCHEN UTILITY ASSOCIATE Gender Identity Female 07/08/2024 1:48 PM CDT Sexual Orientation Asexual 07/08/2024 1: 48 PM CDT Last Filed Vital Signs Vital Sign Reading Time Taken Comments Blood Pressure 104/72 05/21/2024 10:57 AM KITCHEN UTILITY ASSOCIATE Pulse 67 06/26/2016 9:56 AM CDT Temperature - - Respiratory Rate - - Oxygen Saturation - - Inhaled Oxygen Concentration - - Weight 79.1 kg (174 lb 4.8 oz) 05/21/2024 10:57 AM KITCHEN UTILITY ASSOCIATE Height 177.8 cm (5' 10 ) 05/21/2024 10:57 AM KITCHEN UTILITY ASSOCIATE Body Mass Index 25.01 05/21/2024 10:57 AM KITCHEN UTILITY ASSOCIATE Plan of Treatment Not on file Insurance [facility] Care Teams Electrical Products Sales Engineer Relationship Specialty [place] [address] [place] [address] PCP - General Emergency Medicine 08/15/23
--- OUTSIDE RECORDS SUMMARY | 2024-07-30 12:32 | XMS_ITS | Data Portability ---
Author Organization [facility] [email or web address], Main Office Address [address] [place] [address] Care Team Providers Care Crts Name Role Phone CLEMENTE LUEVANO Primary Care Provider CLEMENTE LUEVANO Referring Provider Assessment No assessment recorded. Plan of Treatment Reminders Order Date Submit Date Provider Last Modified By Organization Details Last Modified Time Details Appointments Follow Up 15 2024 11:00A M ZHENG Kaur Not available Not available Not available Follow Up 15 2024 10:00A M ZHENG Kaur Not available Not available Not available Follow Up 15 2024 11:00A M ZHENG Kaur Not available Not available Not available Lab drug screen, urine 2024 025 [facility] (Lab), [address] [place], [address], 05/22/2024 15:07:42 Referral orthopedi c sports medicine referral - right sciatica . please eval and ttreat , she does not want physical therapy. Thank you 2024 025 [email or web address] Not available 07/24/2024 12:35:44 Procedures None recorded. Surgeries None recorded. Imaging electromy ogram + nerve conductio n study 2024 025 [email or web address] [facility]uling, [address] , [place], [address], 07/24/2024 10:37:21 Medication Orders fluocinon vale 0.05 % topical ointment [address] [id number], [address], [place], [address], 07/24/2024 12:29:38 oxycodone -acetamin ophen 7.5 mg-[address] [id number], [address], [place], [address], 07/24/2024 12:29:41 Flovent HFA 44 mcg/actua tion aerosol inhaler [address] [id number], [address] , [place], [address], 07/15/2024 12:48:47 albuterol sulfate HFA 90 mcg/actua tion aerosol inhaler [address] [id number], [address] [place], [address], 07/15/2024 12:49:44 Depo-Medr ol 80 mg/mL suspensio n for injection 2024 025 [email or web address] Not available 07/15/2024 13:08:50 prednison e 20 mg tablet [address] [id number], [address], [place], [address], 07/15/2024 12:55:38 oxycodone -acetamin ophen 5 mg-[address] [id number], [address], [place], [address], 07/15/2024 12:48:10 prednison e 20 mg tablet 2024 025 [email or web address] [facility] #[id number], [address], [place], [address], 07/15/2024 12:27:29 Depo-Medr ol 80 mg/mL suspensio n for injection 2024 025 Not available 06/13/2024 11:43:05 Flovent HFA 44 mcg/actua tion aerosol inhaler [address] [id number], [address] [place], [address], 06/13/2024 11:34:16 azithromy zac 250 mg tablet [facility]24 [id number] [address] [place], [address], 07/15/2024 12:24:36 tizanidin e 4 mg tablet [address] [id number] [address] [place], [address], 05/22/2024 09:28:39 oxycodone -acetamin ophen 5 mg-[address] [id number] [address] [place], [address], 05/22/2024 09:30:36 Patient TargetsNo targets recorded. Patient InstructionsNo instructions recorded. Reason for Referral Orthopedic Sports Medicine R eferral for Right side sciatica right sciatica . please eval and ttreat , she does not want physical therapy. Thank you Referring Physician: Jim Gurrola, Family Medicine, Encounter Date: 07/24/2024 Results Created Date Observation Date Name Description Value Unit Range Abnormal Flag Note LastModifiedBy Organization Detail LastModifiedTime 05/22/[address], cervi nahomy spine , w/o contr ast No observ ation record ed. [email or web address] Not Available 2024 14:03:35 05/22/19 25 MRI, brain , w/o contr ast No observ ation record ed. [email or web address] Not Available 2024 14:16:38 Result Notes None recorded. Problems Name Problem SNOMED Code Status Onset Date Resolution Date Notes Provider Name and Address Organization Details Recorded Time Dysmenor favian 124115602 Completed Not Available [facility] 3 01:07:54 Menometr orrhagia 580827982 Completed Not Available [facility] 3 01:07:54 Pain of hip region 98749338 Active 2018 Not Available [facility] 3 01:07:54 Greater trochant yelena pain syndrome 6541278 Active 2018 Not Available [facility] 3 01:07:54 Pregnanc y 92752926 Completed 201705/02/2018 Not Available [facility] 3 01:07:55 Pregnanc y 92492679 Completed 201709/13/2017 Not Available [facility] 3 01:07:55 Pregnanc y 67534529 Completed 201705/24/2017 Not Available [facility] 3 01:07:55 Pain of left knee region 78798004536 4109 Active 2024 total knee replacem ent ZHENG Kaur [address], [address], [place], [address] , [employer] 5 09:27:25 History of hysterec belinda 489036476 Active 2024 endometr iosis, pcos ZHENG Kaur [address], [address], [place], [address] , [employer] 5 09:36:21 Greater trochant yelena pain syndrome 7292348 Active 2024 ZHENG Kaur [address], [address], [place], [address] , [employer] 5 14:08:06 Pain of hip region 48740358 Active 2024 ZHENG Kaur [address], [address], [place], [address] , [place] [email or web address] 5 14:08:19 Asthma 761014422 Active 2024 ZHENG Kaur [address], [address], [place], [address] , [place] [facility] 5 11:18:16 Sinusiti s 46994315 Active 2024 ZHENG Kaur [address], [address], [place], [address] , [place] [employer] [email or web address] 5 11:18:26 Bilatera l tendonit is of wrists 41665542548 005851 Active 2024 ZHENG Kaur [address], [address], [place], [address] , [employer] [place] [email or web address] 5 12:44:34 Right side sciatica 46749710048 9101 Active 2024 ZHENG Kaur [address], [address], [place], [address] , [employer] [place] [employer] [email or web address] 5 12:54:49 Flexural eczema 68528619 Active 2024 ZHENG Kaur [address], [address], [place], [address] , [employer] [place] [email or web address] [employer] 5 12:25:58 Notes:Some problems listed i n Documents: #[id number], #[id number] could not be added to this patient's chart. Please review these documents and add these problems to the patient's chart manually as needed. Problem Notes None recorded. 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 Not Available [facility] 05/25/19 00:54:26 7 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 Not Available [facility] 05/25/19 00:54:26 6 Orthopedic Surgery completed Not Available [facility] 05/24/2022 00:54:26 ENT Surgery completed Not Available [facility] 05/24/2022 00:54:26 other completed Not Available [facility] 03/2022 00:54:26 other completed Not Available [facility] 03/2022 00:54:26 Imaging Results Imaging Date Name Status LastModified by Organiz ation Details LastModified Time 05/22/2024 CT, cervical spine, w/o contrast completed Information not available 05/22/2024 14:03:35 05/22/2024 MRI, brain, w/o contrast completed Information not available 05/22/2024 14:16:38 Procedure Notes None recorded. Medical Equipment None Reported. Allergies Allergen ID Allergen Name Allergen Category Reaction Reaction Severity Criticality Documentation Date Start Date Code Code System Note Provider Name and Address Organization Details Recorded Time 2396 oxycodone medicatio n rash moderate Not available 05/24/2022 7804 RxNorm ZHENG Kaur [address], [address] [place] [address] [employer] 5 11:49:40 2397 Keflex medicatio n other severe Not available 05/24/202231793 7 RxNorm swell ing Not Available [facility] 3 01:27:05 2398 Carmex medicatio n Not available Not available Not available 05/24/2022 18271 UNK Not Available [facility] 3 01:27:05 2399 Campho-Ph enique medicatio n Not available Not available Not available 05/24/2022 97084 5 RxNorm Not Available [facility] 3 01:27:05 2400 Augmentin medicatio n Not available Not available Not available 05/24/2022 49922 2 RxNorm swell ing- light heade dness Not Available [facility] 3 01:27:05 75550 levofloxa zac medicatio n anaphylax is Not available Not available 06/13/2024 99809 RxNorm LEOLA Kevin null, [place] [facility] [email or web address] 5 11:02:23 Medications Name Sig Start Date Stop Date Status Note LastModified by Organization Details LastModified Time cyclobenzap rine 10 mg tablet TAKE 1 TABLET BY MOUTH 3 TIMES A DAY NEEDED FOR MUSCLE SPASAMS 06/13 completed Not Available Not Available Not Available medroxyprog esterone 10 mg tablet Take 1 tablet every day by oral route for 10 days. 07/15 completed Not Available Not Available Not Available buspirone 5 mg tablet active Not Available Not Available No t Available Qvar 80 mcg/actuati on Metered Aerosol oral inhaler 04/06 completed Not Available Not Available Not Available prednisone 10 mg tablet 05/08 completed Not Available Not Available Not Available doxycycline hyclate 100 mg capsule active Not Available Not Available N ot Available cefuroxime axetil 250 mg tablet 10/25 completed Not Available Not Available Not Available clindamycin HCl 300 mg capsule active Not Available Not Available Not Available albuterol sulfate 2.5 mg/3 mL (0.083 %) solution for nebulizatio n active Not Available Not Available Not Available Apri 0.15 mg-0.03 mg tablet Take 1 tablet every day by oral route. active Not Available Not Available No t Available cetirizine 10 mg tablet TAKE 1 TABLET BY MOUTH EVERY DAY active Not Available Not Available No t Available azithromyci n 250 mg tablet TAKE 2 TABLETS BY MOUTH TODAY, THEN TAKE 1 TABLET DAILY FOR 4 DAYS DIRECTED 07/15 completed Not Available Not Available Not Available ibuprofen 800 mg tablet TAKE 1 TABLET BY MOUTH EVERY 8 HOURS 06/13 completed Not Available Not Available Not Available tizanidine 4 mg tablet TAKE 1 TABLET BY MOUTH THREE TIMES A DAY NEEDED FOR 30 DAYS active Not Available Not Available No t Available fluconazole 150 mg tablet TAKE 1 DOSE BY MOUTH ONCE THEN WAIT 72HOURS THEN MAY TAKE 2ND DOSE 06/13 completed Not Available Not Available Not Available citalopram 10 mg tablet 01/04 completed Not Available Not Available Not Available hydrocodone 5 mg-acetamin ophen 325 mg tablet 1 TABLET ORALLY EVERY 3 HOURS FOR PAIN RATED 5 OR LESS 06/13 completed Not Available Not Available Not Available ondansetron HCl 4 mg tablet Take 2 tablets twice a day by oral route. 07/23 completed Not Available Not Available Not Available famotidine 40 mg tablet TAKE 1 TABLET BY MOUTH EVERY DAY active Not Available Not Available No t Available prednisone 20 mg tablet PLEASE SEE ATTACHED FOR DETAILED DIRECTION S active Not Available Not Available No t Available sertraline 100 mg tablet TAKE 1 TABLET BY MOUTH EVERYDAY AT BEDTIME FOR DEPRESSIO N, FOR 30 DAYS. active Not Available Not Available No t Available lithium carbonate ER 300 mg tablet,exte nded release 06/13 completed Not Available Not Available Not Available metronidazo le 500 mg tablet TAKE 1 TABLET BY MOUTH 3 TIMES A DAY 06/13 completed Not Available Not Available Not Available fluocinonid e 0.05 % topical ointment APPLY TO THE AFFECTED AREA(S) hands right thigh BY TOPICAL ROUTE 2 TIMES PER DAY 2024 active Not Available Not Available Not Avai lable acetaminoph en 300 mg-codeine 30 mg tablet TAKE ONE TABLET BY MOUTH EVERY 4 TO 6 HOURS NEEDED FOR SEVERE PAIN 12/10 completed Not Available Not Available Not Available ciprofloxac in 500 mg tablet active Not Available Not Available Not Available sulfamethox azole 800 mg-trimetho prim 160 mg tablet TAKE 1 TABLET BY MOUTH EVERY 12 HOURS 06/13 completed Not Available Not Available Not Available tramadol 50 mg tablet active Not Available Not Available No t Available acetaminoph en 500 mg tablet TAKE 2 TABLETS (1,000 MG) BY MOUTH 3 TIMES A DAY NEEDED FOR PAIN FOR 7 DAYS 05/22 completed Not Available Not Available Not Available butalbital- acetaminoph en-caffeine 50 mg-325 mg-40 mg tablet 08/30 completed Not Available Not Available Not Available lithium carbonate ER 450 mg tablet,exte nded release TAKE 2 TABLETS BY MOUTH DAILY AT BEDTIME 06/13 completed Not Available Not Available Not Available Depo-Medrol 80 mg/mL suspension for injection Take 1 mL by injection route. 2024 active Not Available Not Available Not Avai lable lamotrigine 25 mg tablet TAKE 1 TABLET BY MOUTH EVERY DAY WITH MEALS FOR 30 DAYS, FOR MOOD SWINGS. 07/15 completed Not Available Not Available Not Available ketorolac 10 mg tablet 06/11 completed Not Available Not Available Not Available prednisone 10 mg tablets in a dose pack Take 1 tab by mouth, 3 times a day for 3 daysTake 1 tab by mouth 2 times a day for 2 daysTake 1 tab by mouth once a day for 1 day 05/08 completed Not Available Not Available Not Available meloxicam 7.5 mg tablet 09/10 completed Not Available Not Available Not Available oxycodone-a cetaminophe n 5 mg-325 mg tablet TAKE 1 TABLET BY MOUTH EVERY DAY NEEDED active Not Available Not Available No t Available propranolol 10 mg tablet active Not Available Not Available Not Available ofloxacin 0.3 % ear drops active Not Available Not Available Not Available famotidine 20 mg tablet Take 1 tablet twice a day by oral route. 07/23 completed Not Available Not Available Not Available magnesium oxide 400 mg (241.3 mg magnesium) tablet 04/06 completed Not Available Not Available Not Available methocarbam ol 750 mg tablet TAKE 2 TABLETS BY MOUTH 3 TIMES A DAY 06/13 completed Not Available Not Available Not Available baclofen 10 mg tablet 09/10 completed Not Available Not Available Not Available doxycycline monohydrate 100 mg capsule 10/10 completed Not Available Not Available Not Available cephalexin 500 mg capsule TAKE 1 CAPSULE BY MOUTH EVERY 6 HOURS FOR 7 DAYS 06/13 completed Not Available Not Available Not Available erythromyci n 5 mg/gram (0.5 %) eye ointment INSTILL QUARTER INCH RIBBON TO RIGHT LOWER LID ONCE AT BEDTIME DIRECTED 06/13 completed Not Available Not Available Not Available naproxen sodium 550 mg tablet Take 1 tablet every 12 hours by oral route for 10 days. 04/06 completed Not Available Not Available Not Available ferrous sulfate 325 mg (65 mg iron) tablet 01/04 completed Not Available Not Available Not Available buspirone 10 mg tablet TAKE 1 TABLET BY MOUTH TWICE A DAY NEEDED FOR ANXIETY DIRECTED active Not Available Not Available No t Available divalproex ER 500 mg tablet,exte nded release 24 hr TAKE 2 TABLETS EVERY DAY BY ORAL ROUTE AT BEDTIME, FOR BIPOLAR SYMPTOMS. active Not Available Not Available No t Available polymyxin B sulfate 10,000 unit-trimet hoprim 1 mg/mL eye drops INSTILL 1-2 DROPS IN AFFECTED 4 TIMES A DAY NEEDED FOR 7 DAYS 06/13 completed Not Available Not Available Not Available diltiazem ER 90 mg capsule,ext ended release 12 hr 04/06 completed Not Available Not Available Not Available progesteron e micronized 200 mg capsule TAKE 1 CAPSULE BY MOUTH EVERYDAY AT BEDTIME 06/13 completed Not Available Not Available Not Available omeprazole 20 mg capsule,del ayed release active Not Available Not Available Not Available Lupron Depot 3.75 mg intramuscul ar syringe kit 04/06 completed Not Available Not Available Not Available montelukast 10 mg tablet TAKE 1 TABLET BY MOUTH EVERY DAY active Not Available Not Available No t Available hydroxyzine HCl 25 mg tablet TAKE 1 TABLET BY MOUTH 3 TIMES DAILY WITH MEAL(S) FOR ANXIETY active Not Available Not Available No t Available azelastine 137 mcg (0.1 %) nasal spray [place] 2 sprays as needed by intranasa l route. active Not Available Not Available No t Available ibuprofen 600 mg tablet TAKE 1 TABLET BY MOUTH THREE TIMES DAILY NEEDED FOR PAIN 06/13 completed Not Available Not Available Not Available levofloxaci n 500 mg tablet 01/20 completed Not Available Not Available Not Available oxycodone-a cetaminophe n 7.5 mg-325 mg tablet Take 1 tablet twice a day by oral route for 30 days. 2024 active Not Available Not Available Not Avai lable methylpredn isolone 4 mg tablets in a dose pack 11/15 completed Not Available Not Available Not Available albuterol sulfate HFA 90 mcg/actuati on aerosol inhaler INHALE 2 PUFFS INTO THE LUNGS EVERY 4 HOURS FOR 30 DAYS active Not Available Not Available No t Available diltiazem 30 mg tablet 07/06 completed Not Available Not Available Not Available ondansetron 4 mg disintegrat ing tablet DISSOLVE 1 TABLET BY MOUTH EVERY 8 HOURS NEEDED FOR NAUSEA AND VOMITING 07/15 completed Not Available Not Available Not Available fluticasone propionate 50 mcg/actuati on nasal spray,suspe nsion active Not Available Not Available Not Available sertraline 50 mg tablet TAKE 1 TABLET BY MOUTH EVERY DAY WITH MEALS FOR 30 DAYS active Not Available Not Available No t Available lamotrigine 100 mg tablet 04/06 completed Not Available Not Available Not Available loratadine 10 mg tablet 04/06 completed Not Available Not Available Not Available naproxen 500 mg tablet TAKE 1 TABLET BY MOUTH TWICE A DAY WITH FOOD active Not Available Not Available No t Available metoclopram vale 10 mg tablet Take 1 tablet every 6 hours by oral route as needed. 06/13 completed Not Available Not Available Not Available buspirone 15 mg tablet TAKE 1 TABLET TWICE A DAY BY ORAL ROUTE WITH MEAL(S) FOR 30 DAYS, FOR ANXIETY. active Not Available Not Available No t Available topiramate 50 mg tablet TAKE 2 TABLETS BY MOUTH AT BEDTIME active Not Available Not Available No t Available Lupron Depot 11.25 mg (3 month) intramuscul ar syringe kit Inject 1 kit by intramusc ular route. 03/11 completed Not Available Not Available Not Available nitrofurant oin monohydrate /macrocryst als 100 mg capsule TAKE 1 CAPSULE BY MOUTH EVERY 12 HOURS FOR 7 DAYS WITH FOOD 06/13 completed Not Available Not Available Not Available Flovent HFA 44 mcg/actuati on aerosol inhaler Inhale 2 puffs twice a day by inhalatio n route for 30 days. 2024 active Not Available Not Available Not Avai lable cephalexin 750 mg capsule Take 1 capsule twice a day by oral route for 7 days. 09/20 completed Not Available Not Available Not Available quetiapine 50 mg tablet 05/08 completed Not Available Not Available Not Available lacosamide 50 mg tablet TAKE 1 TABLET BY MOUTH TWICE A DAY FOR 14 DAYS 06/13 completed Not Available Not Available Not Available lacosamide 150 mg tablet TAKE 1 (ONE) TABLET BY MOUTH 2 TIMES DAILY active Not Available Not Available No t Available lacosamide 100 mg tablet TAKE 1 (ONE) TABLET BY MOUTH 2 TIMES DAILY 06/13 completed Not Available Not Available Not Available butalbital- acetaminoph en-caffeine 50 mg-300 mg-40 mg capsule TAKE 1 (ONE) CAPSULE BY MOUTH EVERY 4 HOURS NEEDED FOR HEADACHE active Not Available Not Available No t Available Lo Loestrin Fe 1 mg-10 mcg (24)/10 mcg (2) tablet active Not Available Not Available Not Available Mary Lou 3 mg-0.03 mg tablet Take 1 tablet every day continuou sly (skip last week to avoid cycle) 09/20 completed Not Available Not Available Not Available 19 29 mg iron-1 mg chewable tablet Chew 1 tablet every day by oral route. 07/23 completed Not Available Not Available Not Available Xulane 150 mcg-35 mcg/24 hr transdermal patch Apply 1 patch every week by transderm al route. 07/23 completed Not Available Not Available Not Available Ashlyna 0.15 mg-30 mcg (84)/10 mcg(7) tablets,3 month dose pack Take 1 tablet every day by oral route. 04/06 completed Not Available Not Available Not Available Josi 0.25 mg-0.035 mg tablet Take 1 tablet every day by oral route. 06/13 completed Not Available Not Available Not Available Aimovig Autoinjecto r 70 mg/mL subcutaneou s auto-inject or INJECT 1 ML SUBCUTANE OUSLY EVERY 30 DAYS active Not Available Not Available No t Available Fluarix Quad 1252-3268 (PF) 60 mcg (15 mcg x 4)/0.5 mL IM syringe 01/20 completed Not Available Not Available Not Available BinaxNOW COVID-19 Ag Self Test kit 06/13 completed Not Available Not Available Not Available Zavzpret 10 mg/actuatio n nasal spray INSTILL 1 SPRAY INTO THE NOSE NEEDED active Not Available Not Available No t Available Vitals Date Recorded Body weight Body mass index (BMI) Body height Body temperature Heart rate Oxygen saturation Oxygen saturation in Arterial blood by Pulse oximetry Systolic blood pressure Diastolic blood pressure Provider Name and Address Organization Details Last Updated DateTime 5 42542.3 5 g 24.9 kg/m2 177.8 cm 97.2 [degF] 73 /min 99 % 99 % 112 mm[Hg] 76 mm[Hg] Rao Carlos RN [place] [facility] [employer] [facility] 5 09:20:54 Date Recorded Body height Body mass index (BMI) Body weight Body temperature Heart rate Oxygen saturation Oxygen saturation in Arterial blood by Pulse oximetry Systolic blood pressure Diastolic blood pressure Provider Name and Address Organization Details Last Updated DateTime 5 177.8 cm 25.1 kg/m2 23806.3 6 g 97.7 [degF] 84 /min 98 % 98 % 116 mm[Hg] 70 mm[Hg] Maddie Arnold, [facility] [employer] [facility] [employer] [facility] 5 11:09:45 Date Recorded Body height Body mass index (BMI) Body weight Body temperature Systolic blood pressure Diastolic blood pressure Provider Name and Address Organization Details Last Updated DateTime 5 177.8 cm 25.5 kg/m2 92738.4 4 g 97.2 [degF] 118 mm[Hg] 80 mm[Hg] [facility] [employer] [facility] 5 12:31:39 Date Recorded Body height Body mass index (BMI) Body weight Body temperature Heart rate Oxygen saturation Oxygen saturation in Arterial blood by Pulse oximetry Systolic blood pressure Diastolic blood pressure Provider Name and Address Organization Details Last Updated DateTime 5 177.8 cm 25.8 kg/m2 49541.6 3 g 97.3 [degF] 78 /min 98 % 98 % 114 mm[Hg] 78 mm[Hg] [facility] [employer] [facility] 5 12:15:21 Social History Question Answer Notes LastModified by Organizat ion Details LastModified Time Tobacco Smoking Status Never Smoker Not Available [facility] 05/24/2022 00:48:58 What Is Your Level Of Alcohol Consumption? Occasional Holidays Information not available 05/22/2024 What Is Your Level Of Caffeine Consumption? Heavy Coffee, Tea, Soda [email or web address] Information not available 05/22/2024 In The 14 Days Before Symptom Onset, Have You Had Close Contact With A Laboratory-confi rmed COVID-19 While That Case Was Ill? No [id number] Information not available 05/24/2022 In The 14 Days Before Symptom Onset, Have You Had Close Contact With A Person Who Is Under Investigation For COVID-19 While That Person Was Ill? No [id number] Information not available 05/24/2022 Which Illicit Or Recreational Drugs Have You Used? Marijuana [email or web address] Information not available 05/22/2024 Do You Or Have You Ever Used E-cigarettes Or Vape? 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 9 Information not available 05/22/2024 What Was The Date Of Your Most Recent Tobacco Screening? 06/13/2024 Information not available 06/13/2024 Do You Or Have You Ever Used Smokeless Tobacco? Never Used Smokeless Tobacco Information not available 06/13/2024 Do You Use Any Illicit Or Recreational Drugs? Yes Marijuana Vape [email or web address] Information not available 05/22/2024 Have You Used IV Drugs? No [email or web address] Information not available 05/22/2024 Do You Or Have You Ever Used Any Other Forms Of Tobacco Or Nicotine? Yes Information not available 06/13/2024 How Many Years Have You Used E-cigarettes Or Vape? 9 Off And On Since Age 19 [email or web address] Information not available 05/22/2024 Sex: Unknown Functional Status Question Answer Note LastModified by Organizat ion Details LastModified Time What is your exercise level? None [id number] Information not available 05/24/2022 Mental Status None recorded. Family History Relationship Description Onset Age of this Age Resolved Age Notes LastModified by Organization Details LastModified Time Paternal Aunt Renal failure syndrome [id number] Not available 05/24/2022 00:54:29 Paternal Aunt Malignant tumor of breast MIGRATION.097 [id number] Not available 05/24/2022 00:54:29 Mother Cerebrovascu lar accident MIGRATION.267 [id number] Not available 05/24/2022 00:54:29 Mother Heart disease MIGRATION.398 [id number] Not available 05/24/2022 00:54:29 Mother Myocardial infarction MIGRATION.687 [id number] Not available 05/24/2022 00:54:29 Father Chronic obstructive pulmonary disease MIGRATION.162 [id number] Not available 05/24/2022 00:54:29 Maternal Grandmother Hypertensive disorder MIGRATION.740 [id number] Not available 05/24/2022 00:54:29 Maternal Grandmother Diabetes mellitus MIGRATION.237 [id number] Not available 05/24/2022 00:54:29 Maternal Aunt Malignant tumor of cervix deceas ed MIGRATION.652 [id number] Not available 05/24/2022 00:54:29 Medical History Condition Response HEART DISEASE/HEART PROBLEMS Y ARTHRITIS Y HEADACHES/MIGRAINES Y ANXIETY DISORDER Y DEPRESSION (INCLUDING POST ) Y ANEMIA/BLOOD DISORDER Y Gynecological History Statement/Question Response Date of Last Pap Smear 08/30/2018 Current Control Method BCPs Age at Menarche 13 Date of LMP 11/14/2020 Obstetrics History GPAL:G 2 P 1 0 1 1 Type Value Full Term 1 Spontaneous 1 Living 1 Total 2 Past Encounters Encounter ID Performer Location Encounter Start Date Encounter Closed Date Diagnosis/Indication Diagnosis SNOMED-CT Code Diagnosis ICD10 Code Diagnosis Note [id number] [facility]_ DEFAULT_1 _1 , 05/25/2020 00:00:00 05/25/2020 15:36:26 [id number] [facility]_ DEFAULT_1 _1 , 06/08/2020 00:00:00 06/08/2020 11:38:20 [id number] [facility] _[facility]_M [facility]_ DEFAULT_1 _1 , 08/02/2020 00:00:00 08/02/2020 11:50:28 [id number] [facility]_ DEFAULT_1 _1 , 08/30/2020 00:00:00 08/30/2020 12:44:24 [id number] [facility]_ DEFAULT_1 _1 , 09/20/2020 00:00:00 09/20/2020 16:12:25 [id number] [facility]_ DEFAULT_1 _1 , 11/15/2020 00:00:00 11/15/2020 16:13:57 [id number] [facility]_ DEFAULT_1 _1 , 12/10/2020 00:00:00 12/10/2020 11:15:25 [id number] Roge Goodwin MD [facility] [address] [address] 05/22/2024 09:11:46 05/22/2024 15:02:10 Pain of left knee region 9244625539 89595 M25.562 Long-term current use of opiate analgesic drug [id number] 36278 Z79.021 [id number] Roge Goodwin MD [address] [address] 05/30/2024 12:41:55 05/30/2024 14:04:29 [id number] Roge Goodwin MD [address] [address] 06/13/2024 10:56:26 06/13/2024 12:12:11 Sinusitis 38242407 J32.9 Asthma 604364702 J45.90 9 [id number] Roge Goodwin MD [address] [address] 07/15/2024 12:16:26 07/15/2024 13:06:20 Pain of left knee region 0586103895 44819 M25.562 Asthma 013856398 J45.90 9 Bilateral tendonitis of wrists 2395339604 5634454 M67.834 Right side sciatica 3202 787974 26218 M54.31 [id number] Roge Goodwin MD [address] [address] 07/24/2024 11:55:25 07/24/2024 12:35:44 Flexural eczema 97944892 L20.82 Right side sciatica 3202 660519 35408 M54.31 Greater tr ochanteric pain syndrome 7490694 M70.61 Health Concerns Section Related Observation LastModified by Organization Detai ls LastModified Time None Recorded Concern Status LastModified by Organization Details LastModified Time None Recorded Advance Directives Directive None Recorded Payers Encounter Date Sequence Insurance Name Policy Number Policy Oliva Covered Member ID Oliva Member ID Guarantor Name 05/22/2024 1 [facility] (MEDICAID HMO) [id number] Melina Tavarez [id number] Melina Tavarez 05/30/2024 1 [facility] (MEDICAID HMO) [id number] Melina Eric Tavarez [id number] Melina Eric Arnold 06/13/2024 1 [facility] (MEDICAID HMO) [id number] Melina Eric Arnold [id number] Melina E Arnold 07/15/2024 1 [facility] (MEDICAID HMO) [id number] Melina Eric Arnold [id number] Melina E Arnold 07/24/2024 1 [facility] (MEDICAID HMO) [id number] 0003 Melina Eric Arnold [id number] Melina Eric Tavarez Notes Date Note Type Note Provider Name and Address Organization Details Recorded Time 05/22/2024 text/html here to re-establish care ZHENG Kuar [address], [place], [address], [facility] 2024 14:10:28 06/13/2024 text/html sinus pressure , no fever ZHENG Kaur [address], [place], [address], [facility] 06/23/2024 11:03:04 07/15/2024 text/html right sciatic nerve, hands numb , tingling , asthma acting up , no fever ZHENG Kaur [address], [address], [place], [address], [facility] 07/17/2024 10:35:27 07/24/2024 text/html right sciatica has flared ; eczema too ZHENG Kaur [address], [place], [address], [facility] 07/30/2024 10:13:15 OBGyn Episode No OBEpisode recorded.
--- OUTSIDE RECORDS SUMMARY | 2024-07-30 12:32 | XMS_ITS | Clinical Summary ---
Author Organization [facility] Address [address] [place] [address] Care Team Providers Care Americanization Teacher Name Role Phone Behzad Bailey MD Primary Care Provider [phone] Source Comments [facility],non-owned Affiliates and Associated Physician Practices is amultiple site organization consisting of ambulatory clinics and hospital sitesin [place], [place], [place] and [place]. This disclosure is being madepursuant to the Care Everywhere program and may not contain all information available regarding this patient. Last updated 17.[facility] Allergies Active Allergy Reactions Criticality Noted Date Comments Augmentin Medium 10/31/2012 Turns her stools black Levofloxacin Swelling 03/04/2024 Morphine Headache 03/04/2024 Zavegepant Diarrhea,Dizziness,E ye Discomfort,Headache,Naus ea and/or Vomiting 05/04/2024 Medications * Be aware that medications may not be up to date on this document. Alwaysverify current medications with the patient. montelukast (SINGULAIR) 10 MG tablet Take 1 (one) tablet by mouth at bedtime Active methylphenidate ER (METADATE ER) 10 MG tablet Take 1 (one) tablet by mouth every morning Active sertraline (ZOLOFT) 25 MG tablet Take 1 (one) tablet by mouth at bedtime Active fluticasone propionate (FLUTICASONE PROPIONATE) 50 MCG/ACT nasal spray [place] [facility] 1 (one) spray into each nostril once daily Active sertraline (Zoloft) 100 MG tablet Take 1 (one) tablet by mouth once daily Active topiramate (Topamax) 50 MG tablet Take 1 (one) tablet by mouth 2 times daily Active albuterol HFA (Proventil; Ventolin; Proair) 108 (90 Base) MCG/ACT inhaler Inhale 2 (two) puffs by mouth every 6 hours as needed Active senna-docusate (Senokot-S) 8.6-50 MG tablet Take 1 (one) tablet by mouth once daily Active busPIRone (Buspar) 10 MG tablet Take 1 (one) tablet by mouth 3 times daily Active lamoTRIgine (LaMICtal) 25 MG tablet Take 1 (one) tablet by mouth 2 times daily Active butalbital-acet aminophen-caffe ine (Fioricet) 50-300-40 MG capsuleIndicati ons:Intractable chronic migraine with aura with status migrainosus Take 1 (one) capsule by mouth every 4 hours as needed for Headache 20 capsule 04/14/19 25 Active erenumab-aooe (Aimovig) 70 MG/ML auto injector penIndications: Intractable chronic migraine with aura with status migrainosus Inject 1 mL subcutaneously every 30 days 1 mL 11 04/14/19 25 Active BinaxNOW COVID-19 Ag Home Test KIT 05/02/19 25 Active lacosamide (Vimpat) 150 MG tabletIndicatio ns:Seizures (HCC) Take 1 (one) tablet by mouth 2 times daily 60 tablet 5 05/15/19 25 Active Active Problems Problem Noted Date Diagnosed Date 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 (10/31/2012): largest 8 mm at the left nasal ala; frequently traumatized; no worrisome features Warts 10/31/2012 Overview (10/31/2012): R elbow; 8 mm X 2 lesions; failed cryo X 1 Encounters Date Type Department Care Team Description 06/23/2024 Travel 06/12/2024 Orders Only [facility] - Neurology [address] [place] [phone] Lorrie Meng PA-C Memory difficulties 06/12/2024 Orders Only [facility] - Neurology [address] [place] [phone] Lorrie Meng PA-C Memory difficulties 06/11/2024 Refill [facility] - Neurology [address] [place] [phone] Ceasar Hawkins APRN-ATG JAVA DEVELOPER MEDICATION REFILL 06/11/2024 Refill [facility] - Neurology [address] [place] [phone] Ceasar Hawkins RESPIRATORY DIRECTOR-ATG JAVA DEVELOPER Refill Request 05/15/2024 3:15 PM ASE MASTER MECHANIC Office Visit [facility] - Ophthalmology [address] [place] [phone] Mingo Varela MD Recurrent erosion of right cornea (Primary Dx) 05/15/2024 2:00 PM ASE MASTER MECHANIC Office Visit [facility] - Neurology [address] [place] [phone] Lorrie Meng PA-C Seizures (Primary Dx) 05/15/2024 Travel 05/07/2024 10:30 AM ASE MASTER MECHANIC Office Visit [facility] - Ophthalmology [address] [place] [phone] Mingo Varela MD Recurrent erosion of right cornea (Primary Dx) 05/07/2024 Travel from Last 3 Months Social History Tobacco Use Types Packs/Day Years Used Date Smoking Tobacco: Never Smokeless Tobacco: Never Tobacco Cessation:Counseling Given: Not Answered Comments No Sex and Gender Information Value Date Recorded Sex Assigned at Female 03/31/2022 1:21 PM ASE MASTER MECHANIC Legal Sex Female 2:44 PM CDT Gender Identity Female 03/31/2022 1:21 PM ASE MASTER MECHANIC Sexual Orientation Straight 03/27/2024 7: 11 PM ASE MASTER MECHANIC Last Filed Vital Signs Vital Sign Reading Time Taken Comments Blood Pressure 101/65 05/15/2024 1:58 PM ASE MASTER MECHANIC Pulse 89 05/15/2024 1:58 PM ASE MASTER MECHANIC Temperature - - Respiratory Rate - - Oxygen Saturation - - Inhaled Oxygen Concentration - - Weight 77.1 kg (170 lb) 05/15/2024 1:58 PM ASE MASTER MECHANIC Height 177.3 cm (5' 9.8 ) 10/31/2012 2:54 PM CDT Body Mass Index - - Plan of Treatment Upcoming Encounters Date Type Department Care Team (Late st Contact Info) Description 08/14/2024 11:00 AM CDT Office Visit [facility] - Neurology [address] [place] [phone] Ceasar Hawkins APRN-ATG JAVA DEVELOPER [address] [place] [address] [place] [address] 10/07/2024 4:00 PM CDT Office Visit [facility] - Neurology [address] [place] [phone] Lorrie Meng PA-C [address] [place] [address] Health Maintenance Due Date Last Done Comments PAP SMEAR 1996 HIV SCREENING 05/27/2011 HEPATITIS C SCREENING 05/22/2014 DTAP/TDAP/TD VACCINES (1 - Tdap) 05/27/2015 HEPATITIS B VACCINE (1 of 3 - 19+ 3-dose series) 05/27/2015 COVID-19 VACCINE ( - 2023-2 5 season) 2023 DEPRESSION SCREENING 03/26/2024 INFLUENZA VACCINE (Season Ended) 2024 12/17/2013, 01/13/2013 ZOSTER VACCINE (1 of 2) 2046 HIB VACCINE Aged Out No longer eligi ble based on patient's age to complete this topic HPV VACCINE Aged Out No longer eligi ble based on patient's age to complete this topic MENINGOCOCCAL (Group B) VACCINE SHARED DECISION-MAKING Aged Out No longer eligible based on patient's age to complete this topic MENINGOCOCCAL GROUPS A/C/Y/W VACCINE Aged Out No longer eligible b ased on patient's age to complete this topic PNEUMOCOCCAL VACCINE Aged Out No long er eligible based on patient's age to complete this topic Insurance [employer] * Guarantor: MARLON GOULD Account Type Relation to Patient Date of Phone Billing Address Personal/Family [id number] * Guarantor: MARLON GOULD Account Type Relation to Patient Date of Phone Billing Address Personal/Family [id number] * Guarantor: MARLON GOULD Account Type Relation to Patient Date of Phone Billing Address Personal/Family [id number] * Guarantor: MARLON GOULD Account Type Relation to Patient Date of Phone Billing Address Personal/Family Spouse Care Teams Americanization Teacher Relationship Specialty Start Date End Date Behzad Bailey MD [address] [phone] PCP - General Internal Medicine 01/01/18
--- OUTSIDE RECORDS SUMMARY | 2024-07-30 12:32 | XMS_ITS | CONTINUITY OF CARE DOCUMENT ---
Author Name mckenzie, mckenzie Address Unknown Organization [facility] Address [address] [place] [address] Phone [phone] Care Team Providers Care Diving Supervisor Name Role Phone Boris Singh MD Unavailable [phone] CHLOÉ RODRIGUEZ, CLEMENTE Unavailable [phone] CHLOÉ RODRIGUEZ, CLEMENTE Unavailable [phone] PROBLEMS Condition Status Date Provider Notes Sinus tachycardia active Robinson España Dizziness active Robinson España Diaphoresis active Robinson España Syncope active Robinson España Palpitations active Robinson España Asthma active Boris Singh MD Bradycardia sinus active Boris Singh MD Shortness of breath active Boris Singh MD Knee pain, left, chronic active Meseret lopez MD Iron deficiency active Meseret Sotelo MD Hypertension active Zaida Conrad SVT active Enrike Joe B12 deficiency active Lonnie Dacosta MD Cardiology examination active Meseret baires MD Chest pain-type to be determined active Boris Singh MD ENCOUNTERS Date Type Provider Location Encounter Diag nosis 04/25 - 04/29 In-person encounter Office Visit [facility] Cardiology examination 07/12 - 07/15 In-person encounter Office Visit Meseret Sotelo MD [facility] 03/30 - 04/10 In-person encounter Office Visit Meseret Sotelo MD [facility] 03/01 - 03/01 In-person encounter Office Visit Lonnie Dacosta MD [facility] B12 deficiency 09/20 - 09/24 In-person encounter Office Visit Meseret Sotelo MD [facility] 06/23 - 06/23 In-person encounter Office Visit Meseret Sotelo MD [facility] SVT 04/10 - 04/11 In-person encounter Office Visit Boris Singh MD [facility] 06/01 - 06/06 In-person encounter Office Visit Boris Singh MD [facility] Hypertension 08/26 - 08/27 In-person encounter Office Visit Boris Singh MD [facility] 02/25 - 02/25 In-person encounter Office Visit Boris Singh MD [facility] 11/21 - 11/21 In-person encounter Office Visit Boris Singh MD [facility] 02/12 - 02/12 In-person encounter Office Visit Boris Signh MD [facility] 08/23 - 09/27 In-person encounter Office Visit Boris Singh MD [facility] 05/22 - 05/22 In-person encounter Office Visit Boris Singh MD [facility] 05/05 - 05/08 In-person encounter Office Visit Meseret Sotelo MD [facility] 04/28 - 05/02 In-person encounter Office Visit Meseret Sotelo MD [facility] Knee pain, left, chronicIron deficiency 04/12 - 04/16 In-person encounter Office Visit Boris Singh MD [facility] 02/20 - 02/21 In-person encounter Office Visit Boris Singh MD [facility] Chest pain-type to be determinedShortnes s of breath 12/19 - 12/21 In-person encounter Office Visit Boris Singh MD [facility] AsthmaBradycardia sinus 10/19 - 10/20 In-person encounter Office Visit Boris Singh MD [facility] Sinus tachycardiaDizzinessDiaphoresisSyncopePalpitations VITAL SIGNS Date Observation Value Provider Body Mass Index (Ratio) 24.40 kg/m2 Elias Sotelo MD blood pressure, diastolic 69 mm[Hg] Li nkLogic blood pressure, systolic 105 mm[Hg] Megan kLogic blood pressure, cuff size regular Br taya Chavarria blood pressure, diastolic 69 mm[Hg] Br taya Chavarria blood pressure, systolic 105 mm[Hg] Trudi Chavarria pulse rate 69 /min Erin Ortiz s oxygen saturation, oximetry 97 % Erin Chavarria weight E&M 175 [lb_av] Erin Ortiz s height E&M 71 [in_i] Erin Ortiz s Body Mass Index (Ratio) 24.40 kg/m2 Enrike Joe blood pressure, cuff size regular Ke rri Gruenenfelder blood pressure, diastolic 66 mm[Hg] Ke rri Gruenenfelder blood pressure, systolic 122 mm[Hg] Joseph ri Vestanenfeduarer oxygen saturation, oximetry 100 % Katherine Qian respiratory rate E&M 12 /min Katherine G anandenenfelder pulse rate 90 /min Katherine Herbie lder weight E&M 175 [lb_av] Katherine Vestanenfe lder height E&M 71 [in_i] Katherine Zionuenejeremiah lder weight E&M 176 [lb_av] Elly salgado Body Mass Index (Ratio) 24.54 kg/m2 Elias Sotelo MD weight E&M 176 [lb_av] [facility] blood pressure, cuff size regular [facility] blood pressure, diastolic 64 mm[Hg] Fa [facility] blood pressure, systolic 101 mm[Hg] [facility], oximetry 96 % [facility] respiratory rate E&M 16 /min Unique M iller pulse rate 71 /min [facility] height E&M 71 [in_i] [facility] Body Mass Index (Ratio) 24.13 kg/m2 Fauzia Dacosta MD blood pressure, diastolic 85 mm[Hg] Li nkLog blood pressure, systolic 109 mm[Hg] Megan kLog pulse rate 74 /min [facility] blood pressure, cuff size regular [facility] blood pressure, diastolic 85 mm[Hg] [facility] blood pressure, systolic 109 mm[Hg] [facility] oxygen saturation, oximetry 98 % [facility] respiratory rate E&M 16 /min [facility] iller weight E&M 173 [lb_av] [facility] height E&M 71 [in_i] [facility] Body Mass Index (Ratio) 24.13 kg/m2 Elias Sotelo MD blood pressure, cuff size regular Ke rri Zionueellis blood pressure, diastolic 72 mm[Hg] Ke rri Zionuenenfeldmatilde blood pressure, systolic 136 mm[Hg] Joseph Laughlin oxygen saturation, oximetry 98 % Katherine Laughlin respiratory rate E&M 12 /min Katherine augustin pulse rate 88 /min Katherine Stoner [facility] weight E&M 173 [lb_av] Katherine Stoner [facility] height E&M 71 [in_i] Katherine Stoner [facility] Body Mass Index (Ratio) 23.71 kg/m2 Enrike Joe pulse rate 92 /min Tiny Hartley oxygen saturation, oximetry 98 % Tiny Hartley respiratory rate E&M 20 /min Tiny Hartley weight E&M 170 [lb_av] Tiny Hartley height E&M 71 [in_i] Tiny Hartley Body Mass Index (Ratio) 25.52 kg/m2 Sheila Conrad blood pressure, diastolic 76 mm[Hg] Li nkLogic blood pressure, systolic 112 mm[Hg] Megan kLogic blood pressure, diastolic 76 mm[Hg] [facility] Luciano blood pressure, systolic 112 mm[Hg] [facility] [place] oxygen saturation, oximetry 98 % Eneidapatti Luciano respiratory rate E&M 18 /min Eneida D edilma pulse rate 102 /min Eneida Mustapha weight E&M 183 [lb_av] Eneida Mustapha height E&M 71 [in_i] Eneida Mustapha Body Mass Index (Ratio) 27.19 kg/m2 Sheila Conrad blood pressure, diastolic 68 mm[Hg] Li nkLogic blood pressure, systolic 115 mm[Hg] Megan kLogic blood pressure, diastolic 68 mm[Hg] Ca therine Salem blood pressure, systolic 115 mm[Hg] Cat herine Caleb oxygen saturation, oximetry 98 % Natalie Salem respiratory rate E&M 14 /min Catheri ne Caleb pulse rate 96 /min Natalie Caleb weight E&M 195 [lb_av] Natalie Salem blood pressure, cuff size regular Ca therine Caleb height E&M 71 [in_i] Natalie Caleb weight E&M 188 [lb_av] Odessa [place] Body Mass Index (Ratio) 26.22 kg/m2 [facility] blood pressure, diastolic, left arm 66 mm [Hg] [facility] [place] blood pressure, systolic, left arm 98 mm[ Hg] [facility] [place] blood pressure, diastolic, right arm 75 m m[Hg] [facility] [place] blood pressure, systolic, right arm 104 m m[Hg] [facility] [place] blood pressure, diastolic 66 mm[Hg] To ha [place] blood pressure, systolic 98 mm[Hg] Ton [facility] oxygen saturation, oximetry 98 % [facility] [place] pulse rate 73 /min [facility] respiratory rate E&M 16 /min [facility] [place] weight E&M 188 [lb_av] [facility] [place] height E&M 71 [in_i] [facility] [place] temperature site temporal Christina Tank [facility] temperature E&M 96.9 [degF] Christina Tank marcel Body Mass Index (Ratio) 26.92 kg/m2 Oscar [facility] blood pressure, diastolic 70 mm[Hg] Da emily Frederick blood pressure, systolic 118 mm[Hg] Dac ia Frederick oxygen saturation, oximetry 96 % Allie Frederick respiratory rate E&M 16 /min Allie V oss pulse rate 92 /min Allie Frederick weight E&M 193 [lb_av] Allie Frederick height E&M 71 [in_i] Allie Frederick Body Mass Index (Ratio) 23.85 kg/m2 Oscar Harveyberg blood pressure, diastolic 80 mm[Hg] Da emily [...] Martínez respiratory rate E&M 16 /min Dayna Espinalby pulse rate 93 /min Dayna Espinalby weight E&M 166 [lb_av] Dayna Espinalby height E&M 71 [in_i] Dayna Martínez Body Mass Index (Ratio) 21.89 kg/m2 Oscar España blood pressure, cuff size regular Adele [...] Singh MD blood pressure, cuff size regular Samuel Laughlin blood pressure, diastolic 71 mm[Hg] Ke rri Qian blood pressure, systolic 116 mm[Hg] Joseph Laughlin oxygen saturation, oximetry 98 % Katherine Laughlin respiratory rate E&M 16 /min Katherine augustin pulse rate 105 /min Katherine Stoner [facility] weight E&M 152 [lb_av] Katherine Stoner [facility] height E&M 71 [in_i] Katherine Stoner [facility] Body Mass Index (Ratio) 21.20 kg/m2 Oscar España blood pressure, cuff size regular Ke [facility]ang [facility], diastolic 72 mm[Hg] Ke rrjuly Cisneros blood pressure, systolic 112 mm[Hg] Joseph Laughlin oxygen saturation, oximetry 98 % Katherine Laughlin respiratory rate E&M 16 /min Katherine augustin pulse rate 124 /min Katherine Stoner [facility] weight E&M 152 [lb_av] Katherine Stoner [facility] height E&M 71 [in_i] Katherine Stoner er Body Mass Index (Ratio) 21.20 kg/m2 Oscar España height E&M 71 [in_i] Robinson Vergara erg blood pressure, diastolic 70 mm[Hg] Da emily Frederick blood pressure, systolic 112 mm[Hg] Dac ia Frederick oxygen saturation, oximetry 97 % Allie Frederick respiratory rate E&M 16 /min Allie V oss pulse rate 68 /min Allie Frederick weight E&M 152 [lb_av] Allie Frederick blood pressure, resting No Oscar francisco javier Patria Body Mass Index (Ratio) 20.78 kg/m2 [facility] blood pressure, cuff size regular Ke rri [facility] blood pressure, diastolic 72 mm[Hg] Ke rri Gruenetasneemelder blood pressure, systolic 110 mm[Hg] Joseph Laughlin oxygen saturation, oximetry 97 % Katherine Qian respiratory rate E&M 16 /min Katherine G mayelawashington [facility] tuberculosis hospitalmat[facility] pulse rate 103 /min Katherine Leannee er weight E&M 149 [lb_av] Katherine Leannee er height E&M 71 [in_i] Katherine Leannee [facility] Body Mass Index (Ratio) 21.48 kg/m2 [facility] blood pressure, cuff size regular Ke rri [facility] blood pressure, diastolic 66 mm[Hg] Ke rri Ameliaer blood pressure, systolic 102 mm[Hg] Joseph Laughlin oxygen saturation, oximetry 95 % Katherine Qian respiratory rate E&M 16 /min Katherine Mahnaz [facility]rowashington [facility] hospitalmat[facility] pulse rate 87 /min Katherine Herbie [facility] weight E&M 154 [lb_av] Katherine Leannee er height E&M 71 [in_i] Katherine Leannee er blood pressure, diastolic 60 mm[Hg] Jeremy Goss blood pressure, systolic 102 mm[Hg] Babita Goss pulse rate 70 /min Ilana cunningham oxygen saturation, oximetry 99 % Ilana Goss respiratory rate E&M 16 /min Jori Goss weight E&M 157.2 [lb_av] Ilana santana blood pressure, diastolic 60 mm[Hg] Jeremy Goss blood pressure, systolic 108 mm[Hg] Babita Goss pulse rate 111 /min Ilana cunningham oxygen saturation, oximetry 99 % Ilana Goss respiratory rate E&M 16 /min Jori Goss Body Mass Index (Ratio) 22.09 kg/m2 Henna Goss weight E&M 158.4 [lb_av] Ilana santana height E&M 71 [in_i] Ilana cunningham ALLERGIES Allergy Name Onset Date Reaction Criticality Status LEVOFLOAXCIN anaphylaxis anaphylaxis High Criti cality active WASPS Low Criticality active STRAWBERRIES Low Criticality [...] iron binding capacity, unsaturated 367 ug/dL LinkLogic 105-277 2920/06/0 4 iron binding capacity, total 427 ug/dL LinkLogic 256-816 1670/06/0 4 calcium, serum 9.7 mg/dL LinkLogic 8.7-10.2 4 carbon dioxide, venous blood 23 mmol/L LinkLogic 20-29 4 chloride, serum 104 mmol/L LinkLogic [...] Estab. 4 platelet count 323 X10E3/UL LinkLogic 969-831 1067/06/0 4 red blood cell distribution width 13.3 % LinkLogic 11.7-15.4 4 mean corpuscular hemoglobin concentration, RBC 31.8 G/DL LinkLogic 31.5-35.7 4 mean corpuscular hemoglobin, RBC 26.6 pg LinkLog 26.6-33.0 4 mean corpuscular volume, RBC 84 fL LinkLogic 79-97 4 hematocrit, blood 39.6 % LinkLog 34.0-46.6 4 hemoglobin, blood 12.6 g/dL LinkLogic 11.1-15.9 4 erythrocyte (RBC) count 4.74 X10E6/UL LinkLogic 3.77-5.28 4 leukocyte count, blood 7.0 X10E3/UL LinkLogic 3.4-10.8 1 folate, serum 7.7 NG/MLM LinkLog 4.4 - 31.0 1 vitamin b12, serum 277.6 pg/mL LinkLog 211.0 - 946.0 1 ferritin, serum 244.4 ng/mL LinkLog 13.0 - 150.0 High 1 red blood cell distribution width, size density 47.6 fL [facility] - 1 immature granulocytes, percentage of total cells, blood 0.7 % [facility] - 1 nucleated red blood cells as percent of blood leukocytes 0.0 % [facility] - 1 red blood cell (erythrocyte) count, per high power field 0.0 10*3/UL [facility] eosinophils as percent of blood leukocytes 1.2 % LinkLog - 1 neutrophils as percent of blood leukocytes 63.4 % LinkLog - 1 Absolute Neutrophils 3.8 CELLS/UL LinkLogic [...] - 1 platelet count 305.0 THOUSAND/ UL LinkLogic 100.0 - 400.0 1 mean corpuscular hemoglobin concentration, RBC 31.1 G/DL LinkLogic 31.0 - 38.0 1 mean corpuscular hemoglobin, RBC 28.4 pg LinkLogic 25.0 - 35.0 1 mean corpuscular volume, RBC 91.3 fL LinkLogic 75.0 - 100.0 1 hematocrit, blood 45.0 % [facility]ic 35.0 - 55.0 1 hemoglobin, blood 14.0 g/dL LinkLogic 11.5 - 16.5 1 erythrocyte count, whole blood 4.9 MILLION/U L LinkLogic 3.5 - 5.5 1 iron, serum 129.0 [...] 1.2 4 urea nitrogen, blood 8.0 mg/dL LinkLogic 6.0 - 20.0 4 blood glucose, random 83.0 mg/dL [facility] 74.0 - 99.0 4 red blood cell distribution width, size density 47.8 fL [facility] - 4 immature granulocytes, percentage of total cells, blood 0.3 % [facility] - 4 nucleated red blood cells as percent of blood leukocytes 0.0 % [facility] - 4 red blood cell (erythrocyte) count, per high power field 0.0 10*3/UL [facility] - 4 eosinophils as percent of blood leukocytes 2.3 % [facility] - 4 neutrophils as percent of blood leukocytes 52.2 % [facility] - 4 Absolute Neutrophils 3.2 CELLS/UL [facility] 1.5 - 7.8 4 basophils as percent of blood leukocytes 0.6 % [facility] - 4 Absolute Basophils 0.0 CELLS/UL [facility] 0.0 - 0.2 4 monocytes as percent of blood leukocytes 5.7 % [facility] - 4 Absolute Monocytes 0.4 CELLS/UL [facility] 0.2 - 1.0 4 lymphocytes as percent of blood leukocytes 38.9 % [facility] - 4 Absolute Lymphocytes 2.4 CELLS/UL [facility] 0.9 - 3.9 4 mean platelet volume 11.9 (?) [facility] - 4 platelet count 276.0 THOUSAND/ UL [facility] 100.0 - 400.0 4 mean corpuscular hemoglobin concentration, RBC 30.9 G/DL [facility] 31.0 - 38.0 Low 4 mean corpuscular hemoglobin, RBC 26.9 pg [facility] 25.0 - 35.0 4 mean corpuscular volume, RBC 86.9 fL [facility] 75.0 - 100.0 4 hematocrit, blood 39.8 % [facility] 35.0 - 55.0 4 hemoglobin, blood 12.3 g/dL [facility] 11.5 - 16.5 4 erythrocyte count, whole [...] 4 reticulocyte count, blood, uncorrected 1.13 % LinkLogic 0.50 - 2.00 HISTORY OF MEDICATION USE [...] gabapentin 300 mg capsule completed - Tonja Devinemiglmarcello [place] lithium carbonate 300 mg tablet extended release completed - Tonja Devinemiglia [employer] tizanidine 4 mg tablet active Take 1 tablet by mouth once daily as needed Saundra Kuhn [employer] Flovent HFA 44 mcg/actuation HFA aerosol inhaler active as directed Natalie Salem ProAir HFA 90 mcg/actuation HFA aerosol inhaler active as directed Natalie Caleb Lupron Depot (3 month) 11.25 mg syringe kit completed intramuscularly every three months - Tonja Nilsonmiglia [employer] Zyrtec 10 mg tablet completed 1 tablet by mouth once a day - Kamala Lo [employer] ZOLOFT 100 MG ORAL TABLET completed take one daily - Allie Frederick QVAR 80 MCG/ACT INHALATION AEROSOL SOLUTION completed INHALE 2 PUFFS DIRECTED - Allie Mack OXYCODONE-ACETAM INOPHEN 5-325 MG ORAL TABLET completed TAKE ONE TABLET BY MOUTH NEEDED FOR PAIN - Allie Frederick #30, 4 days supply, Filled 7 CORLANOR 5 MG ORAL TABLET completed One tablet twice daily - Allie Mack MAGNESIUM OXIDE 400 MG ORAL TABLET completed [...] TABLET BY MOUTH TWICE DAILY - Allie Mack CELEXA 10 MG ORAL TABLET completed ONE TAB. DAILY - Dayna Martínez VITAMIN C TABLET completed once daily - Dayna Martínez MONO-LINYAH 0.25-35 MG-MCG ORAL TABLET completed once daily - Allie Mack OMEPRAZOLE 20 MG ORAL TABLET DELAYED RELEASE completed Take one tablet every morning - Dayna Martínez MONTELUKAST SODIUM TABLET completed as directed - Allie Frederick PROAIR HFA 108 (90 Base) MCG/ACT INHALATION AEROSOL SOLUTION completed As directed - Katherine Donovanelisabet FLOVENT HFA AEROSOL completed 2 puffs twice daily - Katherine Qian FE TABS 325 (65 FE) MG ORAL TABLET DELAYED RELEASE completed ONE TABLET DAILY - Dayna Martínez SOCIAL HISTORY Date Observation Value Provider drug use no Enrike Joe alcohol use no Enrike Joe smoking status Never smoker Enrike Joe drug use no [facility] alcohol use no [facility] smoking status Never smoker [facility] drug use no [facility] alcohol use no [facility] smoking status Never smoker [facility] drug use no Tonja Ventimig pily [facility] alcohol use no Tonja Ventimig pily [facility] smoking status Never smoker Tonja Ventim iglia [facility] social history reviewed E&M revi ewed - no changes required Enrike Joe smoking status Never smoker Eneida Luciano social history reviewed E&M revi ewed - no changes required Zaida Conrad social history E&M S moking History: Dominique gupta has never smoked. Boris Singh MD social history reviewed E&M revi ewed - no changes required Boris Singh MD smoking status Never smoker Natalie nelson social history reviewed E&M revi ewed - no changes required Robinson España smoking status Never smoker Bree [place] social history reviewed E&M revi ewed - no changes required Boris Singh MD alcohol use no Allie Frederick smoking status Never smoker Allie Frederick social history reviewed E&M revi ewed - no changes required Robinson Patria alcohol use no Allie Frederick smoking status Never smoker Allie Frederick alcohol use no Boris Singh MD smoking status Never smoker Boris Foy social history reviewed E&M revi ewed - no changes required Boris Singh MD social history reviewed E&M revi ewed - no changes required Boris Singh MD alcohol use no Apolonia Edgar smoking status Never smoker Apolonia Edgar alcohol use no Katherine Stoner lder smoking status Never smoker Katherine holm number of grandchildren Meseret Sotelo MD [facility] alcohol use no [facility] smoking status Never smoker Robinson [facility] social history reviewed E&M revi ewed - no changes required Robinson España social history reviewed E&M revi ewed - no changes required Robinson España alcohol use no Allie Frederick smoking status Never smoker Allie Frederick social history reviewed E&M revi ewed - no changes required Boris Singh MD alcohol use no Katherine Stoner lder smoking status Never smoker Katherine hlom social history reviewed E&M revi ewed - no changes required Boris Singh MD social history E&M Smoking Histo ry: P atient has never smoked. Boris Singh MD alcohol use no Katherine Stoner matilde smoking status Never smoker Katherine holm social history E&M Smoking Histo ry: Patient [...] MD smoking status Never smoker Ilana Spann lonabaldev FAMILY HISTORY Family Member Condition Mother Family History of Co ronary Artery Disease: INSURANCE PROVIDERS Payer name Policy type / Coverage type Xi red libertarian ID J[employer] MEDICAID Medicaid [id number] ADVANCE DIRECTIVES Name Date DISCUSSED - NO DECISION MADE TREATMENT PLAN Date Name Performer [id number],C,E tiology unclear. Cardiac w/u to date benign. Will monitor. [facility] [id number],C,w ill update iron studies O rders: 9 9214 MOD 30-39min (CPT-36659) T SH, free T4, total T3 (7444) C BC (INCLUDES DIFF/PLT) (6399) F ERRITIN (457) I BERNARDA AND TOTAL IRON BINDING CAPACITY (7573) [facility] [id number],C,W ill increase propranolol dose H er updated medication list for this problem includes: Propranolol 20 Mg Tablet (Propranolol) ..... 1 tablet by mouth twice a day take 1 tablet by mouth twice daily BP today: 136/72 P rior BP: 112/76 (04/10/2022) Labs Reviewed: C reat: 0.86 (08/28/2019) [facility] [id number],W,c ontinue to persist. Less intense with propranolol and magnesium oxide. We will increase the propranolol to 20mg twice a day. Wiill update labs to r/o underlying source for palpitations H er updated medication list for this problem includes: Propranolol 20 Mg Tablet (Propranolol) ..... 1 tablet by mouth twice a day take 1 tablet by mouth twice daily Orders: 63733 MOD 30-39min (CPT-45940) T SH, free T4, total T3 (7444) C BC (INCLUDES DIFF/PLT) (9499) F ERRITIN (457) I BERNARAD AND TOTAL IRON BINDING CAPACITY (6938) C ortisol - AM (193777) Tonja Zamorano [employer] [id number],S, Enrike Mike i [id number],S, Enrike Mike i [id number],C,S hort runs of SVT and tachycardia, will start her on Magnesium 400 mg BID and Propranolol 10 mg BID and see how she feels. Enrike Mikei [id number],C, P rior BP: 112/76 (04/10/2022) Labs Reviewed: C reat: 0.86 (08/28/2019) Enrike Mikejuly [id number],C, B P today: 112/76 P rior BP: 115/68 (06/01/2021) Labs Reviewed: C reat: 0.86 (08/28/2019) Zaida Bradleybeckie [id number],C,P t is , due in 4 weeks. Still feeling occasional palpitations. Will provide a telesentry monitor. Corlanor on hold due to . Zaida Houston [id number],S, N o CP Zaidakatty Lopezrodrick [id number],C, B P today: 115/68 P rior BP: 98/66 (08/27/2019) Labs Reviewed: C reat: 0.86 (08/28/2019) Zaida Conrad [id number],C, N o CP Zaidakatty Lopezrodrick [id number],C,P t had a visit to [facility] due to episode of LOC. Told the HR was 190. WE do not have any documentation at this time. She complains of SOB and palpitations. Will schedule echo, PFTs, and telemonitor. Zaida Bradleybeckie [id number],C,P t had a visit to [facility] due to episode of LOC. Told the HR was 190. WE do not have any documentation at this time. She complains of SOB and palpitations. Will schedule echo, PFTs, and telemonitor. Zaida Bradleybeckie [id number],C,P t had a visit to [facility] due to episode of LOC. Told the HR was 190. WE do not have any documentation at this time. She complains of SOB and palpitations. Will schedule echo, PFTs, and telemonitor. Zaida Houston Electrophysiology: Orders: E KG (CPT-14321) 9 9213 LTD 20-29min (CPT-02737) C omplex e/m visit add on (G2211) Meseret Sotelo MD Electrophysiology: H er updated medication list for this problem includes: Propranolol 10 Mg Tablet (Propranolol) ..... Take 1 tablet by mouth twice a day Meseret Sotelo MD Electrophysiology: B P today: 105/69 P rior BP: 122/66 (07/13/2023) Labs Reviewed: C reat: 0.86 (08/28/2019) Her updated medication list for this problem includes: Propranolol 10 Mg Tablet (Propranolol) ..... Take 1 tablet by mouth twice a day Meseret Sotelo MD Electrophysiology: H er updated medication list for this problem includes: Propranolol 10 Mg Tablet (Propranolol) ..... Take 1 tablet by mouth twice a day Meseret Sotelo MD Electrophysiology: H er updated medication list for this problem includes: Propranolol 10 Mg Tablet (Propranolol) ..... Take 1 tablet by mouth twice a day Meseret Sotelo MD Electrophysiology: H er updated medication list for this problem includes: Propranolol 10 Mg Tablet (Propranolol) ..... Take 1 tablet by mouth twice a day Meseret Sotelo MD Electrophysiology: Orders: E KG (CPT-11438) 9 9213 LTD 20-29min (CPT-12725) C omplex e/m visit add on (G2211) Meseret Sotelo MD Electrophysiology:wo rk up overall normal, unlikley cardiac etiology for her sxs, I reviewed the importance of lifestyle and dietary modification with the patient. Recommend daily exercise. Enrike Tatyana Electrophysiology:st ress test showed mild ST changes, unlikely true indicator for ischemia, no CP during exercise. will pursue perfusion imaging if she has further CP. Enrike Joe Electrophysiology:she had bradyc ardia during sleep Enrike Joe Electrophysiology:no significant arrythmias seen on holter, she may be feeling the infrequent ectopics. Enrike Joe Electrophysiology: B P today: 122/66 P rior BP: 101/64 (03/30/2023) Labs Reviewed: C reat: 0.86 (08/28/2019) Her updated medication list for this problem includes: Propranolol 10 Mg Tablet (Propranolol) ..... Take 1 tablet by mouth twice a day Enrike Joe Electrophysiology:co ntinues to have w ill plan [...] STRESS TEST Kamala Lo NP Electrophysiology:on supplementa tion Kamala Lo NP Electrophysiology: B P today: 101/64 P rior BP: 109/85 (03/01/2023) Labs Reviewed: C reat: 0.86 (08/28/2019) Her updated medication list for this problem includes: Propranolol 10 Mg Tablet (Propranolol) ..... Take 1 tablet by mouth twice a day Kamala Khannikhil OLIVAS Electrophysiology:on supplementa tion Kamala Khannikhil OLIVAS Cardiology: S tart taking Vit B12 supplements. Saundra Davisonmaty OLIVAS Cardiology: T fabiana Iron supplements. Saundra Cesarnahid OLIVAS Cardiology: S he has had one episode about 1 month ago. Saundra Davisonmaty OLIVAS Cardiology: E tiology unclear. Cardiac w/u to date benign. Continues to have lightheadedness/dizziness. F ollows with Neurology as well for seizures Saundra Cesarnahid OLIVAS Cardiology: P ersists. O n Propranolol 20 mg twice daily. She states that her symptoms seem to have worsened with the increase to 20 mg twice daily. A dvised patient to stop the Propranolol, monitor symptoms and follow up with Dr. Sotelo. Saundra Cesarnahid OLIVAS Cardiology: r outine stress in 08/2019 was nml Saundra Davisonmaty OLIVAS Cardiology: P FT in 07/2021 showed minimal onbstructive airway disease. Peripheral airway. W ill repeat PFT Saundra Davisonmaty OLIVAS Cardiology: O n Mag Saundra Davisonmaty OLIVAS Cardiology: B P today: 109/85 P rior [...] studies O rders: 9 9214 MOD 30-39min (CPT-73596) T SH, free T4, total T3 (4682) C BC (INCLUDES DIFF/PLT) (7624) F ERRITIN (457) I BERNARDA AND TOTAL IRON BINDING CAPACITY (6602) Meseret Sotelo MD Electrophysiology:Wi ll increase propranolol [...] twice daily Orders: 9 9214 MOD 30-39min (CPT-12471) T SH, free T4, total T3 (6340) C BC (INCLUDES DIFF/PLT) (3599) F ERRITIN (457) I BERNARDA AND TOTAL IRON BINDING CAPACITY (9273) C ortisol - AM (119866) Meseret Sotelo MD Cardiology Enrike Joe Cardiology [...] Labs Reviewed: C reat: 0.86 (08/28/2019) Zaida Lopezrodrick Cardiology: N o CP Zaida Lopezrodrick Cardiology:Pt had a visit to [facility] due to episode of LOC. Told the HR was 190. WE do not have any documentation at this time. She complains of SOB and palpitations. Will schedule echo, PFTs, and telemonitor. Zaida Lopezrodrick Cardiology:Pt had a visit to [facility] due to episode of LOC. Told the HR was 190. WE do not have any documentation at this time. She complains of SOB and palpitations. Will schedule echo, PFTs, and telemonitor. Zaida Lopezrodrick Cardiology:Pt had a visit to [facility] due to episode of LOC. Told the HR was 190. WE do not have any documentation at this time. She complains of SOB and palpitations. Will schedule echo, PFTs, and telemonitor. Zaidakatty Lopezkybeckie Cardiology:Pt has on ly occasional palpitations. Feels they are controlled. [facility] Cardiology:Orders: C BC (INCLUDES DIFF/PLT) (6399) F ERRITIN (457) I BERNARDA AND TOTAL IRON BINDING CAPACITY (7573) [facility] Cardiology:Orders: F VC - 19754 (01088) F RC - 81715 (68695) D LCO - 40582 (22165) [facility] Cardiology:She compl ains of episodes of [...] do not help. Orders: C omplete Echo (CPT-42884) F VC - 69827 (29939) F RC - 22964 (04861) D LCO - 94272 (85104) S tress Routine (CPT-63091) C T Angio Chest (PE Protocol) (CPT-25967) C ovid Antibody Igg (02023) C ovid Antibody IgM (LC) (417801) C ovid Antibody IgA (LC) (783116) B ASIC METABOLIC PANEL W/EGFR (35953) P ROBNP, N TERMINAL (48028) C BC (INCLUDES DIFF/PLT) (6399) F ERRITIN (457) I BERNARDA AND TOTAL IRON BINDING CAPACITY (5273) D -DIMER, QUANTITATIVE (8659) Robinson Patria Cardiology:She compl ains of episodes of stabbing [...] Tylenol do not help. Orders: E KG (CPT-39551) C omplete Echo (CPT-18747) S tress Routine (CPT-80164) C T Angio Chest (PE Protocol) (CPT-67042) Robinson [place] Cardiology follow up:Echo showed normal EF. Robinson [facility] Cardiology follow up [place] [facility] follow up :Pt is now (16 weeks). Corlanor was stopped. Overall she is doing well but does note some rapid heartbeats from time to time. If palpitations become more persistent, she's instructed to contact us and then we will perform telesentry. Robinson [facility] Cardiology follow up :Orders: C omplete Echo (CPT-27380) [place] Cardiology Boris Singh MD Cardiology Boris Singh MD Cardiology Boris Singh MD Cardiology Follow up :She continues to have episodes of palpitations which are related to inappropriate sinus tach. Will try Corlanor 5mg BID and stop Diltiazem and Magnesium Oxide. [facility] [place] Cardiology Follow up :S/P iron infusions. Recommending GI consult. Robinson [place] Cardiology Follow up :She continues to have episodes of palpitations which are related to inappropriate sinus tach. Will try Corlanor 5mg BID and stop Diltiazem and Magnesium Oxide. Robinson [place] EP Follow up faxed :Orders: S NOMED-CT: [id number] Current Medications Documented ([facility]-[id number]) E KG (CPT-40675) [place] EP Follow up faxed :Her updated medication list for this problem includes: Diltiazem Hcl Er 90 Mg Oral [id number] (Diltiazem hcl) ..... One capsule daily with dinner Magnesium Oxide 400 Mg Oral Tabs (Magnesium oxide) .... One tablet twice daily <--- Added today Robinson [place] EP Follow up faxed :She's been on maximally tolerated oral iron supplements. She follows [employer]. Will schedule iron infusions. [place] EP Initial Consult f axed 05/03/16:Orders: F ERRITIN (457) F OLATE, SERUM (466) I BERNARDA AND TOTAL IRON BINDING CAPACITY (7573) R ETICULOCYTE COUNT (793) V ITAMIN B12 (927) [place] EP Initial Consult faxed 05/03/16 [place] EP Initial Consult f axed 05/03/16:Her updated medication list for this problem includes: Diltiazem Hcl Er 90 Mg Oral [id number] (Diltiazem hcl) ..... One capsule daily with dinner [place] EP Initial Consult faxed 05/03/16: No recurrences. [place] EP Initial Consult f axed 05/03/16:Her updated medication list for this problem includes: Diltiazem Hcl Er 90 Mg Oral [id number] (Diltiazem hcl) ..... One capsule daily with dinner [place] Cardiology Follow up:No recurren ce since last seen. [place] Cardiology Follow up :In addition, she has episodes of chest pain, worse at night. I recommend GI consult. Robinson [place] Cardiology Follow up :Continues to have palpitations. WIll obtain EP consult for possible ablation. Her updated medication list for this problem includes: Diltiazem Hcl Er 90 Mg Oral [id number] (Diltiazem hcl) ..... One capsule daily with [...] TID. Boris Singh MD Cardiology:Orders: E KG (CPT-61293) M obile Cardiac Tele (CPT-40214) Robinson [place] Cardiology:The pt co mplains of palpitations lasting a few minutes at a time which is associated with diaphoresis, dizziness and blurry vision. It started a few months ago. Will obtain tele. Robinson [place] Date Name Gastroenterology Monitor - Telemetry (Mobile Cardiac) Stress Routine CXR- PA/Lat DLCO - 42109 FRC - 80292 FVC - 64632 Vitamin D, 25-Hydrox y Complete Echo Cortisol - AM IRON AND TOTAL IRON BINDING CAPACITY FERRITIN CBC (INCLUDES DIFF/P LT) TSH, free T4, total T3 Monitor - Telemetry (Mobile Cardiac) PROBNP, N TERMINAL BASIC METABOLIC PANE L W/EGFR CBC (INCLUDES DIFF/P LT) Monitor - Telemetry (Mobile Cardiac) DLCO - 60735 FRC - 32350 FVC - 38370 Complete Echo D-DIMER, QUANTITATIV E IRON AND TOTAL IRON BINDING CAPACITY FERRITIN CBC (INCLUDES DIFF/P LT) PROBNP, N TERMINAL BASIC METABOLIC PANE L W/EGFR Covid Antibody IgA ( LC) Covid Antibody IgM ( LC) CT Angio Chest (PE P rotocol) Stress Routine DLCO - 97146 FRC - 54760 FVC - 37526 Complete Echo Complete Echo VITAMIN B12 RETICULOCYTE [...] Procedure Name Provider Procedure Notes S tatus Complex e/m visit add on Meseret Sotelo MD completed EKG Meseret nelson MD completed FVC / MVV with bronchodilator - 77724 Lonnie Dacosta MD completed FRC - 74897 Lonnie Dacosta MD complet ed SpO2 w/o 6min walk/titration Lonnie Dacosta MD completed DLCO - 73102 Lonnie Dacosta MD comple juan miguel Schedule Followup Meseret maynard MD [address] SOTELO completed EKG Meseret nelson MD completed Spirometry Boris Singh MD completed FVC / MVV with bronchodilator - 83729 Boris Singh MD completed FRC - 43451 Boris Singh MD completed SpO2 w/o 6min walk/titration Boris Singh MD completed SVC - 52104 Boris Singh MD completed DLCO - 64252 Boris Singh MD complete d EKG Boris Singh MD completed Stress EKG Boris Singh MD completed EKG Boris Singh MD completed Event Monitor Boris Singh MD complet ed EKG Boris Singh MD completed SNOMED-CT: 647865285155002 Current Medications Documented Boris Singh MD completed SNOMED-CT: 253620483163089 Current Medications Documented Boris Singh MD completed SNOMED-CT: 824267357181716 Current Medications Documented Boris Singh MD completed EKG Meesret nelson MD completed SNOMED-CT: 495249076008007 Current Medications Documented Meseret Sotelo MD completed NICOLÁS maynard MD completed EKG Meseret nelson MD completed SNOMED-CT: 657472649729037 Current Medications Documented Meseret Sotelo MD completed EKG Boris Singh MD completed SNOMED-CT: 081499304113927 Current Medications Documented Boris Singh MD completed SNOMED-CT: 303896904906955 Current Medications Documented Boris Singh MD completed SNOMED-CT: 219966788775168 Current Medications Documented Boris Singh MD completed Event Monitor Leticia Bhardwaj completed EKG Boris Singh MD completed SNOMED-CT: 147158060480793 Current Medications Documented Boris Singh MD completed
--- OUTSIDE RECORDS SUMMARY | 2024-07-30 12:32 | XMS_ITS | Clinical Summary ---
Author Organization [facility] Address [address] [place] [id number] Care Team Providers Care Electrical Wirer Name Role Phone Vanessa Boswell MD Primary Care Provider Allergies Active Allergy Reactions Criticality Noted Date Comments Amoxicillin Amoxicillin-Pot Clavulanate Menthol Potassium Darrow Venom-Honey Bee Medications albuterol HFA (PROAIR HFA) [...] mg total) by mouth daily 30 tablet 05/21/19 Active azelastine (ASTELIN) 137 mcg (0.1 %) nasal spray Administer 2 sprays into each nostril 2 (two) times a day Use in each nostril as directed 30 mL Active cetirizine (ZyrTEC) 10 mg tablet Take 1 tablet (10 mg total) by mouth daily 30 tablet 05/21/19 Active Active Problems Problem Noted Date Diagnosed Date Pain of hand 04/30/2015 Overview (06/29/2016): Hand pain Asthma 09/28/2014 Overview (06/29/2016): Asthma Depression 09/28/2014 Overview (06/29/2016): Depression Attention deficit disorder 09/28/2014 Overview (06/29/2016): ADHD Bipolar I disorder, most recent episode hypomani c 09/28/2014 Overview (06/29/2016): Bipolar affective disorder, current episode hypomanic Knee pain 09/28/2014 Overview (06/29/2016): Knee pain Encounters Date Type Department Care Team Description 07/08/2024 Telephone [facility] Allergy and Immunology [address] [place] [phone] Coleman Martell 06/24/2024 Telephone [facility] Allergy and Immunology [address] [place] [id number] Coleman Martell 05/21/2024 10:40 AM COMPOUNDER Office Visit [facility] Advanced Medicine ([facility]) - [facility] ENT [address] [place] [address] [place] [address] Kelton Guan MD Chronic allergic rhinitis (Primary Dx); Acute recurrent sinusitis, unspecified location; LPRD (laryngopharyngeal reflux disease) from Last 3 Months Medical History Medical History Date Comments Hx Other Medical Appendectomy in the past.; Comments: Ana 09/29/2014 - Hx Other Medical Ear tubes in th e past.; Comments: Ana 09/29/2014 - Hx Other Medical Left knee arthr oscopic partial medial meniscectomy; Comments: Ana 11/02/2014 - Hx Other Medical Left knee A&A 1 1-3-15.; Comments: Ana 02/03/2015 - Hx Other Medical Right hand fx 1 0-16-15.; Comments: Ana 05/03/2015 - Hx Other Medical Left knee arthr oscopic partial medial meniscectomy; Comments: Ana 06/28/2015 - Hx Other Medical 17 Closed manipulation left knee with Depo-M; Comments: Ana 07/24/2016 - Family History Medical History Relation Name Comments Other Other Family history of early heart disease, diabetes, hypertension, cancer, bleeding disorders and arthritis.; Relation Name Status Comments Other Social History Tobacco Use Types Packs/Day Years Used Date Smoking Tobacco: Never Assessed Comments Unknown Sex and Gender Information Value Date Recorded Sex Assigned at Not on file Legal Sex Female 9:16 PM COMPOUNDER Gender Identity Female 07/08/2024 1:48 PM CDT Sexual Orientation Asexual 07/08/2024 1: 48 PM CDT Obstetrics History Last Filed Vital Signs Vital Sign Reading Time Taken Comments Blood Pressure 104/72 05/21/2024 10:57 AM COMPOUNDER Pulse 67 06/26/2016 9:56 AM CDT Temperature - - Respiratory Rate - - Oxygen Saturation - - Inhaled Oxygen Concentration - - Weight 79.1 kg (174 lb 4.8 oz) 05/21/2024 10:57 AM COMPOUNDER Height 177.8 cm (5' 10 ) 05/21/2024 10:57 AM COMPOUNDER Body Mass Index 25.01 05/21/2024 10:57 AM COMPOUNDER Plan of Treatment Health Maintenance Due Date Last Done Comments Cervical Cancer Screening 1996 Depression Screening 1996 Hepatitis C Screening 1996 Regular Well Visit/Exam 18-64 2014 Pneumococcal vaccine <65 (1 of 2 - PCV) 05/27/2015 DTaP/Tdap/Td Vaccine (8 - Td or Tdap) 05/14/2032 05/14/2022, 12/31/2008, 06/01/2001, Additional history exists Hepatitis B Screening Completed 1996 , 1996, 1996 Varicella Vaccines Completed 04/15/2009, 1 , 05/29/1997 HPV Vaccines Completed 05/19/2011, 09/24, 04/15/2009 Influenza Vaccine Completed 11/30/2023, , 01/13/2013, Additional history exists Insurance [facility] [address] [id number] [facility] Care Teams Electrical Wirer Relationship Specialty Start Date End Date Vanessa Boswell MD [address] [place] [address] PCP - General Emergency Medicine 08/15/23
--- OUTSIDE RECORDS SUMMARY | 2024-07-30 12:32 | XMS_ITS | Continuity of Care Document ---
Author Organization [facility] Address [address] [place] [address] Phone Care Team Providers Care Talent Acquisition Operations Manager Name Role Phone Irma Phelan Unavailable Unavailable Advance Directives Directive Yes / No Effective Date File Name No Information Encounters Encounter Description Practice Location Reason(s) For Visit Diagnoses Date Provider Providers Copied on Encounter [facility], [address], [place], [place], [id number], [place] tel:[phone] [facility] No Information Aug- 5200 [address] Zhane Solis. [address] , [address], [place], [address], [place]. tel:[phone] Family History Family Member Type Diagnosis Age At Onset No Information Payers Payer name Insurance type Covered democrat ID Authoriza tion(s) Medicaid [facility] [id number] Social History Type Description Quantity Date Captured [...]
--- OUTSIDE RECORDS SUMMARY | 2024-07-30 12:32 | XMS_ITS | Continuity of Care Document ---
Author Organization [facility] Address [address] [place] [address] Phone Care Team Providers Care Sql Engineer Name Role Phone Nataly Costello NP Unavailable [...] - Active Procedures Procedure Date OFFICE/OUTPATIENT VISIT, [facility] Advance Directives Directive Yes / No Effective Date File Name No Information Encounters Encounter Description Practice Location Reason(s) For Visit Diagnoses Date Provider Providers Copied on Encounter [facility], [address], [place], [place], [address] [place] [address], tel:[phone] [facility] No Information 5 Trang Ingram. [address], [place], [facility] [place], [place]. tel:[phone] [facility], [address], [place], [place], [id number], tel:[phone] [facility] No Information 5 Trang Ingram. [address], [place], [facility] [place], [place]. tel:[phone] OFFICE/OUTPA TIENT VISIT, [facility], [address], [place], [place], [address], tel:[phone] [facility] Elevated TSH and prolactin (chief complaint) Elevated TSHElevated prolactin levelGalactorrheaFat igueDyshydrosisAsthm aDepressionAnxietyAD HD (attention deficit hyperactivity disorder)Learning disabilities [address] Trang Ingram. [address] [place], [address], [place]. tel:[phone] Referring Provider: Nataly Perez, [address] [place], [place], [facility] [place]. tel:[phone] Family History Family Member Type Diagnosis Age [...] depression Payers Payer name Insurance type Covered alliance party ID Authoriza tion(s) [place] Medicaid [place] [id number] Social History Type Description Quantity Date Captured [...]
--- OUTSIDE RECORDS SUMMARY | 2024-07-30 12:32 | XMS_ITS | Encounter Summary ---
Author Organization [facility] Address [address] [place] [address] Care Team Providers Care Probation Counselor Name Role Phone Behzad Bailey MD Primary Care Provider [phone] Reason for Visit * Reason Onset Date Comments MEDICATION REFILL 06/11/2024 Encounter Details Date Type Department Care Team (Late st Contact Info) Description 06/11/2024 Refill [facility] - Neurology [address] [place] [address], [facility] [place] [phone] Ceasar Hawkins, SARA-TOSHIA [address] [place] [address] [place] [phone] MEDICATION REFILL Social History Tobacco Use Types Packs/Day Years Used Date Smoking Tobacco: Never Smokeless Tobacco: Never Comments No Sex and Gender Information Value Date Recorded Sex Assigned at Female 03/31/2022 1:21 PM SERVER PROGRAMMER Legal Sex Female 2:44 PM CDT Gender Identity Female 03/31/2022 1:21 PM SERVER PROGRAMMER Sexual Orientation Straight 03/27/2024 7: 11 PM SERVER PROGRAMMER documented as of this encounter Plan of Treatment Upcoming Encounters Date Type Department Care Team (Late st Contact Info) Description 08/14/2024 11:00 AM CDT Office Visit [facility] - Neurology [address] [place] [address], [place] [address] Ceasar Hawkins APRN-INSURANCE SALES SPECIALIST [address] [place] [address] [place] [address] 10/07/2024 4:00 PM CDT Office Visit [facility] - Neurology [address] [place] [address], [place] [address] Lorrie Meng PA-C [address] [place] [address] documented as of this encounter Visit Diagnoses Diagnosis Intractable chronic migraine with aura with status migrainosus documented in this encounter Care Teams Probation Counselor Relationship Specialty Start Date End Date Behzad Bailey MD [address] [place] [address] PCP - General Internal Medicine 01/01/18 documented as of this encounter
[2024-07-30 12:35] VITALS: BP 115/75; PULSE 76; RESP 16; TEMP 36.6; O2SAT 100
--- NOTE | 2024-07-30 13:01 | ED_ITS ---
HPI - Headache General Chief Complaint: Headache <Darcie Mata PA-C - Last Filed: 07/30/24 16:45> Stated Complaint: Headache, Hx of seizures <Darcie Mata PA-C - Last Filed: 07/30/24 16:45> Time Seen by Provider: 07/30/24 13:01 <Darcie Mata PA-C - Last Filed: 07/30/24 16:45> Focused HPI: This is a 29 year old female that presents to the ER for head injury. Reports she hit her head off of a shelf two days ago. Reports she fell again today and hit her head. She is unsure if she lost consciousness. Reports right sided headache. She does have history of migraines, epilepsy. She has been taking her medications as prescribed. GENERAL: Well-appearing, well-nourished, and in no acute distress. HEAD: Normocephalic, atraumatic. CHEST: Clear to auscultation. ?No respiratory distress. HEART: Regular rate and rhythm.? NEURO: ?Alert and oriented x3. Patient screened in triage and initial orders placed.? ?Additional care and disposition to be based upon?diagnostic testing and treatment. <Darcie Mata PA-C - Last Filed: 07/30/24 16:45> History of Present Illness HPI Narrative: agree with the HPI above. Patient states that she did not lose consciousness and does not take blood thinners. Presently has a right-sided headache where she injured her head but no other associated symptoms. She has been doing well from an epilepsy standpoint and has not had a breakthrough seizure for several months. <Abner Palomares MD - Last Filed: 07/30/24 16:37> Related Data Home Medications: Home Medications ?Medication ?Instructions ?Recorded ?Confirmed ?Last Taken ?Type montelukast 10 mg tablet 10 mg PO DAILY 07/04/21 07/15/24 10/03/23 History tizanidine 4 mg capsule 4 mg PO QHS PRN Muscle Spasm 11/14/22 07/15/24 10/03/23 History sertraline 100 mg tablet 100 mg PO HS 09/25/23 07/15/24 10/03/23 History topiramate 50 mg tablet 100 mg PO DAILY 12/07/23 07/15/24 Unknown History <Darcie Mata PA-C - Last Filed: 07/30/24 16:45> Allergies/Adverse Reactions: Allergies Allergy/AdvReac Type Severity Reaction Status Date / Time clavulanic acid Allergy Severe BOWEL Verified 07/30/24 16:00 ISSUES strawberry Allergy Intermediate SWELLING/VO Verified 07/30/24 16:00 MITING ammonium alum Allergy Mild LIP Verified 07/30/24 16:00 SWELLING benzocaine Allergy Mild SWELLING Verified 07/30/24 16:00 camphor Allergy Mild LIP Verified 07/30/24 16:00 SWELLING menthol Allergy Mild LIP Verified 07/30/24 16:00 SWELLING petrolatum,white Allergy Mild SWELLING Verified 07/30/24 16:00 phenol Allergy Mild LIP Verified 07/30/24 16:00 SWELLING phenol liquid Allergy Mild SWELLING Verified 07/30/24 16:00 pramoxine Allergy Mild SWELLING Verified 07/30/24 16:00 salicylic acid Allergy Mild LIP Verified 07/30/24 16:00 SWELLING amoxicillin (From Augmentin) Allergy Swelling Verified 07/30/24 16:00 levofloxacin (From Levaquin) Allergy Anaphylaxis Verified 07/30/24 16:00 morphine AdvReac Headache Verified 07/30/24 16:00 Wasp Allergy Severe SWELLING Uncoded 07/30/24 16:00 PAPER TAPE Allergy Mild RASH Uncoded 07/30/24 16:00 <Darcie Mata PA-C - Last Filed: 07/30/24 16:45> Review of Systems 2 Review of Systems: As reviewed above in HPI <Abner Palomares MD - Last Filed: 07/30/24 16:37> [facility] Past Medical History Medical History: Medical History Bowel perforation Pneumoperitoneum Mitral valve disease leak Blood glucose abnormal Vaginal discharge Suppression of menstruation Seizures (~04/26/21) Miscarriage (05/17/17) suction d&c Migraines Sinus arrhythmia Depression Asthma Anxiety Anemia Arthritis <Darcie Mata PA-C - Last Filed: 07/30/24 16:45> Surgical History Surgical History: Surgical History History of robot-assisted laparoscopic hysterectomy H/O gynecological procedure (~10/04/23) Robotic Laparoscopic lysis of adhesions , Robotic total hysterectomy with ovarian preservation; 12/06/23 History of hysteroscopy (12/07/22) Hysteroscopy with uterine curettings. Endometrial ablation Delivery by section (05/13/22) rpt c/s with tubal ligation History of placement of ear tubes both ear x7 History of adenoidectomy History of appendectomy History of (05/02/18) x2; primary c/s breech presentation, bicornuate uterus History of laparoscopy (02/01/17) lscope adhesiolysis, ablation of endometriosis 12/06/23 Diagnostic laparoscopy, cultures of pelvic fluid Dr. Hartley History of left knee surgery (06/15/15) <Darcie Mata PA-C - Last Filed: 07/30/24 16:45> Family History Family History: Family History Mother Acute myocardial infarction Heart disease Renal failure syndrome Cerebrovascular accident Lupus Father Chronic obstructive lung disease Grandparent Epilepsy Diabetes mellitus maternal grandfather Hypertension maternal grandmother Other Breast cancer paternal aunt Sibling Autism Son Autism <Darcie Mata PA-C - Last Filed: 07/30/24 16:45> Social History Social History: Social History (Updated 07/15/24 @ 09:32 by Rosa Rothman Rosa Maria) Smoking status: Former smoker Tobacco type: e-cigarettes/vaping Second hand tobacco smoke exposure: No Smoking end date: 03/27/23 Additional smoking assessment comments: patient has hx of vaping but not currently Alcohol intake: never Substance use: never Substance use type: does not use Do You Feel Safe in your Home?: Yes Lack of Transportation: YES Lack of Food: Never True Current Housing: Decline to Answer Concerned About Future Housing: Decline to Answer Difficulty Paying Gas/Electric Bills: No Difficulty Paying for Meds: No Currently Unemployed: No Education: High School Diploma/GED Difficulty w/ Childcare or Family Care: No Living arrangements: with family Additional living arrangements comments: single Occupation/Education: occupation 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 No bleeding. EYES: [PERRLA and EOMI.] ENT: Nares clear, no rhinorrhea or epistaxis. Mucous membranes moist. NECK: Supple. CHEST: [Clear to auscultation. No respiratory distress.] HEART: [Regular rate and rhythm]. No murmur heard. [Normal peripheral pulses.] ABDOMEN: [Soft, nondistended], [nontender], [No rigidity or guarding] EXTREMITIES: Normal range of motion. [No edema.] SKIN: Warm, dry, no rash. NEURO: [No focal deficits]. Alert and oriented [x3.] PSYCH: [Normal mood and affect.] <Abner Palomares MD - Last Filed: 07/30/24 16:37> Course Vital Signs Vital signs: Vital Signs Temperature 97.8 F 07/30/24 12:35 Pulse Rate 76 07/30/24 12:35 Respiratory Rate 16 07/30/24 12:35 Blood Pressure 115/75 07/30/24 12:35 Pulse Oximetry 100 07/30/24 12:35 Oxygen Delivery Room Air 07/30/24 12:35 Temperature 97.8 F 07/30/24 12:35 Pulse Rate 69 07/30/24 15:00 Respiratory Rate 15 07/30/24 15:00 Blood Pressure 108/59 L 07/30/24 15:00 Pulse Oximetry 100 07/30/24 15:00 Oxygen Delivery Room Air 07/30/24 12:35 <Darcie Mata PA-C - Last Filed: 07/30/24 16:45> Vital Signs Temperature 97.8 F 07/30/24 12:35 Pulse Rate 76 07/30/24 12:35 Respiratory Rate 16 07/30/24 12:35 Blood Pressure 115/75 07/30/24 12:35 Pulse Oximetry 100 07/30/24 12:35 Oxygen Delivery Room Air 07/30/24 12:35 Temperature 97.8 F 07/30/24 12:35 Pulse Rate 69 07/30/24 15:00 Respiratory Rate 15 07/30/24 15:00 Blood Pressure 108/59 L 07/30/24 15:00 Pulse Oximetry 100 07/30/24 15:00 Oxygen Delivery Room Air 07/30/24 12:35 <Abner Palomares MD - Last Filed: 07/30/24 16:37> MDM - Headache MDM Narrative Medical decision making narrative: 29-year-old female with history of epilepsy well controlled on current medications. She presents to the emergency department for head trauma. Patient states that she struck her head 2 days ago on a cabinet accidentally and then once again today on a shelf. She did not lose consciousness but reports some dizzy sensations. History of epilepsy but no seizures. Minor nauseousness without vomiting. Does not any blood thinners. Patient is otherwise well- appearing not any acute distress with normal vital signs. She has an unremarkable neurological assessment, ambulatory without any difficulty. She has a small right-sided parietal scalp hematoma from the injury but overall relatively minor traumatic injury with low suspicion intracranial pathology such as bleed or skull fracture. laboratory studies rib pain, CT of the head ordered. She was given a combination of Compazine, diphenhydramine, Decadron, fluid bolus and re-evaluated. Workup shows no leukocytosis or anemia. Normal platelet count. Normal electrolytes, renal function and LFTs. Normal glucose, Patient denies chance of . CT of the head shows normal brain with no fractures or acute process. She does have some pansinusitis which could be contributing to her headache but likely to unrelated to the injury. no signs of bacterial infection, no purulent drainage Or white count, will treat this with decongestants rather than antibiotics. EKG shows sinus rhythm. No signs of ST segment changes or ectopy. Patient re-evaluated of treatment with symptomatic improvement. She is stable for discharge home at this time. discussed return precautions and treatment plan for her headache and sinusitis. <Abner Palomares MD - Last Filed: 07/30/24 16:37> Medical Records Attestation: I reviewed the patient's medical records. <Abner Palomares MD - Last Filed: 07/30/24 16:37> Lab Data Attestation: I reviewed the patient's lab results. <Abner Palomares MD - Last Filed: 07/30/24 16:37> Result diagrams: 07/30/24 14:09 07/30/24 14:09 <Darcie Mata PA-C - Last Filed: 07/30/24 16:45> Labs: Lab Results 07/30/24 Range/Units 14:09 WBC 9.2 (4.5-10.0) K/mm3 RBC 4.73 (4.2-5.4) M/mm3 Hgb 13.5 (12.0-15.0) g/dL Hct 41.6 (37.0-47.0) % MCV 87.9 (80-100) fl MCH 28.5 (26-34) pg MCHC 32.5 (32-36) g/dl RDW 12.6 (11.5-14.5) % Plt Count 235 (150-375) k/mm3 MPV 9.8 (7.4-10.4) fl Immature Gran % (Auto) 0.3 (0-0.5) % Neut % (Auto) 74.3 H (45.5-73.1) % Lymph % (Auto) 14.0 L (18.3-44.2) % Churchill % (Auto) 4.7 (2.6-8.5) % Eos % (Auto) 6.2 H (0-4.4) % Baso % (Auto) 0.5 (0.2-1.2) % Lymph # (Auto) 1.28 (0.9-3.2) K/mm3 Churchill # (Auto) 0.4 (0.1-0.6) K/mm3 Eos # (Auto) 0.6 H (0-0.3) K/mm3 Baso # (Auto) 0.1 (0.0-0.1) K/mm3 Abs Immat Gran (auto) 0.03 (0.00-0.031) K/mm3 Absolute Neuts (auto) 6.8 H (1.3-6.7) K/mm3 Absolute Nucleated RBC 0.000 (0.0-0.012) K/mm3 Nucleated RBC % 0.0 (0.0-0.2) % Sodium 137 (137-145) mmol/L Potassium 4.2 (3.4-5.0) mmol/L Chloride 106 (98-107) mmol/L Carbon Dioxide 23 (22-30) mmol/L Anion Gap 8 (4-12) mmol/L BUN 15 (7-17) mg/dL Creatinine 0.83 (0.7-1.0) mg/dL Estim Creat Clear Calc 98 ml/min Estimated GFR > 60 (59 - ) Glucose 97 (65-110) mg/dL Calcium 9.0 (8.4-10.2) mg/dL Total Bilirubin 0.3 (0.2-1.3) mg/dL AST 23 (14-36) U/L ALT 26 (6-35) U/L Alkaline Phosphatase 71 (38-126) U/L Total Protein 7.0 (6.3-8.2) g/dL Albumin 4.3 (3.5-5.1) g/dL <Darcie Mata PA-C - Last Filed: 07/30/24 16:45> Lab Results 07/30/24 Range/Units 14:09 WBC 9.2 (4.5-10.0) K/mm3 RBC 4.73 (4.2-5.4) M/mm3 Hgb 13.5 (12.0-15.0) g/dL Hct 41.6 (37.0-47.0) % MCV 87.9 (80-100) fl MCH 28.5 (26-34) pg MCHC 32.5 (32-36) g/dl RDW 12.6 (11.5-14.5) % Plt Count 235 (150-375) k/mm3 MPV 9.8 (7.4-10.4) fl Immature Gran % (Auto) 0.3 (0-0.5) % Neut % (Auto) 74.3 H (45.5-73.1) % Lymph % (Auto) 14.0 L (18.3-44.2) % Churchill % (Auto) 4.7 (2.6-8.5) % Eos % (Auto) 6.2 H (0-4.4) % Baso % (Auto) 0.5 (0.2-1.2) % Lymph # (Auto) 1.28 (0.9-3.2) K/mm3 Churchill # (Auto) 0.4 (0.1-0.6) K/mm3 Eos # (Auto) 0.6 H (0-0.3) K/mm3 Baso # (Auto) 0.1 (0.0-0.1) K/mm3 Abs Immat Gran (auto) 0.03 (0.00-0.031) K/mm3 Absolute Neuts (auto) 6.8 H (1.3-6.7) K/mm3 Absolute Nucleated RBC 0.000 (0.0-0.012) K/mm3 Nucleated RBC % 0.0 (0.0-0.2) % Sodium 137 (137-145) mmol/L Potassium 4.2 (3.4-5.0) mmol/L Chloride 106 (98-107) mmol/L Carbon Dioxide 23 (22-30) mmol/L Anion Gap 8 (4-12) mmol/L BUN 15 (7-17) mg/dL Creatinine 0.83 (0.7-1.0) mg/dL Estim Creat Clear Calc 98 ml/min Estimated GFR > 60 (59 - ) Glucose 97 (65-110) mg/dL Calcium 9.0 (8.4-10.2) mg/dL Total Bilirubin 0.3 (0.2-1.3) mg/dL AST 23 (14-36) U/L ALT 26 (6-35) U/L Alkaline Phosphatase 71 (38-126) U/L Total Protein 7.0 (6.3-8.2) g/dL Albumin 4.3 (3.5-5.1) g/dL <Abner Palomares MD - Last Filed: 07/30/24 16:37> Imaging Data Attestation: I personally reviewed and interpreted this imaging study as follows: < Abner Palomares MD - Last Filed: 07/30/24 16:37> My impression: Impressions Head CT 07/30/24 13:23 IMPRESSION: 1. Normal brain. No fracture or acute intrarenal process. 2. Pansinusitis. Chest X-Ray 07/30/24 14:41 IMPRESSION: No acute cardiopulmonary pathology. <Abner Palomares MD - Last Filed: 07/30/24 16:37> Critical Care Time Critical Care Time Critical Care Time: No <Darcie Mata PA-C - Last Filed: 07/30/24 16:45> Discharge Plan Discharge Clinical Impression: CHI (closed head injury) Qualifiers: Encounter type: initial encounter Qualified Code(s): S09.90XA - Unspecified injury of head, initial encounter Headache Qualifiers: Headache type: unspecified Headache chronicity pattern: acute headache I ntractability: not intractable Qualified Code(s): R51.9 - Headache, unspecified Sinusitis Qualifiers: Sinusitis location: pansinusitis Chronicity: acute Recurrence: not specified as recurrent Qualified Code(s): J01.40 - Acute pansinusitis, unspecified <Darcie Mata PA-C - Last Filed: 07/30/24 16:45> Patient Disposition: Home <Darcie Mata PA-C - Last Filed: 07/30/24 16:45> Condition: Stable <Darcie Mata PA-C - Last Filed: 07/30/24 16:45> Instructions: Antibiotic Form, Sinusitis (ED), Acute Headache (ED) <BRADLEY Hewitt Last Filed: 07/30/24 16:45> Additional Instructions: your CT scan shows no injury or trauma but you do have some sinusitis likely viral or inflammatory in nature. No signs of bacterial infection. Laboratory studies are in workup otherwise all normal. We will send you home with some decongestant medications to try and control her symptoms. Return with any new or worsening concerns, follow-up with regular doctor. <Darcie Mata PA-C - Last Filed: 07/30/24 16:45> Patient Language: Argentine <BRADLEY Hewitt Last Filed: 07/30/24 16:45> Prescriptions: New loratadine [Claritin] 10 mg tablet 10 mg PO DAILY PRN (Reason: allergy symptoms) Qty: 20 0RF No Action montelukast 10 mg tablet 10 mg PO DAILY tizanidine 4 mg capsule 4 mg PO QHS PRN (Reason: Muscle Spasm) sertraline 100 mg tablet 100 mg PO HS methocarbamol 750 mg tablet 1,500 mg PO TID Qty: 35 0RF topiramate 50 mg tablet 100 mg PO DAILY <Darcie Mata PA-C - Last Filed: 07/30/24 16:45> Follow-up/Referrals: Andreia,Vanessa Baer MD [Primary Care Provider] - <Darcie Mata PA-C - Last Filed: 07/30/24 16:45> Time of Disposition: 16:37 <Darcie Mata PA-C - Last Filed: 07/30/24 16:45> 16:37 <Abner Palomares MD - Last Filed: 07/30/24 16:37>
--- OUTSIDE RECORDS SUMMARY | 2024-07-30 13:40 | XMS_ITS | CONTINUITY OF CARE DOCUMENT ---
Author Name mckenzie, mckenzie Address Unknown Organization [facility] Address [address] [place] [address] Phone [phone] Care Team Providers Care Order Worker Name Role Phone Boris Singh MD Unavailable [phone] CHLOÉ RODRIGUEZ, CLEMENTE Unavailable [phone] CHLOÉ RODRIGUEZ, CLEMENTE Unavailable [phone] PROBLEMS Condition Status Date Provider Notes Cardiology examination active Meseret baires MD B12 deficiency active Lonnie Dacosta MD SVT active Enrike Joe Hypertension active Zaida Conrad Iron deficiency active Meseret Sotelo MD Knee pain, left, chronic active Meseret lopez MD Shortness of breath active Boris Singh MD Chest pain-type to be determined active Boris Singh MD Bradycardia sinus active Boris Singh MD Asthma active Boris Singh MD Palpitations active Robinson [place] Syncope active Robinson [place] Diaphoresis active Robinson [place] Dizziness active Robinson [place] Sinus tachycardia active Robinson [place] ENCOUNTERS Date Type Provider Location Encounter Diag nosis 04/25 - 04/29 In-person encounter Office Visit [facility] Cardiology examination 07/12 - 07/15 In-person encounter Office Visit Meseret Sotelo MD [facility] 03/30 - 04/10 In-person encounter Office Visit Meseret Sotelo MD [facility] 03/01 - 03/01 In-person encounter Office Visit Lonnie Dacosta MD [facility] B12 deficiency 09/20 - 09/24 In-person encounter Office Visit Meseret Sotelo MD [facility] 06/23 - 06/23 In-person encounter Office Visit Meseret Sotelo MD [facility] SVT 04/10 - 04/11 In-person encounter Office Visit Boris Singh MD [facility] 06/01 - 06/06 In-person encounter Office Visit Boris Singh MD [facility] Hypertension 08/26 - 08/27 In-person encounter Office Visit Boris Singh MD [facility] 02/25 - 02/25 In-person encounter Office Visit Boris Singh MD [facility] 11/21 - 11/21 In-person encounter Office Visit Boris Singh MD [facility] 02/12 - 02/12 In-person encounter Office Visit Boris Singh MD [facility] 08/23 - 09/27 In-person encounter Office Visit Boris Singh MD [facility] 05/22 - 05/22 In-person encounter Office Visit Boris Singh MD [facility] 05/05 - 05/08 In-person encounter Office Visit Meseret Sotelo MD [facility] 04/28 - 05/02 In-person encounter Office Visit Meseret Sotelo MD [facility] Knee pain, left, chronicIron deficiency 04/12 - 04/16 In-person encounter Office Visit Boris Singh MD [facility] 02/20 - 02/21 In-person encounter Office Visit Boris Singh MD [facility] Chest pain-type to be determinedShortnes s of breath 12/19 - 12/21 In-person encounter Office Visit Boris Singh MD [facility] AsthmaBradycardia sinus 10/19 - 10/20 In-person encounter Office Visit Boris Singh MD [facility] Sinus tachycardiaDizzinessDiaphoresisSyncopePalpitations VITAL SIGNS Date Observation [...] Elias Sotelo MD weight E&M 176 [lb_av] [facility] blood pressure, cuff size regular Fa [facility] blood pressure, diastolic 64 mm[Hg] Fa [facility] blood pressure, systolic 101 mm[Hg] [facility] 96 % [facility] respiratory rate E&M 16 /min Unique M iller pulse rate 71 /min [facility] height E&M 71 [in_i] [facility] Body Mass Index (Ratio) 24.13 kg/m2 Fauzia Dcaosta MD blood pressure, diastolic 85 mm[Hg] Li nkLog blood pressure, systolic 109 mm[Hg] Megan kLog pulse rate 74 /min [facility] blood pressure, cuff size regular Fa [facility] blood pressure, diastolic 85 mm[Hg] [facility] blood pressure, systolic 109 mm[Hg] [facility] oxygen saturation, oximetry 98 % [facility] respiratory rate E&M 16 /min [facility] iller weight E&M 173 [lb_av] [facility] height E&M 71 [in_i] [facility] Body Mass Index (Ratio) 24.13 kg/m2 Elias Sotelo MD blood pressure, cuff size regular Ke rri Zionueellis blood pressure, diastolic 72 mm[Hg] Ke rri Zionuenenfeldmatilde blood pressure, systolic 136 mm[Hg] Joseph Laughlin oxygen saturation, oximetry 98 % Katherine Laughlin respiratory rate E&M 12 /min Katherine augustin pulse rate 88 /min Katherine Stoner [facility] weight E&M 173 [lb_av] Katherine Stoner [facility] height E&M 71 [in_i] Katherine Stoner [facility] Body Mass Index (Ratio) 23.71 kg/m2 [...] blood pressure, diastolic 68 mm[Hg] Ca therine [place] blood pressure, systolic 115 mm[Hg] Cat herine Caleb oxygen saturation, oximetry 98 % Natalie [place] respiratory rate E&M 14 /min Catheri ne Caleb pulse rate 96 /min Natalie Caleb weight E&M 195 [lb_av] Natalie [place] blood pressure, cuff size regular Ca therine Caleb height E&M 71 [in_i] Natalie Caleb weight E&M 188 [lb_av] [place] Body Mass Index (Ratio) 26.22 kg/m2 [facility] blood pressure, diastolic, left arm 66 mm [Hg] [facility] blood pressure, systolic, left arm 98 mm[ Hg] [facility] blood pressure, diastolic, right arm 75 m m[Hg] [facility] blood pressure, systolic, right arm 104 m m[Hg] [facility] blood pressure, diastolic 66 mm[Hg] To ha [place] blood pressure, systolic 98 mm[Hg] Ton [facility] oxygen saturation, oximetry 98 % [facility] pulse rate 73 /min [facility] respiratory rate E&M 16 /min [facility] weight E&M 188 [lb_av] [facility] height E&M 71 [in_i] [facility] temperature site temporal Christina Tank [facility] temperature E&M 96.9 [degF] Christina Tank marcel Body Mass Index (Ratio) 26.92 kg/m2 Oscar [facility] blood pressure, diastolic 70 mm[Hg] Da [...] augustin pulse rate 105 /min Katherine Stoner [facility] weight E&M 152 [lb_av] Katherine Stoner [facility] height E&M 71 [in_i] Katherine Stoner [facility] Body Mass Index (Ratio) 21.20 kg/m2 [place] blood pressure, cuff size regular Ke [facility]ang [facility] blood pressure, diastolic 72 mm[Hg] Ke rrjuly Cisneros blood pressure, systolic 112 mm[Hg] Joseph Laughlin oxygen saturation, oximetry 98 % Katherine Laughlin respiratory rate E&M 16 /min Katherine augustin pulse rate 124 /min Katherien Stoner [facility] weight E&M 152 [lb_av] Katherine Stoenr [facility] height E&M 71 [in_i] Katherine Stoner er [...] [place] Body Mass Index (Ratio) 20.78 kg/m2 [facility] blood pressure, cuff size regular Ke rri [facility] blood pressure, diastolic 72 mm[Hg] Ke rri Gruenetasneemelder blood pressure, systolic 110 mm[Hg] Joseph Laughlin oxygen saturation, oximetry 97 % Katherine Qian respiratory rate E&M 16 /min Katherine G [facility]abrightlook hospitalmat[facility] pulse rate 103 /min Katherine Leannee er weight E&M 149 [lb_av] Katherine Leannee er height E&M 71 [in_i] Katherine Leannee [facility] Body Mass Index (Ratio) 21.48 kg/m2 [facility] blood pressure, cuff size regular Ke rri [facility] blood pressure, diastolic 66 mm[Hg] Ke rri Ameliaer blood pressure, systolic 102 mm[Hg] Joseph Laughlin oxygen saturation, oximetry 95 % Katherine Qian respiratory rate E&M 16 /min Katherine Mahnaz [facility] hospital[facility] pulse rate 87 /min Katherine Herbie [facility] weight E&M 154 [lb_av] Katherine Leannee er [...] iron binding capacity, unsaturated 367 ug/dL [employer] [phone]/06/0 4 iron binding capacity, total 427 ug/dL [employer] [phone]/06/0 4 calcium, serum 9.7 mg/dL [employer] 8.7-10.2 [...] Estab. 4 platelet count 323 X10E3/UL [employer] [phone]/06/0 4 red blood cell distribution width 13.3 [...] cell distribution width, size density 47.6 fL [facility] - 1 immature granulocytes, percentage of total cells, blood 0.7 % [facility] - 1 nucleated red blood cells as percent of blood leukocytes 0.0 % [facility] - 1 red blood cell (erythrocyte) count, per high power field 0.0 10*3/UL [facility] eosinophils as percent of [...] 20.0 4 blood glucose, random 83.0 mg/dL [facility] 74.0 - 99.0 4 red blood cell distribution width, size density 47.8 fL [facility] - 4 immature granulocytes, percentage of total cells, blood 0.3 % [facility] - 4 nucleated red blood cells as percent of blood leukocytes 0.0 % [facility] - 4 red blood cell (erythrocyte) count, per high power field 0.0 10*3/UL [facility] - 4 eosinophils as percent of blood leukocytes 2.3 % [facility] - 4 neutrophils as percent of blood leukocytes 52.2 % [facility] - 4 Absolute Neutrophils 3.2 CELLS/UL [facility] 1.5 - 7.8 4 basophils as percent of blood leukocytes 0.6 % [facility] - 4 Absolute Basophils 0.0 CELLS/UL [facility] 0.0 - 0.2 4 monocytes as percent of blood leukocytes 5.7 % [facility] - 4 Absolute Monocytes 0.4 CELLS/UL [facility] 0.2 - 1.0 4 lymphocytes as percent of blood leukocytes 38.9 % [facility] - 4 Absolute Lymphocytes 2.4 CELLS/UL [facility] 0.9 - 3.9 4 mean platelet volume 11.9 (?) [facility] - 4 platelet count 276.0 THOUSAND/ UL [facility] 100.0 - 400.0 4 mean corpuscular hemoglobin concentration, RBC 30.9 G/DL [facility] 31.0 - 38.0 Low 4 mean corpuscular hemoglobin, RBC 26.9 pg [facility] 25.0 - 35.0 4 mean corpuscular volume, RBC 86.9 fL [facility] 75.0 - 100.0 4 hematocrit, blood 39.8 % [facility] 35.0 - 55.0 4 hemoglobin, blood 12.3 g/dL [facility] 11.5 - 16.5 4 erythrocyte count, whole [...] tablet extended release completed - Tonja Devinemiglia MEDICAL ASSISTANT DERMATOLOGY tizanidine 4 mg tablet active Take 1 tablet by mouth once daily as needed aSundra Kuhn INFORMATION TECHNOLOGY PROFESSOR Flovent HFA 44 mcg/actuation HFA aerosol inhaler active as directed Natalie [place] ProAir HFA 90 mcg/actuation HFA aerosol inhaler active as directed Natalie Caleb Lupron Depot (3 month) 11.25 mg syringe kit completed intramuscularly every three months - Tonja Nilsonmiglia MEDICAL ASSISTANT DERMATOLOGY Zyrtec 10 mg tablet completed 1 tablet by mouth once a day - Kamala Lo INFORMATION TECHNOLOGY PROFESSOR ZOLOFT 100 MG ORAL TABLET completed take [...] Never smoker Enrike Joe drug use no [facility] alcohol use no [facility] smoking status Never smoker [facility] drug use no [facility] alcohol use no [facility] smoking status Never smoker [facility] drug use no Tonja Ventimig pily [facility] alcohol use no Tonja Ventimig pily [facility] smoking status Never smoker Tonja Ventim iglia [facility] social history reviewed E&M revi ewed - [...] holm number of grandchildren Meseret Sotelo MD [facility] alcohol use no [facility] smoking status Never smoker Robinson [facility] social history reviewed E&M revi ewed - no changes required [place] social history reviewed E&M revi ewed - no changes required Robinson [place] alcohol use no Allie Frederick smoking status Never smoker Allie [place] social history reviewed E&M revi ewed - no changes required Boris Singh MD alcohol use no Katherine Stoner lder smoking status Never smoker Katherine holm social history reviewed E&M revi ewed - [...] Policy type / Coverage type Xi red green party ID JALEN MEDICAID Medicaid [id number] ADVANCE DIRECTIVES Name Date DISCUSSED - NO DECISION MADE TREATMENT PLAN Date Name Performer [id number],C,E tiology unclear. Cardiac w/u to date benign. Will monitor. [facility] [id number],C,w ill update iron studies O rders: 9 9214 MOD 30-39min (CPT-78830) T SH, free T4, total T3 (7444) C BC (INCLUDES DIFF/PLT) (6399) F ERRITIN (457) I BERNARDA AND TOTAL IRON BINDING CAPACITY (7573) [facility] [id number],C,W ill increase propranolol dose H er updated medication list for this problem includes: Propranolol 20 Mg Tablet (Propranolol) ..... 1 tablet by mouth twice a day take 1 tablet by mouth twice daily BP today: 136/72 P rior BP: 112/76 (04/10/2022) Labs Reviewed: C reat: 0.86 (08/28/2019) [facility] [id number],W,c ontinue to persist. Less intense with propranolol and magnesium oxide. We will increase the propranolol to 20mg twice a day. Wiill update labs to r/o underlying source for palpitations H er updated medication list for this problem includes: Propranolol 20 Mg Tablet (Propranolol) ..... 1 tablet by mouth twice a day take 1 tablet by mouth twice daily Orders: 07477 MOD 30-39min (CPT-23883) T SH, free T4, total T3 (7444) C BC (INCLUDES DIFF/PLT) (3099) F ERRITIN (457) I BERNARDA AND TOTAL IRON BINDING CAPACITY (6657) C ortisol - AM (652223) Tonja Zamorano MEDICAL ASSISTANT DERMATOLOGY [id number],S, Enrike Mike i [id number],S, Enrike Mike i [id number],C,S hort runs of SVT and tachycardia, will start her on Magnesium 400 mg BID and Propranolol 10 mg BID and see how she feels. Enrike Mikei [id number],C, P rior BP: 112/76 (04/10/2022) Labs Reviewed: C reat: 0.86 (08/28/2019) Enrike Mikejuly [id number],C, B P today: 112/76 P rior BP: 115/68 (06/01/2021) Labs Reviewed: C reat: 0.86 (08/28/2019) Zaida Bradleybeckie [id number],C,P t is , due in 4 weeks. Still feeling occasional palpitations. Will provide a telesentry monitor. Corlanor on hold due to . Zaida [place] [id number],S, N o CP Zaidakatty Lopezrodrick [id number],C, B P today: 115/68 P rior BP: 98/66 (08/27/2019) Labs Reviewed: C reat: 0.86 (08/28/2019) Zaida Conrad [id number],C, N o CP Zaidakatty Lopezrodrick [id number],C,P t had a visit to [facility] due to episode of LOC. Told the HR was 190. WE do not have any documentation at this time. She complains of SOB and palpitations. Will schedule echo, PFTs, and telemonitor. Zaida Bradleybeckie [id number],C,P t had a visit to [facility] ER due to episode of LOC. Told the HR was 190. WE do not have any documentation at this time. She complains of SOB and palpitations. Will schedule echo, PFTs, and telemonitor. Zaida Bradleybeckie [id number],C,P t had a visit to [facility] ER due to episode of LOC. Told the HR was 190. WE do not have any documentation at this time. She complains of SOB and palpitations. Will schedule echo, PFTs, and telemonitor. Zaida Houston Electrophysiology: Orders: E KG (CPT-34743) 9 9213 LTD 20-29min (CPT-53915) C omplex e/m visit add on (G2211) [...] Meseret Sotelo MD Electrophysiology: Orders: E KG (CPT-58541) 9 9213 LTD 20-29min (CPT-90982) C omplex e/m visit add on (G2211) [...] studies O rders: 9 9214 MOD 30-39min (CPT-51404) T SH, free T4, total T3 (7032) C BC (INCLUDES DIFF/PLT) (3969) F ERRITIN (457) I BERNARDA AND TOTAL IRON BINDING CAPACITY (7576) Meseret Sotelo MD Electrophysiology:Wi ll increase propranolol [...] twice daily Orders: 9 9214 MOD 30-39min (CPT-70868) T SH, free T4, total T3 (3626) C BC (INCLUDES DIFF/PLT) (9099) F ERRITIN (457) I BERNARDA AND TOTAL IRON BINDING CAPACITY (5508) C ortisol - AM (592216) Meseret Sotelo MD Cardiology Enrike Joe Cardiology [...] Zaida Lopezrodrick Cardiology:Pt had a visit to [facility] ER due to episode of LOC. Told the HR was 190. WE do not have any documentation at this time. She complains of SOB and palpitations. Will schedule echo, PFTs, and telemonitor. Zaida Lopezrodrick Cardiology:Pt had a visit to [facility] ER due to episode of LOC. Told the HR was 190. WE do not have any documentation at this time. She complains of SOB and palpitations. Will schedule echo, PFTs, and telemonitor. Zaida Lopezrodrick Cardiology:Pt had a visit to [facility] ER due to episode of LOC. Told the HR was 190. WE do not have any documentation at this time. She complains of SOB and palpitations. Will schedule echo, PFTs, and telemonitor. Zaidakatty Lopezcabeckie Cardiology:Pt has on ly occasional palpitations. Feels they are controlled. [facility] Cardiology:Orders: C BC (INCLUDES DIFF/PLT) (6399) F ERRITIN (457) I BERNARDA AND TOTAL IRON BINDING CAPACITY (7573) [facility] Cardiology:Orders: F VC - 98647 (53528) F RC - 26744 (16899) D LCO - 60197 (73233) [facility] Cardiology:She compl ains of episodes [...] do not help. Orders: C omplete Echo (CPT-37040) F VC - 92182 (49037) F RC - 99143 (46624) D LCO - 89835 (67460) S tress Routine (CPT-25289) C T Angio Chest (PE Protocol) (CPT-21170) C ovid Antibody Igg (93472) C ovid Antibody IgM (LC) (155004) C ovid Antibody IgA (LC) (775892) B ASIC METABOLIC PANEL W/EGFR (58391) P ROBNP, N TERMINAL (82907) C BC (INCLUDES DIFF/PLT) (6399) F ERRITIN (457) I BERNARDA AND TOTAL IRON BINDING CAPACITY (0373) D -DIMER, QUANTITATIVE (8659) Robinson [place] Cardiology:She [...] Tylenol do not help. Orders: E KG (CPT-21020) C omplete Echo (CPT-62883) S tress Routine (CPT-88461) C T Angio Chest (PE Protocol) (CPT-90815) Robinson [place] Cardiology follow up:Echo showed normal EF. Robinson [facility] Cardiology follow up [place] [facility] Card[facility] follow up :Pt is now (16 weeks). Corlanor was stopped. Overall she is doing well but does note some rapid heartbeats from time to time. If palpitations become more persistent, she's instructed to contact us and then we will perform telesentry. Robinson [facility] Cardiology follow up :Orders: C omplete Echo (CPT-28400) [place] Cardiology Boris Singh MD Cardiology [...] EP Follow up faxed :Orders: S NOMED-CT: [id number] Current Medications Documented ([facility]-[id number]) E KG (CPT-77474) Robinson [place] EP Follow up faxed :Her updated medication list for this problem includes: Diltiazem Hcl Er 90 Mg Oral Me83e-rid (Diltiazem hcl) ..... One capsule daily with dinner Magnesium Oxide 400 Mg Oral Tabs (Magnesium oxide) .... One tablet twice daily <--- Added today Robinson [place] EP Follow up faxed :She's been on maximally tolerated oral iron supplements. She follows COUNTER ROLLER. Will schedule iron infusions. Robinson [place] EP Initial Consult f axed 05/03/16:Orders: F ERRITIN (457) F OLATE, SERUM (466) I BERNARDA AND TOTAL IRON BINDING CAPACITY (7573) R ETICULOCYTE COUNT (793) V ITAMIN B12 (927) [place] EP Initial Consult faxed 05/03/16 [place] EP Initial Consult f axed 05/03/16:Her updated medication list for this problem includes: Diltiazem Hcl Er 90 Mg Oral [id number] (Diltiazem hcl) ..... One capsule daily with dinner Robinson [place] EP Initial Consult faxed 05/03/16: No recurrences. [place] EP Initial Consult f axed 05/03/16:Her updated medication list for this problem includes: Diltiazem Hcl Er 90 Mg Oral [id number] (Diltiazem hcl) ..... One capsule daily with [...] includes: Diltiazem Hcl Er 90 Mg Oral Gm29y-[id number] (Diltiazem hcl) ..... One capsule daily with [...] TID. Boris Singh MD Cardiology:Orders: E KG (CPT-76859) M obile Cardiac Tele (CPT-79663) Robinson [place] Cardiology:The pt co mplains of palpitations lasting a few minutes at a time which is associated with diaphoresis, dizziness and blurry vision. It started a few months ago. Will obtain tele. Robinson [place] Date Name Gastroenterology Monitor - Telemetry (Mobile Cardiac) Stress Routine CXR- PA/Lat DLCO - 30869 FRC - 69828 FVC - 25726 Vitamin D, 25-Hydrox y Complete Echo Cortisol - AM IRON AND TOTAL IRON BINDING CAPACITY FERRITIN CBC (INCLUDES DIFF/P LT) TSH, free T4, total T3 Monitor - Telemetry (Mobile Cardiac) PROBNP, N TERMINAL BASIC METABOLIC PANE L W/EGFR CBC (INCLUDES DIFF/P LT) Monitor - Telemetry (Mobile Cardiac) DLCO - 00943 FRC - 06795 FVC - 64038 Complete Echo D-DIMER, QUANTITATIV E IRON AND TOTAL IRON BINDING CAPACITY FERRITIN CBC (INCLUDES DIFF/P LT) PROBNP, N TERMINAL BASIC METABOLIC PANE L W/EGFR Covid Antibody IgA ( LC) Covid Antibody IgM ( LC) CT Angio Chest (PE P rotocol) Stress Routine DLCO - 97866 FRC - 97110 FVC - 99026 Complete Echo Complete Echo VITAMIN B12 RETICULOCYTE [...] completed FVC / MVV with bronchodilator - 59398 Lonnie Dacosta MD completed FRC - 36178 Lonnie Dacosta MD complet ed SpO2 w/o 6min walk/titration Lonnie Dacosta MD completed DLCO - 23003 Lonnie Dacosta MD comple juan miguel Schedule Followup Meseret maynard MD [address] SOTELO completed EKG Meseret nelson MD completed Spirometry Boris Singh MD completed FVC / MVV with bronchodilator - 39610 Boris Singh MD completed FRC - 91937 Boris Singh MD completed SpO2 w/o 6min walk/titration Boris Singh MD completed SVC - 82236 Boris Singh MD completed DLCO - 20872 Boris Singh MD complete d EKG Boris Singh MD completed Stress EKG Boris Singh MD completed EKG Boris Singh MD completed Event Monitor Boris Singh MD complet ed EKG Boris Singh MD completed SNOMED-CT: [id number] Current Medications Documented Boris Singh MD completed SNOMED-CT: 537480056128701 Current Medications Documented Boris Singh MD completed SNOMED-CT: 352117695667255 Current Medications Documented Boris Singh MD completed EKG Meseret nelson MD completed SNOMED-CT: 212049651274100 Current Medications Documented Meseret Sotelo MD completed NICOLÁS maynard MD completed EKG Meseret nelson MD completed SNOMED-CT: 870815730961231 Current Medications Documented Meseret Sotelo MD completed EKG Boris Singh MD completed SNOMED-CT: 453443727234591 Current Medications Documented Boris Singh MD completed SNOMED-CT: 030503298615016 Current Medications Documented Boris Singh MD completed SNOMED-CT: 033066131265872 Current Medications Documented Boris Snigh MD completed Event Monitor Leticia Bhardwaj completed EKG Boris Singh MD completed SNOMED-CT: 009369435391478 Current Medications Documented Boris Singh MD completed
--- OUTSIDE RECORDS SUMMARY | 2024-07-30 13:40 | XMS_ITS | Encounter Summary ---
Author Organization [facility] Address [address] [facility] [address] Care Team Providers Care Design Painter Name Role Phone Behzad Bailey MD Primary Care Provider [phone] Reason for Visit * Reason Onset Date Comments MEDICATION REFILL 06/11/2024 Encounter Details Date Type Department Care Team (Late st Contact Info) Description 06/11/2024 Refill [facility] - Neurology [address] [place] [address], Formerly [facility] [place] [phone] Ceasar Hawkins, SARA-TOSHIA [address] [place] [address] [place] [phone] MEDICATION REFILL Social History Tobacco Use Types Packs/Day Years Used Date Smoking Tobacco: Never Smokeless Tobacco: Never Comments No Sex and Gender Information Value Date Recorded Sex Assigned at Female 03/31/2022 1:21 PM LEGAL ASSOCIATE Legal Sex Female 2:44 PM CDT Gender Identity Female 03/31/2022 1:21 PM LEGAL ASSOCIATE Sexual Orientation Straight 03/27/2024 7: 11 PM LEGAL ASSOCIATE documented as of this encounter Plan of Treatment Upcoming Encounters Date Type Department Care Team (Late st Contact Info) Description 08/14/2024 11:00 AM CDT Office Visit [facility]rology [address] [place] [address], [place] [address] Ceasar Hawkins APRN-SKIVER [address] [place] [place] [address] [place] [address] 10/07/2024 4:00 PM CDT Office Visit [facility] Neurology [address] [place] [address], [place] [address] Lorrie Meng PA-C [address] [place] [address] documented as of this encounter Visit Diagnoses Diagnosis Intractable chronic migraine with aura with status migrainosus documented in this encounter Care Teams Design Painter Relationship Specialty Start Date End Date Behzad Bailey MD [address] [place] [address] PCP - General Internal Medicine 01/01/18 documented as of this encounter
--- OUTSIDE RECORDS SUMMARY | 2024-07-30 13:40 | XMS_ITS | Clinical Summary ---
Author Organization [facility] Address [address] [place] [address] Care Team Providers Care Dental Office Manager Name Role Phone Vanessa Boswell MD Primary Care Provider [phone] Allergies Active Allergy Reactions Criticality Noted Date Comments Amoxicillin Amoxicillin-Pot Clavulanate Menthol Potassium [place] Venom-Honey Bee Medications albuterol HFA (PROAIR HFA) [...] Type Department Care Team Description 07/08/2024 Telephone [facility] Allergy and Immunology [address] [place] [phone] Coleman Martell 06/24/2024 Telephone [facility] Allergy and Immunology [address] [place] [phone] Coleman Martell 05/21/2024 10:40 AM SHOP ESTIMATOR Office Visit [facility] Advanced Medicine ([facility]) - [facility] ENT [address] [address] [facility] 11th [place] [address] [place] [address] Kelton Guan MD Chronic allergic rhinitis (Primary [...] on file Legal Sex Female 9:16 PM SHOP ESTIMATOR Gender Identity Female 07/08/2024 1:48 PM CDT Sexual Orientation Asexual 07/08/2024 1: 48 PM CDT Obstetrics History Last Filed Vital Signs Vital Sign Reading Time Taken Comments Blood Pressure 104/72 05/21/2024 10:57 AM SHOP ESTIMATOR Pulse 67 06/26/2016 9:56 AM CDT Temperature - - Respiratory Rate - - Oxygen Saturation - - Inhaled Oxygen Concentration - - Weight 79.1 kg (174 lb 4.8 oz) 05/21/2024 10:57 AM SHOP ESTIMATOR Height 177.8 cm (5' 10 ) 05/21/2024 10:57 AM SHOP ESTIMATOR Body Mass Index 25.01 05/21/2024 10:57 AM SHOP ESTIMATOR Plan of Treatment Health Maintenance Due Date [...] 11/30/2023, , 01/13/2013, Additional history exists Insurance [facility] Care Teams Dental Office Manager Relationship Specialty Start Date End Date Vanessa Boswell MD [address] [place] [address] PCP - General Emergency Medicine 08/15/23
--- OUTSIDE RECORDS SUMMARY | 2024-07-30 13:40 | XMS_ITS | Clinical Summary ---
Author Organization [facility] Address [address] [facility] [place] [address] Care Team Providers Care National Accounts Sales Name Role Phone Behzad Bailey MD Primary Care Provider [phone] Source Comments [facility],non-owned Affiliates and Associated Physician Practices is amultiple site organization consisting of ambulatory clinics and hospital sitesin [place], [place], [place] and [place]. This disclosure is being madepursuant to the Care Everywhere program and may not contain all information available regarding this patient. Last updated 17.[facility] Allergies Active Allergy Reactions Criticality Noted [...] propionate (FLUTICASONE PROPIONATE) 50 MCG/ACT nasal spray [place] 1 (one) spray into each nostril once [...] Team Description 06/23/2024 Travel 06/12/2024 Orders Only [facility] - Neurology [address] [place] [phone] Lorrie Meng PA-C Memory difficulties 06/12/2024 Orders Only [facility] - Neurology [address] [place] [phone] Lorrie Meng PA-C Memory difficulties 06/11/2024 Refill [facility] - Neurology [address] [place] [phone] Ceasar Hawkins APRN-CYCLING INSTRUCTOR MEDICATION REFILL 06/11/2024 Refill [facility] - Neurology [address] [place] [phone] Ceasar Hawkins EVENT MARKETING INTERN-CYCLING INSTRUCTOR Refill Request 05/15/2024 3:15 PM STAFFING ASSISTANT Office Visit [facility] - Ophthalmology [address] [place] [phone] Mingo Varela MD Recurrent erosion of right cornea (Primary Dx) 05/15/2024 2:00 PM STAFFING ASSISTANT Office Visit [facility] - Neurology [address] [place] [phone] Lorrie Meng PA-C Seizures (Primary Dx) 05/15/2024 Travel 05/07/2024 10:30 AM STAFFING ASSISTANT Office Visit [facility] - Ophthalmology [address] [place] [phone] Mingo Varela MD Recurrent erosion of right cornea (Primary Dx) 05/07/2024 Travel from Last 3 Months Social History Tobacco Use Types Packs/Day Years Used Date Smoking Tobacco: Never Smokeless Tobacco: Never Tobacco Cessation:Counseling Given: Not Answered Comments No Sex and Gender Information Value Date Recorded Sex Assigned at Female 03/31/2022 1:21 PM STAFFING ASSISTANT Legal Sex Female 2:44 PM CDT Gender Identity Female 03/31/2022 1:21 PM STAFFING ASSISTANT Sexual Orientation Straight 03/27/2024 7: 11 PM STAFFING ASSISTANT Last Filed Vital Signs Vital Sign Reading Time Taken Comments Blood Pressure 101/65 05/15/2024 1:58 PM STAFFING ASSISTANT Pulse 89 05/15/2024 1:58 PM STAFFING ASSISTANT Temperature - - Respiratory Rate - - Oxygen Saturation - - Inhaled Oxygen Concentration - - Weight 77.1 kg (170 lb) 05/15/2024 1:58 PM STAFFING ASSISTANT Height 177.3 cm (5' 9.8 ) 10/31/2012 2:54 PM CDT Body Mass Index - - Plan of Treatment Upcoming Encounters Date Type Department Care Team (Late st Contact Info) Description 08/14/2024 11:00 AM CDT Office Visit [facility] - Neurology [address] [place] [phone] Ceasar Hawkins APRN-CYCLING INSTRUCTOR [address] [place] [address] [place] [address] 10/07/2024 4:00 PM CDT Office Visit [facility] - Neurology [address] [place] [phone] Lorrie Meng PA-C [address] [place] [address] Health Maintenance Due Date Last Done Comments [...] patient's age to complete this topic Insurance [facility] * Guarantor: MARLON GOULD Account Type Relation to Patient Date of Phone Billing Address Personal/Family [phone] * Guarantor: MARLON GOULD Account Type Relation to Patient Date of Phone Billing Address Personal/Family [address] * Guarantor: MARLON GOULD Account Type Relation to Patient Date of Phone Billing Address Personal/Family [address] * Guarantor: MARLON GOULD Account Type Relation to Patient Date of Phone Billing Address Personal/Family Spouse Care Teams National Accounts Sales Relationship Specialty Start Date End Date Behzad Bailey MD [address] [place] [phone] PCP - General Internal Medicine 01/01/18
--- OUTSIDE RECORDS SUMMARY | 2024-07-30 13:40 | XMS_ITS | Continuity of Care Document ---
Author Organization [facility] Address [address] [place] [address] Phone Care Team Providers Care Fuse Cup Expander Name Role Phone Nataly Costello NP Unavailable [...] - Active Procedures Procedure Date OFFICE/OUTPATIENT VISIT, [facility] Advance Directives Directive Yes / No Effective Date File Name No Information Encounters Encounter Description Practice Location Reason(s) For Visit Diagnoses Date Provider Providers Copied on Encounter [facility], [address], [place], [place], [address] [place] [address], [phone] [facility] No Information [address] Tr[address] In[address]. [address] [place], [place], [facility], [place]. tel:[phone] [facility], [address], [place], [place], [id number], tel:[phone] [facility] No Information [address] Tr[address] Ingram. [address] [place], [place], [facility], [place]. tel:[phone] OFFICE/OUTPA TIENT VISIT, [facility], [address], [place], [place], [id number], tel:[phone] [facility] Elevated TSH and prolactin (chief complaint) Elevated TSHElevated prolactin levelGalactorrheaFat igueDyshydrosisAsthm aDepressionAnxietyAD HD (attention deficit hyperactivity disorder)Learning disabilities [address] Tr[address] Ingram. [address] [place], [address], [place]. tel:[phone] Referring Provider: Nataly Perez, [address] [place], [place], [facility]. tel:[phone] Family History Family Member Type Diagnosis Age [...] depression Payers Payer name Insurance type Covered republican ID Authoriza tion(s) [place] Medicaid MC [id number] Social History Type Description Quantity Date Captured [...]
--- OUTSIDE RECORDS SUMMARY | 2024-07-30 13:40 | XMS_ITS | Continuity of Care Document ---
Author Organization [facility] Address [address] [place] [address] Phone Care Team Providers Care Voice Over Announcer Name Role Phone Irma Phelan Unavailable Unavailable Advance Directives Directive Yes / No Effective Date File Name No Information Encounters Encounter Description Practice Location Reason(s) For Visit Diagnoses Date Provider Providers Copied on Encounter [facility], [address], [place], [place], [id number], [place] tel:[phone] [facility] No Information Aug- [address]. [address], [place], [address], [place]. tel:[phone] Family History Family Member Type Diagnosis Age At Onset No Information Payers Payer name Insurance type Covered constitution party ID Authoriza tion(s) Medicaid [facility] [id number] Social History Type Description Quantity Date Captured [...]
--- OUTSIDE RECORDS SUMMARY | 2024-07-30 13:40 | XMS_ITS | Referral Summary ---
Author Organization [facility] Address [address] [place] [address] Care Team Providers Care Commercial Truck Driver Name Role Phone Vanessa Boswell MD Primary Care Provider [phone] Encounters Date Type Department Care Team Description 07/08/[address] [facility] Allergy and Immunology [address] [facility] [facility] [address] [place] [address] Coleman Martell 06/24/[address] [facility] Allergy and Immunology [address] [facility] [facility] [address] [place] [address] Coleman Martell 05/21/2024 10:40 AM FINISHING FRAME RUNNER [facility] - [facility] ENT [address] [facility] Advanced Medicine 11th [place] [address] [place] [phone] Kelton Guan MD Chronic allergic rhinitis (Primary Dx); Acute recurrent sinusitis, unspecified location; LPRD (laryngopharyngeal reflux disease) from Last 3 Months Allergies Active Allergy Reactions Criticality Noted Date Comments Amoxicillin Amoxicillin-Pot Clavulanate Menthol Potassium [place] Venom-Honey Bee Medications albuterol HFA (PROAIR HFA) [...] on file Legal Sex Female 9:16 PM FINISHING FRAME RUNNER Gender Identity Female 07/08/2024 1:48 PM CDT Sexual Orientation Asexual 07/08/2024 1: 48 PM CDT Last Filed Vital Signs Vital Sign Reading Time Taken Comments Blood Pressure 104/72 05/21/2024 10:57 AM FINISHING FRAME RUNNER Pulse 67 06/26/2016 9:56 AM CDT Temperature - - Respiratory Rate - - Oxygen Saturation - - Inhaled Oxygen Concentration - - Weight 79.1 kg (174 lb 4.8 oz) 05/21/2024 10:57 AM FINISHING FRAME RUNNER Height 177.8 cm (5' 10 ) 05/21/2024 10:57 AM FINISHING FRAME RUNNER Body Mass Index 25.01 05/21/2024 10:57 AM FINISHING FRAME RUNNER Plan of Treatment Not on file Insurance [facility] Care Teams Commercial Truck Driver Relationship Specialty [place] [address] [place] [address] PCP - General Emergency Medicine 08/15/23
[2024-07-30 14:00] VITALS: BP 107/70; PULSE 70; RESP 16; O2SAT 100
--- NOTE | 2024-07-30 14:04 | ECG_ITS ---
Test Date: 2024-07-30 14:10:57 Measurements Intervals Thompson Rate: 70 P: 55 LA: 144 QRS: 74 QRSD: 92 T: 35 QT: 359 QTc: 388 Interpretive Statements SINUS RHYTHM POSSIBLE RIGHT VENTRICULAR CONDUCTION DELAY [RSR (QR) IN V1/V2] COMPARED TO PREVIOUS EKG 04/23/2024: NO SIGNIFICANT CHANGES Electronically Signed On 07-30-2024 14:30:38 CDT by Vinayak Goodwin M.D.
[2024-07-30 14:21] LABS: Basophils Absolute Auto 0.1 K/mm3 (0.0-0.1); Basophils Percent Auto 0.5 % (0.2-1.2); Eosinophils Absolute Auto 0.6 K/mm3 (0-0.3); Eosinophils Percent Auto 6.2 % (0-4.4); Hematocrit 41.6 % (37.0-47.0); Hemoglobin 13.5 g/dL (12.0-15.0); Immature Granulocyte Absolute 0.03 K/mm3 (0.00-0.031); Immature Granulocyte Percent A 0.3 % (0-0.5); Lymphocytes Absolute Auto 1.28 K/mm3 (0.9-3.2); Mean Corpuscular HGB Conc 32.5 g/dl (32-36); Mean Corpuscular Hemoglobin 28.5 pg (26-34); Mean Corpuscular Volume 87.9 fl (80-100); Mean Platelet Volume 9.8 fl (7.4-10.4); Monocytes Absolute Auto 0.4 K/mm3 (0.1-0.6); Monocytes Percent Auto 4.7 % (2.6-8.5); Neutrophils Absolute Auto 6.8 K/mm3 (1.3-6.7); Neutrophils Percent Auto 74.3 % (45.5-73.1); Platelet Count Result 235 k/mm3 (150-375); Red Blood Count 4.73 M/mm3 (4.2-5.4); Red Cell Distribution Width 12.6 % (11.5-14.5); White Blood Count 9.2 K/mm3 (4.5-10.0)
[2024-07-30 14:33] LABS: Alanine Aminotransferase 26 U/L (6-35); Albumin Level 4.3 g/dL (3.5-5.1); Alkaline Phosphatase 71 U/L (38-126); Anion Gap 8 mmol/L (4-12); Aspartate Amino Transferase 23 U/L (14-36); Bilirubin,Total 0.3 mg/dL (0.2-1.3); Blood Urea Nitrogen 15 mg/dL (7-17); Carbon Dioxide 23 mmol/L (22-30); Chloride 106 mmol/L (98-107); Estimated CRCL calculation 98 ml/min; Estimated Glomerular Filt Rate > 60; Glucose 97 mg/dL (65-110); Potassium 4.2 mmol/L (3.4-5.0); Sodium 137 mmol/L (137-145)
[2024-07-30 15:00] VITALS: BP 108/59; PULSE 69; RESP 15; O2SAT 100
[2024-07-30] MEDS: LORATADINE/PSEUDOEPHEDRINE (*CRX) 10/240 MG TABLET ER 24 HR 1 TAB PO (16:04)
[2024-07-30] MEDS: diphenhydrAMINE HCl INJ 50 MG/ML VIAL 25 MG IV PUSH (16:04)
[2024-07-30] MEDS: SODIUM CHLORIDE 0.9% IV 1,000 ML 999 ML IV CONT (16:05)
[2024-07-30] MEDS: PROCHLORPERAZINE EDISYLATE 10 MG/2 ML VIAL IV PUSH (16:05)
[2024-07-30 16:43] VITALS: BP 110/87; PULSE 85; RESP 16; O2SAT 100
== END 2024-07-30 16:45 | disposition home or self-care (01) ==
PROVIDERS: Emergency Provider Student in an Organized Health Care Education/Training Program; PCP Emergency Medicine
DX: S00.03XA Contusion of scalp, initial encounter (principal); J01.40 Acute pansinusitis, unspecified; R51.9 Headache, unspecified; G40.909 Epilepsy, unspecified, not intractable, without status epilepticus; I34.1 Nonrheumatic mitral (valve) prolapse; J45.909 Unspecified asthma, uncomplicated; M19.90 Unspecified osteoarthritis, unspecified site; F41.9 Anxiety disorder, unspecified; F32.A Depression, unspecified; Z87.891 Personal history of nicotine dependence; Z90.710 Acquired absence of both cervix and uterus; R94.31 Abnormal electrocardiogram [ECG] [EKG]; W18.39XA Other fall on same level, initial encounter; W22.8XXA Striking against or struck by other objects, initial encounter
CPT/HCPCS: 36415; 70450; 71046; 80053; 85025; 93005; 96361; 96374; 96375; 99284; A9270; J0780; J1200; J7030